=== PATIENT | female | born 1970 | race Caucasian/White ===

== ENCOUNTER 2024-10-22 22:13 | Emergency (ER) | payer OTHER, SELFPAY ==
[2024-10-22 22:15] VITALS: BP 110/72
[2024-10-22] MEDS: ADACEL 0.5 ML IM (23:46)
--- NOTE | 2024-10-22 23:48 | ED.GENMED ---
History of Present Illness
General
Chief Complaint: BURN-MINOR
Source: patient
Exam Limitations: none
Time Seen by Provider: 10/22/24 22:33
Nursing documentation reviewed up to this point in time: agreed with
History of Present Illness
History of Present Illness:
54-year-old female with history as documented presents for minor hand burn. She is right-handed. Picked up a hot plate tonight with her right hand and suffered bryan to the tips of her thumb, index, middle finger on the right. Has tiny blisters
in this area. She said she rinsed with cold water and came to the ER to be assessed. Unsure of her last tetanus. No other injuries or issues.
Review of Systems
Review of Systems
All Other Systems: ROS reviewed and negative except as documented in HPI and ROS
Skin: Reports other (Hand burn)
Phy Exam
Physical Exam
Physical Exam:
General: Well appearing and non-toxic
HEENT: protecting airway
Neck: appears supple
CV: No evidence of cyanosis
Resp: No accessory muscle use
Abd: Non-distended
Extremities: No deformities
Neuro: Alert
Psych: Normal affect
Skin: Very minor superficial burn to the pad of the right thumb and the medial aspect of the distal index and middle finger with tiny blisters on each finger; no sloughing of the skin, no significant swelling
Scores
Heart Failure Risk
Heart Failure Risk Score: Not Applicable
Heart Score for Chest Pain Patients
STEMI patient?: Not applicable
Withdrawal Assessment of Alcohol
Withdrawal Assessment Completed?: Not applicable
Course
Orders/Labs/Results
Orders:
Orders
10/22/24 23:35
Tetanus/Diphth/Acelpertussis [Adacel] 0.5 ml IM .ONCE ONE
Vital Signs
Initial and Last Documented VS:
Initial Vital Signs
Temp Pulse Resp BP Pulse Ox
37.6 C 90 18 110/72 100
10/22/24 22:15 10/22/24 22:15 10/22/24 22:15 10/22/24 22:15 10/22/24 22:15
Last Documented Vital Signs
Temp Pulse Resp BP Pulse Ox
37.6 C 90 18 110/72 100
10/22/24 22:15 10/22/24 22:15 10/22/24 22:15 10/22/24 22:15 10/22/24 22:15
MDM/Problems Addressed
Differential Diagnosis Includes:
Minor thermal bryan
MDM/Problems Addressed:
54-year-old female presents with minor thermal bryan to the tips of her right thumb, index, middle finger. Tiny blisters. Bryan were cleaned and dressed here in the emergency room. Spoke about wound care with patient at length. Updated tetanus.
Stable for discharge.
*Pulse Oximetry
Patient hypoxic: no
*Critical Care Note
Total Time (30-74mins, 75-104mins- exclusive of procedures): Not Applicable
Data Reviewed
Source: patient
ED Attending Note
-
Portions of this chart may have been created with voice recognition software.� Occasional wrong word or��sound alike� substitutions may have occurred due to the inherent limitations of voice recognition software.
Discharge Plan
Departure
Patient Disposition: Home (Routine Discharge)
Date of Disposition: 10/22/24
Time of Disposition: 23:34
Patient with high blood pressure during this ER visit?: No
Discharge Problem:
Burn of hand
Instructions: Skin Bryan (DC)
Referrals:
Chichi Garrison DO [Family Provider] - Follow up in 2-3 days
Activity Restrictions/Additional Instructions:
Thank you for visiting the Emergency Department at [facility].
1. Please schedule a follow up appointment as directed. Call first thing tomorrow morning to make an appointment.
2. If indicated, please take your medications as instructed and indicated on discharge paperwork.
3. If any of your symptoms do not improve, or persist, or become more severe within 6-12 hours, please return to the emergency department for further care.
4. Please return to the emergency department if you develop a headache, neck pain/stiffness, fever greater than 100.4F, chest pain, shortness of breath, persistent nausea, vomiting, slurred speech, difficulty walking, numbness/tingling, weakness,
signs of infection or any other symptoms that are worrisome to you.
Please call [phone] if you have any questions.
Interventions
Interventions:
*Risk Screen - Suicide Last Done: 10/22/24 22:15
*Neglect/Abuse Screening Last Done: 10/22/24 22:15
ED- Fall Risk Assessment Last Done: 10/22/24 22:38
ED-Skin Assessment Last Done: 10/22/24 22:38
Discharge Date and Time
Print Language: UZBEK
== END 2024-10-22 23:52 | disposition home or self-care (01) ==
LOC: EMR 22:13
PROVIDERS: EMERGENCY PHYSICIAN Emergency Medicine; FAMILY PHYSICIAN Family Medicine
DX: T23.241A Burn of second degree of multiple right fingers (nail), including thumb, initial encounter (principal); X15.2XXA Contact with hotplate, initial encounter; Z23 Encounter for immunization
CPT/HCPCS: 16020; 90471; 99282; 90715

== ENCOUNTER 2025-01-31 18:11 | Emergency (ER) | payer OTHER, SELFPAY ==
[2025-01-31 18:13] VITALS: BP 169/94
[2025-01-31 18:14] VITALS: BP 169/94
--- NOTE | 2025-01-31 18:23 | ED.GENMED ---
History of Present Illness
General
Chief Complaint: Abdominal Symptoms
Time Seen by Provider: 01/31/25 18:13
History of Present Illness
History of Present Illness:
54-year-old female with history of of alcoholic cirrhosis presents the emergency department for evaluation of intractable nausea vomiting and diarrhea for the past 2 to 3 days. Has been unable to tolerate p.o. fluids today. Reports generalized
abdominal pain that is worse when vomiting. No hematemesis or melena. Notes that she has not been compliant with several of her chronic prescription medications due to the symptoms and also does not have well-established primary care as an
outpatient. No fevers or chills. Denies history of abdominal surgeries
Review of Systems
Review of Systems
Allergies reviewed?: Yes
All Other Systems: ROS reviewed and negative except as documented in HPI and ROS
Phy Exam
Physical Exam
Physical Exam:
GEN: Well appearing, NAD, WDWN
HEENT: Oral mucosa moist, no scleral icterus
Cardiac: Regular rate
Lung: No respiratory distress, no tachypnea
Abdomen: Soft, grossly nontender to palpation
MSK: No gross deformity or injuries
Skin: Good color, no pallor or jaundice, no rashes
Neuro: AO x3, moves all extremities freely
Psych: Calm, cooperative
Course
Orders/Labs/Results
Orders:
Orders
01/31/25 18:23
0.9% Sodium Chloride 1000 ml [Nss] 1,000 ml IV BOLUS
Ondansetron Injectable [Zofran] 4 mg IV NOW STA
01/31/25 18:28
Ammonia Urgent
Complete Blood Count/With Diff Urgent
Comprehensive Metabolic Panel Urgent
Lipase Urgent
01/31/25 18:31
Prothrombin Time Urgent
01/31/25 18:49
COVID-19 Antigen Urgent
Source: Nasal Swab
Influenza A+B Rapid Molecular Urgent
HERBIE Source: Nasal Swab
Specimen Description:
01/31/25 19:55
Metoclopramide [Reglan] 10 mg IV NOW STA
01/31/25 21:47
Urinalysis Reflex To Culture Urgent
Date Specimen was Collected: 01/31/25
Time Specimen was Collected: 21:46
Urine Microscopic Reflex Cult Urgent
Urine Culture Urgent
EHRBIE Source: U
Specimen Description:
Date Specimen was Collected: 01/31/25
Time Specimen was Collected: 21:46
01/31/25 22:21
Clonazepam [Klonopin] 0.5 mg PO NOW STA
Ondansetron Orally Disint [Zofran Odt (Orally Disintegrating)] 4 mg PO NOW STA
Abnormal Lab Results
01/31/25 01/31/25 01/31/25
18:28 18:31 21:47
RBC 5.46 H 10^6/uL
(4.20-5.40)
MCV 77.7 L fL
(81.0-99.0)
MCH 23.4 L pg
(27.0-31.0)
MCHC 30.2 L g/dL
(33.0-37.0)
RDW 21.5 H %
(11.5-14.5)
Absolute Lymphs (auto) 1.0 L 10^3/uL
(1.2-3.4)
Neutrophils % 76.9 H %
(42.2-75.2)
Lymphocytes % 14.2 L %
(20.5-51.1)
PT 14.8 H Sec
(11.4-14.6)
Chloride 93 L mmol/L
(98-107)
Glucose 125 H mg/dl
(70-99)
Calcium 10.7 H mg/dl
(8.4-10.2)
Total Bilirubin 1.4 H mg/dl
(0.2-1.3)
AST 63 H U/L
(14-36)
Alkaline Phosphatase 243 H U/L
(38-126)
Total Protein 8.7 H g/dl
(6.3-8.2)
Urine Ketones 3+ A
(Negative)
Urine Bilirubin 1+ A
(Negative)
Leukocyte Esterase Rfl 1+ A
(Negative)
Urine Bacteria (Reflex) Moderate A
(Negative)
Urine Albumin (Reflex) 2+ A
(Neg - Trace)
01/31/25 18:28
01/31/25 18:28
Vital Signs
Initial and Last Documented VS:
Initial Vital Signs
Temp Pulse BP Pulse Ox
98.0 F 69 169/94 100
01/31/25 18:13 01/31/25 18:13 01/31/25 18:13 01/31/25 18:13
Last Documented Vital Signs
Temp Pulse Resp BP Pulse Ox
98.0 F 62 21 151/77 95
01/31/25 18:13 01/31/25 21:00 01/31/25 21:00 01/31/25 22:00 01/31/25 22:00
MDM/Problems Addressed
MDM/Problems Addressed:
Likely self-limited viral syndrome. She was treated with IV fluids and antiemetics with good improvement in the emergency department. Tolerating p.o. fluids at time of discharge. No indication for imaging as abdominal exam is benign and labs are
reassuring
*Critical Care Note
Total Time (30-74mins, 75-104mins- exclusive of procedures): Not Applicable
ED Attending Note
-
Portions of this chart may have been created with voice recognition software.� Occasional wrong word or��sound alike� substitutions may have occurred due to the inherent limitations of voice recognition software.
Discharge Plan
Departure
Patient Disposition: Home (Routine Discharge)
Date of Disposition: 01/31/25
Time of Disposition: 22:22
Patient with high blood pressure during this ER visit?: No
Discharge Problem:
Nausea and vomiting
Instructions: Nausea and Vomiting, Adult (DC)
Prescriptions:
New
ondansetron 4 mg tablet,disintegrating
4 mg PO TIDPRN PRN (Reason: nausea/vomiting) Qty: 10 0RF
No Action
polyethylene glycol 3350 [Miralax] 17 gram Powder In Packet
17 g PO HS
cetirizine 10 mg Tablet
10 mg PO DAILY
clonazepam 0.5 mg Tablet
0.5 mg PO QID
Patient Comments:
01/31/25: Last filled 01/15/25 for 60 tablets over 30 days, patient stated she is up to 4 times a day
ferrous sulfate 325 mg (65 mg iron) Tablet
325 mg PO DAILY
dextroamphetamine-amphetamine 15 mg Tablet
15 mg PO BID
nadolol 40 mg Tablet
40 mg PO DAILY
hydrochlorothiazide 25 mg Tablet
25 mg PO HS
zolpidem 10 mg Tablet
10 mg PO HS
albuterol sulfate 90 mcg/actuation Hfa Aerosol Inhaler
2 puff INHALATION R BID
fluticasone propionate [Flonase] 50 mcg/actuation [place],Suspension
2 spray INTRANASAL BID
bupropion HCl 300 mg Tablet Extended Release 24 Hr
300 mg PO DAILY
Referrals:
Chichi Garrison DO [Family Provider] -
Interventions
Interventions:
*Risk Screen - Suicide Last Done: 01/31/25 18:42
*General Assessment Last Done: 01/31/25 18:42
*Neglect/Abuse Screening Last Done: 01/31/25 18:42
*ED- Fall Risk Assessment Last Done: 01/31/25 18:42
*ED COVID-19 Vaccine History Last Done: 01/31/25 18:42
*Nursing Disposition Last Done: 01/31/25 22:46
ZX-Txahhu-Mstajiauve Assessment Last Done: 01/31/25 18:46
Discharge Date and Time
Discharge Date/Time: 01/31/25 22:48
Print Language: UGANDAN
[2025-01-31] MEDS: NSS 1000 IV (18:33)
[2025-01-31] MEDS: ZOFRAN 4 MG IV (18:34)
[2025-01-31 18:38] LABS: % Basophils 0.6 % (0-2); % Eosinophils 0.4 % (0-6); % Immature Granulocytes 0.3 % (0-0.5); % Lymphocytes 14.2 % (20.5-51.1); % Monocytes 7.6 % (1.7-9.3); % Neutrophils 76.9 % (42.2-75.2); Absolute Monocytes 0.5 10^3/uL (0.1-0.6); Absolute Neutrophils 5.4 10^3/uL (1.4-6.5); Hematocrit 42.4 % (37.0-47.0); Hemoglobin 12.8 g/dL (12.0-16.0); Mean Corp Hgb Conc. 30.2 g/dL (33.0-37.0); Mean Corpuscular Hgb 23.4 pg (27.0-31.0); Mean Corpuscular Volume 77.7 fL (81.0-99.0); Mean Platelet Volume 9.2 fL (7.4-10.4); Nucleated Red Blood Cells % 0 %; Platelet Count 253 10^3/uL (130-400); Red Blood Cell Count 5.46 10^6/uL (4.20-5.40); Red Cell Dist. Width 21.5 % (11.5-14.5)
[2025-01-31 18:41] VITALS: BMI 21.4
[2025-01-31 18:47] LABS: Ammonia 18 umol/L (9-30)
[2025-01-31 18:51] LABS: ALT (SGPT) 30 U/L (0-35); AST (SGOT) 63 U/L (14-36); Albumin 4.7 g/dl (3.5-5.0); Alkaline Phosphatase 243 U/L (38-126); Blood Urea Nitrogen 17 mg/dl (7-17); Calcium 10.7 mg/dl (8.4-10.2); Carbon Dioxide 22 mmol/L (22-30); Chloride 93 mmol/L (98-107); Estimated Creatinine Clearance 64 ml/min; Glucose 125 mg/dl (70-99); Lipase 102 U/L (23-300); Potassium 3.9 mmol/L (3.5-5.1); Sodium 136 mmol/L (135-145); Total Bilirubin 1.4 mg/dl (0.2-1.3); Total Protein 8.7 g/dl (6.3-8.2); eGFR > 60.00
[2025-01-31 18:55] LABS: INR 1.11; PT 14.8 Sec (11.4-14.6)
[2025-01-31 19:00] VITALS: BP 139/103
[2025-01-31 19:11] LABS: COVID-19 Antigen Negative (Negative)
[2025-01-31] MEDS: REGLAN 10 MG IV (20:30)
[2025-01-31 21:00] VITALS: BP 158/75
[2025-01-31 21:55] LABS: Urine Albumin 2+ (Neg - Trace); Urine Bilirubin 1+ (Negative); Urine Character Slightly Cloudy (Clear); Urine Color Yellow; Urine Glucose Negative (Negative); Urine Ketone 3+ (Negative); Urine Leukocyte 1+ (Negative); Urine Nitrite Negative (Negative); Urine Occult Blood Negative (Negative); Urine Specific Gravity 1.025 (<1.030); Urine Urobilinogen 1+ (Neg - 1+)
[2025-01-31 22:00] VITALS: BP 151/77
[2025-01-31 22:17] LABS: Urine Bacteria Moderate (Negative); Urine Red Blood Cell 0-2 /HPF (0-2); Urine Squamous Cell >30 /LPF (Few)
[2025-01-31] MEDS: ZOFRAN ODT (ORALLY DISINTEGRATING) 4 MG PO (22:33)
[2025-01-31] MEDS: KLONOPIN 0.5 MG PO (22:33)
== END 2025-01-31 22:48 | disposition home or self-care (01) ==
LOC: EMR 18:11
PROVIDERS: Physician Assistant; EMERGENCY PHYSICIAN Emergency Medicine; FAMILY PHYSICIAN Family Medicine
DX: R11.2 Nausea with vomiting, unspecified (principal); R19.7 Diarrhea, unspecified; R10.84 Generalized abdominal pain; K70.30 Alcoholic cirrhosis of liver without ascites; Z11.52 Encounter for screening for COVID-19
CPT/HCPCS: 96374; 96375; 96361; 99284; 80053; 81003; 81015; 82140; 83690; 85025; 85610; 87086; 87502; 87811

== ENCOUNTER 2025-03-25 15:48 | Observation (INO) | payer OTHER, SELFPAY ==
[2025-03-25 04:51] VITALS: BP 118/74
--- NOTE | 2025-03-25 07:15 | ED.GENMED ---
History of Present Illness
General
Chief Complaint: Breathing Problem
Source: patient and ambulance crew
Time Seen by Provider: 03/25/25 06:51
History of Present Illness
History of Present Illness:
54-year-old female with past medical history of alcoholic liver cirrhosis, previous alcohol abuse with alcoholic liver cirrhosis, bipolar disorder presenting [facility] emergency department [facility] for a multitude of reasons,
patient unable to specify exact reason as she has somewhat rambling speech, noting she was recently at [facility] for a fall, had been unable to ambulate and get up off the ground and was transferred from home to the emergency department there
where she was ultimately admitted. Patient unable to tell me much about the admission from [facility] but was told she needed rehab and is currently at a rehab facility (patient unable to tell me the name of this facility) and stating that she
believes she has pneumonia. When asked why she believes she has pneumonia patient states they are giving her a medication called lactulose and that it is making her 'poop fiber'. Patient states that she was also not supposed to start rehab and
that they are letting her walk unattended and that this is not something that she should be doing. When asked what brought her to the emergency department here today patient is unable to answer the question and just has rambling speech without any
linear thought.
Past History
Past History
ED Past Medical History: Psychiatric and Other (Alcoholic liver cirrhosis)
ED Past Surgical History: None
Social History
Tobacco: Former smoker
Alcohol: Chronic alcoholic
Drug: None
Personal: Single
Living: with roommate
Review of Systems
Review of Systems
All Other Systems: ROS reviewed and negative except as documented in HPI and ROS
Phy Exam
Physical Exam
Physical Exam:
GENERAL: Alert , in no apparent distress, speaking full sentences, no respiratory distress
HEAD: Normocephalic atraumatic
EYE: Clear conjunctiva
NECK: Supple
ENT: o/p clr, mmm.
CARDIAC: Regular rate and rhythm .
LUNGS: Clear breath sounds bilaterally, no acute respiratory distress, no wheezes/rales/rhonchi
ABDOMEN: Soft, without focal tenderness, no r/g, no cvat
NEUROLOGICAL: Alert and oriented to person place and time, will answer questions but is very tangential in her thought process/answers
SKIN: Warm and dry, skin intact.
MUSCULOSKELETAL: No edema, well perfused.
PSYCH: Bizarre affect
Scores
Heart Failure Risk
Heart Failure Risk Score: Not Applicable
Heart Score for Chest Pain Patients
STEMI patient?: Not applicable
Withdrawal Assessment of Alcohol
Withdrawal Assessment Completed?: Not applicable
Course
Orders/Labs/Results
Orders:
Orders
03/25/25 07:09
CR Chest Portable - 1 View Urgent
Comment:
Reason For Exam: SOB
Reason Study Needs to be Portable: Unable to Transport
03/25/25 08:02
Ammonia Urgent
Complete Blood Count/With Diff Urgent
Comprehensive Metabolic Panel Urgent
Magnesium Urgent
TSH Urgent
Urinalysis Reflex To Culture Urgent
Date Specimen was Collected: 03/25/25
Time Specimen was Collected: 08:01
Urine Microscopic Reflex Cult Urgent
Urine Culture Urgent
HERBIE Source: U
Specimen Description:
Date Specimen was Collected: 03/25/25
Time Specimen was Collected: 08:01
03/25/25 08:34
US Abdomen Complete/Upper Urgent
Comment:
Reason For Exam: abnormal LFT, hx cirrhosis
03/25/25 10:41
CefTRIAXone [Rocephin] 1,000 mg IV NOW STA
03/25/25 12:32
Diphenhydramine [Benadryl] 25 mg PO NOW STA
Abnormal Lab Results
03/25/25
08:02
MCHC 32.0 L g/dL
(33.0-37.0)
RDW 22.5 H %
(11.5-14.5)
MPV 10.9 H fL
(7.4-10.4)
Absolute Lymphs (auto) 0.9 L 10^3/uL
(1.2-3.4)
Lymphocytes % 16.3 L %
(20.5-51.1)
Monocytes % 9.6 H %
(1.7-9.3)
Chloride 112 H mmol/L
(98-107)
Carbon Dioxide 17 L mmol/L
(22-30)
Total Bilirubin 3.3 H mg/dl
(0.2-1.3)
AST 120 H U/L
(14-36)
ALT 43 H U/L
(0-35)
Alkaline Phosphatase 252 H U/L
(38-126)
Ammonia 34 H umol/L
(9-30)
Albumin 3.3 L g/dl
(3.5-5.0)
Urine Ketones 1+ A
(Negative)
Ur Occult Blood Reflex 1+ A
(Negative)
Urine Nitrite (Reflex) Positive A
(Negative)
Urine Bilirubin 2+ A
(Negative)
Leukocyte Esterase Rfl 1+ A
(Negative)
Urine Bacteria (Reflex) Moderate A
(Negative)
Urine Albumin (Reflex) 2+ A
(Neg - Trace)
03/25/25 08:02
03/25/25 08:02
Vital Signs
Initial and Last Documented VS:
Initial Vital Signs
Temp Pulse Resp BP Pulse Ox
97.2 F 92 20 118/74 100
03/25/25 04:51 03/25/25 04:51 03/25/25 04:51 03/25/25 04:51 03/25/25 04:51
Last Documented Vital Signs
Temp Pulse Resp BP Pulse Ox
97.2 F 90 17 118/74 99
03/25/25 04:51 03/25/25 10:00 03/25/25 07:30 03/25/25 04:51 03/25/25 10:00
MDM/Problems Addressed
Differential Diagnosis Includes:
encephalopathy secondary to known chronic liver disease, electrolyte derangement, urinary tract infection, psychosis, delirium
MDM/Problems Addressed:
54-year-old female presenting to the ER from [facility] for relatively unknown reasons, patient with very tangential thought process, difficult to redirect. In evaluating the patient she did mention she was concerned for pneumonia however has
no upper respiratory symptoms. Will check labs including electrolytes, ammonia level, TSH. Will attempt to obtain urinalysis. Disposition pending.
Chronic conditions affecting care: Psychiatric illness
Acute Exacerbation and/or Progression of Chronic Illness: Psychiatric illness
*Radiology
Radiology exam reviewed: radiology read reviewed
*Pulse Oximetry
Patient hypoxic: no
*Critical Care Note
Total Time (30-74mins, 75-104mins- exclusive of procedures): Not Applicable
Data Reviewed
Review of Other/Old Records Reveals: Labs and Records
Comment
Comment:
8:45 AM: Patient's urine is nitrite positive and 1+ leukocytes however there are only 3-5 WBCs. Question urinary tract infection, will send for culture. She also has abnormal chemistry with her bicarb of 17, total bilirubin of 3.3 and elevated
AST/ALT and alkaline phosphatase. These are elevated from labs done this past January. Will obtain an ultrasound to further evaluate. Question cholangitis as potential cause for change in mental status. Patient to likely be admitted. I have
attempted to contact [facility] multiple times but only get to leave a voice message and not able to speak with any of the nursing staff.
Patient Management
Discussion with other providers: Hospitalist
Escalation/DeEscalation of care consider admission/obs:
Given patient's lab abnormalities, change in mental status and questionable urinary tract infection will admit for antibiotic management and further evaluation. Still attempting to get records from [facility] but this has been unsuccessful. I
still have yet to receive a call back from [facility]. Hospitalist team was notified and accepts for continued evaluation and treatment.
ED Attending Note
-
Portions of this chart may have been created with voice recognition software.� Occasional wrong word or��sound alike� substitutions may have occurred due to the inherent limitations of voice recognition software.
Discharge Plan
Departure
Patient Disposition: Admit
Date of Disposition: 03/25/25
Time of Disposition: 10:41
Presentation/result/management discussed w/ accepting MD/DO: Hospitalist
Discharge Problem:
Altered mental status, Encephalopathy, UTI (urinary tract infection), Transaminitis
Prescriptions:
No Action
polyethylene glycol 3350 [Miralax] 17 gram Powder In Packet
17 g PO HS
cetirizine 10 mg Tablet
10 mg PO DAILY
clonazepam 0.5 mg Tablet
0.5 mg PO QID
Patient Comments:
01/31/25: Last filled 01/15/25 for 60 tablets over 30 days, patient stated she is up to 4 times a day
ferrous sulfate 325 mg (65 mg iron) Tablet
325 mg PO DAILY
dextroamphetamine-amphetamine 15 mg Tablet
15 mg PO BID
nadolol 40 mg Tablet
40 mg PO DAILY
hydrochlorothiazide 25 mg Tablet
25 mg PO HS
zolpidem 10 mg Tablet
10 mg PO HS
albuterol sulfate 90 mcg/actuation Hfa Aerosol Inhaler
2 puff INHALATION R BID
fluticasone propionate [Flonase] 50 mcg/actuation [place],Suspension
2 spray INTRANASAL BID
bupropion HCl 300 mg Tablet Extended Release 24 Hr
300 mg PO DAILY
ondansetron 4 mg tablet,disintegrating
4 mg PO TIDPRN PRN (Reason: nausea/vomiting) Qty: 10 0RF
Referrals:
Dieudonne-Dye,Chichi, [Family Provider] -
Interventions
Interventions:
*Risk Screen - Suicide Last Done: 03/25/25 04:51
*General Assessment Last Done: 03/25/25 07:51
*Neglect/Abuse Screening Last Done: 03/25/25 04:51
*ED COVID-19 Vaccine History Last Done: 03/25/25 07:51
Discharge Date and Time
Print Language: YAKUT
[2025-03-25 07:51] VITALS: BMI 21.4
[2025-03-25 08:00] VITALS: BP 107/48
[2025-03-25 08:16] LABS: Urine Albumin 2+ (Neg - Trace); Urine Bilirubin 2+ (Negative); Urine Character Clear (Clear); Urine Color Amber; Urine Glucose Negative (Negative); Urine Ketone 1+ (Negative); Urine Leukocyte 1+ (Negative); Urine Nitrite Positive (Negative); Urine Occult Blood 1+ (Negative); Urine Specific Gravity 1.025 (<1.030); Urine Urobilinogen 1+ (Neg - 1+)
[2025-03-25 08:23] LABS: % Basophils 1.8 % (0-2); % Eosinophils 1.8 % (0-6); % Immature Granulocytes 0.4 % (0-0.5); % Lymphocytes 16.3 % (20.5-51.1); % Monocytes 9.6 % (1.7-9.3); % Neutrophils 70.1 % (42.2-75.2); Absolute Basophils 0.1 10^3/uL (0-0.2); Absolute Eosinophils 0.1 10^3/uL (0-0.7); Absolute Lymphocytes 0.9 10^3/uL (1.2-3.4); Absolute Monocytes 0.6 10^3/uL (0.1-0.6); Hematocrit 39.1 % (37.0-47.0); Hemoglobin 12.5 g/dL (12.0-16.0); Mean Corpuscular Hgb 27.2 pg (27.0-31.0); Mean Corpuscular Volume 85.2 fL (81.0-99.0); Mean Platelet Volume 10.9 fL (7.4-10.4); Nucleated Red Blood Cells % 0 %; Platelet Count 189 10^3/uL (130-400); Red Blood Cell Count 4.59 10^6/uL (4.20-5.40); Red Cell Dist. Width 22.5 % (11.5-14.5); White Blood Cell Count 5.7 10^3/uL (4.8-10.8)
[2025-03-25 08:31] LABS: ALT (SGPT) 43 U/L (0-35); AST (SGOT) 120 U/L (14-36); Albumin 3.3 g/dl (3.5-5.0); Alkaline Phosphatase 252 U/L (38-126); Blood Urea Nitrogen 8 mg/dl (7-17); Calcium 9.2 mg/dl (8.4-10.2); Carbon Dioxide 17 mmol/L (22-30); Chloride 112 mmol/L (98-107); Estimated Creatinine Clearance 85 ml/min; Glucose 90 mg/dl (70-99); Magnesium 1.7 mg/dl (1.6-2.3); Sodium 137 mmol/L (135-145); Total Bilirubin 3.3 mg/dl (0.2-1.3); Total Protein 6.8 g/dl (6.3-8.2); eGFR > 60.00
[2025-03-25 08:39] LABS: Urine Squamous Cell 26-30 /LPF (Few)
[2025-03-25 08:41] LABS: Urine Bacteria Moderate (Negative); Urine Calcium Oxalate Crystals Present; Urine Red Blood Cell 0-2 /HPF (0-2)
[2025-03-25 09:00] VITALS: BP 114/78
[2025-03-25 09:49] LABS: Ammonia 34 umol/L (9-30)
[2025-03-25] MEDS: ROCEPHIN 1000 MG IV (11:32)
[2025-03-25 11:45] LABS: Normal RBC Morphology No
[2025-03-25 11:46] LABS: Anisocytosis 1+; Hypochromasia 1+; Microcytosis 1+; Target Cells 1+
--- NOTE | 2025-03-25 12:17 | EDRN ---
Patient called out for help despite having the call grossman on her lap, patient stated she needs medicine for her itchy skin. This RN left to speak to PA about ordering meds for patient, at that time the patient climbed out of bed and walked to the
bathroom without assistance despite stating ' I can not walk, my legs don't work.' This RN educated patient on not getting oob without assistance.
[2025-03-25] MEDS: BENADRYL 25 MG PO (12:48)
--- NOTE | 2025-03-25 14:25 | HPS.HSE ---
Family Physician
-
Family Physician: Chcihi Garrison
Chief Complaint
-
change in mental status
History of Present Illness
Patient is a 54-year-old female with past medical history significant for anemia, alcoholic liver cirrhosis, previous alcohol abuse with alcoholic liver cirrhosis, anxiety, ADHD and bipolar disorder who presented to [facility] ED from [facility] for
evaluation of change in mental status. Patient with recent hospitalization at [facility] s/ with generalized weakness and sent to [facility] for rehab. Patient unable to provide good history r/t confusion. She does report
hospitalization at [facility] fall but unable to provide details of why they kept her. She reports that she has been staying at a 'house' that is open to sick people 3 days a week and reports they have not been helping her and reports that
anytime she gets out of bed her feet trigger an alarm and sees mice on floor. She presents paranoid with possible hallucinations. Patient reports that she has increased urinary frequency. Denies fever, chills, cough, shortness of breath, chest pain,
nausea, vomiting, constipation or diarrhea.
Medical History
Past Medical History
Past Medical History: Reports Other
Additional Past Medical History:
anemia
alcoholic liver cirrhosis
previous alcohol abuse with alcoholic liver cirrhosis
bipolar disorder
anxiety
ADHD
Past Surgical History: Reports None (unable to obtain )
Social History
Unable to obtain full social history at this time due to: Other (patient poor historian )
Tobacco: Non-smoker
Alcohol: Former (has not drank in years)
Drug: Marijuana (smokes nightly to help sleep )
Living: Alone
Employment: Not Employed
Family History
Family History: Other (Mother: Parkinson's Disease and Dementia )
Allergies / Home Medications
Allergies reflects when Allergies were last updated in [facility].
Home Medications with original date entered in [facility]
Allergy/Medication List:
Allergies
Allergy/AdvReac Type Severity Reaction Status Date / Time
No Known Allergies Allergy Verified 01/31/25 18:18
Home Medications
clonazepam 0.5 mg tablet 1 mg PO TID 01/31/25
ferrous sulfate 325 mg (65 mg iron) tablet 325 mg PO DAILY 01/31/25
fluticasone propionate 50 mcg/actuation nasal spray,suspension 2 spray intranasal DAILY 01/31/25
nadolol 40 mg tablet 40 mg PO DAILY 01/31/25
acetaminophen 325 mg tablet 650 mg PO Q4H PRN mild pain/fever>100.0 03/25/25
bisacodyl 10 mg rectal suppository (Dulcolax (bisacodyl)) 10 mg DE DAILY PRN constipation 03/25/25
budesonide-formoterol HFA 160 mcg-4.5 mcg/actuation aerosol inhaler 2 puff inhalation BID 03/25/25
dextroamphetamine-amphetamine 20 mg tablet 20 mg PO BID 03/25/25
lactulose 10 gram/15 mL oral solution 30 ml PO TID 03/25/25
magnesium hydroxide 400 mg/5 mL oral suspension (Milk of Magnesia) 30 ml PO DAILY PRN constipation 03/25/25
rifaximin 550 mg tablet 550 mg PO BID 03/25/25
sodium phosphates 19 gram-7 gram/118 mL enema (Fleet Enema) 118 ml DE DAILYPRN PRN constipation 03/25/25
Review of Systems
-
History Source: Patient (poor historian, offers no complaints other than generalized weakness )
Neurological: Reports Weakness (generalized )
Physical Exam
Vital Signs
Vital Signs
Temp Pulse Resp BP Pulse Ox
97.2 F 90 17 118/74 99
03/25/25 04:51 03/25/25 10:00 03/25/25 07:30 03/25/25 04:51 03/25/25 10:00
Physical Exam
General: Well Developed, No Apparent Distress, Comfortable and Conversant
HEENT: NormoCephalic, Moist mucous membranes, Atraumatic, [place] Conjunctivae, Nose Appears Normal and Ears Appear Normal
Respiratory: Clear
Cardiac: S1/S2 and Regular Rhythm
Breast: Deferred by me
GI: Soft, Non Tender, Non Distended and Normal Bowel Sounds; No Organomegaly
Rectal: Deferred by Provider
Genito-urinary: Deferred by me
Musculoskeletal: No Clubbing, No Cyanosis and No Edema
Skin: Warm and IV/Catheter Site
Neuro: Awake, Alert, Oriented (2-3) and Nonfocal/grossly intact
Psych: Calm and Confused
Laboratory Results
-
03/25/25 08:02
03/25/25 08:02
Laboratory Results
Total Bilirubin 3.3 mg/dl (0.2-1.3) H 03/25/25 08:02
AST 120 U/L (14-36) H 03/25/25 08:02
ALT 43 U/L (0-35) H 03/25/25 08:02
Alkaline Phosphatase 252 U/L (38-126) H 03/25/25 08:02
Data Reviewed
-
Diagnostic Radiology: Report Reviewed by me (CXR: No acute cardiopulmonary abnormality.)
Ultrasound: Report Reviewed by me (Abd: Cirrhotic morphology with findings of portal hypertension hepatofugal flow portal venous flow and splenomegaly. Further evaluation with dedicated MRI abdomen may be considered for evaluation of underlying
lesion. Biliary sludge without sonographic findings of acute cholecystitis. There is no b)
Lab Data: Labs Reviewed by me (HCO3 17, Tot Bili 3.3, AST 120, ALT 43, Alk Phos 252, Ammonia 34)
Impression/Plan
-
IMPRESSION/PLAN:
#change in mental status 2/2 hepatic encephalopathy vs UTI
HCO3 17, Tot Bili 3.3, AST 120, ALT 43, Alk Phos 252, Ammonia 34
UA: suggestive of possible UTI
Urine culture: pending
CXR: No acute cardiopulmonary abnormality.
Abd US: Cirrhotic morphology with findings of portal hypertension hepatofugal flow portal venous flow and splenomegaly. Further evaluation with dedicated MRI abdomen may be considered
for evaluation of underlying lesion.
Biliary sludge without sonographic findings of acute cholecystitis. There is no biliary duct dilation.
- Admit to med/surg
- IV Rocephin
- I & Os
- supportive care
#Anemia
hgb 12.5, hct 39.1
- continue ferrous sulfate
#alcoholic liver cirrhosis
#previous alcohol abuse
- continue lactulose, nadolol and rifaximin
#bipolar disorder
#anxiety
- continue clonazepam
#ADHD
- hold dextroamphetamine-amphetamine can resume at home
Code status: full code
DVT prophylaxis: Lovenox sq
[2025-03-25 15:00] VITALS: BP 109/72
[2025-03-25 15:37] VITALS: BP 121/82
--- NOTE | 2025-03-25 15:54 | W.PN.UPDATE ---
Update Note
Progress Note Update
This is an addendum to H&P written by Sammie Sue on 03/25/2025.� Patient seen and examined independently with MACHINE SKIVER.
54-year-old female past medical history of alcoholic cirrhosis, prior alcohol use disorder, bipolar disorder, anxiety, ADHD, anemia, presenting with shortness of breath.� She was recently admitted [facility] for a fall and admitted there.� She
states she is from rehab facility and believes they are not taking care of her.� She complained of shortness of breath and cough today.� Patient is giving questionable history stating that she is having 6 bowel movements over the past day taking
lactulose.� Apparently was seeing mice.
Also complaining of urinary incontinence.
Vital signs normal.� Labs show ammonia level of 34.� Worsening transaminitis with bilirubin up to 3.3.� Bicarb of 17.
Chest x-ray unremarkable.� Urinalysis not convincing for infection.� Abdominal ultrasound shows cirrhotic morphology findings of portal hypertension, biliary sludge without acute cholecystitis.� No biliary ductal dilatation.
Suspect patient has hepatic encephalopathy due to progressive cirrhosis, and history that she is providing is unreliable with rambling speech.� Records from [facility] pending.� Will continue lactulose and rifaximin and monitor bowel movements.�
Will treat empirically for UTI with ceftriaxone given she is having urinary incontinence although doubt UTI.� Check lactate level due to metabolic acidosis which could be from elevated ammonia.
[2025-03-25] MEDS: LOVENOX 40 MG SC (17:26)
[2025-03-25] MEDS: ATARAX 25 MG PO ×2 (17:26→20:04)
[2025-03-25] MEDS: DUPHALAC/CHRONULAC 20 GRAMS PO ×2 (17:26→21:15)
--- NOTE | 2025-03-25 19:15 | PTCARENOTE ---
Pt received from day shift RN at 1915. Pt pleasant, AAOx3, and VSS. Pt bed in lowest position and call grossman within reach. Pt educated on importance of call grossman usage, pt relays understanding. Bed alarm placed and plugged in. Pt complains of
itchiness all over body. HOME HEALTH CARE COORDINATOR notified - medication ordered and administered - see MAR. Will continue with current plan of care.
[2025-03-25] MEDS: SYMBICORT 160/4.5 MCG INHALER 2 PUFF INH (19:41)
[2025-03-25] MEDS: XIFAXAN 550 MG PO (20:04)
[2025-03-25 23:46] VITALS: BP 105/61
[2025-03-26] MEDS: ATARAX 25 MG PO ×3 (01:06→14:31)
[2025-03-26 07:00] VITALS: BP 101/66
--- NOTE | 2025-03-26 07:21 | W.PN.HOSP.TC ---
Today's Communication/Plan
-
Discharge today
Assessment / Plan
Assessment / Plan
Physical Exam
General: Well Developed, No Apparent Distress, Comfortable and Conversant
HEENT: Normocephalic, Moist mucous membranes
Respiratory: Clear to Auscultation Bilaterally
Cardiac: S1/S2 and Regular Rhythm
GI: Soft, Non Tender, Non Distended and Normal Bowel Sounds
Musculoskeletal: No Cyanosis and No Edema
Skin: Warm. Dry.
Neuro: Awake, Alert, Oriented (2-3) and Nonfocal/grossly intact
Psych: Calm and Confused
Assessment/Plan
54-year-old female with past medical history of alcoholic cirrhosis, prior alcohol use disorder, bipolar disorder, anxiety, ADHD and anemia, presented with shortness of breath. She was recently admitted [facility] for a fall and admitted there.
She stated she is from rehab facility and believes they are not taking care of her. She complained of shortness of breath and cough. Patient is giving questionable history stating that she is having 6 bowel movements over the past day taking
lactulose. Apparently was seeing mice. Also complaining of urinary incontinence. Vital signs normal. Labs showed ammonia level of 34. Worsening transaminitis with bilirubin up to 3.3. Bicarb of 17. Chest x-ray unremarkable. Urinalysis not
convincing for infection. Abdominal ultrasound shows cirrhotic morphology findings of portal hypertension, biliary sludge without acute cholecystitis. No biliary ductal dilatation.
It is suspected that patient has hepatic encephalopathy due to progressive cirrhosis, and history that patient provided was unreliable, given her rambling speech.Will continue lactulose and rifaximin and monitor bowel movements. Will treat
empirically for UTI with ceftriaxone given she is having urinary incontinence although doubt true UTI. Check lactate level due to metabolic acidosis which could be from elevated ammonia.
#change in mental status 2/2 hepatic encephalopathy vs UTI
Altered mental status has improved with Rifaximin and Lactulose, as well as antibiotics --> continue on discharge
Patient is tolerating a diet
UA: suggestive of possible UTI
Urine culture with 10k enterococcus --> doubt this is causing a UTI
CXR: No acute cardiopulmonary abnormality.
Abd US: Cirrhotic morphology with findings of portal hypertension hepatofugal flow portal venous flow and splenomegaly. Further evaluation with dedicated MRI abdomen may be considered
for evaluation of underlying lesion.
Biliary sludge without sonographic findings of acute cholecystitis. There is no biliary duct dilation.
- Admit to med/surg
- IV Rocephin, transition to Cefpodoxime 200 mg BID on discharge to complete 7 days for UTI treatment
- I & Os
- supportive care
- Follow-up with Dr. Garcia dispatcher relay
- Patient at current condition is a higher risk for falls, patient understands this but would still like to go home, she said she will have support from a friend there
#Shortness of breath?
- Resolved
#Itching
- Cholestyramine given in the hospital
#Non-anion gap metabolic acidosis
-From recent diarrhea?
-Improving now
-Recheck CMP outpatient
-Although patient has NAGMA, lactic acid was checked and was normal
#Anemia
hgb 12.5, hct 39.1
- continue ferrous sulfate
#alcoholic liver cirrhosis
#previous alcohol abuse
-Clinically, patient does not have ascites
- continue lactulose, nadolol and rifaximin
- Ideally, patient should see her primary care physician and taper off her Clonazepam, hold Tylenol for now, may have to hold Flonase
#bipolar disorder
#anxiety
- continue clonazepam -- but this should be tapered outpatient
#ADHD
- hold dextroamphetamine-amphetamine can resume at home
Code status: Full Code
DVT prophylaxis: Lovenox sq
More than 30 minutes spent in discharge including
Final examination of the patient
Summarizing hospital stay
Instructions for continuing care to all relevant caregivers
Preparation of discharge records, prescriptions, and referral forms
Total time spent (in minutes): 36
Anticipated Discharge: Today
Subjective/Interval History
-
Date of Service: March 26, 2025
Patient was seen and examined. Overnight, she reported itching, for which Atarax helped. She also has had loose stools, per patient's nurse.
Objective Data
-
Labs:
Laboratory Results
03/26/25
06:00
WBC Pending
Hgb Pending
Hct Pending
Plt Count Pending
Sodium Pending
Potassium Pending
Chloride Pending
Carbon Dioxide Pending
BUN Pending
Creatinine Pending
Glucose Pending
Calcium Pending
Total Bilirubin Pending
AST Pending
ALT Pending
Alkaline Phosphatase Pending
Vital Signs:
Vital Signs
Temp Pulse Resp BP Pulse Ox
97.6 F 99 16 105/61 98
03/25/25 23:46 03/25/25 23:46 03/25/25 23:46 03/25/25 23:46 03/25/25 23:46
I&O
03/25/25 03/26/25 03/27/25
06:59 06:59 06:59
Intake Total 720 / 720
Balance 720 / 720
[2025-03-26] MEDS: SYMBICORT 160/4.5 MCG INHALER 2 PUFF INH (07:32)
[2025-03-26 08:09] LABS: Ammonia 19 umol/L (9-30)
[2025-03-26] MEDS: XIFAXAN 550 MG PO (08:14)
[2025-03-26] MEDS: FEOSOL 325 MG PO (08:16)
[2025-03-26] MEDS: CORGARD 40 MG PO (08:16)
[2025-03-26] MEDS: DUPHALAC/CHRONULAC 20 GRAMS PO (08:17)
[2025-03-26 08:22] LABS: Mean Corp Hgb Conc. 32.4 g/dL (33.0-37.0); Mean Corpuscular Hgb 27.8 pg (27.0-31.0); Mean Corpuscular Volume 86.1 fL (81.0-99.0); Mean Platelet Volume 10.8 fL (7.4-10.4); Platelet Count 198 10^3/uL (130-400); Red Blood Cell Count 3.95 10^6/uL (4.20-5.40); Red Cell Dist. Width 22.1 % (11.5-14.5); White Blood Cell Count 4.7 10^3/uL (4.8-10.8)
[2025-03-26 08:28] LABS: ALT (SGPT) 40 U/L (0-35); AST (SGOT) 99 U/L (14-36); Albumin 3.1 g/dl (3.5-5.0); Alkaline Phosphatase 231 U/L (38-126); Blood Urea Nitrogen 8 mg/dl (7-17); Calcium 9.1 mg/dl (8.4-10.2); Carbon Dioxide 19 mmol/L (22-30); Chloride 112 mmol/L (98-107); Estimated Creatinine Clearance 85 ml/min; Glucose 96 mg/dl (70-99); Potassium 3.8 mmol/L (3.5-5.1); Sodium 138 mmol/L (135-145); Total Bilirubin 1.9 mg/dl (0.2-1.3); Total Protein 6.5 g/dl (6.3-8.2); eGFR > 60.00
[2025-03-26] MEDS: QUESTRAN 4 GRAM PO (10:56)
[2025-03-26] MEDS: STERILE WATER FOR INJECTION 10 ML IV (12:57)
[2025-03-26] MEDS: ROCEPHIN 1000 MG IV (12:58)
[2025-03-26 15:00] VITALS: BP 98/58
--- NOTE | 2025-03-26 15:53 | CM ---
Addendum entered by Guilherme Pelaez 03/26/25 16:22:
Patient will d/c home today
PT shared patient did well today and is appropriate to d/c home. Offered to issue patient a RW, however, patient prefers a rollator and will order one in the next day or 2 from [employer].
Patient agreeable to [facility], referral sent in [facility]
Sig other at bedside and will transport home
[facility]

Plan: Home today w/ [facility]
Original Note:
Patient seen bedside, initial assessment completed. Patient is a 54-year-old female with past medical history significant for anemia, alcoholic liver cirrhosis, previous alcohol abuse with alcoholic liver cirrhosis, anxiety, ADHD and bipolar
disorder who presented to [facility] from [facility] for evaluation of change in mental status.
Patient reports that she lives alone in a 2 story apartment, resides on the first floor. Independent in all areas, no DME identified. Prev was at [facility] for 2 days. No HC hx reported.
Address, points of contact and insurance verified
PCP: Chichi Dye
Pharmacy: [facility]
Patient currently admitted as obs. OOBS form verbally reviewed, copy given to patient, copy on chart
Patient shared she prefers to go home w/ PT, she has a good friend that is planning to stay w/ her.
PT ordered to evaluate
Updated hospitalist on patient's preference for home
Plan: Will await PT evaluation to cont d/c planning
[2025-03-26 16:14] VITALS: BP 131/83; PULSE 76
--- NOTE | 2025-03-26 17:26 | W.DCSUMMARY ---
Discharge Summary
Discharge Data
Date of Admission: 03/25/25
Date of Discharge: 03/26/25
Total time spent discharging patient (in min): 36
-
Pending Results: No
Hospital Course
54-year-old female with past medical history significant for recent falls (resulting in hospitalization at [facility] followed by discharge to rehab facility), anemia, previous alcohol abuse with alcoholic liver cirrhosis, anxiety, ADHD and bipolar
disorder who presented from [facility] for evaluation of change in mental status. Patient had recently been started on Lactulose and had been having 6 bowel movements per day. She initially reported some shortness of breath and cough from
'mold' at the rehab facility, but these symptoms quickly resolved. She was having some urinary incontinence and started on antibiotics for a possible urinary tract infection (UTI), but the diagnosis of UTI was questionable. Abdominal ultrasound
showed cirrhosis with findings of portal hypertension hepatofugal flow portal venous flow and splenomegaly; also biliary sludge. Patient was started on Rifaximin which she said she had not taken before. Patient's symptoms rapidly improved and her
confusion resolved. Patient's case was discussed with gastroenterology team, and it was decided by both gastroenterology and hospitalist that gastroenterology consult was not needed, and that patient could be continued on Lactulose, Rifaximin and
Cholestyramine (to help with itching). A referral was placed for patient to see a jewelry facer, Dr. Garcia at [facility], recommended by gastroenterology team at [facility]. Patient acknowledge understanding that she would need to follow-up very
closely with her primary care physician and also casual shoe inspector outpatient. Patient was eager to go home, was doing well, and was stable for discharge.
Discharge Plan
-
Patient Disposition: Home with Home Care
Discharge Diagnosis/Procedures: #Change in mental status - RESOLVED - secondary to hepatic encephalopathy versus UTI
#Shortness of breath? - Resolved Spontaneously
#Itching
#Non-anion gap metabolic acidosis
#Anemia
#alcoholic liver cirrhosis
#previous alcohol abuse
#bipolar disorder
#anxiety
#ADHD
Abdominal Ultrasound (as per radiologist's report):
'FINDINGS:
Biliary sludge. negative sonographic Castano's sign. There is no evidence of biliary ductal dilation. The common bile duct measures 3 mm.
Liver length is 18.3. Cm, with top normal considered 18.0 cm. Liver echogenicity appears coarse and heterogeneous. There is caudate lobe hypertrophy. There is reversal flow within the main portal vein.
The spleen appears enlarged with maximum dimension of 13.3 cm.
The pancreas appears within normal limits.
The upper abdominal IVC and the upper abdominal aorta appear normal.
Survey views of both kidneys are obtained with no evidence of mass, calculus, or pelvicalyceal dilation. Right kidney length is 10.2 cm and left kidney length is 10.1 cm.
IMPRESSION:
Cirrhotic morphology with findings of portal hypertension hepatofugal flow portal venous flow and splenomegaly. Further evaluation with dedicated MRI abdomen may be considered for evaluation of underlying lesion.
Biliary sludge without sonographic findings of acute cholecystitis. There is no biliary duct dilation.'
Condition: Good
Diet: As tolerated, Low Sodium and Restrict fluids to 64 oz
Activity: As tolerated
Driving Restrictions: Not until seen by your Dr
Activity Restrictions/Additional Instructions:
Liver doctor: Follow-up with Dr. Chaz Garcia at [facility] (call their office to set up an appointment)
Please make an appointment to see your primary care physician in 1 to 2 days to have your labwork checked and to review your medication list, and hospitalization paperwork.
We discussed tapering off your Clonazepam given your confusion that you had and falls --> discuss with your primary care provider about gradually tapering off your Clonazepam
Do not drive until you discuss with your primary care physician whether or not they think you can drive.
As we discussed, if you have any new symptoms, including but not limited to: confusion, chest pain, SOB, abdominal pain, dizziness, blurry vision, numbness, tingling, please return to the emergency room right away.
Adjust your lactulose to achieve 2 to 3 soft bowel movements per day
The new cholestyramine medication can cause significant long-term side effects including acid buildup in your blood, high cholesterol, bleeding, vitamin deficiency, and constipation. Please discuss with your primary care physician this week (in 1 to
2 days) how long you should continue this medication.
Instructions: Preventing falls in adults, Cholestyramine Resin, Lactulose, Rifaximin, Managing higher risk of falls from your medicines
Referrals:
Chaz Garcia MD [Non-Admitting Privileges] - in two to four weeks
Chichi Garrison DO [Family Provider] - in one to two days (CBC, CMP check. hospital follow-up)
Additional Discharge Medication Instructions: Cefpodoxime and Cholestyramine are new medications.
Acetaminophen stopped for now -- please re-evaluate for possible restart of this medication after discussing with your primary care physician.
Prescriptions:
New
cholestyramine (with sugar) 4 gram Powder In Packet
1 ea PO DAILY Qty: 60 0RF
Rx Instructions:
Administer other medications at least 1 hour before or 4 to 6 hours after cholestyramine.
cefpodoxime 200 mg tablet
200 mg PO Q12H 6 Days Qty: 12 0RF
Continued
clonazepam 0.5 mg Tablet
1 mg PO TID
ferrous sulfate 325 mg (65 mg iron) Tablet
325 mg PO DAILY
nadolol 40 mg Tablet
40 mg PO DAILY
fluticasone propionate 50 mcg/actuation [place],Suspension
2 spray INTRANASAL DAILY
dextroamphetamine-amphetamine 20 mg Tablet
20 mg PO BID
lactulose 10 gram/15 mL Solution
30 ml PO TID
budesonide-formoterol 160-4.5 mcg/actuation Hfa Aerosol Inhaler
2 puff INHALATION BID
rifaximin 550 mg Tablet
550 mg PO BID
magnesium hydroxide [Milk of Magnesia] 400 mg/5 mL Suspension
30 ml PO DAILY PRN (Reason: constipation)
Rx Instructions:
if no bm in 3 days
bisacodyl [Dulcolax (bisacodyl)] 10 mg Suppository
10 mg DE DAILY PRN (Reason: constipation)
Rx Instructions:
if mom ineffective after 24 hrs
Fleet Enema 19-7 gram/118 mL Enema
118 ml DE DAILYPRN PRN (Reason: constipation)
Rx Instructions:
if dulcolax is ineffective after 24hr
Discontinued
acetaminophen 325 mg Tablet
650 mg PO Q4H PRN (Reason: mild pain/fever>100.0)
Discharge Orders:
Discharge Patient (As Directed); Ordered 03/26/25
Ordered By: Fei Nolasco
Discharge Date and Time
Discharge Date/Time: 03/26/25 18:16
Print Language: PARAGUAYAN
--- NOTE | 2025-03-27 11:53 | VNURNOTE ---
Rec'ed message after pt DC'ed that [facility] and [facility] do not accept her insurance. Checked w/ [facility] billing associate, [facility] can accept. [facility] liaison called patient, reviewed services. Reviewed frequency of visits, schedule and homebound
status. Patient is agreeable and understands that visits at home will be 2-3 x per week to assess and teach medical management. Patient is aware that [facility] will contact them for start of care in 1-2 days after discharge from . [facility]
updated.
[facility] referral in [facility].
== END 2025-03-26 18:16 | disposition home health service (06) ==
LOC: 4 WEST ACU 15:48
PROVIDERS: Nurse Practitioner Family; Physician Assistant Medical; ADMITTING PHYSICIAN Hospitalist; ATTENDING PHYSICIAN Hospitalist; EMERGENCY PHYSICIAN Emergency Medicine; FAMILY PHYSICIAN Family Medicine
DX: K70.30 Alcoholic cirrhosis of liver without ascites (principal); K76.82 Hepatic encephalopathy; R06.02 Shortness of breath; E87.20 Acidosis, unspecified; R32 Unspecified urinary incontinence; F10.11 Alcohol abuse, in remission; R79.89 Other specified abnormal findings of blood chemistry; L29.9 Pruritus, unspecified; K76.6 Portal hypertension; B95.2 Enterococcus as the cause of diseases classified elsewhere; F31.9 Bipolar disorder, unspecified; N39.0 Urinary tract infection, site not specified; F41.9 Anxiety disorder, unspecified; D64.9 Anemia, unspecified; F12.90 Cannabis use, unspecified, uncomplicated; R16.1 Splenomegaly, not elsewhere classified; F90.9 Attention-deficit hyperactivity disorder, unspecified type; Z60.2 Problems related to living alone; Z87.440 Personal history of urinary (tract) infections; Z87.891 Personal history of nicotine dependence
CPT/HCPCS: 71045; 76700; 80053; 81003; 81015; 82140; 83605; 83735; 84443; 85025; 85027; 87070; 87077; 87086; 87186; 94640; 96374; 97162; 99285; G0378

== ENCOUNTER 2025-07-23 05:13 | Inpatient (IN) | payer OTHER, SELFPAY ==
[2025-07-23] VITALS (24 sets, daily range): BP systolic 92–149; BP diastolic 62–76; BMI 23.3
--- NOTE | 2025-07-23 02:18 | ED.GENMED ---
History of Present Illness
<Leila Sullivan PA-C - Last Filed: 07/23/25 07:04>
General
Chief Complaint: Rectal Bleeding
Source: patient
Exam Limitations: none
Time Seen by Provider: 07/23/25 02:17
Nursing documentation reviewed up to this point in time: agreed with
History of Present Illness
History of Present Illness:
55-year-old female with past medical history of liver cirrhosis, alcohol use disorder, anxiety, bipolar disorder, presents to the emergency department today with concerns of 3 days of rectal bleeding hematochezia, abdominal pain and vomiting. She
also has lightheadedness and dizziness. She reports this has happened to her in the past and they were not able to identify the location of bleeding at the time. It started as dark tarry stools and progressed to bloody maroon stools tonight. She
does not recall her last drink. Has not had an alcoholic drink the past 3 days or so. She does not have any hematemesis. She is not aware if she has a hx of varcies. She was most recently seen at [place]. She has had multiple endoscopic
procedures in the past.
Past History
<Leila Sullivan PA-C - Last Filed: 07/23/25 07:04>
Past History
ED Past Medical History: Psychiatric and Other (Alcoholic liver cirrhosis)
ED Past Surgical History: None
Social History
Tobacco: Former smoker
Alcohol: Chronic alcoholic
Drug: None
Personal: Single
Living: with roommate
Review of Systems
<Leila Sullivan PA-C - Last Filed: 07/23/25 07:04>
Review of Systems
All Other Systems: ROS reviewed and negative except as documented in HPI and ROS
Phy Exam
<Leila Sullivan PA-C - Last Filed: 07/23/25 07:04>
Physical Exam
Physical Exam:
General: Patient is well appearing and in no acute distress; non-toxic
Skin: Warm and dry, no rashes or lesions
Head: Normocephalic, atraumatic
Eyes: Sclera non-icteric. EOMs intact.
Cardiac: Tachycardia noted otherwise regular rhythm, no murmurs
Peripheral Vascular: No lower extremity swelling or edema
Pulm: Normal respiratory effort, no wheezes, rales, rhonchi
Abdomen: Diffuse nonfocal abdominal tenderness to palpation
Genitourinary: No external lesions. No hemorrhoids. Maroon stool noted in the rectal vault. No segun rectal bleeding.
Neuro: CN II-XII intact, no focal neurologic deficits.
Psychiatric: Appropriate mood and affect.
Course
<Leila Sullivan PA-C - Last Filed: 07/23/25 07:04>
Orders/Labs/Results
Orders:
Orders
07/23/25 02:11
Cardiac Monitoring- Treatment ONCE
IV Insert/Care/Rem.- Treatment PRN
Pulse Ox/spot Check [RESP] Urgent
Quantity: 1
Special Instructions: ON ROOM AIR
07/23/25 02:13
Type+Screen Urgent
Alcohol Urgent
Complete Blood Count/With Diff Urgent
Comprehensive Metabolic Panel Urgent
PTT Urgent
Prothrombin Time Urgent
07/23/25 02:24
0.9% Sodium Chloride 1000 ml [Nss] 1,000 ml IV BOLUS
07/23/25 02:41
Ct Cta A/P W/Wo Urgent
Reason For Exam: diffuse abdominal pain, rectal bleeding
Diphenhydramine [Benadryl] 12.5 mg IV NOW STA
Metoclopramide [Reglan] 10 mg IV NOW STA
Pantoprazole [Protonix IV] 40 mg IV NOW STA
07/23/25 02:45
Blood Bank Products [* Blood Bank Products] Urgent
Blood Bank Products: *Packed RBC Leuko(PRBC's)
Quantity: 2
Transfuse Today: Yes
Reason: Bleeding
07/23/25 02:46
0.9% Sodium Chloride 1000 ml [Nss] 1,000 ml IV BOLUS
07/23/25 03:00
Pantoprazole 80 mg/100 ml Nss [Protonix] 80 mg in 100 ml IV Q10H
07/23/25 03:02
diazePAM [Valium Injection] 5 mg IV NOW STA
07/23/25 03:22
Ammonia Urgent
Lactic Acid Urgent
07/23/25 03:33
Add On- LAB Urgent
Tests Added?: alcohol
07/23/25 04:47
Admit/Transfer Patient As Directed
Co-Sign Provider:
Level of Care: Inpatient admission
Assign to:: IMU- Intermediate Care
Physician / Group: Seema
Diagnosis: GI bleed
Reason for Hospitalization: GI bleed
Expected length of stay greater than two midnights?: Yes
ELOS- Estimated Length of Stay in days: 2
I certify the patient meets the requirements for IP care: Yes
PRN Pain Medication Management As Directed
May give lesser potent ordered pain med per pt: Yes
preference::
Protocol:: Medication orders for pain may be administered in a
manner that supports deferring to patient preference
when the pt is:
- Requesting an ordered lesser potent pain medication.
Least to most potent pain medications are defined
as: acetaminophen < NSAID < tramadol < opioids
(morphine, oxycodone, hydromorphone).
- Requesting a lesser dose of the same medication IF
ORDERED.
- Requesting a less intrusive route of administration
if both routes are prescribed by the provider (PO <
IV).
07/23/25 04:48
Ondansetron Injectable [Zofran] 4 mg IV NOW STA
diazePAM [Valium Injection] 2 mg IV NOW STA
07/23/25 04:49
Code Status As Directed
Resuscitation Status: Full Code
07/23/25 05:04
Octreotide Acetate [Sandostatin] 500 mcg 0.9% Sodium Chloride 250 ml [Nss] 249 ml IV NOW
07/23/25 05:07
CefTRIAXone [Rocephin] 1,000 mg IV NOW STA
07/23/25 Breakfast
NPO
Allow oral meds: Yes
Allow clear liquids: Sips of Clears
Sterile Water [Sterile Water For Injection] 10 ml IV Q24H
07/23/25 06:30
Acetaminophen [Tylenol] 650 mg PO Q6HPRN PRN
Dextrose 5%/Lactringers 1000ML [D5lr] 1,000 ml IV 100 mls/hr
HYDROmorphone [Dilaudid] 0.25 mg IV Q4HPRN PRN
Ondansetron Injectable [Zofran] 4 mg IV Q6HPRN PRN
07/23/25 06:30
Consult Notification Routine
Specialty to Notify: Gastroenterology
GASTROINTESTINAL CONSULT Routine
Consulting Provider: Kelsey Hinojosa
Was physician already notified: No
Reason for consult: GI bleed, hepatic hypodense lesions
IRAD CONSULT Routine
Consulting Provider: Robert Ness
Was physician already notified: Yes
Procedure being ordered, including laterality if: gastrointestinal bleed vessel embolization evaluation
applicable:
Acknowledgement that appropriate orders are entered: Yes
Activity As Directed
Activity Level: With Assistance
INT (Intravenous Needle Therapy) As Directed
Comment: Place 2 IV catheters of the largest bore possible until stable
Medical Records Request [Obtain Records] As Directed
Dates of Information to be Released: Nov 08 2024 to July 09 2025
Type of Information Requested: Discharge Summary
Consults
Other
Radiology Results
If Other, list type of info requested: Endoscopic (colonoscopy and EGD) records
Obtain Records from: [facility]
Orthostatic Vital Signs As Directed
Orthostatic VS Frequency: Now
Comment: then every four hours for twenty-four hours
Pneumatic Compression Sleeves As Directed
Type: Knee high
Vital Signs As Directed
Frequency: Per unit guidelines
DX Deep Vein Thrombosis Video Routine
07/23/25 08:00
Baclofen [Lioresal] 10 mg PO DAILY
Clonazepam [Klonopin] 1 mg PO TID
Lactulose [Duphalac/Chronulac] 20 grams PO BID
Rifaximin [Xifaxan] 550 mg PO BID
07/23/25 10:00
Basic Metabolic Panel Urgent
Complete Blood Count/No Diff Urgent
Ferritin Routine
Iron Routine
Lactic Acid Urgent
Total Iron Binding Routine
07/23/25 16:00
H&H Q6H
07/23/25 22:00
H&H Q6H
07/24/25 06:00
CefTRIAXone [Rocephin] 1,000 mg IV Q24H
07/24/25 08:00
Carvedilol [Coreg] 3.125 mg PO BID
Abnormal Lab Results
07/23/25 07/23/25
02:13 03:22
WBC 15.9 H 10^3/uL
(4.8-10.8)
RBC 1.97 L 10^6/uL
(4.20-5.40)
Hgb 5.7 L* g/dL
(12.0-16.0)
Hct 18.4 L* %
(37.0-47.0)
MCHC 31.0 L g/dL
(33.0-37.0)
RDW 21.0 H %
(11.5-14.5)
MPV 11.1 H fL
(7.4-10.4)
Abs Immat Gran (auto) 0.1 H 10^3/uL
(0-0.05)
Absolute Neuts (auto) 10.9 H 10^3/uL
(1.4-6.5)
Absolute Monos (auto) 1.4 H 10^3/uL
(0.1-0.6)
PT 21.1 H Sec
(11.4-14.6)
Sodium 134 L mmol/L
(135-145)
Carbon Dioxide 13 L* mmol/L
(22-30)
BUN 20 H mg/dl
(7-17)
Glucose 110 H mg/dl
(70-99)
Lactic Acid 10.9 H* mmol/L
(0.7-2.0)
Calcium 8.1 L mg/dl
(8.4-10.2)
Total Bilirubin 1.7 H mg/dl
(0.2-1.3)
AST 87 H U/L
(14-36)
Alkaline Phosphatase 148 H U/L
(38-126)
Total Protein 5.3 L g/dl
(6.3-8.2)
Albumin 2.6 L g/dl
(3.5-5.0)
Crossmatch IS Only See Detail
07/23/25 02:13
07/23/25 02:13
Vital Signs
Initial and Last Documented VS:
Initial Vital Signs
Temp Pulse Resp BP
98.0 F 125 24 145/75
07/23/25 02:03 07/23/25 02:03 07/23/25 02:03 07/23/25 02:03
Last Documented Vital Signs
Temp Pulse Resp BP Pulse Ox
99.6 F 112 20 114/72 97
07/23/25 06:44 07/23/25 06:32 07/23/25 06:32 07/23/25 06:08 07/23/25 06:08
<Patricia Bryan, DO - Last Filed: 07/23/25 03:26>
Orders/Labs/Results
Orders:
Orders
07/23/25 02:11
Cardiac Monitoring- Treatment ONCE
IV Insert/Care/Rem.- Treatment PRN
Pulse Ox/spot Check [RESP] Urgent
Quantity: 1
Special Instructions: ON ROOM AIR
07/23/25 02:13
Type+Screen Urgent
Alcohol Urgent
Complete Blood Count/With Diff Urgent
Comprehensive Metabolic Panel Urgent
PTT Urgent
Prothrombin Time Urgent
07/23/25 02:24
0.9% Sodium Chloride 1000 ml [Nss] 1,000 ml IV BOLUS
07/23/25 02:41
Ct Cta A/P W/Wo Urgent
Reason For Exam: diffuse abdominal pain, rectal bleeding
Diphenhydramine [Benadryl] 12.5 mg IV NOW STA
Metoclopramide [Reglan] 10 mg IV NOW STA
Pantoprazole [Protonix IV] 40 mg IV NOW STA
07/23/25 02:45
Blood Bank Products [* Blood Bank Products] Urgent
Blood Bank Products: *Packed RBC Leuko(PRBC's)
Quantity: 2
Transfuse Today: Yes
Reason: Bleeding
07/23/25 02:46
0.9% Sodium Chloride 1000 ml [Nss] 1,000 ml IV BOLUS
07/23/25 03:00
Pantoprazole 80 mg/100 ml Nss [Protonix] 80 mg in 100 ml IV Q10H
07/23/25 03:02
diazePAM [Valium Injection] 5 mg IV NOW STA
07/23/25 03:22
Ammonia Urgent
Lactic Acid Urgent
07/23/25 03:33
Add On- LAB Urgent
Tests Added?: alcohol
07/23/25 04:47
Admit/Transfer Patient As Directed
Co-Sign Provider:
Level of Care: Inpatient admission
Assign to:: IMU- Intermediate Care
Physician / Group: Seema
Diagnosis: GI bleed
Reason for Hospitalization: GI bleed
Expected length of stay greater than two midnights?: Yes
ELOS- Estimated Length of Stay in days: 2
I certify the patient meets the requirements for IP care: Yes
PRN Pain Medication Management As Directed
May give lesser potent ordered pain med per pt: Yes
preference::
Protocol:: Medication orders for pain may be administered in a
manner that supports deferring to patient preference
when the pt is:
- Requesting an ordered lesser potent pain medication.
Least to most potent pain medications are defined
as: acetaminophen < NSAID < tramadol < opioids
(morphine, oxycodone, hydromorphone).
- Requesting a lesser dose of the same medication IF
ORDERED.
- Requesting a less intrusive route of administration
if both routes are prescribed by the provider (PO <
IV).
07/23/25 04:48
Ondansetron Injectable [Zofran] 4 mg IV NOW STA
diazePAM [Valium Injection] 2 mg IV NOW STA
07/23/25 04:49
Code Status As Directed
Resuscitation Status: Full Code
07/23/25 05:04
Octreotide Acetate [Sandostatin] 500 mcg 0.9% Sodium Chloride 250 ml [Nss] 249 ml IV NOW
07/23/25 05:07
CefTRIAXone [Rocephin] 1,000 mg IV NOW STA
07/23/25 Breakfast
NPO
Allow oral meds: Yes
Allow clear liquids: Sips of Clears
Sterile Water [Sterile Water For Injection] 10 ml IV Q24H
07/23/25 06:30
Acetaminophen [Tylenol] 650 mg PO Q6HPRN PRN
Dextrose 5%/Lactringers 1000ML [D5lr] 1,000 ml IV 100 mls/hr
HYDROmorphone [Dilaudid] 0.25 mg IV Q4HPRN PRN
Ondansetron Injectable [Zofran] 4 mg IV Q6HPRN PRN
07/23/25 06:30
Consult Notification Routine
Specialty to Notify: Gastroenterology
GASTROINTESTINAL CONSULT Routine
Consulting Provider: Kelsey Hinojosa
Was physician already notified: No
Reason for consult: GI bleed, hepatic hypodense lesions
IRAD CONSULT Routine
Consulting Provider: Robert Ness
Was physician already notified: Yes
Procedure being ordered, including laterality if: gastrointestinal bleed vessel embolization evaluation
applicable:
Acknowledgement that appropriate orders are entered: Yes
Activity As Directed
Activity Level: With Assistance
INT (Intravenous Needle Therapy) As Directed
Comment: Place 2 IV catheters of the largest bore possible until stable
Medical Records Request [Obtain Records] As Directed
Dates of Information to be Released: Nov 08 2024 to July 09 2025
Type of Information Requested: Discharge Summary
Consults
Other
Radiology Results
If Other, list type of info requested: Endoscopic (colonoscopy and EGD) records
Obtain Records from: [facility]
Orthostatic Vital Signs As Directed
Orthostatic VS Frequency: Now
Comment: then every four hours for twenty-four hours
Pneumatic Compression Sleeves As Directed
Type: Knee high
Vital Signs As Directed
Frequency: Per unit guidelines
DX Deep Vein Thrombosis Video Routine
07/23/25 08:00
Baclofen [Lioresal] 10 mg PO DAILY
Clonazepam [Klonopin] 1 mg PO TID
Lactulose [Duphalac/Chronulac] 20 grams PO BID
Rifaximin [Xifaxan] 550 mg PO BID
07/23/25 10:00
Basic Metabolic Panel Urgent
Complete Blood Count/No Diff Urgent
Ferritin Routine
Iron Routine
Lactic Acid Urgent
Total Iron Binding Routine
07/23/25 16:00
H&H Q6H
07/23/25 22:00
H&H Q6H
07/24/25 06:00
CefTRIAXone [Rocephin] 1,000 mg IV Q24H
07/24/25 08:00
Carvedilol [Coreg] 3.125 mg PO BID
Abnormal Lab Results
07/23/25 07/23/25
02:13 03:22
WBC 15.9 H 10^3/uL
(4.8-10.8)
RBC 1.97 L 10^6/uL
(4.20-5.40)
Hgb 5.7 L* g/dL
(12.0-16.0)
Hct 18.4 L* %
(37.0-47.0)
MCHC 31.0 L g/dL
(33.0-37.0)
RDW 21.0 H %
(11.5-14.5)
MPV 11.1 H fL
(7.4-10.4)
Abs Immat Gran (auto) 0.1 H 10^3/uL
(0-0.05)
Absolute Neuts (auto) 10.9 H 10^3/uL
(1.4-6.5)
Absolute Monos (auto) 1.4 H 10^3/uL
(0.1-0.6)
PT 21.1 H Sec
(11.4-14.6)
Sodium 134 L mmol/L
(135-145)
Carbon Dioxide 13 L* mmol/L
(22-30)
BUN 20 H mg/dl
(7-17)
Glucose 110 H mg/dl
(70-99)
Lactic Acid 10.9 H* mmol/L
(0.7-2.0)
Calcium 8.1 L mg/dl
(8.4-10.2)
Total Bilirubin 1.7 H mg/dl
(0.2-1.3)
AST 87 H U/L
(14-36)
Alkaline Phosphatase 148 H U/L
(38-126)
Total Protein 5.3 L g/dl
(6.3-8.2)
Albumin 2.6 L g/dl
(3.5-5.0)
Crossmatch IS Only See Detail
07/23/25 02:13
07/23/25 02:13
Vital Signs
Initial and Last Documented VS:
Initial Vital Signs
Temp Pulse Resp BP
98.0 F 125 24 145/75
07/23/25 02:03 07/23/25 02:03 07/23/25 02:03 07/23/25 02:03
Last Documented Vital Signs
Temp Pulse Resp BP Pulse Ox
99.6 F 112 20 114/72 97
07/23/25 06:44 07/23/25 06:32 07/23/25 06:32 07/23/25 06:08 07/23/25 06:08
Arcelialt;Leila Sullivan PA-C - Last Filed: 07/23/25 07:04>
MDM/Problems Addressed
Differential Diagnosis Includes:
Differentials include portal gastropathy, angiodysplasia, diverticulosis, colitis
MDM/Problems Addressed:
Patient somewhat tremulous. 55-year-old female with a past medical history of angiodysplasia, liver cirrhosis, ADHD, alcohol abuse, bipolar disorder, presents to the ER today with concerns of hematochezia and abdominal pain. On physical exam she
is well-appearing no distress. She is tachycardic but she is not hypotensive. She is given IV fluids. She does have more insulin in the rectal vault. Blood was ordered for her and she was consented for blood. Return for CAT scan which does show
an area of concern for active extravasation into terminal ileum. Discussed case with IR doctor on-call who reviewed the CT scan and does not see any active did extravasation on his part. He is aware of case. Will refer for admission.
<Leila Sullivan PA-C - Last Filed: 07/23/25 07:04>
*Pulse Oximetry
SaO2: 100
Oxygen Mode of Delivery: Room air
Patient hypoxic: no
*Critical Care Note
Total Time (30-74mins, 75-104mins- exclusive of procedures): Not Applicable
<Leila Sullivan PA-C - Last Filed: 07/23/25 07:04>
Update Note
Update Note:
Update, made Dr. Ness from interventional radiology made aware of the case, he reviewed imaging and does not see the active extravasation on the CTA as described by [facility]; he is aware but does not believe that she needs active
intervention or agram at this time; patient has not had another episode of hematochezia here or active rectal bleeding
ED Attending Note
<Leila Sullivan PA-C - Last Filed: 07/23/25 07:04>
-
Portions of this chart may have been created with voice recognition software.� Occasional wrong word or��sound alike� substitutions may have occurred due to the inherent limitations of voice recognition software.
<Patricia Bryan DO - Last Filed: 07/23/25 03:26>
ED Attending Note
Patient seen and examined by attending physician: Yes
I performed a history and physical exam of patient and discussed management with resident, I reviewed resident's note and agree with documented findings and plan of care.: Yes
ED Attending Note:
This is a 55-year-old woman with history of alcohol abuse, alcohol-related cirrhosis, prior history of GI bleeds with prior history of severe anemia requiring blood transfusions. She reports 3-day history of nausea, vomiting. She denies upper GI
bleeding. Has been vomiting water/food but with onset of nausea and vomiting she began passing black/tarry stools 3 days ago which have progressed to bloody/maroon stools and now bright red bleeding tonight. She admits to alcohol consumption which
she stopped a few days ago.
55-year-old woman appears somewhat older than stated age, awake and alert, moderately anxious, somewhat tremulous, oriented x 3.
HEENT: Oral mucosa is dry. Nonicteric.
Heart is regular rhythm, tachycardic at 120.
Lungs are clear to auscultation. No respiratory distress.
Abdomen is soft, mild generalized tenderness to the upper abdomen.
Skin is warm and dry, moderate pallor noted.
Patient presents with acute GI bleeding. Concern for symptomatic anemia. She is tachycardic without hypotension.
She is moderately tremulous. Concern for alcohol withdrawal.
There is history of hepatic encephalopathy however she is currently awake and alert, oriented x 3, no evidence of encephalopathy currently.
Labs thus far remarkable for significant anemia with hemoglobin of 5.7. Will type and cross and urgently transfused with 2 units of packed red blood cells. Initiate IV fluid resuscitation. IV Protonix bolus and drip.
Will check CTA of the abdomen and pelvis to assess for potential active GI bleeding.
Will give an IV dose of Valium for potential alcohol withdrawal.
Patient is at significant risk for severe decompensation thus will require acute hospitalization, likely ICU
Discharge Plan
Departure
Patient Disposition: Admit
Date of Disposition: 07/23/25
Time of Disposition: 04:24
Admit to: Med/Surg and Telemetry
Presentation/result/management discussed w/ accepting MD/DO: Hospitalist
Patient with high blood pressure during this ER visit?: Yes
Condition: Fair
Discharge Problem:
GI bleeding, Acute blood loss anemia, Cirrhosis of liver
Interventions
Interventions:
*Risk Screen - Suicide Last Done: 07/23/25 02:10
*General Assessment Last Done: 07/23/25 02:17
*Neglect/Abuse Screening Last Done: 07/23/25 02:17
*ED- Fall Risk Assessment Last Done: 07/23/25 02:17
*ED COVID-19 Vaccine History Last Done: 07/23/25 02:17
*Nursing Disposition Last Done: 07/23/25 06:34
[facility]zjm[facility]-Bjarebbpzm Assessment Last Done: 07/23/25 04:44
ED- Cardiac Assessment Last Done: 07/23/25 02:20
ED- Pulmonary Assessment Last Done: 07/23/25 02:20
Discharge Date and Time
Discharge Date/Time: 07/23/25 06:35
[2025-07-23] MEDS: NSS 1000 IV (02:26)
[2025-07-23 02:30] LABS: Hematocrit 18.4 % (37.0-47.0); Hemoglobin 5.7 g/dL (12.0-16.0); Mean Corp Hgb Conc. 31.0 g/dL (33.0-37.0); Mean Corpuscular Volume 93.4 fL (81.0-99.0); Nucleated Red Blood Cells % 0 %; Platelet Count 342 10^3/uL (130-400); Red Cell Dist. Width 21.0 % (11.5-14.5)
[2025-07-23 02:31] LABS: INR 1.80; PT 21.1 Sec (11.4-14.6)
[2025-07-23 02:32] LABS: APTT 32.1 Sec (23.4-35.0)
[2025-07-23] MEDS: BENADRYL 12.5 MG IV (02:45)
[2025-07-23 02:46] LABS: Albumin 2.6 g/dl (3.5-5.0); Alkaline Phosphatase 148 U/L (38-126); Blood Urea Nitrogen 20 mg/dl (7-17); Calcium 8.1 mg/dl (8.4-10.2); Carbon Dioxide 13 mmol/L (22-30); Chloride 103 mmol/L (98-107); Estimated Creatinine Clearance 69 ml/min; Glucose 110 mg/dl (70-99); Potassium 3.6 mmol/L (3.5-5.1); Sodium 134 mmol/L (135-145); Total Protein 5.3 g/dl (6.3-8.2); eGFR > 60.00
[2025-07-23] MEDS: REGLAN 10 MG IV (02:46)
[2025-07-23] MEDS: PROTONIX IV 40 MG IV (02:46)
[2025-07-23 02:54] LABS: AST (SGOT) 87 U/L (14-36)
[2025-07-23] MEDS: PROTONIX 100 IV ×3 (02:57→22:29)
[2025-07-23] MEDS: VALIUM INJECTION 5 MG IV (03:09)
[2025-07-23 03:40] LABS: Ammonia 11 umol/L (9-30)
[2025-07-23 03:45] LABS: ALT (SGPT) < 10 U/L (0-35)
--- NOTE | 2025-07-23 04:15 | HPS.HSE ---
Family Physician
-
Family Physician: Chichi Garrison
Chief Complaint
-
Bright red blood per rectum
History of Present Illness
This is a 55-year-old female with past medical history significant for prior alcohol dependence/abuse complicated by alcohol cirrhosis, history of GI bleed status post no multiple scopes at [facility] without notable cells, bipolar, anxiety,
episode of encephalopathy that was transient and resolved after returning to lactulose and rifaximin coming into the emergency department with approximately 2 days of bloody bowel movement.
The patient reports that for the last 2 days she has seen dark red blood mixed with her stool. Anytime she has a bowel movement she notices these and frothy material that rises to the top of the commode. She reports some abdominal discomfort
associated with a bowel movement. She reports that she has been dizzy lately. She reports mild diffuse lower quadrant abdominal pain. She denies any fevers or chills. He denies history of diverticulitis. She denies any history of inflammatory
bowel disease.
She reports nausea and vomiting of nonbloody and nonbilious material. She denies any hematemesis. Patient reports she has not had any p.o. intake for the last 3 days.
Patient stated that she has been followed by hepatology recently and was told she might need an order endoscope a few months. She reports compliance with her medications including lactulose and rifaximin. She is also taking Coreg which appears to
me to be supportive of possible varices but no such evidence according to patient.
He reports that her last drink was 2 months ago. She denies any blood thinners NSAIDs or aspirin. Denies any alcohol use. Denies any use of Tylenol
Patient stated that she has had multiple episodes of GI bleed with severe anemia to as low as 3 at 1 point.
On arrival in the emergency department she was tachycardic to the 120s, blood pressure was remained stable at 150/61 and she was satting 98% on room air. Hemoglobin was 5.7 with normal platelet count, INR was 1.8 and electrolytes notable for a
sodium of 134, bicarb of 13 with an anion gap of 19 and anion gap metabolic acidosis. Lactic acid was obtained. Ammonia was normal. Total bilirubin 1.7 similar to prior with no significant changes in AST and ALT. Alcohol level was negative.
There was a CT of the abdomen pelvis showing likely active hemorrhage in the region of the terminal ileum with high density material not present on noncontrast examination. Diverticulosis without evidence of diverticulitis. Multiple hypodense
dense hepatic masses with infiltrative appearance not well-characterized.
Medical History
Past Medical History
Past Medical History: Reports Psychiatric (Bipolar) and Other (Alcohol dependence, cirrhosis without ascites)
Past Surgical History: Reports Other
Social History
Tobacco: Non-smoker
Alcohol: Daily
Drug: None
Family History
Family History: Not pertinent
Allergies / Home Medications
Allergies reflects when Allergies were last updated in [facility].
Home Medications with original date entered in [facility]
Allergy/Medication List:
Allergies
Allergy/AdvReac Type Severity Reaction Status Date / Time
No Known Allergies Allergy Verified 07/23/25 02:02
Home Medications
clonazepam 0.5 mg tablet 1 mg PO TID Mental Health/Anxiety 01/31/25
ferrous sulfate 325 mg (65 mg iron) tablet 325 mg PO DAILY Supplement 01/31/25
fluticasone propionate 50 mcg/actuation nasal spray,suspension 2 spray intranasal DAILY Allergies 01/31/25
budesonide-formoterol HFA 160 mcg-4.5 mcg/actuation aerosol inhaler 2 puff inhalation BID Lung/Breathing Issues 03/25/25
dextroamphetamine-amphetamine 20 mg tablet 20 mg PO TID Mental Health/Anxiety 03/25/25
lactulose 10 gram/15 mL oral solution 30 ml PO BID Liver Issues 03/25/25
rifaximin 550 mg tablet 550 mg PO BID Liver Issues 03/25/25
baclofen 10 mg tablet 10 mg PO DAILY 07/23/25
carvedilol 3.125 mg tablet 3.125 mg PO BID 07/23/25
pantoprazole 40 mg tablet,delayed release 40 mg PO DAILY 07/23/25
Review of Systems
-
Constitutional: Reports No Symptoms
EENT: Reports No Symptoms
Abdomen/GI: Reports Nausea, Vomiting, Bloody Stools and Black Stools
: Reports No Symptoms
Musculoskeletal: Reports No Symptoms
Skin: Reports No Symptoms
Neurological: Reports No Symptoms
Endocrine: Reports No Symptoms
Hematologic/Lymphatic: Reports No Symptoms
Psych: Reports No Symptoms
Physical Exam
Vital Signs
Vital Signs
Temp Pulse Resp BP Pulse Ox
98.1 F 108 24 149/62 97
07/23/25 03:59 07/23/25 04:00 07/23/25 04:00 07/23/25 03:59 07/23/25 04:00
Physical Exam
General: Well Developed
HEENT: NormoCephalic, Anicteric, Moist mucous membranes and Atraumatic
Respiratory: Clear
Cardiac: S1/S2 and Tachycardia
GI: Soft, Non Distended and Normal Bowel Sounds
Rectal: Hem Positive and Maroon Stools
Musculoskeletal: No Clubbing, No Cyanosis and No Edema
Skin: Warm
Neuro: AO x 3 and Nonfocal/grossly intact
Hematologic/Lymphatic: No Lymphadenopathy
Psych: Anxious
Laboratory Results
-
07/23/25 02:13
07/23/25 02:13
Laboratory Results
PT 21.1 Sec (11.4-14.6) H 07/23/25 02:13
INR 1.80 07/23/25 02:13
APTT 32.1 Sec (23.4-35.0) 07/23/25 02:13
Lactic Acid 10.9 mmol/L (0.7-2.0) H* 07/23/25 03:22
Total Bilirubin 1.7 mg/dl (0.2-1.3) H 07/23/25 02:13
AST 87 U/L (14-36) H 07/23/25 02:13
ALT < 10 U/L (0-35) 07/23/25 02:13
Alkaline Phosphatase 148 U/L (38-126) H 07/23/25 02:13
Data Reviewed
-
CT Scan: Report Reviewed by me
Lab Data: Labs Reviewed by me
Old Records: Reviewed
Impression/Plan
-
IMPRESSION:
Rectal bleeding. Hx of etoh cirrhosis, no known varices but has had multiple episodes of GI bleed with symptomatic anemia s/p EGD/[facility] without finding source. Hgb 5.7 here. Down from 11 in March. Suspect has had ongoing or recurrent bleed since
then. No melena here in ED. Has not had a bowel movement since arrival. HD stable. INR 1.8, no thinners, aspirin. CT initially read as possible extravasation at the area of the terminal ileum. IR reads as NO active hemorrhage.
PLAN:
GI bleed - Known diverticular disease without diverticulitis, lower GI bleed suspected based on hx and no known varices with negative prior endoscopy and colonoscopies at [facility]. No active bleed on CT per IR.
- admit to IMU
- IR has been notified, and will keep patient on radar
- NPO for now
- transfusing 2 units prbc
- trend h&h q 6
- PPI IV bid
- unclear if varices hx, give inital infusion of octreotide and abx ppx for possible upper gi bleed w/ cirrhosis with 1g ceftriaxone daily
- iron studies on next labs
- scope records requested from [facility]
- GI consultation
Anion gap acidosis - Lactate 10.1, unclear source but likely liver disease with some liver mass. Possible ketoacidosis with starvation x 3 days but denies etoh and etoh negative.
- IV D5 1/2 NS + bicarb
- IV thiamine/folate
- transfusion as above
Hepatic lesions -
- requested radiology records from [facility]
- if new findings, then mri liver mass protocol in am
- GI consultation
Cirrhosis
- npo for now
- ammonia is low, will continue bid lactulose and rifaximin once hemoglobin stabilizes or no further bleeding noted
- coreg with hold parameters
DVT PPX - SCDs
Code status - Full Code
[2025-07-23] MEDS: VALIUM INJECTION 2 MG IV (04:52)
[2025-07-23] MEDS: ZOFRAN 4 MG IV (04:53)
[2025-07-23] MEDS: ROCEPHIN 1000 MG IV (05:33)
--- NOTE | 2025-07-23 06:36 | PTCARENOTE ---
Rec'd pt from ED RN. Pt AAOx3, ST on CM. BP stable. Protonix gtt intact through L FA IV. Pt c/o some mild abdominal pain, mouth dryness, requests ice chips. Pt oriented to call [facility] system. Call grossman within reach. Care ongoing.
[2025-07-23] MEDS: D5LR 1000 IV (07:35)
--- NOTE | 2025-07-23 08:17 | W.PN.HOSP.TC ---
Today's Communication/Plan
-
hemodynamically stable
see PN
Assessment / Plan
Assessment / Plan
55yo F with ETOH liver cirrhosis. ADHD, COPD, Hx of GIB came with 2 dys of bright red blood per rectum and dizziness, associated with nausea, vomiting and diffse transverse lower abdominal pain.
Hx of GIB before with Hgb as low as to 3 g/dL
A/P:
#Symptomatic acute blood loss anemia 2/2 GIB
#Nausea/Vomiting (no signs of diverticulitis on CT)
#Leukocytosis
CT abd with signs of hemorrhage in termial ileum
abd non-tender, patient improved after 2 unis PRBC after admission
serial H&H, transfuse to keep Hgb >7, avoid anticagulation and antiplatelets
PPI drip and octreotide
Requested medical records from [facility]
No signs of cholecystitis on CT
CHeck Lipase
Advance diet as tolerated
check UA
empyric ceftriaxone
#Liver cirrhosis
#Transaminitis, bilirubinemia and elevated alk.phos 2/2 above
#multiple hypodense hepatic masses
MRI abd after reolution of bleeding
cont home meds when able
follow LFT
#COPD not in exacerbation
#HEDY
#ADHD
cont home meds
DVT ppx SCDs
Full code
I have spent at least 54min reviewing chart, test results, communication with consultants and providing direct patient care
Anticipated Discharge: > 48 hours
Subjective/Interval History
-
Date of Service: July 23, 2025
Objective Data
-
Labs:
Laboratory Results
07/23/25 07/23/25 07/23/25
02:13 10:00 10:49
WBC 15.9 H Pending
Hgb 5.7 L* Pending
Hct 18.4 L* Pending
Plt Count 342 Pending
PT 21.1 H
INR 1.80
APTT 32.1
Sodium 134 L Pending
Potassium 3.6 Pending
Chloride 103 Pending
Carbon Dioxide 13 L* Pending
BUN 20 H Pending
Creatinine 0.7 Pending
Glucose 110 H Pending
Calcium 8.1 L Pending
Total Bilirubin 1.7 H
AST 87 H
ALT < 10
Alkaline Phosphatase 148 H
07/23/25 07/23/25
16:00 22:00
WBC
Hgb Pending Pending
Hct Pending Pending
Plt Count
PT
INR
APTT
Sodium
Potassium
Chloride
Carbon Dioxide
BUN
Creatinine
Glucose
Calcium
Total Bilirubin
AST
ALT
Alkaline Phosphatase
Vital Signs:
Vital Signs
Temp Pulse Resp BP Pulse Ox
99.6 F 112 20 114/72 97
07/23/25 06:44 07/23/25 06:32 07/23/25 06:32 07/23/25 06:08 07/23/25 06:08
I&O
07/22/25 07/23/25 07/24/25
06:59 06:59 06:59
Intake Total 500 / 500
Output Total 75 / 75
Balance 425 / 425
Review of Systems
-
History Source: Patient
All other systems: Reviewed and negative
Physical Exam
-
General: No Apparent Distress
HEENT: Normocephalic
GI: Soft, Nontender and Nondistended
Musculoskeletal: No Clubbing, No Cyanosis and No Edema
Neuro: Awake, Alert, Oriented and AO x 3
Psych: Calm
--- NOTE | 2025-07-23 08:23 | PTCARENOTE ---
DR Stanley tt re reglan and valium that pt is requesting states she takes it at home.
[2025-07-23] MEDS: STERILE WATER FOR INJECTION IV (08:39)
[2025-07-23] MEDS: SANDOSTATIN 250 MCG IV (08:58)
[2025-07-23] MEDS: LIORESAL 10 MG PO (09:00)
[2025-07-23] MEDS: KLONOPIN 1 MG PO (09:00)
[2025-07-23] MEDS: XIFAXAN 550 MG PO ×2 (09:00→20:55)
[2025-07-23] MEDS: DUPHALAC/CHRONULAC 20 GRAMS PO ×2 (09:00→20:55)
--- NOTE | 2025-07-23 09:22 | CON.GI ---
Addendum entered and electronically signed by Kelsey Hinojosa MD 07/23/25 11:10:
I saw and examined the patient.
The RV REPAIR TECHNICIAN or PA's note was reviewed and I agree with the note.
Comment: 57-year-old female with history of alcohol abuse, History of cirrhosis since 2019 who recently started following up with Dr. Garcia but prior care has been at [facility] presenting with maroon/dark stool in the last 2
days. Recent admission for confusion and fall at [facility] March 2025, also evaluated at [facility] for change in mental status, treated for UTI and discharged. As per patient, she takes pantoprazole 40 mg daily, lactulose twice a day
and Xifaxan, Coreg as well but in the last few days has stopped her medication. She reports black stool in the last 2 days and prior to that her bowel pattern is 2 bowel movements which is either brown or soft or mushy daily. She reports previous
history of GI bleed, unclear when that was but did not see an upper endoscopy 2023 at [facility], portal gastropathy and GAVE noted, APC performed. No mention of esophageal varices. She reports some discomfort in the abdomen,
nausea but no vomiting. No heartburn on the pantoprazole or trouble swallowing. Weight has been stable. No NSAID use. No history of paracentesis as per patient.
In the emergency room, she was noted to have a hemoglobin of 5.7, hemoglobin in March [address] scan of the abdomen pelvis showing severe cirrhosis of the liver, small volume ascites and low-attenuation in the liver which cannot be
evaluated well.
- GI bleeding likely related to gastropathy versus other
no evidence of hematemesis suggesting Variceal bleeding and currently hemodynamically stable.
continue IMU care, monitoring H&H and transfuse hemoglobin to about 7.0.
Continue octreotide and Protonix
For EGD tomorrow
Okay for clear liquid diet without reds until then
- Cirrhosis of the liver related to alcohol abuse .MELD score of 19
History of hepatic encephalopathy-continue lactulose and Xifaxan. Currently does not have encephalopathy symptoms and no asterixis
Will get records from [place] and also Dr. Garcia's office
Currently on ceftriaxone, okay to continue
Currently not on diuretics and no significant ascites noted
-Abnormal CT scan with hypoattenuation of the liver
Agree with MRI of the liver
Check AFP is not recently done
will follow-up
Original Note:
Consultation
-
Date/Time Consultation Requested: 07/23/25 0630
Date/Time Consultation Performed: 07/23/25 0900
Requesting Provider: Dr. Stephenson
Performing Provider: Dr. Hinojosa/KASSANDRA Parkinson
Reason for Consultation: GIB
Medical History
Chief Complaint / HPI
Chief Complaint: GI bleed
History of Present Illness:
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 Huizar (last reported EGD), bipolar disorder, anemia, falls,
recent admission at [facility] 03/18/2025 through 03/23/2025 for falls and confusion, sent to [facility] afterwards, evaluated in [place] [facility] 03/25/2025 for change in mental status. The patient was treated for a UTI. Lactulose
was increased and she was instructed to follow-up with portfolio consultant Dr. Chaz Garcia after discharge. The patient did follow-up with Dr. Chaz Garcia hepatology (records unavailable to us). The patient states that she continued on her
regular medications for her liver cirrhosis which include Coreg, lactulose twice daily (although she was instructed to take this 3 times daily), Xifaxan, pantoprazole. She stopped taking these 3 days ago as she states her 'stomach was messed up'.
She started noticing that she had some black stool with some maroon mixed in that would float on the top. Had some mid epigastric discomfort associated with nausea. We are asked to evaluate for GI bleed. Her usual bowel pattern is 2 bowel
movements daily. She also takes oral iron but did stop this as well. She denies drinking any alcohol except for approximately 2 months ago. Review of records from [facility] show a Peth that was positive. She vapes nicotine. She
also did have a positive marijuana screen from records from [facility]. She did have some associated dizziness because of the symptoms she presented to the emergency room for further evaluation. She denies any fevers, chills,
vomiting, dysphagia or odynophagia. No early satiety or unintended weight loss. Gyfjcx-[id number] she states 'my weight has stayed the same despite not eating in 3 days'. She had a bowel movement overnight approximately 75 cc of liquid melena. Temp
99.7, blood pressure 114/72, pulse 112, respirations 20. She presented with WBC 15.9, hemoglobin 5.7, hematocrit 18.4, platelets 342. She has been transfused 2 units of packed red blood cells and we are currently awaiting repeat hemoglobin. PT
21.1, INR 1.8, sodium 134, potassium 3.6, BUN 20, creatinine 0.7, glucose 110, lactic acid 10.9, calcium 8.1, total bilirubin 1.7, AST 87, ALT <10, albumin 2.6, lipase pending, EtOH negative. CT abdomen and pelvis angio with and without IV contrast
shows severe hepatic cirrhosis. Large regions of very low attenuation throughout the liver. Which appear to be causing mass effect on the hepatic and portal veins. Diagnostic possibilities include extensive hepatic malignancy, hepatic steatosis
and benign cirrhotic nodules. Severe portal hypertension with collateral gastrosplenic varices, retroperitoneal varices, splenorenal shunting and perirectal varices. Mild colitis involving the ascending colon probable portal colopathy. Moderate
diverticulosis in the ascending colon. Cholelithiasis and reactive gallbladder wall thickening. Small volume of perihepatic ascites. Severe discogenic degenerative disease at L5/S1. The patient was given 1 dose of Zosyn, started on ceftriaxone 1
g daily, continued on Coreg 3.125 mg twice daily, started on octreotide and pantoprazole drip.
Past Medical History
Past Medical History: Other (Cirrhosis, alcohol abuse, hepatic encephalopathy, GAVE without bleeding (03/25/2024), bipolar disorder, anemia, falls, history of GI bleed)
Social History
Tobacco: Vaping
Alcohol: Chronic Alcoholic (States last drink was 2 months ago, positive Peth 03/2025)
Drug: Marijuana
Personal: Single
Living: With Roomate
Family History
Family History: Other (Grandmother history of colon cancer, all other GI malignancies negative)
Allergies / Home Medications
Allergy/AdvReac Type Severity Reaction Status Date / Time
No Known Allergies Allergy Verified 07/23/25 02:02
�Medication �Instructions �Recorded
clonazepam 0.5 mg tablet 1 mg PO TID Mental Health/Anxiety 01/31/25
ferrous sulfate 325 mg (65 mg 325 mg PO DAILY Supplement 01/31/25
iron) tablet
fluticasone propionate 50 2 spray intranasal DAILY Allergies 01/31/25
mcg/actuation nasal
spray,suspension
budesonide-formoterol HFA 160 2 puff inhalation BID 03/25/25
mcg-4.5 mcg/actuation aerosol Lung/Breathing Issues
inhaler
dextroamphetamine-amphetamine 20 20 mg PO TID Mental Health/Anxiety 03/25/25
mg tablet
lactulose 10 gram/15 mL oral 30 ml PO BID Liver Issues 03/25/25
solution
rifaximin 550 mg tablet 550 mg PO BID Liver Issues 03/25/25
baclofen 10 mg tablet 10 mg PO DAILY 07/23/25
carvedilol 3.125 mg tablet 3.125 mg PO BID 07/23/25
pantoprazole 40 mg tablet,delayed 40 mg PO DAILY 07/23/25
release
Review of Systems
-
All other systems: A 12 pt ROS was Negative except as stated above in HPI
Vital Signs
Temp Pulse Resp BP Pulse Ox
99.7 F 112 20 114/72 97
07/23/25 07:06 07/23/25 06:32 07/23/25 06:32 07/23/25 06:08 07/23/25 06:08
Physical Exam
Exam
General: No Apparent Distress
HEENT: Anicteric
Respiratory: Clear (Anterior)
Cardiac: Regular Rhythm
GI: Soft, Non Distended and Normal Bowel Sounds
Rectal: Hem Positive (Per EMR OB positive stools, last RN note melena)
Musculoskeletal: No Edema
Skin: Warm and Dry
Neuro: AO x 3 (No asterixis)
Psych: Calm
Results
WBC 15.9 10^3/uL (4.8-10.8) H 07/23/25 02:13
Hgb 5.7 g/dL (12.0-16.0) L* 07/23/25 02:13
Hct 18.4 % (37.0-47.0) L* 07/23/25 02:13
MCV 93.4 fL (81.0-99.0) 07/23/25 02:13
Plt Count 342 10^3/uL (130-400) 07/23/25 02:13
Absolute Neuts (auto) 10.9 10^3/uL (1.4-6.5) H 07/23/25 02:13
PT 21.1 Sec (11.4-14.6) H 07/23/25 02:13
INR 1.80 07/23/25 02:13
APTT 32.1 Sec (23.4-35.0) 07/23/25 02:13
Sodium 134 mmol/L (135-145) L 07/23/25 02:13
Potassium 3.6 mmol/L (3.5-5.1) 07/23/25 02:13
Chloride 103 mmol/L (98-107) 07/23/25 02:13
Carbon Dioxide 13 mmol/L (22-30) L* 07/23/25 02:13
BUN 20 mg/dl (7-17) H 07/23/25 02:13
Creatinine 0.7 mg/dL (0.6-1.0) 07/23/25 02:13
Calcium 8.1 mg/dl (8.4-10.2) L 07/23/25 02:13
Total Bilirubin 1.7 mg/dl (0.2-1.3) H 07/23/25 02:13
AST 87 U/L (14-36) H 07/23/25 02:13
ALT < 10 U/L (0-35) 07/23/25 02:13
Alkaline Phosphatase 148 U/L (38-126) H 07/23/25 02:13
Diagnostic Image Results:
CT abdomen and pelvis angio with and without IV:
1. SEVERE HEPATIC CIRRHOSIS.
2. Large regions of very low attenuation (fat attenuation) throughout the liver (involving over 80% of the liver parenchyma) which appear to be causing mass effect on the hepatic and portal veins. Diagnostic possibilities are (1) extensive hepatic
malignancy or (2) hepatic steatosis and benign cirrhotic nodules.
3. SEVERE PORTAL HYPERTENSION with collateral gastrosplenic varices, retroperitoneal varices, splenorenal shunting, and perirectal varices.
4. MILD COLITIS involving the ASCENDING COLON (probably portal colopathy).
5. Moderate diverticulosis in the ascending colon.
6. Cholelithiasis and reactive gallbladder wall thickening.
7. Small volume of perihepatic ascites.
8. Severe discogenic degenerative disease at L5/S1.
Prior GI Procedures:
EGD: 03/25/2024 (Dr. Huizar) [facility]: Normal esophagus. Gastric antral vascular ectasia without bleeding. Treated with APC. Normal examined duodenum. No specimens collected.
Colonoscopy: Patient states done approximately 2023. Believes it was Dr. Mosley. Records unavailable to us.
Assessment / Plan
-
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 Huizar (last reported EGD), bipolar disorder, anemia, falls,
recent admission at [facility] 03/18/2025 through 03/23/2025 for falls and confusion, sent to [facility] afterwards, evaluated in [facility] 03/25/2025 for change in mental status. The patient was treated for a UTI. Lactulose
was increased and she was instructed to follow-up with portfolio consultant Dr. Chaz Garcia after discharge. The patient did follow-up with Dr. Chaz Garcia hepatology (records unavailable to us). The patient states that she continued on her
regular medications for her liver cirrhosis which include Coreg, lactulose twice daily (although she was instructed to take this 3 times daily), Xifaxan, pantoprazole. She stopped taking these 3 days ago as she states her 'stomach was messed up'.
She started noticing that she had some black stool with some maroon mixed in that would float on the top. Had some mid epigastric discomfort associated with nausea. We are asked to evaluate for GI bleed. She had a bowel movement overnight
approximately 75 cc of liquid melena, nonefurther. Temp 99.7, blood pressure 114/72, pulse 112, respirations 20. She presented with WBC 15.9, hemoglobin 5.7, hematocrit 18.4, platelets 342. She has been transfused 2 units of packed red blood
cells and we are currently awaiting repeat hemoglobin. PT 21.1, INR 1.8, sodium 134, potassium 3.6, BUN 20, creatinine 0.7, glucose 110, lactic acid 10.9, calcium 8.1, total bilirubin 1.7, AST 87, ALT <10, albumin 2.6, lipase pending, EtOH
negative. CT abdomen and pelvis angio with and without IV contrast shows severe hepatic cirrhosis. Large regions of very low attenuation throughout the liver. Which appear to be causing mass effect on the hepatic and portal veins. Diagnostic
possibilities include extensive hepatic malignancy, hepatic steatosis and benign cirrhotic nodules. Severe portal hypertension with collateral gastrosplenic varices, retroperitoneal varices, splenorenal shunting and perirectal varices. Mild
colitis involving the ascending colon probable portal colopathy. Moderate diverticulosis in the ascending colon. Cholelithiasis and reactive gallbladder wall thickening. Small volume of perihepatic ascites. Severe discogenic degenerative disease
at L5/S1. The patient was given 1 dose of Zosyn, started on ceftriaxone 1 g daily, continued on Coreg 3.125 mg twice daily, started on octreotide and pantoprazole drip.
Impression:
GI bleed-> melena with some maroon, negative CTA for active bleeding, 75 cc since arrival.
Alcoholic cirrhosis
History of hepatic encephalopathy
Severe portal hypertension seen on CTA
Small volume perihepatic ascites
Low-attenuation lesions throughout liver seen on CTA
-> Reviewed imaging from [facility] admission 03/2025. Ultrasound abdomen with Dopplers only (no masses, patent vasculature)
Leukocytosis
Plan:
-Continue Pantoprazole gtt
-Continue octreotide gtt
-Continue coreg
-Continue Ceftriaxone 1 gm daily
-Continue Lactulose and Xifaxan
-Sips of clear liquids today, no red
-Await repeat Hgb, would keep Hgb in the 7 range to prevent over transfusion.
-EGD planned for tomorrow
-Can obtain eventual MRI abd to eval liver
-Records release sent for Dr. Garcia, Dr. Mosley
-Trend CBC, BMP, LFTs PT/INR
-Further recommendations to be forthcoming.
-
-
Thank you for consultation and allowing me to participate in the patient's care. Please call the addiction medicine physician GI physician during the after hours with any questions or concerns.
--- NOTE | 2025-07-23 10:08 | CM ---
Initial Assessment Completed by CECIL Valiente. RN stated patient showed some confusion and was not able to completely answer the questions from the Medical Team.
Of Note, CECIL Valiente experience some answers that did not make sense. Patient lives in a Condo, CECIL Valiente thinks it is 1 level, but could be Bi-Level. Patient uses a rollator and says she has an inhaler, maybe it is a nebulizer (?).
Patient said that she has [facility], but then said timing did not work out for a visit so now uses '[facility]' (?). Patient was suppose to have a visit this week, but now in the hospital she has to cancel this (?).
PCP: Dr. Chichi Flores
Pharmacy: [facility]
Patient stated her emergency contact is her BF, but listed in the chart is an Aunt. Patient stated she will take Uber or have her BF nut picker her up when ready.
PLAN: Like Home w/ VN/ PT services vs. SNF
[2025-07-23 10:21] LABS: Blood Urea Nitrogen 21 mg/dl (7-17); Calcium 7.5 mg/dl (8.4-10.2); Carbon Dioxide 23 mmol/L (22-30); Chloride 105 mmol/L (98-107); Estimated Creatinine Clearance 69 ml/min; Glucose 117 mg/dl (70-99); Iron 54 ug/dl (37-170); Lipase 102 U/L (23-300); Potassium 3.7 mmol/L (3.5-5.1); Sodium 132 mmol/L (135-145); eGFR > 60.00
[2025-07-23 10:31] LABS: Total Iron Binding Capacity 226 ug/dl (265-497)
[2025-07-23 10:44] LABS: Hematocrit 23.0 % (37.0-47.0); Hemoglobin 7.6 g/dL (12.0-16.0); Mean Corp Hgb Conc. 33.0 g/dL (33.0-37.0); Mean Corpuscular Volume 86.1 fL (81.0-99.0); Platelet Count 176 10^3/uL (130-400); Red Cell Dist. Width 18.0 % (11.5-14.5)
[2025-07-23 11:19] LABS: Ferritin 19.3 ng/ml (11.1-264.0)
[2025-07-23] MEDS: REGLAN 5 MG IV (12:48)
--- NOTE | 2025-07-23 13:37 | PTCARENOTE ---
Pt becoming confused and hallucinating. Denies ETOH use. Pt attempting to climb OOB and removing monitor equipment. Pt assisted back in bed and monitor reapplied. Dr. Kelley notified. Bed alarm placed for safety.
[2025-07-23 16:22] LABS: Hematocrit 21.2 % (37.0-47.0); Hemoglobin 7.2 g/dL (12.0-16.0)
[2025-07-23] MEDS: CALCIUM GLUCONATE 100 IV (18:27)
[2025-07-23] MEDS: SYMBICORT 160/4.5 MCG INHALER 2 PUFF INH (20:04)
[2025-07-23 22:32] LABS: Hematocrit 22.1 % (37.0-47.0); Hemoglobin 7.4 g/dL (12.0-16.0)
[2025-07-23] MEDS: MELATONIN 5 MG PO (23:18)
[2025-07-24] VITALS (29 sets, daily range): BP systolic 96–149; BP diastolic 51–96; PULSE 96–110
--- NOTE | 2025-07-24 02:19 | PTCARENOTE ---
Pt requesting to have something for sleep. Pt AAOX4, Pt telling this RN she is 'not confused, the Dr walked in and woke me up from a nap and did not give me time to wake up'. Education and emotional support given to Pt. Night HOSPITAL TECHNICIAN made aware melatonin
ordered. Pt in agreement about trying melatonin for sleep. Attempted to catch urine for drug screen, Pt continues to have loose stool in urine. Pt bed switched out to IMU bed. Assessment care and vitals as charted.
[2025-07-24 04:01] LABS: Hematocrit 21.6 % (37.0-47.0); Hemoglobin 7.2 g/dL (12.0-16.0); Mean Corp Hgb Conc. 33.3 g/dL (33.0-37.0); Mean Corpuscular Volume 87.8 fL (81.0-99.0); Nucleated Red Blood Cells % 0 %; Platelet Count 190 10^3/uL (130-400); Red Cell Dist. Width 18.6 % (11.5-14.5)
[2025-07-24 04:09] LABS: Urine Character Clear (Clear)
[2025-07-24 04:10] LABS: INR 1.55; PT 18.8 Sec (11.4-14.6)
[2025-07-24 04:25] LABS: Urine Squamous Cell >30 /LPF (Few)
[2025-07-24 04:26] LABS: ALT (SGPT) 61 U/L (0-35); AST (SGOT) 314 U/L (14-36); Albumin 2.2 g/dl (3.5-5.0); Alkaline Phosphatase 123 U/L (38-126); Ammonia 28 umol/L (9-30); Blood Urea Nitrogen 16 mg/dl (7-17); Calcium 7.9 mg/dl (8.4-10.2); Carbon Dioxide 23 mmol/L (22-30); Chloride 108 mmol/L (98-107); Estimated Creatinine Clearance 69 ml/min; Glucose 120 mg/dl (70-99); Potassium 3.7 mmol/L (3.5-5.1); Sodium 134 mmol/L (135-145); Total Protein 4.8 g/dl (6.3-8.2); eGFR > 60.00
[2025-07-24 04:26] LABS: Urine Red Blood Cell None Seen /HPF (0-2)
[2025-07-24] MEDS: STERILE WATER FOR INJECTION 10 ML IV (05:46)
[2025-07-24] MEDS: ROCEPHIN 1000 MG IV (05:46)
[2025-07-24] MEDS: FLUSH (NSS) 1 FLUSH IV (05:51)
[2025-07-24] MEDS: FLUSH (NSS) IV (05:53)
[2025-07-24] MEDS: SYMBICORT 160/4.5 MCG INHALER 2 PUFF INH ×2 (08:13→19:16)
--- NOTE | 2025-07-24 08:53 | PTCARENOTE ---
NPO status maintained, denies pain but complains of anxiety this am. Wide eyed and fast talking speech noted. Voided/ +burgandy stool earlier this am- not seen by me. IV Protonix infusing- capped for procedure. Sent via monitored stretcher to GI
Lab.
[2025-07-24] MEDS: DUPHALAC/CHRONULAC PO ×2 (09:00→20:06)
[2025-07-24] MEDS: COREG PO (09:00)
[2025-07-24] MEDS: LIORESAL PO (09:00)
[2025-07-24] MEDS: XIFAXAN PO (09:00)
--- NOTE | 2025-07-24 10:26 | W.PN.HOSP.TC ---
Today's Communication/Plan
-
for EGD/colonoscopy
follow H&H as still bleeding
cont Rocephin for UTI
Decreased BZD dose due to liver disease
follow MELD in AM
Assessment / Plan
Assessment / Plan
55yo F with ETOH liver cirrhosis. ADHD, COPD, Hx of GIB came with 2 dys of bright red blood per rectum and dizziness, associated with nausea, vomiting and diffse transverse lower abdominal pain.
Hx of GIB before with Hgb as low as to 3 g/dL
A/P:
#Symptomatic acute blood loss anemia 2/2 GIB
#Nausea/Vomiting (no signs of diverticulitis on CT)
#portal colopathy
#gastrosplenic varices, retroperitoneal varices, splenorenal shunting
GI for endoscopy
CT abd with signs of hemorrhage in terminal ileum
abd non-tender, patient improved after 2 units PRBC after admission
serial H&H, transfuse to keep Hgb >7, avoid anticoagulation and antiplatelets
PPI drip and octreotide
Requested medical records from [facility]
No signs of cholecystitis on CT
Advance diet as tolerated
#UTI
#Leukocytosis resolved
ceftriaxone pending Ucx
#Cholelithiasis and gall bladder wall thickening
#Liver cirrhosis
#Transaminitis, bilirubinemia and elevated alk.phos 2/2 above
#multiple hypodense hepatic masses
MRI abd
cont home meds when able
follow LFT
#Hypocalcemia
repleted
#perirectal varices
non-painful
#COPD not in exacerbation
#HEDY
#ADHD
cont home meds
#diverticulosis w/o diverticulitis
high fiber diet
#Polysubstance abuse
UDS positive for cocaine as addition to prescription meds
counselled on cessation - patient denied usage
DVT ppx SCDs
Full code
I have spent at least 54min reviewing chart, test results, communication with consultants and providing direct patient care
Anticipated Discharge: > 48 hours
Subjective/Interval History
-
Date of Service: July 24, 2025
Objective Data
-
Labs:
Laboratory Results
07/23/25 07/24/25
22:18 03:49
WBC 8.4
Hgb 7.4 L 7.2 L
Hct 22.1 L 21.6 L
Plt Count 190
PT 18.8 H
INR 1.55
Sodium 134 L
Potassium 3.7
Chloride 108 H
Carbon Dioxide 23
BUN 16
Creatinine 0.7
Glucose 120 H
Calcium 7.9 L
Total Bilirubin 2.0 H
AST 314 H
ALT 61 H
Alkaline Phosphatase 123
Vital Signs:
Vital Signs
Temp Pulse Resp BP Pulse Ox
98.5 F 90 24 99/68 95
07/24/25 07:06 07/24/25 08:38 07/24/25 08:38 07/24/25 08:38 07/24/25 08:26
I&O
07/23/25 07/24/25 07/25/25
06:59 06:59 06:59
Intake Total 500 / 500 360 / 360
Output Total 75 / 75 50 / 50
Balance 425 / 425 310 / 310
Review of Systems
-
History Source: Patient
All other systems: Reviewed and negative
Abdomen/GI: Reports Bloody Stools
Physical Exam
-
General: No Apparent Distress
Neuro: Awake, Alert, Oriented and AO x 3
Psych: Calm
--- NOTE | 2025-07-24 10:47 | W.PN.UPDATE ---
Update Note
Progress Note Update
EGD done
No esophageal varices
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
Nodule in 2nd portion duodenum (?ampulla, but did not appear to be in typical location)
During procedure, active bleeding seen refluxing from distal duodenum/proximal jejunum
Injected 10cc dilute epi and applied hemospray, initially without cessation
Eventually bleeding stopped
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 Tattooed site with carbon spot
REC:
Give 1 unit PRBC
Check Hgb q8
Give 2nd unit if not appropriate rise after PRBC
Keep NPO
Monitor for rebleeding
[2025-07-24] MEDS: COMPAZINE 5 MG IV (11:14)
[2025-07-24] MEDS: PROTONIX 100 IV (11:56)
--- NOTE | 2025-07-24 13:38 | PN.CDI ---
Addendum entered and electronically signed by Rodrigo Kelley MD 07/25/25 07:28:
Not valid diagnosis base on my assessment
Original Note:
CDI
- -
CDI:
Physician Documentation Request
Admit Date: 07/23/25 05:13
Dear Doctor Warren,
Clinical Indicators:
Patient admitted with GI bleeding.
07/23 (13:37) RN note, 'Pt becoming confused and hallucinating. Denies ETOH use. Pt attempting to climb OOB and removing monitor equipment.'
07/24 (02:19) RN note, 'Pt AAOX4...'
07/24 PN, 'cont Rocephin for UTI...Polysubstance abuse- UDS positive for cocaine as addition to prescription meds'
UDS:
07/24/25
03:44
Ur Amphetamines Screen Positive H
U Benzodiazepines Scrn Positive H
Urine Cocaine Screen Positive H
U Marijuana (THC) Screen Positive H
Based on the above, could you clarify which, if any of the following, is the most likely etiology of the confusion/altered mental status.
Toxic Metabolic Encephalopathy
Acute Metabolic Encephalopathy
Confusion without encephalopathy due to ____ (specify known or suspected etiology)
Other, please specify
Use of terms such as suspected, likely, concern for, or probable (associated with a specific diagnosis that is being evaluated, monitored, or treated as if it exists) are acceptable and can be coded in the inpatient setting, when documented at the
time of discharge.
Thank you,
LJ Ge RN
CDI Specialist
available via tiger text
Please use your independent medical judgment in providing your response.
--- NOTE | 2025-07-24 16:17 | PTCARENOTE ---
Late entry: Returned from GI lab 1130, PRBCs infusing w/ blood warmer- VSS Drowsy, easily arousable. 2nd unit given via blood warmer as well- tolerated well. Currently more awake, anxious- Dr. Hunter here may have some ice chips and meds ok. Will
give PRN Klonopin. H/H sent.
[2025-07-24] MEDS: KLONOPIN 0.5 MG PO (16:25)
[2025-07-24 16:30] LABS: Hematocrit 24.9 % (37.0-47.0); Hemoglobin 8.4 g/dL (12.0-16.0)
[2025-07-24] MEDS: ZOFRAN 4 MG IV (17:18)
[2025-07-24] MEDS: COREG 3.125 MG PO (20:02)
[2025-07-24] MEDS: XIFAXAN 550 MG PO (20:06)
--- NOTE | 2025-07-24 21:31 | PTCARENOTE ---
Pt re lillie NPO. Pt requesting ice chips very frequently, Emotional support and education given. Pt does not complaint of pain at this time. Pt AAOx4. Assessment care and vitals as charted.
[2025-07-25] VITALS (31 sets, daily range): BP systolic 79–116; BP diastolic 55–76
[2025-07-25] MEDS: KLONOPIN 0.5 MG PO ×3 (00:26→19:59)
[2025-07-25 00:38] LABS: Hematocrit 23.9 % (37.0-47.0); Hemoglobin 7.9 g/dL (12.0-16.0)
--- NOTE | 2025-07-25 02:37 | DOWNTIME ---
There was a Service Seeking Client Orchestra Director Downtime on 07/25/2025 from 0100 to 07/25/2025 at 0215. Downtime documentation of patient's care, including medication administrations, has been reconciled in the electronic record per guidelines. Refer to the
patient's paper chart under the miscellaneous tab to see printed paper medication records and downtime forms.
[2025-07-25] MEDS: FLUSH (NSS) IV ×2 (05:21→06:04)
[2025-07-25] MEDS: ROCEPHIN 1000 MG IV (05:51)
[2025-07-25] MEDS: STERILE WATER FOR INJECTION 10 ML IV (05:51)
[2025-07-25 07:05] LABS: Hematocrit 22.3 % (37.0-47.0); Hemoglobin 7.2 g/dL (12.0-16.0); INR 1.61; Mean Corp Hgb Conc. 32.3 g/dL (33.0-37.0); Mean Corpuscular Volume 87.8 fL (81.0-99.0); Nucleated Red Blood Cells % 0 %; PT 19.3 Sec (11.4-14.6); Platelet Count 161 10^3/uL (130-400); Red Cell Dist. Width 18.0 % (11.5-14.5)
[2025-07-25 07:31] LABS: ALT (SGPT) 56 U/L (0-35); AST (SGOT) 158 U/L (14-36); Albumin 2.0 g/dl (3.5-5.0); Alkaline Phosphatase 103 U/L (38-126); Blood Urea Nitrogen 15 mg/dl (7-17); Calcium 7.7 mg/dl (8.4-10.2); Carbon Dioxide 22 mmol/L (22-30); Chloride 110 mmol/L (98-107); Estimated Creatinine Clearance 69 ml/min; Glucose 98 mg/dl (70-99); Potassium 3.7 mmol/L (3.5-5.1); Sodium 135 mmol/L (135-145); Total Protein 4.4 g/dl (6.3-8.2); eGFR > 60.00
[2025-07-25] MEDS: SYMBICORT 160/4.5 MCG INHALER 2 PUFF INH ×2 (08:02→19:05)
[2025-07-25] MEDS: MEPHYTON 5 MG PO (08:25)
[2025-07-25] MEDS: COREG 3.125 MG PO (08:26)
[2025-07-25] MEDS: DUPHALAC/CHRONULAC 20 GRAMS PO ×2 (08:26→19:59)
[2025-07-25] MEDS: XIFAXAN 550 MG PO ×2 (08:26→19:59)
[2025-07-25] MEDS: LIORESAL 10 MG PO (08:26)
--- NOTE | 2025-07-25 11:07 | W.PN.GI.CBS2 ---
Today's Communication / Plan
-
Hgb dropped down to 7.2
May be rebleeding after brown stool overnight
Getting PRBC
Follow BM, Hgb trend. If ongoing bleeding, repeat EGD
If stable, can start clears as pt very anxious to eat, but understands need for NPO with possible rebleed
Cont Protonix gtt
Assessment / Plan
-
55-year-old female past history of cirrhosis (diagnosed a couple years ago), alcohol abuse, hepatic encephalopathy, GAVE on EGD 03/25/2024 performed at [facility] by Dr. Huizar (last reported EGD), bipolar disorder, anemia, falls,
recent admission at [facility] 03/18/2025 through 03/23/2025 for falls and confusion, sent to [facility] afterwards, evaluated in [place] [facility] 03/25/2025 for change in mental status. The patient was treated for a UTI. Lactulose
was increased and she was instructed to follow-up with pipeline construction inspector Dr. Chaz Garcia after discharge. The patient did follow-up with Dr. Chaz Garcia hepatology (records unavailable to us). The patient states that she continued on her
regular medications for her liver cirrhosis which include Coreg, lactulose twice daily (although she was instructed to take this 3 times daily), Xifaxan, pantoprazole. She stopped taking these 3 days ago as she states her 'stomach was messed up'.
She started noticing that she had some black stool with some maroon mixed in that would float on the top. Had some mid epigastric discomfort associated with nausea. We are asked to evaluate for GI bleed. She had a bowel movement overnight
approximately 75 cc of liquid melena, nonefurther. Temp 99.7, blood pressure 114/72, pulse 112, respirations 20. She presented with WBC 15.9, hemoglobin 5.7, hematocrit 18.4, platelets 342. She has been transfused 2 units of packed red blood
cells and we are currently awaiting repeat hemoglobin. PT 21.1, INR 1.8, sodium 134, potassium 3.6, BUN 20, creatinine 0.7, glucose 110, lactic acid 10.9, calcium 8.1, total bilirubin 1.7, AST 87, ALT <10, albumin 2.6, lipase pending, EtOH
negative. CT abdomen and pelvis angio with and without IV contrast shows severe hepatic cirrhosis. Large regions of very low attenuation throughout the liver. Which appear to be causing mass effect on the hepatic and portal veins. Diagnostic
possibilities include extensive hepatic malignancy, hepatic steatosis and benign cirrhotic nodules. Severe portal hypertension with collateral gastrosplenic varices, retroperitoneal varices, splenorenal shunting and perirectal varices. Mild
colitis involving the ascending colon probable portal colopathy. Moderate diverticulosis in the ascending colon. Cholelithiasis and reactive gallbladder wall thickening. Small volume of perihepatic ascites. Severe discogenic degenerative disease
at L5/S1. The patient was given 1 dose of Zosyn, started on ceftriaxone 1 g daily, continued on Coreg 3.125 mg twice daily, started on octreotide and pantoprazole drip.
EGD 07/24:
No esophageal varices
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
Nodule in 2nd portion duodenum (?ampulla, but did not appear to be in typical location)
During procedure, active bleeding seen refluxing from distal duodenum/proximal jejunum
Injected 10cc dilute epi and applied hemospray, initially without cessation
Eventually bleeding stopped
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 Tattooed site with carbon spot
Impression:
EGD active bleeding in SB, suspect jejunum, possible jenunal ectasia cauterized w APC following random epi/hemospray. Site tattooed
GI bleed-> melena with some maroon, negative CTA for active bleeding, 75 cc since arrival.
Alcoholic cirrhosis
History of hepatic encephalopathy
Severe portal hypertension seen on CTA
Small volume perihepatic ascites
Low-attenuation lesions throughout liver seen on CTA
-> Reviewed imaging from [facility] admission 03/2025. Ultrasound abdomen with Dopplers only (no masses, patent vasculature)
Leukocytosis
Subjective
Subjective
Date of Service: July 25, 2025
Pt reports brown stool overnight, but then burgundy stool this am. Flushed before RN could get good look but grainy, gritty with burgundy
Getting PRBC now
Objective
Data Reviewed
Laboratory Data:
Laboratory Results
07/25/25 06:45
07/25/25 06:45
Laboratory Results
PT 19.3 Sec (11.4-14.6) H 07/25/25 06:45
INR 1.61 07/25/25 06:45
APTT 32.1 Sec (23.4-35.0) 07/23/25 02:13
Total Bilirubin 2.0 mg/dl (0.2-1.3) H 07/25/25 06:45
AST 158 U/L (14-36) H 07/25/25 06:45
ALT 56 U/L (0-35) H 07/25/25 06:45
Alkaline Phosphatase 103 U/L (38-126) 07/25/25 06:45
Lipase 102 U/L (23-300) 07/23/25 09:57
Vital Signs and I&O:
Vital Signs
Temp Pulse Resp BP Pulse Ox
98 F 70 23 94/70 98
07/25/25 10:45 07/25/25 10:45 07/25/25 10:45 07/25/25 10:45 07/25/25 08:03
I&O
07/24/25 07/25/25 07/26/25
06:59 06:59 06:59
Intake Total 360 / 360 340 / 340 0 / 0
Output Total 50 / 50
Balance 310 / 310 340 / 340 0 / 0
Physical Exam
Physical Exam
GI: Soft, Non Distended and Non Tender
[2025-07-25] MEDS: PROTONIX 100 IV ×2 (12:04→23:09)
--- NOTE | 2025-07-25 12:35 | W.PN.HOSP.TC ---
Today's Communication/Plan
-
PRBC today
follow H&H and further GI plans
NPO since might need repeated EGD
Assessment / Plan
Assessment / Plan
55yo F with ETOH liver cirrhosis. ADHD, COPD, Hx of GIB came with 2 dys of bright red blood per rectum and dizziness, associated with nausea, vomiting and diffse transverse lower abdominal pain.
Hx of GIB before with Hgb as low as to 3 g/dL
A/P:
#Symptomatic acute blood loss anemia 2/2 GIB
#Nausea/Vomiting (no signs of diverticulitis on CT)
#portal colopathy
#gastrosplenic varices, retroperitoneal varices, splenorenal shunting
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 Site tattooed
CT abd with signs of hemorrhage in terminal ileum
abd non-tender, patient improved after 2 units PRBC after admission
serial H&H, transfuse to keep Hgb >7, avoid anticoagulation and antiplatelets
PPI drip and octreotide
Requested medical records from [facility]
No signs of cholecystitis on CT
Advance diet as tolerated
#UTI ruld out
#Leukocytosis resolved
stopped Abx
Yeasts in Urine - since asymptomatic - no indication to treat
#Cholelithiasis and gall bladder wall thickening
#Liver cirrhosis
#Transaminitis, bilirubinemia and elevated alk.phos 2/2 above
#multiple hypodense hepatic masses
MRI abd: LIRADS3 - repeat maging in 3-6 months. Moderate ascites
cont home meds when able
follow LFT
#Hypocalcemia
repleted
#perirectal varices
non-painful
#COPD not in exacerbation
#HEDY
#ADHD
cont home meds
#diverticulosis w/o diverticulitis
high fiber diet
#Polysubstance abuse
UDS positive for cocaine as addition to prescription meds
counselled on cessation - patient denied usage
DVT ppx SCDs
Full code
I have spent at least 51min reviewing chart, test results, communication with consultants and providing direct patient care
Anticipated Discharge: 24 - 48 hours
Subjective/Interval History
-
Date of Service: July 25, 2025
Objective Data
-
Labs:
Laboratory Results
07/25/25 07/25/25 07/25/25
00:09 06:45 06:45
WBC 7.1
Hgb 7.9 L Cancelled 7.2 L
Hct 23.9 L Cancelled
Plt Count
PT
INR
Sodium
Potassium
Chloride
Carbon Dioxide
BUN
Creatinine
Glucose
Calcium
Total Bilirubin
AST
ALT
Alkaline Phosphatase
07/25/25 07/25/25 07/25/25
06:45 11:15 19:15
WBC
Hgb Pending Pending
Hct 22.3 L Pending Pending
Plt Count 161
PT 19.3 H
INR 1.61
Sodium 135
Potassium 3.7
Chloride 110 H
Carbon Dioxide 22
BUN 15
Creatinine 0.7
Glucose 98
Calcium 7.7 L
Total Bilirubin 2.0 H
AST 158 H
ALT 56 H
Alkaline Phosphatase 103
Vital Signs:
Vital Signs
Temp Pulse Resp BP Pulse Ox
98.5 F 72 18 96/66 98
07/25/25 11:20 07/25/25 12:04 07/25/25 12:04 07/25/25 12:04 07/25/25 08:03
I&O
07/24/25 07/25/25 07/26/25
06:59 06:59 06:59
Intake Total 360 / 360 340 / 340 0 / 0
Output Total 50 / 50
Balance 310 / 310 340 / 340 0 / 0
Review of Systems
-
History Source: Patient
All other systems: Reviewed and negative
Physical Exam
-
General: Comfortable
HEENT: Normocephalic
Respiratory: Clear to Auscultation
GI: Soft, Nontender and Nondistended
Skin: Warm
Neuro: Awake, Alert, Oriented and AO x 3
Psych: Calm
--- NOTE | 2025-07-25 14:10 | PTCARENOTE ---
Completed 1 unit PRBCs at 1pm will check h/h 2 hours post at 3PM. Nauses this am, resolved now hungry. IV Protonix infusing. Up to Bathroom has had 2 250ml liquid dk brown stools. Fast talking, anxious- prn Klonipin given x1 today.
[2025-07-25 15:29] LABS: Hematocrit 27.8 % (37.0-47.0); Hemoglobin 8.9 g/dL (12.0-16.0)
--- NOTE | 2025-07-25 16:51 | CM ---
Following up on Patient. RN state that patient is still bleeding and has been a tests all day.
CECIL Oviedorichard was able to meet with her again to ask if she wanted any D&A resources and she refused.
PLAN: Home No Needs likely.
--- NOTE | 2025-07-25 18:25 | PTCARENOTE ---
Hgb 8.9 / stools are liquid dark brown black flecks- relayed to providers- clear liquid diet order initiated- dinner eaten pt now sleeping soundly.
[2025-07-25] MEDS: COREG PO (19:58)
[2025-07-25 22:49] LABS: Hematocrit 25.0 % (37.0-47.0); Hemoglobin 8.4 g/dL (12.0-16.0)
[2025-07-25] MEDS: ZOFRAN 4 MG IV (23:09)
[2025-07-26] VITALS (17 sets, daily range): BP systolic 85–116; BP diastolic 45–74; BMI 23.3; BMI 23.0
[2025-07-26] MEDS: KLONOPIN 0.5 MG PO (04:01)
[2025-07-26 06:24] LABS: Hematocrit 24.3 % (37.0-47.0); Hemoglobin 8.1 g/dL (12.0-16.0); Mean Corp Hgb Conc. 33.3 g/dL (33.0-37.0); Mean Corpuscular Volume 86.5 fL (81.0-99.0); Nucleated Red Blood Cells % 0 %; Platelet Count 163 10^3/uL (130-400); Red Cell Dist. Width 17.8 % (11.5-14.5)
[2025-07-26 06:52] LABS: INR 1.40; PT 17.6 Sec (11.4-14.6)
[2025-07-26 07:16] LABS: ALT (SGPT) 56 U/L (0-35); AST (SGOT) 131 U/L (14-36); Albumin 2.1 g/dl (3.5-5.0); Alkaline Phosphatase 154 U/L (38-126); Blood Urea Nitrogen 12 mg/dl (7-17); Calcium 7.9 mg/dl (8.4-10.2); Carbon Dioxide 21 mmol/L (22-30); Chloride 110 mmol/L (98-107); Estimated Creatinine Clearance 80 ml/min; Glucose 98 mg/dl (70-99); Potassium 3.8 mmol/L (3.5-5.1); Sodium 135 mmol/L (135-145); Total Protein 4.5 g/dl (6.3-8.2); eGFR > 60.00
[2025-07-26] MEDS: SYMBICORT 160/4.5 MCG INHALER 2 PUFF INH ×2 (08:00→19:33)
[2025-07-26] MEDS: FLUSH (NSS) IV ×2 (08:08)
[2025-07-26] MEDS: XIFAXAN 550 MG PO ×2 (08:10→21:08)
[2025-07-26] MEDS: COREG PO ×2 (08:10→20:28)
[2025-07-26] MEDS: LIORESAL 10 MG PO (08:11)
[2025-07-26] MEDS: DUPHALAC/CHRONULAC 20 GRAMS PO ×2 (08:12→18:13)
--- NOTE | 2025-07-26 09:11 | W.PN.GI.CBS2 ---
Today's Communication / Plan
-
Stools now brown
Will advance to low residue diet and follow Hgb
Repeat EGD if rebleeding. I was not confident that the possible ectasia in the jejunum was the bleeding site, but it was cauterized and tattooed
Assessment / Plan
-
55-year-old female past history of cirrhosis (diagnosed a couple years ago), alcohol abuse, hepatic encephalopathy, GAVE on EGD 03/25/2024 performed at [facility] by Dr. Huizar (last reported EGD), bipolar disorder, anemia, falls,
recent admission at [facility] 03/18/2025 through 03/23/2025 for falls and confusion, sent to [facility] afterwards, evaluated in [facility] 03/25/2025 for change in mental status. The patient was treated for a UTI. Lactulose
was increased and she was instructed to follow-up with newspaper subscription solicitor Dr. Chaz Garcia after discharge. The patient did follow-up with Dr. Chaz Garcia hepatology (records unavailable to us). The patient states that she continued on her
regular medications for her liver cirrhosis which include Coreg, lactulose twice daily (although she was instructed to take this 3 times daily), Xifaxan, pantoprazole. She stopped taking these 3 days ago as she states her 'stomach was messed up'.
She started noticing that she had some black stool with some maroon mixed in that would float on the top. Had some mid epigastric discomfort associated with nausea. We are asked to evaluate for GI bleed. She had a bowel movement overnight
approximately 75 cc of liquid melena, nonefurther. Temp 99.7, blood pressure 114/72, pulse 112, respirations 20. She presented with WBC 15.9, hemoglobin 5.7, hematocrit 18.4, platelets 342. She has been transfused 2 units of packed red blood
cells and we are currently awaiting repeat hemoglobin. PT 21.1, INR 1.8, sodium 134, potassium 3.6, BUN 20, creatinine 0.7, glucose 110, lactic acid 10.9, calcium 8.1, total bilirubin 1.7, AST 87, ALT <10, albumin 2.6, lipase pending, EtOH
negative. CT abdomen and pelvis angio with and without IV contrast shows severe hepatic cirrhosis. Large regions of very low attenuation throughout the liver. Which appear to be causing mass effect on the hepatic and portal veins. Diagnostic
possibilities include extensive hepatic malignancy, hepatic steatosis and benign cirrhotic nodules. Severe portal hypertension with collateral gastrosplenic varices, retroperitoneal varices, splenorenal shunting and perirectal varices. Mild
colitis involving the ascending colon probable portal colopathy. Moderate diverticulosis in the ascending colon. Cholelithiasis and reactive gallbladder wall thickening. Small volume of perihepatic ascites. Severe discogenic degenerative disease
at L5/S1. The patient was given 1 dose of Zosyn, started on ceftriaxone 1 g daily, continued on Coreg 3.125 mg twice daily, started on octreotide and pantoprazole drip.
07/23- 2 units PRBC
07/24- 2 units PRBC
07/25- 1 unit PRBC
EGD 07/24:
No esophageal varices
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
Nodule in 2nd portion duodenum (?ampulla, but did not appear to be in typical location)
During procedure, active bleeding seen refluxing from distal duodenum/proximal jejunum
Injected 10cc dilute epi and applied hemospray, initially without cessation
Eventually bleeding stopped
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 Tattooed site with carbon spot
Impression:
EGD active bleeding in SB, suspect jejunum, possible jejunal ectasia cauterized w APC following random epi/hemospray. Site tattooed
GI bleed-> melena with some maroon, negative CTA for active bleeding, 75 cc since arrival.
Alcoholic cirrhosis
History of hepatic encephalopathy
Severe portal hypertension seen on CTA
Small volume perihepatic ascites
Low-attenuation lesions throughout liver seen on CTA
-> Reviewed imaging from [facility] admission 03/2025. Ultrasound abdomen with Dopplers only (no masses, patent vasculature)
Leukocytosis
Subjective
Subjective
Date of Service: July 26, 2025
Passing multiple brown BMs. Denies abd pain
Objective
Data Reviewed
Laboratory Data:
Laboratory Results
07/26/25 06:08
Laboratory Results
PT 17.6 Sec (11.4-14.6) H 07/26/25 06:08
INR 1.40 07/26/25 06:08
APTT 32.1 Sec (23.4-35.0) 07/23/25 02:13
Total Bilirubin 2.0 mg/dl (0.2-1.3) H 07/26/25 06:08
AST 131 U/L (14-36) H 07/26/25 06:08
ALT 56 U/L (0-35) H 07/26/25 06:08
Alkaline Phosphatase 154 U/L (38-126) H 07/26/25 06:08
Lipase 102 U/L (23-300) 07/23/25 09:57
Vital Signs and I&O:
Vital Signs
Temp Pulse Resp BP Pulse Ox
98.0 F 80 20 106/74 97
07/26/25 08:00 07/26/25 08:10 07/26/25 08:02 07/26/25 08:10 07/26/25 08:00
I&O
07/25/25 07/26/25 07/27/25
06:59 06:59 06:59
Intake Total 340 / 340 890 / 890
Output Total 600 / 600
Balance 340 / 340 290 / 290
Physical Exam
Physical Exam
GI: Soft, Non Distended and Non Tender
--- NOTE | 2025-07-26 09:51 | W.PN.HOSP.TC ---
Today's Communication/Plan
-
cont to monitor H&H as per GI, also possible paracentesis
switch to BID IV PPI as drip ran>72h now
Regular diet as per GI
transfer to [facility]
Assessment / Plan
Assessment / Plan
55yo F with ETOH liver cirrhosis. ADHD, COPD, Hx of GIB came with 2 dys of bright red blood per rectum and dizziness, associated with nausea, vomiting and diffse transverse lower abdominal pain.
Hx of GIB before with Hgb as low as to 3 g/dL
A/P:
#Symptomatic acute blood loss anemia 2/2 GIB
#Nausea/Vomiting (no signs of diverticulitis on CT)
#portal colopathy
#gastrosplenic varices, retroperitoneal varices, splenorenal shunting
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 Site tattooed
CT abd with signs of hemorrhage in terminal ileum
abd non-tender, patient improved after 2 units PRBC after admission
serial H&H, transfuse to keep Hgb >7, avoid anticoagulation and antiplatelets
PPI drip and octreotide
Requested medical records from [facility]
No signs of cholecystitis on CT
Advance diet as tolerated
#UTI ruld out
#Leukocytosis resolved
stopped Abx
Yeasts in Urine - since asymptomatic - no indication to treat
#Cholelithiasis and gall bladder wall thickening
#Liver cirrhosis with minimal ascites
#Transaminitis, bilirubinemia and elevated alk.phos 2/2 above
#multiple hypodense hepatic masses
MRI abd: LIRADS3 - repeat maging in 3-6 months. Moderate ascites
cont home meds when able
follow LFT
paracentesis - defer to GI
#Hypocalcemia
repleted
#perirectal varices
non-painful
#COPD not in exacerbation
#HEDY
#ADHD
cont home meds
#diverticulosis w/o diverticulitis
high fiber diet
#Polysubstance abuse
UDS positive for cocaine as addition to prescription meds
counselled on cessation - patient denied usage
#Chronic hypotension
asymptomatic
2/2 liver disease
only on Carvedilol lowest dose for varices
DVT ppx SCDs
Full code
I have spent at least 56min reviewing chart, test results, communication with consultants and providing direct patient care
Anticipated Discharge: 24 - 48 hours
Subjective/Interval History
-
Date of Service: July 26, 2025
Objective Data
-
Labs:
Laboratory Results
07/25/25 07/26/25 07/26/25
22:41 06:08 06:08
WBC 6.1
Hgb 8.4 L Cancelled 8.1 L
Hct 25.0 L Cancelled
Plt Count
PT
INR
Sodium
Potassium
Chloride
Carbon Dioxide
BUN
Creatinine
Glucose
Calcium
Total Bilirubin
AST
ALT
Alkaline Phosphatase
07/26/25 07/26/25 07/26/25
06:08 11:15 19:15
WBC
Hgb Pending Pending
Hct 24.3 L Pending Pending
Plt Count 163
PT 17.6 H
INR 1.40
Sodium 135
Potassium 3.8
Chloride 110 H
Carbon Dioxide 21 L
BUN 12
Creatinine 0.6
Glucose 98
Calcium 7.9 L
Total Bilirubin 2.0 H
AST 131 H
ALT 56 H
Alkaline Phosphatase 154 H
Vital Signs:
Vital Signs
Temp Pulse Resp BP Pulse Ox
98.0 F 80 20 106/74 97
07/26/25 08:00 07/26/25 08:10 07/26/25 08:02 07/26/25 08:10 07/26/25 08:00
I&O
07/25/25 07/26/25 07/27/25
06:59 06:59 06:59
Intake Total 340 / 340 890 / 890
Output Total 600 / 600
Balance 340 / 340 290 / 290
Review of Systems
-
History Source: Patient
All other systems: Reviewed and negative
Physical Exam
-
General: No Apparent Distress
HEENT: Normocephalic
GI: Soft, Nontender and Nondistended
Musculoskeletal: No Clubbing, No Cyanosis and No Edema
Neuro: Awake, Alert, Oriented and AO x 3
Psych: Calm
[2025-07-26] MEDS: ZOFRAN 4 MG IV (10:01)
[2025-07-26] MEDS: PROTONIX IV (10:36)
--- NOTE | 2025-07-26 10:44 | PTCARENOTE ---
Patient AAOx3, reports anxiety. Diet advanced to low res. BPs soft, all other VSS. RA. C/o nausea, zofran given. Reports no blood in early AM BM, will monitor future BMs. Abdomen firm and round. Downgraded to M/S. Bed alarm on for safety. Will
closely monitor.
[2025-07-26 12:14] LABS: Hematocrit 24.2 % (37.0-47.0); Hemoglobin 8.0 g/dL (12.0-16.0)
--- NOTE | 2025-07-26 14:15 | PTCARENOTE ---
Transferred in to room 416-1. AAOx2-3, VSS. Bed alarm in place for patient safety. Patient able to make needs known.
[2025-07-26] MEDS: MYLICON 80 MG PO (16:00)
[2025-07-26 20:10] LABS: Hematocrit 25.5 % (37.0-47.0); Hemoglobin 8.4 g/dL (12.0-16.0)
[2025-07-26] MEDS: DUPHALAC/CHRONULAC PO ×3 (20:30→21:12)
[2025-07-26] MEDS: KLONOPIN PO (20:30)
[2025-07-26] MEDS: XIFAXAN PO (20:31)
[2025-07-26] MEDS: PROTONIX IV IV (20:31)
[2025-07-26] MEDS: NSS (PRESERVATIVE FREE) IV (20:31)
--- NOTE | 2025-07-26 20:59 | VATNOTE ---
Called to assess both IV sites pt. had; noted significant left AC phlebitis; red, marked and measured 9cm wide x 11cm high. No meds of significance that PCN Anisa could tell had been going thru site; catheter removed. pt stated pain level was an '8';
does not take tylenol however; PCN offered other meds. Ice applied. Encouraged PCN and pt. to have hospitalist assess in am. VAT to follow.
[2025-07-26] MEDS: NSS (PRESERVATIVE FREE) 10 ML IV (21:08)
[2025-07-26] MEDS: PROTONIX IV 40 MG IV (21:08)
[2025-07-26] MEDS: DILAUDID 0.25 MG IV (21:08)
[2025-07-27] VITALS (9 sets, daily range): BP systolic 81–111; BP diastolic 51–69; PULSE 78–90
[2025-07-27] MEDS: DILAUDID 0.25 MG IV ×3 (02:17→15:50)
[2025-07-27] MEDS: FLUSH (NSS) IV ×2 (04:07→07:10)
[2025-07-27] MEDS: KLONOPIN 0.5 MG PO ×2 (04:22→15:50)
[2025-07-27 04:23] LABS: Hematocrit 24.0 % (37.0-47.0); Hemoglobin 8.0 g/dL (12.0-16.0)
--- NOTE | 2025-07-27 04:30 | PTCARENOTE ---
Last night @ approx 2039, insurance writer observed significant left AC phlebitis above IV site. Area looked 'angry'. It was about detention up upper arm, red, raised and warm/hot to touch. Temp 99.0. Patient reported area to be painful. No medication was
running through site during shift and no medication given via push by insurance writer prior to visual assessment. R forearm IV had phlebitis as well, but a lesser extent. IV team notified. Both IV's were removed. L arm phlebitis was marked and measured by
VAT nurse. Ice pack also provided. PRN pain medication given per pain level.
Monitored site throughout shift. L arm phlebitis did decrease in size and is electric lineman in color. Patient did not report pain at site afterward.
Additionally, patient did not get up to urinate for 6 hours. Bladder scan was 205mls at 0430. Patient said she's been voiding less recently d/t being dehydrated. She did drink 480mls up to this point and was provided another large cup of ice water.
Patient slightly irritable/disinterested at voiding protocol as she wanted to continue sleeping.
[2025-07-27 05:50] LABS: ALT (SGPT) 61 U/L (0-35); AST (SGOT) 140 U/L (14-36); Albumin 2.2 g/dl (3.5-5.0); Alkaline Phosphatase 176 U/L (38-126); Total Protein 4.8 g/dl (6.3-8.2)
[2025-07-27] MEDS: SYMBICORT 160/4.5 MCG INHALER 2 PUFF INH ×2 (07:15→19:59)
[2025-07-27] MEDS: COREG PO ×2 (07:50→20:06)
[2025-07-27] MEDS: DUPHALAC/CHRONULAC PO (07:54)
[2025-07-27] MEDS: PROTONIX IV 40 MG IV ×2 (07:55→20:06)
[2025-07-27] MEDS: LIORESAL 10 MG PO (07:55)
[2025-07-27] MEDS: XIFAXAN 550 MG PO ×2 (07:55→20:06)
[2025-07-27] MEDS: NSS (PRESERVATIVE FREE) 10 ML IV ×2 (07:55→20:06)
[2025-07-27 08:26] LABS: Hematocrit 24.2 % (37.0-47.0); Hemoglobin 7.9 g/dL (12.0-16.0)
--- NOTE | 2025-07-27 08:29 | VATNOTE ---
Vat rounds: Left Ac phlebitis continues with min pain. warm compress applied for comfort. Will monitor closely.
[2025-07-27] MEDS: ZOFRAN 4 MG IV ×2 (08:31→20:10)
--- NOTE | 2025-07-27 10:34 | W.PN.HOSP.TC ---
Today's Communication/Plan
-
Paracentesis with labs
Hgb stable, small BM without blood - further mgmt as per GI
Assessment / Plan
Assessment / Plan
55yo F with ETOH liver cirrhosis. ADHD, COPD, Hx of GIB came with 2 dys of bright red blood per rectum and dizziness, associated with nausea, vomiting and diffuse transverse lower abdominal pain.
Hx of GIB before with Hgb as low as to 3 g/dL. 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 Site tattooed. Developed worsening ascites
A/P:
#Symptomatic acute blood loss anemia 2/2 GIB
#Nausea/Vomiting (no signs of diverticulitis on CT)
#portal colopathy
#gastrosplenic varices, retroperitoneal varices, splenorenal shunting
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 Site tattooed
CT abd with signs of hemorrhage in terminal ileum
abd non-tender, patient improved after 2 units PRBC after admission
serial H&H, transfuse to keep Hgb >7, avoid anticoagulation and antiplatelets
PPI drip and octreotide
Requested medical records from [facility]
No signs of cholecystitis on CT
Advance diet as tolerated
#UTI ruld out
#Leukocytosis resolved
stopped Abx
Yeasts in Urine - since asymptomatic - no indication to treat
#Cholelithiasis and gall bladder wall thickening
#Liver cirrhosis with ascites
#Transaminitis, bilirubinemia and elevated alk.phos 2/2 above
#multiple hypodense hepatic masses
MRI abd: LIRADS3 - repeat maging in 3-6 months. Moderate ascites
cont home meds when able
follow LFT
paracentesis on 07/27/25 as agreed with GI
#Hypocalcemia
repleted
#perirectal varices
non-painful
#COPD not in exacerbation
#HEDY
#ADHD
cont home meds
#diverticulosis w/o diverticulitis
high fiber diet
#Polysubstance abuse
UDS positive for cocaine as addition to prescription meds
counselled on cessation - patient denied usage
#Chronic hypotension
asymptomatic
2/2 liver disease
only on Carvedilol lowest dose for varices
DVT ppx SCDs
Full code
I have spent at least 56min reviewing chart, test results, communication with consultants and providing direct patient care
Anticipated Discharge: Within 24 hours
Subjective/Interval History
-
Date of Service: July 27, 2025
Objective Data
-
Labs:
Laboratory Results
07/27/25 07/27/25
04:09 07:37
Hgb 8.0 L 7.9 L
Hct 24.0 L 24.2 L
Total Bilirubin 1.8 H
AST 140 H
ALT 61 H
Alkaline Phosphatase 176 H
Vital Signs:
Vital Signs
Temp Pulse Resp BP Pulse Ox
97.9 F 85 14 98/65 95
07/27/25 07:00 07/27/25 07:54 07/27/25 07:16 07/27/25 07:54 07/27/25 10:29
I&O
07/26/25 07/27/25 07/28/25
06:59 06:59 06:59
Intake Total 890 / 890 960 / 960
Output Total 600 / 600
Balance 290 / 290 960 / 960
Review of Systems
-
History Source: Patient
All other systems: Reviewed and negative
Abdomen/GI: Reports Bloated and Other (cramps)
Physical Exam
-
General: No Apparent Distress
HEENT: Normocephalic
Respiratory: Clear to Auscultation
Cardiac: Regular Rhythm
GI: Soft, Nontender and Distended
Genito-urinary: No Costovertebral Tender
Skin: Warm
Neuro: Awake, Alert, Oriented and AO x 3
Psych: Calm
--- NOTE | 2025-07-27 11:53 | CM ---
CM reviewed chart, patient seen bedside, reports no needs to CM at this time. Patient for paracentesis today. Patient reports she may need assistance with transport upon discharge. CM will continue to follow for all discharge planning needs.
Plan; home no needs
--- NOTE | 2025-07-27 13:14 | W.PN.GI.CBS2 ---
Today's Communication / Plan
-
paracentesis
Assessment / Plan
-
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 Huizar (last reported EGD), bipolar disorder, anemia, falls,
recent admission at [facility] 03/18/2025 through 03/23/2025 for falls and confusion, sent to [facility] afterwards, evaluated in [place] [facility] 03/25/2025 for change in mental status. The patient was treated for a UTI. Lactulose
was increased and she was instructed to follow-up with lending consultant Dr. Chaz Garcia after discharge. The patient did follow-up with Dr. Chaz Garcia hepatology (records unavailable to us). The patient states that she continued on her
regular medications for her liver cirrhosis which include Coreg, lactulose twice daily (although she was instructed to take this 3 times daily), Xifaxan, pantoprazole. She stopped taking these 3 days ago as she states her 'stomach was messed up'.
She started noticing that she had some black stool with some maroon mixed in that would float on the top. Had some mid epigastric discomfort associated with nausea. We are asked to evaluate for GI bleed. She had a bowel movement overnight
approximately 75 cc of liquid melena, nonefurther. Temp 99.7, blood pressure 114/72, pulse 112, respirations 20. She presented with WBC 15.9, hemoglobin 5.7, hematocrit 18.4, platelets 342. She has been transfused 2 units of packed red blood
cells and we are currently awaiting repeat hemoglobin. PT 21.1, INR 1.8, sodium 134, potassium 3.6, BUN 20, creatinine 0.7, glucose 110, lactic acid 10.9, calcium 8.1, total bilirubin 1.7, AST 87, ALT <10, albumin 2.6, lipase pending, EtOH
negative. CT abdomen and pelvis angio with and without IV contrast shows severe hepatic cirrhosis. Large regions of very low attenuation throughout the liver. Which appear to be causing mass effect on the hepatic and portal veins. Diagnostic
possibilities include extensive hepatic malignancy, hepatic steatosis and benign cirrhotic nodules. Severe portal hypertension with collateral gastrosplenic varices, retroperitoneal varices, splenorenal shunting and perirectal varices. Mild
colitis involving the ascending colon probable portal colopathy. Moderate diverticulosis in the ascending colon. Cholelithiasis and reactive gallbladder wall thickening. Small volume of perihepatic ascites. Severe discogenic degenerative disease
at L5/S1. The patient was given 1 dose of Zosyn, started on ceftriaxone 1 g daily, continued on Coreg 3.125 mg twice daily, started on octreotide and pantoprazole drip.
07/23- 2 units PRBC
07/24- 2 units PRBC
07/25- 1 unit PRBC
EGD 07/24:
No esophageal varices
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
Nodule in 2nd portion duodenum (?ampulla, but did not appear to be in typical location)
During procedure, active bleeding seen refluxing from distal duodenum/proximal jejunum
Injected 10cc dilute epi and applied hemospray, initially without cessation
Eventually bleeding stopped
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 Tattooed site with carbon sp
plan:
hgb stable, no clinical bleeding
paracentesis today if enough fluid
outpatient f/u with dr. Garcia
Subjective
Subjective
Date of Service: July 27, 2025
Pt s/p apc of sb ectasia. no bleeding. does feel like she has abd distention and had been on diuretics in the past
Objective
Data Reviewed
Laboratory Data:
Laboratory Results
07/27/25 07:37
07/26/25 06:08
Laboratory Results
PT 17.6 Sec (11.4-14.6) H 07/26/25 06:08
INR 1.40 07/26/25 06:08
APTT 32.1 Sec (23.4-35.0) 07/23/25 02:13
Total Bilirubin 1.8 mg/dl (0.2-1.3) H 07/27/25 04:09
AST 140 U/L (14-36) H 07/27/25 04:09
ALT 61 U/L (0-35) H 07/27/25 04:09
Alkaline Phosphatase 176 U/L (38-126) H 07/27/25 04:09
Lipase 102 U/L (23-300) 07/23/25 09:57
Vital Signs and I&O:
Vital Signs
Temp Pulse Resp BP Pulse Ox
98.3 F 81 15 93/64 95
07/27/25 12:35 07/27/25 13:04 07/27/25 13:04 07/27/25 13:04 07/27/25 13:04
I&O
07/26/25 07/27/25 07/28/25
06:59 06:59 06:59
Intake Total 890 / 890 960 / 960
Output Total 600 / 600
Balance 290 / 290 960 / 960
Physical Exam
Physical Exam
HEENT: Anicteric
GI: Distended (ascites)
Neuro: Non Focal (no asterixis)
[2025-07-27 14:03] LABS: Body Fluid Second Tech HB
[2025-07-27] MEDS: DUPHALAC/CHRONULAC 20 GRAMS PO (20:06)
[2025-07-28] MEDS: FLUSH (NSS) IV ×2 (01:40)
[2025-07-28] MEDS: KLONOPIN 0.5 MG PO (04:32)
[2025-07-28] MEDS: ZOFRAN 4 MG IV (05:26)
[2025-07-28] MEDS: DILAUDID 0.25 MG IV ×2 (05:27→10:23)
[2025-07-28 07:00] VITALS: BP 101/64; BP 104/66; BP 90/58; PULSE 89; PULSE 94; PULSE 95
[2025-07-28] MEDS: NSS (PRESERVATIVE FREE) 10 ML IV (07:40)
[2025-07-28] MEDS: DUPHALAC/CHRONULAC 20 GRAMS PO (07:40)
[2025-07-28] MEDS: LIORESAL 10 MG PO (07:40)
[2025-07-28] MEDS: PROTONIX IV 40 MG IV (07:40)
[2025-07-28] MEDS: XIFAXAN 550 MG PO (07:40)
[2025-07-28] MEDS: COREG PO (07:41)
[2025-07-28] MEDS: SYMBICORT 160/4.5 MCG INHALER 2 PUFF INH (08:05)
[2025-07-28 08:20] LABS: Hematocrit 24.8 % (37.0-47.0); Hemoglobin 7.8 g/dL (12.0-16.0); Mean Corp Hgb Conc. 31.5 g/dL (33.0-37.0); Mean Corpuscular Volume 88.3 fL (81.0-99.0); Nucleated Red Blood Cells % 0 %; Platelet Count 266 10^3/uL (130-400); Red Cell Dist. Width 17.3 % (11.5-14.5)
[2025-07-28 08:22] VITALS: BP 101/64; BP 104/66; BP 90/58; PULSE 89; PULSE 94; PULSE 95
[2025-07-28 08:30] LABS: INR 1.41; PT 17.5 Sec (11.4-14.6)
--- NOTE | 2025-07-28 08:39 | VATNOTE ---
Left AC infiltrate slowly improving, continued erythematous firm swelling to LUE, warm compress applied.
[2025-07-28 08:47] LABS: ALT (SGPT) 51 U/L (0-35); AST (SGOT) 97 U/L (14-36); Albumin 2.3 g/dl (3.5-5.0); Alkaline Phosphatase 165 U/L (38-126); Blood Urea Nitrogen 8 mg/dl (7-17); Calcium 7.9 mg/dl (8.4-10.2); Carbon Dioxide 23 mmol/L (22-30); Chloride 107 mmol/L (98-107); Estimated Creatinine Clearance 88 ml/min; Glucose 91 mg/dl (70-99); Potassium 4.0 mmol/L (3.5-5.1); Sodium 132 mmol/L (135-145); Total Protein 4.9 g/dl (6.3-8.2); eGFR > 60.00
--- NOTE | 2025-07-28 10:26 | PTCARENOTE ---
Pt asking for IV Dilaudid. pt for discharge later this afternoon. Dr Kelley was contacted to see if she could have something po. he told RN pt could have the IV Dilaudid as she would not be leaving until after 1pm
--- NOTE | 2025-07-28 10:42 | W.PN.HOSP.TC ---
Today's Communication/Plan
-
dc
Assessment / Plan
Assessment / Plan
55yo F with ETOH liver cirrhosis. ADHD, COPD, Hx of GIB came with 2 dys of bright red blood per rectum and dizziness, associated with nausea, vomiting and diffuse transverse lower abdominal pain.
Hx of GIB before with Hgb as low as to 3 g/dL. 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 Site tattooed. Developed worsening ascites and had paracentesis on
07/28/25 with small amoun tof fluid removed. Transudate 2/2 liver cirrhosis and neg for SBP with neg Cx. Feeling better and Hgb stable. Advised to follow Hgb in 5 days with PCP. As per GI - outpatient f/u with . Meedically stable for d/c
as tolerated solid food well, no signs of encephalopathy and stable Hgb on the day of d/c.
A/P:
#Symptomatic acute blood loss anemia 2/2 GIB
#Nausea/Vomiting (no signs of diverticulitis on CT)
#portal colopathy
#GAVE
#gastrosplenic varices, retroperitoneal varices, splenorenal shunting
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 Site tattooed
CT abd with signs of hemorrhage in terminal ileum
abd non-tender, patient improved after 2 units PRBC after admission
serial H&H, transfuse to keep Hgb >7, avoid anticoagulation and antiplatelets
PPI drip and octreotide
Requested medical records from [facility]
No signs of cholecystitis on CT
Advance diet as tolerated
#UTI ruld out
#Leukocytosis resolved
stopped Abx
Yeasts in Urine - since asymptomatic - no indication to treat
#Cholelithiasis and gall bladder wall thickening
#Liver cirrhosis with ascites
#Transaminitis, bilirubinemia and elevated alk.phos 2/2 above
#multiple hypodense hepatic masses
MRI abd: LIRADS3 - repeat maging in 3-6 months. Moderate ascites
cont home meds when able
follow LFT
paracentesis on 07/27/25 as agreed with GI
#Hypocalcemia
repleted
#perirectal varices
non-painful
#COPD not in exacerbation
#HEDY
#ADHD
cont home meds
#diverticulosis w/o diverticulitis
high fiber diet
#Polysubstance abuse
UDS positive for cocaine as addition to prescription meds
counselled on cessation - patient denied usage
#Chronic hypotension
asymptomatic
2/2 liver disease
only on Carvedilol lowest dose for varices
DVT ppx SCDs
Full code
I have spent at least 56min reviewing chart, test results, communication with consultants and providing direct patient care
Anticipated Discharge: Today
Subjective/Interval History
-
Date of Service: July 28, 2025
Objective Data
-
Labs:
Laboratory Results
07/28/25
07:46
WBC 8.9
Hgb 7.8 L
Hct 24.8 L
Plt Count 266 D
PT 17.5 H
INR 1.41
Sodium 132 L
Potassium 4.0
Chloride 107
Carbon Dioxide 23
BUN 8
Creatinine 0.6
Glucose 91
Calcium 7.9 L
Total Bilirubin 1.8 H
AST 97 H
ALT 51 H
Alkaline Phosphatase 165 H
Vital Signs:
Vital Signs
Temp Pulse Resp BP Pulse Ox
99.1 F 90 16 90/58 98
07/28/25 07:00 07/28/25 08:09 07/28/25 08:09 07/28/25 07:41 07/28/25 08:09
I&O
07/27/25 07/28/25 07/29/25
06:59 06:59 06:59
Intake Total 960 / 960 480 / 480
Balance 960 / 960 480 / 480
Review of Systems
-
History Source: Patient
All other systems: Reviewed and negative
Physical Exam
-
General: Comfortable
HEENT: Normocephalic
Cardiac: Regular Rhythm
GI: Soft, Nontender and Nondistended
Skin: Warm
Neuro: Awake, Alert, Oriented and AO x 3
Psych: Calm
--- NOTE | 2025-07-28 10:51 | W.DCSUMMARY ---
Discharge Summary
Discharge Data
Date of Admission: 07/23/25
Date of Discharge: 07/28/25
-
Pending Results: No
Hospital Course
55yo F with ETOH liver cirrhosis. ADHD, COPD, Hx of GIB came with 2 dys of bright red blood per rectum and dizziness, associated with nausea, vomiting and diffuse transverse lower abdominal pain.
Hx of GIB before with Hgb as low as to 3 g/dL. 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 Site tattooed. Developed worsening ascites and had paracentesis on
07/28/25 with small amoun tof fluid removed. Transudate 2/2 liver cirrhosis and neg for SBP with neg Cx. Feeling better and Hgb stable. Advised to follow Hgb in 5 days with PCP. As per GI - outpatient f/u with . Meedically stable for d/c
as tolerated solid food well, no signs of encephalopathy and stable Hgb on the day of d/c. Advised repeated MRI liver in 3 months with GI.
I have spent at least 56min reviewing chart, test results, communication with consultants and providing direct patient care
Patient was managed for:
#Symptomatic acute blood loss anemia 2/2 GIB
#Nausea/Vomiting (no signs of diverticulitis on CT)
#portal colopathy
#GAVE
#gastrosplenic varices, retroperitoneal varices, splenorenal shunting
#UTI ruld out
#Leukocytosis resolved
#Cholelithiasis and gall bladder wall thickening
#Liver cirrhosis with ascites
#Transaminitis, bilirubinemia and elevated alk.phos 2/2 above
#multiple hypodense hepatic masses
#Hypocalcemia
#perirectal varices
#COPD not in exacerbation
#HEDY
#ADHD
#diverticulosis w/o diverticulitis
#Polysubstance abuse
#Chronic hypotension
Discharge Plan
-
Patient Disposition: Home (Routine Discharge)
Discharge Diagnosis/Procedures: Hematochezia
Diet: Regular
Blood Work: H&H with family doctor in 5 days
Others Tests: Repeat MRI liver in 3 months with GI
Referrals:
Chichi Garrison DO [Family Provider, [facility]] - in three to four days
Referral Note: repeat H&H
Prescriptions:
New
ondansetron 4 mg tablet,disintegrating
4 mg PO Q8H PRN (Reason: nausea and vomiting) Qty: 30 0RF
diclofenac sodium [Arthritis Pain (diclofenac)] 1 % gel
2 g topical QID 7 Days Qty: 50 0RF
Rx Instructions:
apply on lower back
Continued
clonazepam 0.5 mg Tablet
0.5 mg PO TID
ferrous sulfate 325 mg (65 mg iron) Tablet
325 mg PO DAILY
fluticasone propionate 50 mcg/actuation [place],Suspension
2 spray INTRANASAL DAILY
lactulose 10 gram/15 mL Solution
30 ml PO BID
budesonide-formoterol 160-4.5 mcg/actuation Hfa Aerosol Inhaler
2 puff INHALATION BID
rifaximin 550 mg Tablet
550 mg PO BID
carvedilol 3.125 mg Tablet
3.125 mg PO BID
baclofen 10 mg Tablet
10 mg PO DAILY
pantoprazole 40 mg Tablet,Delayed Release (Dr/Ec)
40 mg PO DAILY
Discontinued
dextroamphetamine-amphetamine 20 mg Tablet
20 mg PO TID
Discharge Date and Time
Print Language: MALDIVIAN
--- NOTE | 2025-07-28 10:52 | W.PN.GI.CBS2 ---
Today's Communication / Plan
-
outpt f/u with Dr Garcia
Assessment / Plan
-
Pt with a hx of cirrhosis with GIB from SB ectasia s/p APC now stable with no signs of bleeding
plan:
outpatient f/u with Dr. Garcia her paper colorer (she already has an appointment
no further intervention as no longer bleeding
will sign off
Subjective
Subjective
Date of Service: July 28, 2025
Pt with no abdominal pain or bleeding
did have paracentesis but not much fluid
Objective
Data Reviewed
Laboratory Data:
Laboratory Results
07/28/25 07:46
07/28/25 07:46
Laboratory Results
PT 17.5 Sec (11.4-14.6) H 07/28/25 07:46
INR 1.41 07/28/25 07:46
APTT 32.1 Sec (23.4-35.0) 07/23/25 02:13
Total Bilirubin 1.8 mg/dl (0.2-1.3) H 07/28/25 07:46
AST 97 U/L (14-36) H 07/28/25 07:46
ALT 51 U/L (0-35) H 07/28/25 07:46
Alkaline Phosphatase 165 U/L (38-126) H 07/28/25 07:46
Lipase 102 U/L (23-300) 07/23/25 09:57
Vital Signs and I&O:
Vital Signs
Temp Pulse Resp BP Pulse Ox
99.1 F 90 16 90/58 98
07/28/25 07:00 07/28/25 08:09 07/28/25 08:09 07/28/25 07:41 07/28/25 08:09
I&O
07/27/25 07/28/25 07/29/25
06:59 06:59 06:59
Intake Total 960 / 960 480 / 480
Balance 960 / 960 480 / 480
Physical Exam
Physical Exam
GI: Soft and Non Tender
Neuro: Non Focal
--- NOTE | 2025-07-28 12:22 | CM ---
Chart reviewed and patient is for possible discharge today, home no needs.
Plan; Home no needs.
[2025-07-28 14:00] VITALS: BP 127/78
== END 2025-07-28 14:36 | disposition home or self-care (01) | DRG 811 ==
LOC: 4 WEST ACU 05:13
PROVIDERS: Internal Medicine; Nurse Practitioner; Physician Assistant; Specialist; ADMITTING PHYSICIAN Internal Medicine; ATTENDING PHYSICIAN Internal Medicine; CONSULT PHYSICIAN Internal Medicine Gastroenterology; EMERGENCY PHYSICIAN Emergency Medicine; FAMILY PHYSICIAN Family Medicine
PROC: 30233N1 Transfusion of Nonautologous Red Blood Cells into Peripheral Vein, Percutaneous Approach (ICD-10-PCS; 2025-07-23)
PROC: 0W3P8ZZ Control Bleeding in Gastrointestinal Tract, Via Natural or Artificial Opening Endoscopic (ICD-10-PCS; 2025-07-24)
PROC: XW0G886 Introduction of Mineral-based Topical Hemostatic Agent into Upper GI, Via Natural or Artificial Opening Endoscopic, New Technology Group 6 (ICD-10-PCS; 2025-07-27)
PROC: 0W9G3ZX Drainage of Peritoneal Cavity, Percutaneous Approach, Diagnostic (ICD-10-PCS; 2025-07-27)
DX: D62 Acute posthemorrhagic anemia (principal); K31.811 Angiodysplasia of stomach and duodenum with bleeding; E87.20 Acidosis, unspecified; K76.6 Portal hypertension; K70.31 Alcoholic cirrhosis of liver with ascites; K76.82 Hepatic encephalopathy; K55.20 Angiodysplasia of colon without hemorrhage; K80.20 Calculus of gallbladder without cholecystitis without obstruction; E83.51 Hypocalcemia; I86.8 Varicose veins of other specified sites; J44.9 Chronic obstructive pulmonary disease, unspecified; F90.9 Attention-deficit hyperactivity disorder, unspecified type; K57.30 Diverticulosis of large intestine without perforation or abscess without bleeding; F19.10 Other psychoactive substance abuse, uncomplicated; F31.9 Bipolar disorder, unspecified; F10.20 Alcohol dependence, uncomplicated; F17.290 Nicotine dependence, other tobacco product, uncomplicated; I95.89 Other hypotension; K52.9 Noninfective gastroenteritis and colitis, unspecified; Z79.899 Other long term (current) drug therapy
CPT/HCPCS: 49083; 74174; 74183; 80048; 80053; 80076; 80306; 80307; 81003; 81015; 82042; 82077; 82140; 82248; 82728; 83540; 83550; 83605; 83690; 84157; 85014; 85018; 85025; 85027; 85610; 85730; 86850; 86900; 86901; 86920; 87015; 87070; 87086; 87205; 88112; 88305; 89051; 94640; 96361; 96374; 96375; 99285; 99406; A9575; J1610; J2354; P9016; P9045; Q9967

== ENCOUNTER 2025-08-01 14:03 | Inpatient (IN) | payer OTHER, SELFPAY ==
[2025-08-01] VITALS (29 sets, daily range): BP systolic 80–120; BP diastolic 54–86; PULSE 120; BMI 25.7
--- NOTE | 2025-08-01 09:57 | EDRN ---
This RN was assisting another patient in the waiting room to use the rest room, then was made aware by registration staff that patient was laying on the ground. Other waiting room patients came up and alerted staff that the patient was laying on the
floor. This RN immediately went to assess patient and assist patient to get off the floor. The patient reported that she felt SOB and weak, slide out of chair to floor. Pt assisted to a sitting position and then to sit in the wheelchair. Pt was able
to do this with minimal assistance. This RN then wheeled patient back to room 29. PT was able to move to wheelchair with no assistance. KUMAR Almazan and SYED Cherry in room.
--- NOTE | 2025-08-01 10:17 | ED.GENMED ---
History of Present Illness
<Carlos Cherry PA-C - Last Filed: 08/01/25 16:09>
General
Chief Complaint: Rectal Bleeding
Time Seen by Provider: 08/01/25 09:52
History of Present Illness
History of Present Illness:
55-year-old female with history of alcoholic cirrhosis with ascites, recurrent upper and lower GI bleeds, and blood loss anemia presents for evaluation of worsening shortness of breath and fatigue as well as continued bright red blood per rectum.
She was recently admitted to this hospital and found to have angiodysplasia of the stomach and duodenum, underwent APC by gastroenterology. She did require blood transfusions during her hospital stay. She reports since discharge she is still
having bright red rectal bleeding and is worried about her hemoglobin counts. She reports feeling profoundly short of breath with any degree of exertion and reports swelling in the legs. No fevers or chills.
Past History
<Carlos Cherry PA-C - Last Filed: 08/01/25 16:09>
Past History
ED Past Medical History: Psychiatric and Other (Alcoholic liver cirrhosis)
ED Past Surgical History: None
Social History
Tobacco: Former smoker
Alcohol: Chronic alcoholic
Drug: None
Personal: Single
Living: with roommate
Review of Systems
<Carlos Cherry PA-C - Last Filed: 08/01/25 16:09>
Review of Systems
Allergies reviewed?: Yes
All Other Systems: ROS reviewed and negative except as documented in HPI and ROS
Phy Exam
<Carlos Cherry PA-C - Last Filed: 08/01/25 16:09>
Physical Exam
Physical Exam:
GEN: Pale, chronically ill-appearing, no immediate distress
HEENT: Oral mucosa moist, no scleral icterus
Cardiac: Tachycardic, regular
Lung: No respiratory distress, no tachypnea, lungs clear to auscultation
Abdomen: Soft, grossly nontender, nondistended
MSK: No gross deformity or injuries, mild pretibial edema bilaterally
Skin: Good color, no pallor or jaundice, no rashes
Neuro: AO x3, moves all extremities freely
Psych: Calm, cooperative
Course
<Carlos Cherry PA-C - Last Filed: 08/01/25 16:09>
Orders/Labs/Results
Orders:
Orders
08/01/25 09:29
Electrocardiogram (*1) Urgent
Reason for Study: Chest Pain
EKG- Treatment ONCE
08/01/25 09:57
CR Chest Portable - 1 View Urgent
Comment:
Reason For Exam: SOB
Reason Study Needs to be Portable: Other
08/01/25 Lunch
NPO
Allow oral meds: Yes
Allow clear liquids: Sips of Clears
08/01/25 10:16
Diazepam [Valium] 5 mg PO NOW STA
08/01/25 10:17
Type+Screen Urgent
Complete Blood Count/With Diff Urgent
Comprehensive Metabolic Panel Urgent
NT-proBNP Urgent
08/01/25 10:49
Blood Bank Products [* Blood Bank Products] Urgent
Blood Bank Products: *Packed RBC Leuko(PRBC's)
Quantity: 2
Transfuse Today: Yes
Reason: Anemia
Pantoprazole [Protonix IV] 80 mg IV NOW STA
08/01/25 10:54
Prothrombin Time Urgent
08/01/25 11:00
Pantoprazole 80 mg/100 ml Nss [Protonix] 80 mg in 100 ml IV Q10H
08/01/25 12:35
Admit/Transfer Patient As Directed
Co-Sign Provider:
Level of Care: Inpatient admission
Assign to:: IMU- Intermediate Care
Physician / Group: Hospital medicine
Diagnosis: Acute blood loss anemia
Reason for Hospitalization: Acute blood loss anemia
Expected length of stay greater than two midnights?: Yes
ELOS- Estimated Length of Stay in days: 3
I certify the patient meets the requirements for IP care: Yes
08/01/25 12:36
PRN Pain Medication Management As Directed
May give lesser potent ordered pain med per pt: Yes
preference::
Protocol:: Medication orders for pain may be administered in a
manner that supports deferring to patient preference
when the pt is:
- Requesting an ordered lesser potent pain medication.
Least to most potent pain medications are defined
as: acetaminophen < NSAID < tramadol < opioids
(morphine, oxycodone, hydromorphone).
- Requesting a lesser dose of the same medication IF
ORDERED.
- Requesting a less intrusive route of administration
if both routes are prescribed by the provider (PO <
IV).
08/01/25 12:37
Code Status As Directed
Resuscitation Status: Full Code
Reached after discussion with pt or family/Healthcare POA: Yes
08/01/25 13:05
Activity As Directed
Activity Level: Ambulate
INT (Intravenous Needle Therapy) As Directed
Comment: Place 2 IV catheters of the largest bore possible until stable
Intake/ Output As Directed
Frequency: Per unit guidelines
Orthostatic Vital Signs As Directed
Orthostatic VS Frequency: Now
Comment: then every four hours for twenty-four hours
Vital Signs As Directed
Frequency: Per unit guidelines
08/01/25 13:47
PSYCHIATRY CONSULT Routine
Consulting Provider: Chaz Rojas
Was physician already notified: Yes
08/01/25 13:53
Octreotide [Sandostatin] 50 mcg IV NOW STA
08/01/25 14:00
Octreotide Acetate [Sandostatin] 500 mcg 0.9% Sodium Chloride 250 ml [Nss] 249 ml IV Q10H
08/01/25 16:00
CefTRIAXone [Rocephin] 1,000 mg IV Q24H
Abnormal Lab Results
08/01/25 08/01/25
10:17 10:54
WBC 20.8 H 10^3/uL
(4.8-10.8)
RBC 1.82 L 10^6/uL
(4.20-5.40)
Hgb 4.6 L* D g/dL
(12.0-16.0)
Hct 16.1 L* %
(37.0-47.0)
MCH 25.3 L pg
(27.0-31.0)
MCHC 28.6 L g/dL
(33.0-37.0)
RDW 17.2 H %
(11.5-14.5)
Plt Count 588 H D 10^3/uL
(130-400)
MPV 11.3 H fL
(7.4-10.4)
Abs Immat Gran (auto) 0.3 H 10^3/uL
(0-0.05)
Absolute Neuts (auto) 16.2 H 10^3/uL
(1.4-6.5)
Absolute Monos (auto) 2.2 H 10^3/uL
(0.1-0.6)
Immature Gran % 1.3 H %
(0-0.5)
Neutrophils % 77.8 H %
(42.2-75.2)
Lymphocytes % 9.5 L %
(20.5-51.1)
Monocytes % 10.8 H %
(1.7-9.3)
PT 21.7 H Sec
(11.4-14.6)
Sodium 130 L mmol/L
(135-145)
Carbon Dioxide 11 L* mmol/L
(22-30)
Calcium 8.2 L mg/dl
(8.4-10.2)
Total Bilirubin 1.8 H mg/dl
(0.2-1.3)
AST 94 H U/L
(14-36)
ALT 44 H U/L
(0-35)
Alkaline Phosphatase 164 H U/L
(38-126)
Total Protein 5.1 L g/dl
(6.3-8.2)
Albumin 2.5 L g/dl
(3.5-5.0)
Crossmatch IS Only See Detail
08/01/25 10:17
08/01/25 10:17
Vital Signs
Initial and Last Documented VS:
Initial Vital Signs
Temp Pulse Resp BP Pulse Ox
98.7 F 130 26 116/75 100
08/01/25 09:21 08/01/25 09:21 08/01/25 09:21 08/01/25 09:21 08/01/25 09:21
Last Documented Vital Signs
Temp Pulse Resp BP Pulse Ox
99.2 F 118 20 94/55 100
08/01/25 15:10 08/01/25 15:37 08/01/25 15:37 08/01/25 15:37 08/01/25 15:37
<Azam Wiley, DO - Last Filed: 08/01/25 11:27>
Orders/Labs/Results
Orders:
Orders
08/01/25 09:29
Electrocardiogram (*1) Urgent
Reason for Study: Chest Pain
EKG- Treatment ONCE
08/01/25 09:57
CR Chest Portable - 1 View Urgent
Comment:
Reason For Exam: SOB
Reason Study Needs to be Portable: Other
08/01/25 Lunch
NPO
Allow oral meds: Yes
Allow clear liquids: Sips of Clears
08/01/25 10:16
Diazepam [Valium] 5 mg PO NOW STA
08/01/25 10:17
Type+Screen Urgent
Complete Blood Count/With Diff Urgent
Comprehensive Metabolic Panel Urgent
NT-proBNP Urgent
08/01/25 10:49
Blood Bank Products [* Blood Bank Products] Urgent
Blood Bank Products: *Packed RBC Leuko(PRBC's)
Quantity: 2
Transfuse Today: Yes
Reason: Anemia
Pantoprazole [Protonix IV] 80 mg IV NOW STA
08/01/25 10:54
Prothrombin Time Urgent
08/01/25 11:00
Pantoprazole 80 mg/100 ml Nss [Protonix] 80 mg in 100 ml IV Q10H
08/01/25 12:35
Admit/Transfer Patient As Directed
Co-Sign Provider:
Level of Care: Inpatient admission
Assign to:: IMU- Intermediate Care
Physician / Group: Hospital medicine
Diagnosis: Acute blood loss anemia
Reason for Hospitalization: Acute blood loss anemia
Expected length of stay greater than two midnights?: Yes
ELOS- Estimated Length of Stay in days: 3
I certify the patient meets the requirements for IP care: Yes
08/01/25 12:36
PRN Pain Medication Management As Directed
May give lesser potent ordered pain med per pt: Yes
preference::
Protocol:: Medication orders for pain may be administered in a
manner that supports deferring to patient preference
when the pt is:
- Requesting an ordered lesser potent pain medication.
Least to most potent pain medications are defined
as: acetaminophen < NSAID < tramadol < opioids
(morphine, oxycodone, hydromorphone).
- Requesting a lesser dose of the same medication IF
ORDERED.
- Requesting a less intrusive route of administration
if both routes are prescribed by the provider (PO <
IV).
08/01/25 12:37
Code Status As Directed
Resuscitation Status: Full Code
Reached after discussion with pt or family/Healthcare POA: Yes
08/01/25 13:05
Activity As Directed
Activity Level: Ambulate
INT (Intravenous Needle Therapy) As Directed
Comment: Place 2 IV catheters of the largest bore possible until stable
Intake/ Output As Directed
Frequency: Per unit guidelines
Orthostatic Vital Signs As Directed
Orthostatic VS Frequency: Now
Comment: then every four hours for twenty-four hours
Vital Signs As Directed
Frequency: Per unit guidelines
08/01/25 13:47
PSYCHIATRY CONSULT Routine
Consulting Provider: Chaz Rojas
Was physician already notified: Yes
08/01/25 13:53
Octreotide [Sandostatin] 50 mcg IV NOW STA
08/01/25 14:00
Octreotide Acetate [Sandostatin] 500 mcg 0.9% Sodium Chloride 250 ml [Nss] 249 ml IV Q10H
08/01/25 16:00
CefTRIAXone [Rocephin] 1,000 mg IV Q24H
Abnormal Lab Results
08/01/25 08/01/25
10:17 10:54
WBC 20.8 H 10^3/uL
(4.8-10.8)
RBC 1.82 L 10^6/uL
(4.20-5.40)
Hgb 4.6 L* D g/dL
(12.0-16.0)
Hct 16.1 L* %
(37.0-47.0)
MCH 25.3 L pg
(27.0-31.0)
MCHC 28.6 L g/dL
(33.0-37.0)
RDW 17.2 H %
(11.5-14.5)
Plt Count 588 H D 10^3/uL
(130-400)
MPV 11.3 H fL
(7.4-10.4)
Abs Immat Gran (auto) 0.3 H 10^3/uL
(0-0.05)
Absolute Neuts (auto) 16.2 H 10^3/uL
(1.4-6.5)
Absolute Monos (auto) 2.2 H 10^3/uL
(0.1-0.6)
Immature Gran % 1.3 H %
(0-0.5)
Neutrophils % 77.8 H %
(42.2-75.2)
Lymphocytes % 9.5 L %
(20.5-51.1)
Monocytes % 10.8 H %
(1.7-9.3)
PT 21.7 H Sec
(11.4-14.6)
Sodium 130 L mmol/L
(135-145)
Carbon Dioxide 11 L* mmol/L
(22-30)
Calcium 8.2 L mg/dl
(8.4-10.2)
Total Bilirubin 1.8 H mg/dl
(0.2-1.3)
AST 94 H U/L
(14-36)
ALT 44 H U/L
(0-35)
Alkaline Phosphatase 164 H U/L
(38-126)
Total Protein 5.1 L g/dl
(6.3-8.2)
Albumin 2.5 L g/dl
(3.5-5.0)
Crossmatch IS Only See Detail
08/01/25 10:17
08/01/25 10:17
Vital Signs
Initial and Last Documented VS:
Initial Vital Signs
Temp Pulse Resp BP Pulse Ox
98.7 F 130 26 116/75 100
08/01/25 09:21 08/01/25 09:21 08/01/25 09:21 08/01/25 09:21 08/01/25 09:21
Last Documented Vital Signs
Temp Pulse Resp BP Pulse Ox
99.2 F 118 20 94/55 100
08/01/25 15:10 08/01/25 15:37 08/01/25 15:37 08/01/25 15:37 08/01/25 15:37
Procedures
<Carlos Cherry PA-C - Last Filed: 08/01/25 16:09>
IV Access
Indication: RN unable to obtain
Performed by:: Carlos Cherry PA-C
Site:: R AC
Gauge:: 20g
Ultrasound Guidance: Yes
<Carlos Cherry PA-C - Last Filed: 08/01/25 16:09>
MDM/Problems Addressed
MDM/Problems Addressed:
At this time GI bleeding source remains unclear, of note on her most recent EGD she did have treatment of angiodysplasia however it was not 100% confident that this was the bleeding source, colonoscopy was not pursued given that the bright red blood
per rectum resolved prior to discharge. She has significant decrease in her hemoglobin requiring blood transfusions in the ED. Also noted to be mildly hypotensive with severe leukocytosis. Will require admission to the intensive care unit with GI
intervention for further management, initiated on PPI drip in the ED.
<Carlos Cherry PA-C - Last Filed: 08/01/25 16:09>
Comment
Comment:
EKG independently interpreted by me shows a sinus tachycardia at a rate of [address] changes
*Pulse Oximetry
SaO2: 100
Oxygen Mode of Delivery: Room air
Patient hypoxic: no
*Critical Care Note
Total Time (30-74mins, 75-104mins- exclusive of procedures): 35 minutes
comment:
Critical care time: 35 minutes
Critical care time was exclusive of: Separately billable procedures, treating other patients, and teaching time
Critical care was necessary to treat or prevent imminent or life-threatening deterioration of the following conditions: Acute blood loss anemia
Critical care time spent personally by me on the following activities:
[x] Review of old charts
[x] Obtaining history from patient or surrogate
[x] Ordering and review of the laboratory studies
[x] Ordering and review of radiographic studies
[x] Ordering and performing treatments and interventions
[x] Patient patient's response to treatment
[x] Development of treatment plan with patient or surrogate
ED Attending Note
<Carlos Cherry PA-C - Last Filed: 08/01/25 16:09>
-
Portions of this chart may have been created with voice recognition software.� Occasional wrong word or��sound alike� substitutions may have occurred due to the inherent limitations of voice recognition software.
<Azam Wiley DO - Last Filed: 08/01/25 11:27>
ED Attending Note
Patient seen and examined by attending physician: Yes
I performed the substantive portion of visit, reviewed & personally made and approve the management plan that is documented in note by myself or MARIKA.: Yes
ED Attending Note:
Seen with PA examined independently 55-year-old female cirrhosis last drink was about 6 weeks ago presents with shortness of breath, rectal bleeding admitted recently with similar, here hemoglobin is down, appears tachypneic, plan will be admission,
transfusion,
Discharge Plan
Departure
Patient Disposition: Admit
Date of Disposition: 08/01/25
Time of Disposition: 11:06
Admit to: Med/Surg
Presentation/result/management discussed w/ accepting MD/DO: Hospitalist
Discharge Problem:
GI (gastrointestinal hemorrhage), Acute blood loss anemia
Interventions
Interventions:
*Risk Screen - Suicide Last Done: 08/01/25 09:21
*General Assessment Last Done: 08/01/25 09:21
*Neglect/Abuse Screening Last Done: 08/01/25 09:21
ZH-Fcqshn-Wynboztwcv Assessment Last Done: 08/01/25 11:54
ED- Cardiac Assessment Last Done: 08/01/25 11:54
ED- Pulmonary Assessment Last Done: 08/01/25 11:54
[2025-08-01] MEDS: VALIUM 5 MG PO (10:28)
[2025-08-01 10:41] LABS: Hematocrit 16.1 % (37.0-47.0); Hemoglobin 4.6 g/dL (12.0-16.0); Mean Corp Hgb Conc. 28.6 g/dL (33.0-37.0); Mean Corpuscular Volume 88.5 fL (81.0-99.0); Nucleated Red Blood Cells % 0.3 %; Platelet Count 588 10^3/uL (130-400); Red Cell Dist. Width 17.2 % (11.5-14.5)
[2025-08-01 10:58] LABS: AST (SGOT) 94 U/L (14-36); Albumin 2.5 g/dl (3.5-5.0); Alkaline Phosphatase 164 U/L (38-126); Blood Urea Nitrogen 13 mg/dl (7-17); Calcium 8.2 mg/dl (8.4-10.2); Carbon Dioxide 11 mmol/L (22-30); Chloride 104 mmol/L (98-107); Glucose 94 mg/dl (70-99); Potassium 3.7 mmol/L (3.5-5.1); Sodium 130 mmol/L (135-145); Total Protein 5.1 g/dl (6.3-8.2); eGFR > 60.00
[2025-08-01 11:11] LABS: INR 1.84; PT 21.7 Sec (11.4-14.6)
[2025-08-01 11:14] LABS: Anisocytosis 1+; Hypochromasia 2+; Macrocytosis 2+; Normal RBC Morphology No; Ovalocytes 1+; Stomatocytes 1+; Target Cells 1+
[2025-08-01] MEDS: PROTONIX IV 80 MG IV (11:22)
[2025-08-01 11:25] LABS: ALT (SGPT) 44 U/L (0-35)
[2025-08-01] MEDS: PROTONIX 100 IV ×2 (11:27→20:44)
--- NOTE | 2025-08-01 11:51 | HPS.HSE ---
Addendum entered and electronically signed by Keenan Torres MD 08/01/25 14:47:
Total Critical Care Time 50 minutes. I was immediately available to the patient and staff. I personally examined, reviewed labs, diagnostic images/reports, interpretations, treatment plans, discussed patient care with other providers and family
or caregivers (if patient is unable to make decisions), entered orders as appropriate and documented the medical record.
Addendum entered and electronically signed by Kenean Torres MD 08/01/25 14:46:
I saw and examined the patient.
The residents note was reviewed and I agree with the note.
Comment: 55-year-old female with history of alcoholic cirrhosis with ascites, recurrent upper and lower GI bleeds, GAVE with ACP intervention last week discharged on Wednesday, presents back to the ER for evaluation of worsening shortness of breath
and fatigue along with bright red blood per rectum. Also noted to have bilateral lower leg swelling that progressively became worse and extending into her abdomen. Acknowledges being noncompliant with lactulose 3 times daily but only takes twice a
day. Noted to be tachycardic with a heart rate of 125, respiratory rate 20, 81/64. White count 20.8, hemoglobin 4.6 (7.84 days prior), sodium 130, bicarb 11. X-ray with no acute cardiopulmonary process.
Plan�transfused total of 3 units PRBC continue PPI drip, add on octreotide. Continue rifaximin, holding lactulose due to GI bleed. Maintain 2 large bore IVs. Hold carvedilol. Follow-up CBC this evening. GI recs for further interventions. In
regards to anion gap metabolic acidosis, suspect secondary to hypovolemia and suspected beta-hydroxybutyrate as well as elevated lactate. Follow-up lactate level as well as beta hydroxybutyrate. Follow-up BMP after resuscitation. In regards to
dyspnea, patient is feeling better already with the 1 unit. Follow-up echocardiogram for suspected cardiomyopathy, reactive in setting of anemia. May benefit from IV diuresis when this then this admission. No obvious source of infection at this
time, monitor fever curve, white count. Hyponatremia most likely secondary to SIADH and monitor. Can consult psych as patient requesting help with meds as she is not doing well with decreased clonazepam dosing.
Original Note:
Family Physician
-
Family Physician: Chichi Garrison
Chief Complaint
-
Bright red bleeding per rectum
History of Present Illness
55-year-old female with history of alcoholic cirrhosis with ascites, recurrent upper and lower GI bleeds, GAVE with [facility] intervention last week discharged on Wednesday, presents back to the ER for evaluation of worsening shortness of breath and
fatigue along with bright red blood per rectum. On the day of discharge she was fine until the afternoon, her shortness of breath started on Wednesday, it became difficult for her to walk from bedroom to the kitchen, and it progressively became
worse to the point that she felt so winded and she had to continuously limit herself to the bed. She started noticing bilateral leg swelling that progressively became worse extending into her thighs buttocks and then into her abdomen. She feels a
jabbing abdominal pain along with abdominal distention under her right floating ribs which migrates to the direction in which she tries to lie down. Along with her abdominal pain she also has associated bloating sensation and nausea. She admits to
have been using Pepto-Bismol since her discharge for nausea. She also states that she has not been taking lactulose 3 times daily but takes it only twice daily. She also had some sensation-difficulty swallowing solids -sensation of food stuck in
her throat but denies having a dyne aphasia. She also states that she started noticing bright red blood in the stool beginning Wednesday but it was initially small amounts, and yesterday night she had huge multiple bowel movements containing fresh
blood but no stool. This prompted her visit to the ER today.
Medical History
Past Medical History
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
Past Surgical History: Reports Other (None)
Social History
Tobacco: Non-smoker
Alcohol: Daily (Last drink was about a month and half ago, has been discharged from inpatient rehab just prior to hospital admission on 07/24.)
Drug: None
Personal: Single
Living: With Family
Employment: Not Employed
Family History
Family History: Not pertinent
Allergies / Home Medications
Allergies reflects when Allergies were last updated in [facility].
Home Medications with original date entered in [facility]
Allergy/Medication List:
Allergies
Allergy/AdvReac Type Severity Reaction Status Date / Time
No Known Allergies Allergy Verified 08/01/25 09:21
Home Medications
clonazepam 0.5 mg tablet 0.5 mg PO TIDPRN PRN anxiety 01/31/25
lactulose 10 gram/15 mL oral solution 30 ml PO BID Liver Issues 03/25/25
rifaximin 550 mg tablet 550 mg PO BID Liver Issues 03/25/25
baclofen 10 mg tablet 10 mg PO DAILY Neurological Condition 07/23/25
carvedilol 3.125 mg tablet 3.125 mg PO BID Blood Pressure 07/23/25
buspirone 10 mg tablet 10 mg PO TID 08/01/25
ondansetron 4 mg disintegrating tablet 4 mg PO Q8HPRN PRN nausea and vomiting 08/01/25
trazodone 50 mg tablet 50 mg PO HSPRN PRN sleep 08/01/25
ursodiol 300 mg capsule 300 mg PO BID 08/01/25
Review of Systems
-
History Source: Patient
Constitutional: Reports Fatigue and Night Sweats
EENT: Reports No Symptoms
Respiratory: Reports Trouble Breathing
Cardiac: Reports Palpitations
Abdomen/GI: Reports Abdominal Pain, Nausea and Bloody Stools
: Reports No Symptoms
Musculoskeletal: Reports Joint Swelling (b/l legs)
Skin: Reports No Symptoms
Neurological: Reports Dizzy and Weakness
Endocrine: Reports No Symptoms
Psych: Reports No Symptoms
Physical Exam
Vital Signs
Vital Signs
Temp Pulse Resp BP Pulse Ox
98 F 123 24 87/55 100
08/01/25 11:48 08/01/25 11:48 08/01/25 11:48 08/01/25 11:48 08/01/25 11:48
Physical Exam
General: No Apparent Distress, Conversant and Cachectic
HEENT: Other (P[place]or); No Moist mucous membranes
Respiratory: Clear; No Wheezes, Rales, Rhonchi or Crackles
Cardiac: S1/S2, Regular Rhythm, Tachycardia and Murmur (systolic 2/6 murmur)
GI: Soft, Normal Bowel Sounds, Tender (in right upper quadrant), Distended and Organomegaly (hepatomegaly)
Genito-urinary: Deferred by me
Musculoskeletal: No Clubbing, No Cyanosis, Edema, Right Upper Extremity (1+, extending upto thighs) and Edema, Right Lower Extremity (1+ extending upto thighs)
Skin: Warm
Neuro: AO x 3 and No Motor Deficits
Psych: Calm
Laboratory Results
-
08/01/25 10:17
08/01/25 10:17
Laboratory Results
PT 21.7 Sec (11.4-14.6) H 08/01/25 10:54
INR 1.84 08/01/25 10:54
Total Bilirubin 1.8 mg/dl (0.2-1.3) H 08/01/25 10:17
AST 94 U/L (14-36) H 08/01/25 10:17
ALT 44 U/L (0-35) H 08/01/25 10:17
Alkaline Phosphatase 164 U/L (38-126) H 08/01/25 10:17
Data Reviewed
-
Lab Data: Labs Reviewed by me, Discussed with Physician and Discussed with Patient
Impression/Plan
-
IMPRESSION: 55-year-old female with PMHx significant for alcoholic cirrhosis with ascites, recurrent upper and lower GI bleeds, GAVE-s/p APC, and bipolar disorder presents to the hospital for shortness of breath and bright red blood per rectum. She
is diagnosed with acute blood loss anemia.
PLAN:
#Acute blood loss anemia
Hemoglobin of 4.6, symptomatic.
S/p 2 units of blood transfusion.
1 more unit of blood transfusion, obtain H&H in the evening.
Trend H&H, if hemoglobin less than 7 transfuse.
#recurrent GI bleed-
Known history of watermelon stomach
Recent hospitalization from 07/24 through 07/28
Ongoing bleed since discharge
IV Protonix drip, and octreotide
Zofran for nausea as needed.
clears per GI
Consult GI, GI on board-appreciate help.
#Metabolic acidosis, high anion gap
CO2 at 11, corrected anion gap for albumin at 18.8
Suspect lactic acidosis likely a confluence of starvation ketoacidosis and severe blood loss anemia.
No consumption of alcohol in about 1-1/2-month.
Monitor for resolution with blood transfusions.
Will obtain ABG if warranted.
#Cirrhosis with ascites-
History of hepatic encephalopathy in the past.
Continue lactulose and rifaximin.
Last drink about a month and half ago.
#Hyponatremia-
Likely hypovolemic hyponatremia, serum sodium at 130
IV hydration and hemoglobin transfusion.
Trend serum sodium levels
#Leukocytosis-
Unclear etiology, no source of infection.
#Essential hypertension-
Started on Coreg, hold for now.
#Pedal edema, and systolic murmur-
Likely secondary to cardiomyopathy from anemia.
Obtain echo.
# Anxiety -
Continue Buspar, clonazepam.
# Chronic back pain-
Continue baclofen.
# History of cholelithiasis-
Continue ursodiol.
#DVT prophylaxis-
Sequential compression devices.
#CODE STATUS-
Full code.
--- NOTE | 2025-08-01 11:57 | CON.GI ---
Addendum entered and electronically signed by KASSANDRA Goode 08/01/25 19:42:
correction to below last ETOH 1 1/2 month ago
Addendum entered and electronically signed by Madie Bernal Do, MD 08/01/25 16:53:
I saw and examined the patient.
The ROUND CORNER CUTTER OPERATOR's note was reviewed and I agree with the note.
Comment: Esperanza is a 55yo W with h/o ETOH cirrhosis decompensated by PSE, GAVE and GI bleeding. She follows with Dr Garcia with recent + PETH test. She was recently here with UGIB 07/23-07/28 with EGD 07/25 with hemospray and apc of AVM.
Area tattooed. She was home for a few days then recurrent maroon colored stools. Also fever and chills. She also reports worsening swelling of legs and abdomen. She has had paracentesis in the past. Exam tachy HR 120s abd distended jaundice,
dry MM, tachy. Labs reviewed MELD 3.2 = 22 elevated WBC.
Impression
- Maroon stools with severe anemia Hbg 4.6 on admission
ddx includes ectasia, duodenal varix or AVM
Also consider rectal varices
- ETOH abuse
- Cirrhosis
- Hepatic encephalopathy
- H/o GAVE
- COPD
Recommendations
- Protonix gtt, octreotide gtt and CTX
- Paracentesis with cytology and fluid studies
- Blood cultures
- Agree with transfusions
- Anticipate EGD/enteroscopy with flex sigm tomorrow
- C/w lactulose
- Serial H/H
- watch for ETOH withdrawal symptoms
Will follow with you
Original Note:
Consultation
-
Date/Time Consultation Requested: 08/01/25 1115
Date/Time Consultation Performed: 08/01/25 1150
Requesting Provider: Carlos Cherry PA-C
Performing Provider: KASSANDRA Hurtado, Madie Cohen MD
Reason for Consultation: Gi bleed
Medical History
Chief Complaint / HPI
Chief Complaint: GI bleed
History of Present Illness:
Pt is a 55yo with hx cirrhosis (diagnosed a couple years ago), alcohol abuse last drink 1 1/2 years ago, hepatic encephalopathy, GAVE on EGD 03/25/2024 performed at [facility] by Dr. Huizar, bipolar disorder, anemia, falls, recent
admission at [facility] 03/18/2025 through 03/23/2025 for falls and confusion, sent to [facility] afterwards, evaluated in [facility] 03/25/2025 for change in mental status. The patient was treated for a UTI with lactulose dose
increased. The patient did follow-up with Dr. Chaz Garcia hepatology. The patient states that she continued on her regular medications for her liver cirrhosis which include Coreg, lactulose twice daily (although she was instructed to take
this 3 times daily), Xifaxan, pantoprazole. She presented 07/23- - with bright red blood per rectum with hbg 5.7. 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
Site tattooed and with poor visualization Dr. Mcgovern not confident that ectasia was bleeding site. Bleeding did improve with brown stool on discharge. Pt developed worsening ascites and had paracentesis on 07/27/25 for 300ml with neg SBP but
atypical cells and RBC's on tap. hbg 7.8 on discharged 07/28. She now returns with hbg 4.6 with recurrent bleeding last 3 days.
At this time pt admits to dysphagia with solids at times. She has nausea without vomiting. She has diffuse abdominal pain with swelling in Leg and abdomen. She admits to maroon stool on Wednesday then red blood since Wednesday with increased
weakness and shortness of breath. She also admits to sliding down chair while waiting for ER eval with severe weakness. She admits to abdominal pain and pressure with also LE swelling. She denies NSAID or anticoagulation use. CT A 07/23 with
cirrhosis, fat attenuation in lver, severe portal HTN with collateral gastrosplenic varices, retroperitoneal varices, splenorenal shunting, and perirectal varices, colitis AC- portal colopathy, diverticulosis, cholelithiasis, perihepatic ascites,
DDD. Follow up MRI with cirrhosis multifocal lobular and confluent fatty infiltrate LIRADS 3. SM, moderate ascites, collateral cholelithiasis, GBWT with ascites, CBD distention 7.5mm. small right and trace left pleural effusion.
Past Medical History
Past Medical History: Other (Cirrhosis, alcohol abuse, hepatic encephalopathy, GAVE without bleeding (03/25/2024 and 07/2025), bipolar disorder, anemia, falls, history of GI bleed)
Social History
Tobacco: Vaping
Alcohol: Chronic Alcoholic (States last drink was 1 1/2 months ago, positive Peth 03/2025)
Drug: Marijuana
Personal: Single
Living: With Roomate
Employment: Disabled
Family History
Family History: Other (Grandmother history of colon-rectal cancer, all other GI malignancies negative)
Allergies / Home Medications
Allergy/AdvReac Type Severity Reaction Status Date / Time
No Known Allergies Allergy Verified 08/01/25 09:21
�Medication �Instructions �Recorded
clonazepam 0.5 mg tablet 0.5 mg PO TIDPRN PRN anxiety 01/31/25
lactulose 10 gram/15 mL oral 30 ml PO BID Liver Issues 03/25/25
solution
rifaximin 550 mg tablet 550 mg PO BID Liver Issues 03/25/25
baclofen 10 mg tablet 10 mg PO DAILY Neurological 07/23/25
Condition
carvedilol 3.125 mg tablet 3.125 mg PO BID Blood Pressure 07/23/25
buspirone 10 mg tablet 10 mg PO TID 08/01/25
ondansetron 4 mg disintegrating 4 mg PO Q8HPRN PRN nausea and 08/01/25
tablet vomiting
trazodone 50 mg tablet 50 mg PO HSPRN PRN sleep 08/01/25
ursodiol 300 mg capsule 300 mg PO BID 08/01/25
Review of Systems
-
History Source: Patient
Constitutional: Reports Weight Gain (with fluid )
EENT: Reports No Symptoms
Respiratory: Reports No Symptoms
Cardiac: Reports No Symptoms
Abdomen/GI: Reports Abdominal Pain, Nausea, Vomiting, Diarrhea (with lactulose ) and Bloody Stools
: Reports No Symptoms
Musculoskeletal: Reports No Symptoms
Skin: Reports No Symptoms
Neurological: Reports Dizzy and Weakness
Endocrine: Reports No Symptoms
Hematologic/Lymphatic: Reports Bleeding
Vital Signs
Temp Pulse Resp BP Pulse Ox
98 F 123 24 87/55 100
08/01/25 11:48 08/01/25 11:48 08/01/25 11:48 08/01/25 11:48 08/01/25 11:54
Physical Exam
Exam
General: Well Developed, Well Nourished, No Apparent Distress and Other (temporal wasting )
HEENT: Normocephalic and Anicteric
Respiratory: Clear
Cardiac: Other (tachy)
GI: Soft, Tender and Distended
Musculoskeletal: No Clubbing and No Cyanosis
Skin: Warm and Dry
Neuro: Awake, Alert and AO x 3
Psych: Calm
Results
WBC 20.8 10^3/uL (4.8-10.8) H 08/01/25 10:17
Hgb 4.6 g/dL (12.0-16.0) L* D 08/01/25 10:17
Hct 16.1 % (37.0-47.0) L* 08/01/25 10:17
MCV 88.5 fL (81.0-99.0) 08/01/25 10:17
Plt Count 588 10^3/uL (130-400) H D 08/01/25 10:17
Absolute Neuts (auto) 16.2 10^3/uL (1.4-6.5) H 08/01/25 10:17
PT 21.7 Sec (11.4-14.6) H 08/01/25 10:54
INR 1.84 08/01/25 10:54
Sodium 130 mmol/L (135-145) L 08/01/25 10:17
Potassium 3.7 mmol/L (3.5-5.1) 08/01/25 10:17
Chloride 104 mmol/L (98-107) 08/01/25 10:17
Carbon Dioxide 11 mmol/L (22-30) L* 08/01/25 10:17
BUN 13 mg/dl (7-17) 08/01/25 10:17
Creatinine 0.7 mg/dL (0.6-1.0) 08/01/25 10:17
Calcium 8.2 mg/dl (8.4-10.2) L 08/01/25 10:17
Total Bilirubin 1.8 mg/dl (0.2-1.3) H 08/01/25 10:17
AST 94 U/L (14-36) H 08/01/25 10:17
ALT 44 U/L (0-35) H 08/01/25 10:17
Alkaline Phosphatase 164 U/L (38-126) H 08/01/25 10:17
Diagnostic Image Results:
07/23/25 CT Abd/pelvis Angio W/wo Iv
1. SEVERE HEPATIC CIRRHOSIS.
2. Large regions of very low attenuation (fat attenuation) throughout the liver (involving over 80% of the liver parenchyma) which appear to be causing mass effect on the hepatic and portal veins. Diagnostic possibilities are (1) extensive hepatic
malignancy or (2) hepatic steatosis and benign cirrhotic nodules.
3. SEVERE PORTAL HYPERTENSION with collateral gastrosplenic varices, retroperitoneal varices, splenorenal shunting, and perirectal varices.
4. MILD COLITIS involving the ASCENDING COLON (probably portal colopathy).
5. Moderate diverticulosis in the ascending colon.
6. Cholelithiasis and reactive gallbladder wall thickening.
7. Small volume of perihepatic ascites.
8. Severe discogenic degenerative disease at L5/S1.
07/25/25 MR Abdomen W/o & W Contrast
Cirrhosis.
Multifocal regions of lobular and confluent fatty infiltration. Overall imaging features suggest classification of LIRADS 3.
No portal vein or hepatic vein thrombus.
Splenomegaly, 14 cm in long axis.
Moderate ascites. Mild portosystemic venous collateral formation between the splenic vein and left renal vein.
Cholelithiasis. Mild gallbladder wall thickening, though equivocal in the presence of ascites. Increased T1 signal intensity of the gallbladder wall as well as mild T1 signal intensity of the gallbladder contents. Possible considerations may include
previous IV contrast administration for CT examination with persistent wall enhancement as result of congestion, diffuse adenomyomatosis, hemorrhage, and/or sludge. Consider follow-up ultrasound.
Mild distention of the common bile duct measuring 7.5 mm.
Small right and trace left pleural effusion.
07/27/25 para 300ml neg SBP-- atypical cell favor reactive mesothelia cells, inflammatory cell predominant RBC's present
Prior GI Procedures:
EGD: 07/23/25 mcgovern - Normal esophagus.
- Gastric antral vascular ectasia without bleeding.
- Nodule found in the duodenum.
- Blood in the third portion of the duodenum and in the fourth
portion of the duodenum. Bleeding appeared to reflux from the
proximal jejunum. Unable to clear with lavage. 10cc dilute
epinephrine injected without hemostasis. Hemostatic spray applied.
Treatment not successful. Eventually bleeding subsided after epi and
hemospray and further observation.
- One non-bleeding possible angioectasia in the jejunum. Treated
with argon plasma coagulation (APC). Tattooed with carbon spot. I
am not confident that this was the bleeding source.
- No specimens collected.
Colonoscopy: Patient states done approximately 2023. Believes it was Dr. Mosley. Records unavailable to us.
Assessment / Plan
-
Pt is a 55yo with hx cirrhosis (diagnosed a couple years ago), alcohol abuse last drink 1 1/2 years ago, hepatic encephalopathy, GAVE on EGD 03/25/2024 performed at [facility] by Dr. Huizar, bipolar disorder, anemia, falls, recent
admission at [facility] 03/18/2025 through 03/23/2025 for falls and confusion, sent to [facility] afterwards, evaluated in [facility] 03/25/2025 for change in mental status. The patient was treated for a UTI with lactulose dose
increased. The patient did follow-up with Dr. Chaz Garcia hepatology. The patient states that she continued on her regular medications for her liver cirrhosis which include Coreg, lactulose twice daily (although she was instructed to take
this 3 times daily), Xifaxan, pantoprazole. She presented 07/23- - with bright red blood per rectum with hbg 5.7. 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
Site tattooed and with poor visualization Dr. Mcgovern not confident that ectasia was bleeding site. Bleeding did improve with brown stool on discharge. Pt developed worsening ascites and had paracentesis on 07/27/25 for 300ml with neg SBP but
atypical cells and RBC's on tap. hbg 7.8 on discharged 07/28. She now returns with hbg 4.6 with recurrent bleeding last 3 days.
-GI bleeding
-anemia acute blood loss
-tachy/hypotension on admission
-recent EGD with concern for jejunal bleeding not well visualized
--hx cirrhosis
-ascites with recent tap for 300ml - neg SBP but atypical cells and RBC's on tap
-Multifocal regions of lobular and confluent fatty infiltration. Overall imaging features suggest classification of LIRADS 3 per recent MRI
-HE on lactulose and Xifaxan
-thrombocytosis
-metabolic acidosis
-hyponatremia
-leukocytosis
-coagulopathy
-GAVE on prior EGD
-hx falls
-bipolar disorder
-cholelithasis/GBWT with ascites per imaging
-chronic back pain
-splenomegaly
PLAN:
etiology of rectal bleeding related to recent ? jejunal source vs rectal varices, intraabdominal with RBC on prior para vs other
plan for EGD and flex in AM if stable to proceed with adequately transfused=
transfuse today with marked low hbg 4.9 in ER
PPI/octreotide gtt
add abx with GI bleed and cirrhosis
check blood cultures x 2 with leukocytosis
will add 1 liter para to eval for SBP and with RBC on last tap to ensure no bleeding-and follow up on Atypical cells- spoke with IR to expedite tap
NPO- in case increased bleeding and need scope sooner
MELD 3.[address] Cohen as patient critically ill on admission
resident reviewed with patient for code status wishes to remain full code at this time
OP follow with Dr. Garcia to further review MRI with lobulated infiltration - due august follow up
-
-
Thank you for consultation and allowing me to participate in the patient's care. Please call the harmonica maker GI physician during the after hours with any questions or concerns.
--- NOTE | 2025-08-01 14:23 | EDRN ---
Dr Cano said we can hold the octreotide until after the 2nd unit of blood.
--- NOTE | 2025-08-01 14:42 | EDRN ---
Report tubed 9061, occupied not ready.
[2025-08-01] MEDS: SANDOSTATIN IV (15:15)
[2025-08-01] MEDS: ROCEPHIN 1000 MG IV (16:06)
[2025-08-01] MEDS: STERILE WATER FOR INJECTION 10 ML IV (16:06)
[2025-08-01 16:31] LABS: Body Fluid Second Tech FB
[2025-08-01] MEDS: KLONOPIN 0.5 MG PO (16:44)
[2025-08-01] MEDS: SANDOSTATIN 250 MCG IV (17:27)
[2025-08-01 18:39] LABS: Hematocrit 23.0 % (37.0-47.0); Hemoglobin 7.6 g/dL (12.0-16.0); Mean Corp Hgb Conc. 33.0 g/dL (33.0-37.0); Mean Corpuscular Volume 87.5 fL (81.0-99.0); Platelet Count 332 10^3/uL (130-400); Red Cell Dist. Width 15.3 % (11.5-14.5)
[2025-08-01] MEDS: BUSPAR PO (18:45)
[2025-08-01] MEDS: DESYREL 50 MG PO (19:00)
--- NOTE | 2025-08-01 19:31 | PTCARENOTE ---
pt admitted to room 3347 from ED. pt pulled over from stretcher to bed. ST on telemetry heart rate 110s. pulses palpable. +1 edema in lower extremities. round firm abdomen. octreatide and protonix gtt infusing per orders. pt updated on plan of care.
pt ambulated to bathroom with 1 assist- had loose bowel movement with minimal blood
[2025-08-01] MEDS: XIFAXAN 550 MG PO (20:06)
[2025-08-01] MEDS: ACTIGALL 300 MG PO (20:06)
[2025-08-01] MEDS: BUSPAR 10 MG PO (20:06)
[2025-08-01] MEDS: DUPHALAC/CHRONULAC PO (20:07)
[2025-08-01] MEDS: MYLICON 80 MG PO (20:44)
[2025-08-01] MEDS: ZOFRAN ODT (ORALLY DISINTEGRATING) 4 MG PO (21:43)
[2025-08-02] VITALS (17 sets, daily range): BP systolic 97–124; BP diastolic 58–85; PULSE 100–115; BMI 24.9
[2025-08-02] MEDS: KLONOPIN 0.5 MG PO ×4 (00:03→20:27)
[2025-08-02] MEDS: LIDOCAINE 4% PATCH 1 PATCH TOPICAL ×3 (00:11→17:28)
[2025-08-02] MEDS: DILAUDID 0.25 MG IV (00:51)
[2025-08-02] MEDS: SANDOSTATIN IV (05:34)
[2025-08-02] MEDS: BUSPAR 10 MG PO ×3 (08:15→20:27)
[2025-08-02] MEDS: XIFAXAN 550 MG PO ×2 (08:15→20:27)
[2025-08-02] MEDS: ACTIGALL 300 MG PO ×2 (08:16→20:27)
[2025-08-02] MEDS: DUPHALAC/CHRONULAC PO ×2 (08:16→20:23)
[2025-08-02] MEDS: SANDOSTATIN 250 MCG IV (08:17)
[2025-08-02] MEDS: LIORESAL 10 MG PO (08:23)
[2025-08-02 08:44] LABS: Hematocrit 23.9 % (37.0-47.0); Hemoglobin 8.1 g/dL (12.0-16.0); Mean Corp Hgb Conc. 33.9 g/dL (33.0-37.0); Mean Corpuscular Volume 86.3 fL (81.0-99.0); Nucleated Red Blood Cells % 0.4 %; Platelet Count 268 10^3/uL (130-400); Red Cell Dist. Width 15.1 % (11.5-14.5)
[2025-08-02 08:55] LABS: INR 1.71; PT 20.5 Sec (11.4-14.6)
[2025-08-02] MEDS: PROTONIX 100 IV (09:49)
--- NOTE | 2025-08-02 09:59 | CM ---
Initial Assessment Completed by CECIL Valiente. Patient off the floor.
Patient was just hospitalized recently then discharge on Sat 07/28. Reading in the H&P, re-hospitalized for shortness of breath and fatigue along with bright red blood per rectum. Also noted to have bilateral lower leg swelling that progressively
became worse and extending into her abdomen. Patient UDS was positive last admission, she refused resources, and progress note says she is non-compliant with lactulose.
Patient lives in a Condo, one level, uses a rollator, and has an inhaler. Patient had [facility] in the past, have to check to see if she was able to have Home Care the short time she was out of the hospital.
PCP: Dr. Chichi Flores
Pharmacy: [facility]
Patient may need transportation home.
PLAN: Like Home w/ VN.
[2025-08-02 10:13] LABS: ALT (SGPT) 49 U/L (0-35); AST (SGOT) 128 U/L (14-36); Albumin 2.1 g/dl (3.5-5.0); Alkaline Phosphatase 121 U/L (38-126); Blood Urea Nitrogen 16 mg/dl (7-17); Calcium 7.8 mg/dl (8.4-10.2); Carbon Dioxide 16 mmol/L (22-30); Chloride 106 mmol/L (98-107); Estimated Creatinine Clearance 69 ml/min; Glucose 105 mg/dl (70-99); Potassium 3.8 mmol/L (3.5-5.1); Sodium 128 mmol/L (135-145); Total Protein 4.8 g/dl (6.3-8.2); eGFR > 60.00
[2025-08-02] MEDS: PROTONIX IV 40 MG IV ×2 (12:50→20:27)
[2025-08-02] MEDS: NSS (PRESERVATIVE FREE) 10 ML IV ×2 (12:50→20:27)
[2025-08-02] MEDS: FLUSH (NSS) 2 FLUSH IV ×2 (12:53→16:00)
--- NOTE | 2025-08-02 15:19 | PTCARENOTE ---
Patient alert and oriented x 3, she is anxious at baseline. Patient received tap H2O enema prior to EGD/ Sigmoid, it was effective for watery green output.Pt also voided at this time. Pt tolerated procedure and returned to IMU. She has started on a
regular diet and she did tolerate 100% of food tray and has no abdominal pain. IV gtts of octereide and protonix weaned off. slot technician at bedside performing test
--- NOTE | 2025-08-02 15:36 | W.PN.HOSP.TC ---
Today's Communication/Plan
-
IV PPI BID
cont abx
GI recs
monitor hgb
Assessment / Plan
Assessment / Plan
Physical Exam
General: No Apparent Distress, Conversant and Cachectic
HEENT: Other (Pallor); No Moist mucous membranes
Respiratory: Clear; No Wheezes, Rales, Rhonchi or Crackles
Cardiac: S1/S2, Regular Rhythm, Tachycardia and Murmur (systolic 2/6 murmur)
GI: Soft, Normal Bowel Sounds, Tender (in right upper quadrant), Distended and Organomegaly (hepatomegaly)
Genito-urinary: Deferred by me
Musculoskeletal: No Clubbing, No Cyanosis, Edema LE improved
Skin: Warm
Neuro: AO x 3 and No Motor Deficits
Psych: Calm
#Acute blood loss anemia
#GI Bleed
Hemoglobin of 4.6, symptomatic.
S/p 3 units of blood transfusion.
Trend d H&H, if hemoglobin less than 7 transfuse.
-Enteroscopy 08/02 - : A single non-bleeding angiodysplastic lesion in the duodenum. Treated with argon plasma coagulation (APC).
-adv to regular diet
-Cont iv abx
-PPI IV BID
-monitor Hgb
-DC octeotride
#Metabolic acidosis, high anion gap
#Elevated lactate, BhB
-resolved with resuscitation
#Cirrhosis with ascites-
History of hepatic encephalopathy in the past.
Continue lactulose and rifaximin.
Last drink about a month and half ago.
GI on board
#Hyponatremia-
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
Trend serum sodium levels
#Essential hypertension-
Started on Coreg, hold for now due to BP
#Pedal edema, and systolic murmur-
Likely secondary to cardiomyopathy from anemia.
Obtain echo.
# Anxiety -
Continue Buspar, clonazepam.
# Chronic back pain-
Continue baclofen.
# History of cholelithiasis-
Continue ursodiol.
#DVT prophylaxis-
Sequential compression devices.
#CODE STATUS-
Full code.
More than 30 minutes spent in discharge including
Final examination of the patient
Summarizing hospital stay
Instructions for continuing care to all relevant caregivers
Preparation of discharge records, prescriptions, and referral forms
Total time spent (in minutes): 36
Anticipated Discharge: Within 24 hours
Subjective/Interval History
-
Date of Service: August 02, 2025
Severe portal hypertensive gastropathy was found in the entire examined stomach.
A single angiodysplastic lesion with no bleeding was found in the second portion of the duodenum. Coagulation for bleeding prevention using argon plasma was successful.
Objective Data
-
Labs:
Laboratory Results
08/02/25
08:25
WBC 10.5
Hgb 8.1 L
Hct 23.9 L
Plt Count 268
PT 20.5 H
INR 1.71
Sodium 128 L
Potassium 3.8
Chloride 106
Carbon Dioxide 16 L
BUN 16
Creatinine 0.7
Glucose 105 H
Calcium 7.8 L
Total Bilirubin 3.0 H D
AST 128 H
ALT 49 H
Alkaline Phosphatase 121
Vital Signs:
Vital Signs
Temp Pulse Resp BP Pulse Ox
97.9 F 105 31 124/60 97
08/02/25 11:40 08/02/25 15:15 08/02/25 15:15 08/02/25 14:31 08/02/25 10:00
I&O
08/01/25 08/02/25 08/03/25
06:59 06:59 06:59
Intake Total 750 / 750 740 / 740
Balance 750 / 750 74
Review of Systems
-
History Source: Patient
All other systems: Reviewed and negative
Physical Exam
-
General: Comfortable
HEENT: Normocephalic
Cardiac: Regular Rhythm
GI: Soft, Nontender and Nondistended
Skin: Warm
Neuro: Awake, Alert, Oriented and AO x 3
Psych: Calm
Data Reviewed
-
Diagnostic Radiology: Report Reviewed by me
Labs: Labs Reviewed by me
[2025-08-02] MEDS: STERILE WATER FOR INJECTION 10 ML IV (15:59)
[2025-08-02] MEDS: ROCEPHIN 1000 MG IV (15:59)
--- NOTE | 2025-08-02 17:07 | CS.PSYCHR ---
Consult Summary - Psychiatry
-
pt seen in consultation for complaint of anxiety and insomnia in setting of serious GI bleed, likely ongoing alcohol use (despite her protestions)
55 yo woman came to ED again for GI bleeding; found to have Hgb of 4.6. Long history of alcohol use, alcohol related liver disease, ascites, iron deficiency anemia, cardiomyopathy. Currently feeling better as she has had blood tranfusions; when I
saw her she was waiting for endoscopy.
Pt reports long history of ADHD, anxiety, receives outpatient services at [facility] in [place] therapist Eduardo, psychiatris Dr del toro. I left message on [facility] voicemail
Pt's main complaint to day is that she is not getting enough trazodone to help her sleep. Says she gets 100 mg as outpatient.
Also getting buspar, baclofen, fentanyl, Klonpin, taking as much as she can.
On exam pt complains of severe anxiety but does not give that appearance (despite having had serious blood loss anemia which was symptomatic.) Pleading for more trazodon; agrees she takes too much klonpin. No psychosis, not suicidal, no cognitive
deficts. insight limited, as is judgment--clearly believes that her problems will be solved by more meds.
Impression: alcohol use disorder, severe
Rec: among the many things she takes, trazodone is the least worrisome, would agree with increase to 100 mg hs. would try to limit klonpin to only three times per day. not interested in efforts to reduce use, unfortuenately. awaiting return call
from outpatient team
[2025-08-02] MEDS: DESYREL 50 MG PO (20:27)
[2025-08-02] MEDS: REMOVE LIDOCAINE PATCH 2 PATCH REMOVE (20:30)
[2025-08-03] VITALS (14 sets, daily range): BP systolic 93–134; BP diastolic 57–87
--- NOTE | 2025-08-03 00:27 | PTCARENOTE ---
assumed care of patient, pt is AAOx3, able to make needs known. VSS. 95% RA. pt refused lactulose, able to take all other pills without issues. able to use bscx1 assist. care ongoing.
[2025-08-03] MEDS: ZOFRAN ODT (ORALLY DISINTEGRATING) 4 MG PO ×2 (01:06→08:22)
[2025-08-03 05:42] LABS: Hematocrit 22.6 % (37.0-47.0); Hemoglobin 7.5 g/dL (12.0-16.0); Mean Corp Hgb Conc. 33.2 g/dL (33.0-37.0); Mean Corpuscular Volume 88.3 fL (81.0-99.0); Platelet Count 299 10^3/uL (130-400); Red Cell Dist. Width 15.7 % (11.5-14.5)
[2025-08-03 06:15] LABS: ALT (SGPT) 49 U/L (0-35); AST (SGOT) 123 U/L (14-36); Albumin 2.1 g/dl (3.5-5.0); Alkaline Phosphatase 123 U/L (38-126); Blood Urea Nitrogen 11 mg/dl (7-17); Calcium 7.6 mg/dl (8.4-10.2); Carbon Dioxide 18 mmol/L (22-30); Chloride 109 mmol/L (98-107); Estimated Creatinine Clearance 69 ml/min; Glucose 128 mg/dl (70-99); Potassium 3.9 mmol/L (3.5-5.1); Sodium 132 mmol/L (135-145); Total Protein 4.8 g/dl (6.3-8.2); eGFR > 60.00
[2025-08-03] MEDS: LIDOCAINE 4% PATCH 1 PATCH TOPICAL ×2 (09:04→09:05)
[2025-08-03] MEDS: DUPHALAC/CHRONULAC 20 GRAMS PO ×2 (09:06→19:48)
[2025-08-03] MEDS: XIFAXAN 550 MG PO ×2 (09:07→19:48)
[2025-08-03] MEDS: LIORESAL 10 MG PO (09:07)
[2025-08-03] MEDS: ACTIGALL 300 MG PO ×2 (09:07→19:48)
[2025-08-03] MEDS: BUSPAR 10 MG PO ×3 (09:08→19:48)
[2025-08-03] MEDS: PROTONIX IV 40 MG IV ×2 (09:09→19:48)
[2025-08-03] MEDS: NSS (PRESERVATIVE FREE) 10 ML IV ×2 (09:09→19:48)
--- NOTE | 2025-08-03 09:39 | W.PN.GI.CBS2 ---
Today's Communication / Plan
-
For therapeutic tap today
Continue to monitor hemoglobin
Assessment / Plan
-
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 Huizar, bipolar disorder, anemia, falls, recent
admission at [facility] 03/18/2025 through 03/23/2025 for falls and confusion, sent to [facility] afterwards, evaluated in [facility] 03/25/2025 for change in mental status. The patient was treated for a UTI with lactulose dose
increased. The patient did follow-up with Dr. Chaz Garcia hepatology. The patient states that she continued on her regular medications for her liver cirrhosis which include Coreg, lactulose twice daily (although she was instructed to take
this 3 times daily), Xifaxan, pantoprazole. She presented 07/23- - with bright red blood per rectum with hbg 5.7. 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
Site tattooed and with poor visualization Dr. Hunter not confident that ectasia was bleeding site. Bleeding did improve with brown stool on discharge. Pt developed worsening ascites and had paracentesis on 07/27/25 for 300ml with neg SBP but
atypical cells and RBC's on tap. hbg 7.8 on discharged 07/28. She now returns with hbg 4.6 with recurrent bleeding last 3 days.
-GI bleeding
-anemia acute blood loss
-tachy/hypotension on admission
-recent EGD with concern for jejunal bleeding not well visualized
--hx cirrhosis
-ascites with recent tap for 300ml - neg SBP but atypical cells and RBC's on tap
-Multifocal regions of lobular and confluent fatty infiltration. Overall imaging features suggest classification of LIRADS 3 per recent MRI
-HE on lactulose and Xifaxan
-thrombocytosis
-metabolic acidosis
-hyponatremia
-leukocytosis
-coagulopathy
-GAVE on prior EGD
-hx falls
-bipolar disorder
-cholelithasis/GBWT with ascites per imaging
-chronic back pain
-splenomegaly
PLAN:
Recurrent GI bleed likely multifactorial from portal gastropathy, GAVE, duodenal and jejunal angioectasias status post EGD 07/[address] Hunter with epi, APC and hemospray for jejunal angioectasia and a small bowel enteroscopy on 08/[address] Cohen
with APC for duodenal angioectasia and also had a sigmoidoscopy on 08/[address] Cohen. There was no evidence of esophageal, gastric or rectal varices noted. Also there was no fresh blood noted on endoscopy yesterday. Hemoglobin is stable status
post 3 units of packed blood cells. Continue to monitor closely and if she does have further drop in hemoglobin or active bleeding may need inpatient capsule endoscopy versus transfer to [place] for upper DBE and may also need a colonoscopy. If her
hemoglobin remains stable then will schedule her for capsule endoscopy and colonoscopy likely as outpatient.
She also has recurrent ascites will schedule her for therapeutic tap today.
Unable to start her on diuretics since she has hyponatremia but should be able to start spironolactone if her blood pressure is stable
She did have a paracenteses on 07/27 with 300 cc drained and then had a diagnostic paracentesis on 08/01 which was negative for SBP
Continue antibiotics for a total of 7 days for upper GI bleed with cirrhosis
Continue to follow-up with Dr. Garcia as outpatient for alcohol cirrhosis
Continue Xifaxan
Subjective
Subjective
Date of Service: August 03, 2025
She wants another paracentesis she says her abdomen feels more distended. Her stools are dark but no bright red blood in the stool, hemoglobin remainss stable status post 3 units of packed red blood cells on 08/01 and did not require further
transfusions. She had a small bowel enteroscopy and a flexible sigmoidoscopy 08/02
Objective
Data Reviewed
Laboratory Data:
Laboratory Results
08/03/25 05:23
08/03/25 05:23
Laboratory Results
PT 20.5 Sec (11.4-14.6) H 08/02/25 08:25
INR 1.71 08/02/25 08:25
Total Bilirubin 1.9 mg/dl (0.2-1.3) H D 08/03/25 05:23
AST 123 U/L (14-36) H 08/03/25 05:23
ALT 49 U/L (0-35) H 08/03/25 05:23
Alkaline Phosphatase 123 U/L (38-126) 08/03/25 05:23
Vital Signs and I&O:
Vital Signs
Temp Pulse Resp BP Pulse Ox
97.9 F 102 28 121/75 96
08/03/25 07:49 08/03/25 06:00 08/03/25 06:00 08/03/25 06:00 08/03/25 06:00
I&O
08/02/25 08/03/25 08/04/25
06:59 06:59 06:59
Intake Total 750 / 750 740 / 740
Balance 750 / 750 740 / 740
Physical Exam
Physical Exam
Cardiology: Normal Sinus Rhythm
Pulmonary: Clear
GI: Soft, Distended, Non Tender, Normal Bowel Sounds and Other (ascites)
[2025-08-03 11:59] LABS: Body Fluid Second Tech EM
--- NOTE | 2025-08-03 12:03 | PTCARENOTE ---
Rec'd call from [facility]; Transport called - Pt sent for Paracentesis. Returned to floor, reporting feeling much better. ~ 2L removed.
--- NOTE | 2025-08-03 13:16 | CM ---
Following up on Patient. RN stated that patient is staying 1 more day. Patient just needs script for outpatient therapy, there are no other needs, and patient has transportation home, she says, either by friend or taxi.
PLAN: Home No Needs, just outpatient PT/OT
--- NOTE | 2025-08-03 15:05 | W.PN.HOSP.TC ---
Today's Communication/Plan
-
therapeutic tap
PPI
monitor hgb
Assessment / Plan
Assessment / Plan
Physical Exam
General: No Apparent Distress, Conversant and Cachectic
HEENT: Other (Pallor); No Moist mucous membranes
Respiratory: Clear; No Wheezes, Rales, Rhonchi or Crackles
Cardiac: S1/S2, Regular Rhythm, Tachycardia and Murmur (systolic 2/6 murmur)
GI: Soft, Normal Bowel Sounds, Tender (in right upper quadrant), Distended and Organomegaly (hepatomegaly)
Genito-urinary: Deferred by me
Musculoskeletal: No Clubbing, No Cyanosis, Edema LE improved
Skin: Warm
Neuro: AO x 3 and No Motor Deficits
Psych: Calm
#Acute blood loss anemia
#GI Bleed
Hemoglobin of 4.6, symptomatic.
S/p 3 units of blood transfusion.
Trend d H&H, if hemoglobin less than 7 transfuse.
-Enteroscopy 08/02 - : A single non-bleeding angiodysplastic lesion in the duodenum. Treated with argon plasma coagulation (APC).
-adv to regular diet
-Cont iv abx
-PPI IV BID
-monitor Hgb
-DC octeotride
#Metabolic acidosis, high anion gap
#Elevated lactate, BhB
-resolved with resuscitation
#Cirrhosis with ascites-
#Transaminitis
History of hepatic encephalopathy in the past.
Continue lactulose and rifaximin.
Last drink about a month and half ago.
GI on board
-Therapeutic Tap today
#Hyponatremia-
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
Trend serum sodium levels
#Essential hypertension-
Started on Coreg, hold for now due to BP
#Pedal edema, and systolic murmur-
Likely secondary to cardiomyopathy from anemia.
Obtain echo - EF 60-65%
# Anxiety -
Continue Buspar, clonazepam.
# Chronic back pain-
Continue baclofen.
# History of cholelithiasis-
Continue ursodiol.
#DVT prophylaxis-
Sequential compression devices.
#CODE STATUS-
Full code.
Total time spent on today's encounter was 51 minutes which included time spent in counseling the patient/family regarding diagnosis and treatment plan as listed above, goals of care, and symptom management. Case was discussed with nursing staff,
specialists, and care coordinators/case management. All labs and imaging personally reviewed by me. Remainder the time spent in detailed review of previous records, lab data, imaging, and other medical provider documentation.
Anticipated Discharge: 24 - 48 hours
Subjective/Interval History
-
Date of Service: August 03, 2025
paracentesis today
Objective Data
-
Labs:
Laboratory Results
08/03/25
05:23
WBC 12.2 H
Hgb 7.5 L
Hct 22.6 L
Plt Count 299
Sodium 132 L
Potassium 3.9
Chloride 109 H
Carbon Dioxide 18 L
BUN 11
Creatinine 0.7
Glucose 128 H
Calcium 7.6 L
Total Bilirubin 1.9 H D
AST 123 H
ALT 49 H
Alkaline Phosphatase 123
Vital Signs:
Vital Signs
Temp Pulse Resp BP Pulse Ox
97.8 F 133 24 113/72 97
08/03/25 11:45 08/03/25 14:00 08/03/25 14:00 08/03/25 11:33 08/03/25 11:12
I&O
08/02/25 08/03/25 08/04/25
06:59 06:59 06:59
Intake Total 750 / 750 740 / 740
Balance 750 / 750 740 / 740
Review of Systems
-
History Source: Patient
All other systems: Reviewed and negative
Data Reviewed
-
Diagnostic Radiology: Report Reviewed by me
Labs: Labs Reviewed by me
[2025-08-03] MEDS: STERILE WATER FOR INJECTION 10 ML IV (17:07)
[2025-08-03] MEDS: ROCEPHIN 1000 MG IV (17:08)
[2025-08-03] MEDS: REMOVE LIDOCAINE PATCH 2 PATCH REMOVE (19:48)
[2025-08-03] MEDS: DESYREL 50 MG PO (19:48)
[2025-08-03] MEDS: KLONOPIN 0.5 MG PO (19:48)
[2025-08-04] VITALS (16 sets, daily range): BP systolic 91–119; BP diastolic 51–98
[2025-08-04] MEDS: KLONOPIN 0.5 MG PO ×3 (05:02→17:30)
[2025-08-04 05:52] LABS: Hematocrit 19.5 % (37.0-47.0); Hemoglobin 6.2 g/dL (12.0-16.0); Mean Corp Hgb Conc. 31.8 g/dL (33.0-37.0); Mean Corpuscular Volume 87.1 fL (81.0-99.0); Platelet Count 168 10^3/uL (130-400); Red Cell Dist. Width 15.7 % (11.5-14.5)
[2025-08-04 05:55] LABS: ALT (SGPT) 45 U/L (0-35); AST (SGOT) 104 U/L (14-36); Albumin 2.0 g/dl (3.5-5.0); Alkaline Phosphatase 130 U/L (38-126); Blood Urea Nitrogen 10 mg/dl (7-17); Calcium 7.6 mg/dl (8.4-10.2); Carbon Dioxide 18 mmol/L (22-30); Chloride 109 mmol/L (98-107); Estimated Creatinine Clearance 80 ml/min; Glucose 116 mg/dl (70-99); Potassium 3.9 mmol/L (3.5-5.1); Sodium 130 mmol/L (135-145); Total Protein 4.6 g/dl (6.3-8.2); eGFR > 60.00
--- NOTE | 2025-08-04 06:13 | PTCARENOTE ---
assumed care of patient. pt is AAOx3, able to make needs known. anxious at times, responds well to PRN meds. 98% RA, VSS. pt reports her abdomen feels okay, no nausea. able to use BSC without issues. still have some bloody maroon stools. h/h this AM
critical 6.2/19.5. notified covering [employer]- awaiting orders for blood. care ongoing.
--- NOTE | 2025-08-04 06:26 | W.PN.UPDATE ---
Update Note
Progress Note Update
hgb 6.2/19.5 type and screen done, consent signed and in chart stable VS. Will transfuse 1 unit of PRBC's.
[2025-08-04] MEDS: DUPHALAC/CHRONULAC PO ×2 (09:11→09:15)
[2025-08-04] MEDS: BUSPAR 10 MG PO ×3 (09:11→19:21)
[2025-08-04] MEDS: ACTIGALL 300 MG PO ×2 (09:11→19:20)
[2025-08-04] MEDS: LIDOCAINE 4% PATCH 1 PATCH TOPICAL ×2 (09:11)
[2025-08-04] MEDS: LIORESAL 10 MG PO (09:12)
[2025-08-04] MEDS: XIFAXAN 550 MG PO ×2 (09:12→19:20)
[2025-08-04] MEDS: PROTONIX IV 40 MG IV ×2 (09:13→19:20)
[2025-08-04] MEDS: NSS (PRESERVATIVE FREE) 10 ML IV ×2 (09:13→19:21)
--- NOTE | 2025-08-04 09:25 | PTCARENOTE ---
pt refusing AM dose of lactulose. Pt educated on importance of taking medication as ordered, pt understands however continues to refuse d/t having to 'poop too much'. Updated pt on current plan of care. Call grossman within reach, able to make needs
known.
--- NOTE | 2025-08-04 10:35 | W.PN.GI.CBS2 ---
Today's Communication / Plan
-
repeat HB and if stable and no further melena possible DC today
Assessment / Plan
-
Pt is a 55yo with hx cirrhosis (diagnosed a couple years ago), alcohol abuse last drink 1 1/2 years ago, hepatic encephalopathy, GAVE on EGD 03/25/[address] [facility] by Dr. Huizar, bipolar disorder, anemia, falls, recent
admission at [facility] 03/18/2025 through 03/23/2025 for falls and confusion, sent to [facility] afterwards, evaluated in [facility] 03/25/2025 for change in mental status. The patient was treated for a UTI with lactulose dose
increased. The patient did follow-up with Dr. Chaz Garcia hepatology. The patient states that she continued on her regular medications for her liver cirrhosis which include Coreg, lactulose twice daily (although she was instructed to take
this 3 times daily), Xifaxan, pantoprazole. She presented 07/23- - with bright red blood per rectum with hbg 5.7. 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
Site tattooed and with poor visualization Dr. Hunter not confident that ectasia was bleeding site. Bleeding did improve with brown stool on discharge. Pt developed worsening ascites and had paracentesis on 07/27/25 for 300ml with neg SBP but
atypical cells and RBC's on tap. hbg 7.8 on discharged 07/28. She now returns with hbg 4.6 with recurrent bleeding last 3 days.
-GI bleeding
-anemia acute blood loss
-tachy/hypotension on admission
-recent EGD with concern for jejunal bleeding not well visualized
--hx cirrhosis
-ascites with recent tap for 300ml - neg SBP but atypical cells and RBC's on tap
-Multifocal regions of lobular and confluent fatty infiltration. Overall imaging features suggest classification of LIRADS 3 per recent MRI
-HE on lactulose and Xifaxan
-thrombocytosis
-metabolic acidosis
-hyponatremia
-leukocytosis
-coagulopathy
-GAVE on prior EGD
-hx falls
-bipolar disorder
-cholelithasis/GBWT with ascites per imaging
-chronic back pain
-splenomegaly
PLAN:
Recurrent GI bleed likely multifactorial from portal gastropathy, GAVE, duodenal and jejunal angioectasias status post EGD 07/[address] Hunter with epi, APC and hemospray for jejunal angioectasia and a small bowel enteroscopy on 08/[address] Cohen
with APC for duodenal angioectasia and also had a sigmoidoscopy on 08/[address] Cohen. There was no evidence of esophageal, gastric or rectal varices noted. Also there was no fresh blood noted on endoscopy 08/02. Hemoglobin 6.5 today and she
received another unit of packed red blood cells a total of 4 units since admission (3 units 08/01 1 Unit 08/04)
Continue to monitor closely and if she does have further drop in hemoglobin or active bleeding may need inpatient capsule endoscopy versus transfer to [place] for upper DBE and may also need a colonoscopy. If her hemoglobin remains stable then will
schedule her for capsule endoscopy and colonoscopy likely as outpatient.
s/p repeat paracentesis 08/03 and 1950 cc drained for ascites
She did have a paracenteses on 07/27 with 300 cc drained and then had a diagnostic paracentesis on 08/01 which was negative for SBP
Unable to start her on diuretics since she has hyponatremia but should be able to start spironolactone if her blood pressure is stable
Continue antibiotics for a total of 7 days for upper GI bleed with cirrhosis
Continue to follow-up with Dr. Garcia as outpatient for alcohol cirrhosis
Continue Xifaxan
DW if repeat HB stable OK to [place] home later today
Subjective
Subjective
Date of Service: August 04, 2025
She had a bowel movement yesterday evening with a small bout of blood around 6 PM but after that she received lactulose and had multiple brown bowel movements. Hemoglobin today morning was 6.5 she received 1 unit of packed red blood cells. She
also had a paracentesis yesterday and had 1950 cc drained and feels much better
Objective
Data Reviewed
Laboratory Data:
Laboratory Results
08/04/25 05:18
08/04/25 05:18
Laboratory Results
PT 20.5 Sec (11.4-14.6) H 08/02/25 08:25
INR 1.71 08/02/25 08:25
Total Bilirubin 1.6 mg/dl (0.2-1.3) H 08/04/25 05:18
AST 104 U/L (14-36) H 08/04/25 05:18
ALT 45 U/L (0-35) H 08/04/25 05:18
Alkaline Phosphatase 130 U/L (38-126) H 08/04/25 05:18
Vital Signs and I&O:
Vital Signs
Temp Pulse Resp BP Pulse Ox
98.9 F 96 19 91/65 99
08/04/25 10:19 08/04/25 10:19 08/04/25 10:19 08/04/25 10:19 08/04/25 10:19
I&O
08/03/25 08/04/25 08/05/25
06:59 06:59 06:59
Intake Total 740 / 740 0 / 0
Balance 740 / 740 0 / 0
Physical Exam
Physical Exam
Cardiology: Normal Sinus Rhythm
Pulmonary: Clear
GI: Soft and Other (Much less distended post paracentesis yesterday, nontender, good bowel sounds, )
--- NOTE | 2025-08-04 14:17 | W.PN.HOSP.TC ---
Today's Communication/Plan
-
Monitor hgb post transfusion and transfuse as necessary
HgB check q12h
Engaged with [place] - Requesting Colonoscopy prior to transfer if possible
Assessment / Plan
Assessment / Plan
Physical Exam
General: No Apparent Distress, Conversant and Cachectic
HEENT: Other (Pallor); No Moist mucous membranes
Respiratory: Clear; No Wheezes, Rales, Rhonchi or Crackles
Cardiac: S1/S2, Regular Rhythm, Tachycardia and Murmur (systolic 2/6 murmur)
GI: Soft, Normal Bowel Sounds, Tender (in right upper quadrant), Distended and Organomegaly (hepatomegaly)
Genito-urinary: Deferred by me
Musculoskeletal: No Clubbing, No Cyanosis, Edema LE improved
Skin: Warm
Neuro: AO x 3 and No Motor Deficits
Psych: Calm
#Acute blood loss anemia
#GI Bleed
Hemoglobin of 4.6, symptomatic.
S/p 3 units of blood transfusion.
-Enteroscopy 08/02 - : A single non-bleeding angiodysplastic lesion in the duodenum. Treated with argon plasma coagulation (APC).
-adv to regular diet
-Cont iv abx
-PPI IV BID
-monitor Hgb
-DC octeotride
-Patient repeat hgb drop to 6.2 on 08/04 - transfuse 1 u, monitor; transfuse as necessary
-Engaged with [facility] - requesting Colonoscopy if possible prior to further capsule endo
#Metabolic acidosis, high anion gap
#Elevated lactate, BhB
-resolved with resuscitation
#Cirrhosis with ascites-
#Transaminitis
History of hepatic encephalopathy in the past.
Continue lactulose and rifaximin.
Last drink about a month and half ago.
GI on board
Therapeutic Tap 08/03
Holding Aldactone due to active bleed
#Hyponatremia-
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
Trend serum sodium levels
#Essential hypertension-
Started on Coreg, hold for now due to BP
#Pedal edema, and systolic murmur-
Likely secondary to cardiomyopathy from anemia.
Obtain echo - EF 60-65%
# Anxiety -
Continue Buspar, clonazepam.
# Chronic back pain-
Continue baclofen.
# History of cholelithiasis-
Continue ursodiol.
#DVT prophylaxis-
Sequential compression devices.
#CODE STATUS-
Full code.
More than 30 minutes spent in discharge including
Final examination of the patient
Summarizing hospital stay
Instructions for continuing care to all relevant caregivers
Preparation of discharge records, prescriptions, and referral forms
Total time spent (in minutes): 40
Anticipated Discharge: Today
Subjective/Interval History
-
Date of Service: August 04, 2025
hgb drop, transfusing
Objective Data
-
Labs:
Laboratory Results
08/04/25
05:18
WBC 8.5
Hgb 6.2 L*
Hct 19.5 L*
Plt Count 168 D
Sodium 130 L
Potassium 3.9
Chloride 109 H
Carbon Dioxide 18 L
BUN 10
Creatinine 0.6
Glucose 116 H
Calcium 7.6 L
Total Bilirubin 1.6 H
AST 104 H
ALT 45 H
Alkaline Phosphatase 130 H
Vital Signs:
Vital Signs
Temp Pulse Resp BP Pulse Ox
98.2 F 109 22 119/75 99
08/04/25 13:29 08/04/25 13:39 08/04/25 13:39 08/04/25 13:39 08/04/25 10:19
I&O
08/03/25 08/04/25 08/05/25
06:59 06:59 06:59
Intake Total 740 / 740 250 / 250
Balance 740 / 740 250 / 250
Review of Systems
-
History Source: Patient
All other systems: Reviewed and negative
Data Reviewed
-
Diagnostic Radiology: Report Reviewed by me
Labs: Labs Reviewed by me
[2025-08-04] MEDS: STERILE WATER FOR INJECTION 10 ML IV (17:30)
[2025-08-04] MEDS: ROCEPHIN 1000 MG IV (17:30)
[2025-08-04] MEDS: DUPHALAC/CHRONULAC 20 GRAMS PO (19:20)
[2025-08-04] MEDS: DESYREL 50 MG PO (19:20)
[2025-08-04] MEDS: REMOVE LIDOCAINE PATCH 2 PATCH REMOVE (19:21)
[2025-08-04] MEDS: ZOFRAN ODT (ORALLY DISINTEGRATING) 4 MG PO (19:38)
[2025-08-04 19:54] LABS: Hematocrit 22.3 % (37.0-47.0); Hemoglobin 7.5 g/dL (12.0-16.0); Mean Corp Hgb Conc. 33.6 g/dL (33.0-37.0); Mean Corpuscular Volume 87.8 fL (81.0-99.0); Platelet Count 246 10^3/uL (130-400); Red Cell Dist. Width 15.2 % (11.5-14.5)
--- NOTE | 2025-08-04 22:42 | PTCARENOTE ---
assumed care of patient. pt is AAOx3, able to make needs known. VSS. CBC drawn per order, Hgb 7.5. no bleeding noted. pt with some c/o nausea, PRN zofran given. anxious about events of the day and pending transfer to [place]. [place] transfer center
called, update provided. abdomen distended, round but no pain per patient. x1 assist to bsc. care ongoing.
[2025-08-05] VITALS (12 sets, daily range): BP systolic 85–131; BP diastolic 56–85
[2025-08-05] MEDS: KLONOPIN 0.5 MG PO ×3 (04:16→20:13)
[2025-08-05 05:07] LABS: Hematocrit 22.9 % (37.0-47.0); Hemoglobin 7.4 g/dL (12.0-16.0); Mean Corp Hgb Conc. 32.3 g/dL (33.0-37.0); Mean Corpuscular Volume 87.1 fL (81.0-99.0); Platelet Count 236 10^3/uL (130-400); Red Cell Dist. Width 15.7 % (11.5-14.5)
[2025-08-05 05:32] LABS: ALT (SGPT) 43 U/L (0-35); AST (SGOT) 90 U/L (14-36); Albumin 2.0 g/dl (3.5-5.0); Alkaline Phosphatase 120 U/L (38-126); Blood Urea Nitrogen 10 mg/dl (7-17); Calcium 7.7 mg/dl (8.4-10.2); Carbon Dioxide 18 mmol/L (22-30); Chloride 109 mmol/L (98-107); Estimated Creatinine Clearance 80 ml/min; Glucose 121 mg/dl (70-99); Potassium 3.8 mmol/L (3.5-5.1); Sodium 131 mmol/L (135-145); Total Protein 4.6 g/dl (6.3-8.2); eGFR > 60.00
[2025-08-05] MEDS: LIDOCAINE 4% PATCH 1 PATCH TOPICAL ×2 (09:25)
[2025-08-05] MEDS: LIORESAL 10 MG PO (09:26)
[2025-08-05] MEDS: PROTONIX IV 40 MG IV ×2 (09:26→20:13)
[2025-08-05] MEDS: ZOFRAN ODT (ORALLY DISINTEGRATING) 4 MG PO (09:26)
[2025-08-05] MEDS: XIFAXAN 550 MG PO ×2 (09:26→20:12)
[2025-08-05] MEDS: DUPHALAC/CHRONULAC 20 GRAMS PO ×2 (09:26→20:12)
[2025-08-05] MEDS: NSS (PRESERVATIVE FREE) 10 ML IV ×2 (09:26→20:12)
[2025-08-05] MEDS: BUSPAR 10 MG PO ×3 (09:26→20:12)
[2025-08-05] MEDS: ACTIGALL 300 MG PO ×2 (09:34→20:12)
--- NOTE | 2025-08-05 10:10 | CM ---
Reviewed the chart notes. CM continues to be available to patient/family and is monitoring medical plan for needs at discharge.
Plan: Discharge to home with outpatient PT/OT.
--- NOTE | 2025-08-05 10:27 | W.PN.GI.CBS2 ---
Today's Communication / Plan
-
Continue to monitor for further signs of bleeding and if she does have further bleeding today will need to place a call out again to [facility] for more emergent transfer, currently waiting on bed for transfer
Continue to monitor hemoglobin
Continue PPI twice daily
Assessment / Plan
-
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 Huizar, bipolar disorder, anemia, falls, recent
admission at [facility] 03/18/2025 through 03/23/2025 for falls and confusion, sent to [facility] afterwards, evaluated in [place] [facility] 03/25/2025 for change in mental status. The patient was treated for a UTI with lactulose dose
increased. The patient did follow-up with Dr. Chaz Garcia hepatology. The patient states that she continued on her regular medications for her liver cirrhosis which include Coreg, lactulose twice daily (although she was instructed to take
this 3 times daily), Xifaxan, pantoprazole. She presented 07/23- - with bright red blood per rectum with hbg 5.7. 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
Site tattooed and with poor visualization Dr. Hunter not confident that ectasia was bleeding site. Bleeding did improve with brown stool on discharge. Pt developed worsening ascites and had paracentesis on 07/27/25 for 300ml with neg SBP but
atypical cells and RBC's on tap. hbg 7.8 on discharged 07/28. She now returns with hbg 4.6 with recurrent bleeding last 3 days.
-GI bleeding
-anemia acute blood loss
-tachy/hypotension on admission
-recent EGD with concern for jejunal bleeding not well visualized
--hx cirrhosis
-ascites with recent tap for 300ml - neg SBP but atypical cells and RBC's on tap
-Multifocal regions of lobular and confluent fatty infiltration. Overall imaging features suggest classification of LIRADS 3 per recent MRI
-HE on lactulose and Xifaxan
-thrombocytosis
-metabolic acidosis
-hyponatremia
-leukocytosis
-coagulopathy
-GAVE on prior EGD
-hx falls
-bipolar disorder
-cholelithasis/GBWT with ascites per imaging
-chronic back pain
-splenomegaly
PLAN:
Recurrent GI bleed likely multifactorial from portal gastropathy, GAVE, duodenal and jejunal angioectasias status post EGD 07/[address] Hunter with epi, APC and hemospray for jejunal angioectasia and a small bowel enteroscopy on 08/[address] Cohen
with APC for duodenal angioectasia and also had a sigmoidoscopy on 08/[address] Cohen. There was no evidence of esophageal, gastric or rectal varices noted. Also there was no fresh blood noted on endoscopy 08/02. recieved total of 4 units since
admission (3 units 08/01 1 Unit 08/04). Hemoglobin stable today
Had another episode of melena with red blood in the stool yesterday discussed with [facility] 08/04 and spoke to GI and hepatology fellow and was accepted in transfer awaiting bed for inpatient capsule endoscopy vs upper DBE and may also
need a colonoscopy/lower DBE.
s/p repeat paracentesis 08/03 and 1950 cc drained for ascites
She did have a paracenteses on 07/27 with 300 cc drained and then had a diagnostic paracentesis on 08/01 which was negative for SBP
Unable to start her on Lasix since she has hyponatremia and borderline low BP, started spironolactone 50 mg can increase to 100 mg if K okay and blood pressure is stable
Continue antibiotics for a total of 7 days for upper GI bleed with cirrhosis
Continue to follow-up with Dr. Garcia as outpatient for alcohol cirrhosis
Continue Xifaxan
Subjective
Subjective
Date of Service: August 05, 2025
Yesterday afternoon she had another episode of bleeding and had placed a call out to [facility] and spoke to hepatology and GI fellow there and she was accepted in transfer for inpatient capsule endoscopy versus upper DBE and if negative
then will need colonoscopy with lower DBE, awaiting bed
Has not had any further melena or maroon stool overnight. today morning she says she had a brown BM, hemoglobin stable post 1 unit packed red blood cells yesterday
Objective
Data Reviewed
Laboratory Data:
Laboratory Results
08/05/25 04:45
08/05/25 04:45
Laboratory Results
PT 20.5 Sec (11.4-14.6) H 08/02/25 08:25
INR 1.71 08/02/25 08:25
Total Bilirubin 1.9 mg/dl (0.2-1.3) H 08/05/25 04:45
AST 90 U/L (14-36) H 08/05/25 04:45
ALT 43 U/L (0-35) H 08/05/25 04:45
Alkaline Phosphatase 120 U/L (38-126) 08/05/25 04:45
Vital Signs and I&O:
Vital Signs
Temp Pulse Resp BP Pulse Ox
97.7 F 95 23 114/70 98
08/05/25 07:25 08/05/25 10:00 08/05/25 10:00 08/05/25 10:00 08/04/25 20:55
I&O
08/04/25 08/05/25 08/06/25
06:59 06:59 06:59
Intake Total 250 / 250
Balance 250 / 250
Physical Exam
Physical Exam
Cardiology: Normal Sinus Rhythm
Pulmonary: Clear
GI: Soft, Distended (Mildly distended), Non Tender and Normal Bowel Sounds
[2025-08-05] MEDS: ALDACTONE 50 MG PO (11:27)
--- NOTE | 2025-08-05 14:55 | W.PN.HOSP.TC ---
Today's Communication/Plan
-
aldactone
trend hgb
transfer to [facility]
abx
ppi bid
Assessment / Plan
Assessment / Plan
Physical Exam
General: No Apparent Distress, Conversant and Cachectic
HEENT: Other ([place]); No Moist mucous membranes
Respiratory: Clear; No Wheezes, Rales, Rhonchi or Crackles
Cardiac: S1/S2, Regular Rhythm, Tachycardia and Murmur (systolic 2/6 murmur)
GI: Soft, Normal Bowel Sounds, Tender (in right upper quadrant), Distended and Organomegaly (hepatomegaly)
Genito-urinary: Deferred by me
Musculoskeletal: No Clubbing, No Cyanosis, Edema LE improved
Skin: Warm
Neuro: AO x 3 and No Motor Deficits
Psych: Calm
#Acute blood loss anemia
#GI Bleed
Hemoglobin of 4.6, symptomatic.
S/p 3 units of blood transfusion.
-Enteroscopy 08/02 - : A single non-bleeding angiodysplastic lesion in the duodenum. Treated with argon plasma coagulation (APC).
-adv to regular diet
-Cont iv abx�total 7 days for upper GI bleed with cirrhosis
-PPI IV BID
-monitor Hgb
-DC octeotride
-Patient repeat hgb drop to 6.2 on 08/04 - transfuse 1 u, monitor; transfuse as necessary; monitor
-Engaged with [facility] -accepted for transfer for internal capsule endoscopy versus upper DBE and may also need colonoscopy/lower DBE
�Initiated spironolactone; cannot add on Lasix due to hyponatremia and borderline low BP
#Metabolic acidosis, high anion gap
#Elevated lactate, BhB
-resolved with resuscitation
#Cirrhosis with ascites-
#Transaminitis
History of hepatic encephalopathy in the past.
Continue lactulose and rifaximin.
Last drink about a month and half ago.
GI on board
Therapeutic Tap 08/03
Resume Aldactone
Continue to follow-up with Dr. Garcia as outpatient for alcohol cirrhosis
#Hyponatremia-
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
Trend serum sodium levels
#Essential hypertension-
Started on Coreg, hold for now due to BP
#Pedal edema, and systolic murmur-
Likely secondary to cardiomyopathy from anemia.
Obtain echo - EF 60-65%
# Anxiety -
Continue Buspar, clonazepam.
# Chronic back pain-
Continue baclofen.
# History of cholelithiasis-
Continue ursodiol.
#DVT prophylaxis-
Sequential compression devices.
#CODE STATUS-
Full code.
More than 30 minutes spent in discharge including
Final examination of the patient
Summarizing hospital stay
Instructions for continuing care to all relevant caregivers
Preparation of discharge records, prescriptions, and referral forms
Total time spent (in minutes): 39
Anticipated Discharge: Today
Subjective/Interval History
-
Date of Service: August 05, 2025
No acute events
Objective Data
-
Labs:
Laboratory Results
08/05/25
04:45
WBC 9.0
Hgb 7.4 L
Hct 22.9 L
Plt Count 236
Sodium 131 L
Potassium 3.8
Chloride 109 H
Carbon Dioxide 18 L
BUN 10
Creatinine 0.6
Glucose 121 H
Calcium 7.7 L
Total Bilirubin 1.9 H
AST 90 H
ALT 43 H
Alkaline Phosphatase 120
Vital Signs:
Vital Signs
Temp Pulse Resp BP Pulse Ox
97.7 F 95 23 114/70 98
08/05/25 07:25 08/05/25 10:00 08/05/25 10:00 08/05/25 10:00 08/04/25 20:55
I&O
08/04/25 08/05/25 08/06/25
06:59 06:59 06:59
Intake Total 250 / 250 480 / 480
Balance 250 / 250 480 / 480
Review of Systems
-
History Source: Patient
All other systems: Reviewed and negative
Physical Exam
-
General: Comfortable
HEENT: Normocephalic
Cardiac: Regular Rhythm
GI: Soft, Nontender and Nondistended
Skin: Warm
Neuro: Awake, Alert, Oriented and AO x 3
Psych: Calm
Data Reviewed
-
Diagnostic Radiology: Report Reviewed by me
Labs: Labs Reviewed by me
--- NOTE | 2025-08-05 14:59 | W.DS.TRANS ---
DC Summary - Marketing Outreach Coordinator
-
Discharge Instructions:
Discharge Diagnosis/Procedures acute gi bleed
Instructions:
Stand-Alone Forms:
Changes to Home Medications: No
Discharge Medications:
DC Medications w/original date entered in [facility]
clonazepam 0.5 mg tablet 0.5 mg PO TIDPRN PRN anxiety 01/31/25
lactulose 10 gram/15 mL oral solution 30 ml PO BID Liver Issues 03/25/25
rifaximin 550 mg tablet 550 mg PO BID Liver Issues 03/25/25
baclofen 10 mg tablet 10 mg PO DAILY Neurological Condition 07/23/25
carvedilol 3.125 mg tablet 3.125 mg PO BID Blood Pressure 07/23/25
buspirone 10 mg tablet 10 mg PO TID Mental Health/Anxiety 08/01/25
ondansetron 4 mg disintegrating tablet 4 mg PO Q8HPRN PRN nausea and vomiting 08/01/25
trazodone 50 mg tablet 50 mg PO HSPRN PRN sleep 08/01/25
ursodiol 300 mg capsule 300 mg PO BID Urinary Issue 08/01/25
Home Medication Changes
na
Pending Results: No
[2025-08-05] MEDS: ROCEPHIN 1000 MG IV (18:05)
[2025-08-05] MEDS: STERILE WATER FOR INJECTION 10 ML IV (18:05)
[2025-08-05] MEDS: DESYREL 50 MG PO (20:21)
[2025-08-05] MEDS: REMOVE LIDOCAINE PATCH REMOVE (20:25)
[2025-08-06] VITALS (24 sets, daily range): BP systolic 90–136; BP diastolic 57–120
[2025-08-06] MEDS: KLONOPIN 0.5 MG PO ×3 (03:54→19:38)
--- NOTE | 2025-08-06 04:35 | PTCARENOTE ---
Pt c/o intermittent anxiety, medicated per MAR. Agreeable to taking all scheduled meds. Denies additional complaints. Assessment as documented. Pt demonstrates appropriate use of call grossman. Care ongoing.
[2025-08-06 05:42] LABS: Hematocrit 22.0 % (37.0-47.0); Hemoglobin 7.0 g/dL (12.0-16.0); Mean Corp Hgb Conc. 31.8 g/dL (33.0-37.0); Mean Corpuscular Volume 87.3 fL (81.0-99.0); Platelet Count 242 10^3/uL (130-400); Red Cell Dist. Width 15.8 % (11.5-14.5)
[2025-08-06 06:10] LABS: ALT (SGPT) 41 U/L (0-35); AST (SGOT) 77 U/L (14-36); Albumin 2.0 g/dl (3.5-5.0); Alkaline Phosphatase 120 U/L (38-126); Blood Urea Nitrogen 9 mg/dl (7-17); Calcium 7.7 mg/dl (8.4-10.2); Carbon Dioxide 20 mmol/L (22-30); Chloride 110 mmol/L (98-107); Estimated Creatinine Clearance 80 ml/min; Glucose 106 mg/dl (70-99); Potassium 3.9 mmol/L (3.5-5.1); Sodium 132 mmol/L (135-145); Total Protein 4.6 g/dl (6.3-8.2); eGFR > 60.00
--- NOTE | 2025-08-06 07:43 | W.PN.GI.CBS2 ---
Today's Communication / Plan
-
Need to call [facility] to check on bed status
Assessment / Plan
-
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 Huizar, bipolar disorder, anemia, falls, recent
admission at [facility] 03/18/2025 through 03/23/2025 for falls and confusion, sent to [facility] afterwards, evaluated in [facility] 03/25/2025 for change in mental status. The patient was treated for a UTI with lactulose dose
increased. The patient did follow-up with Dr. Chaz Garcia hepatology. The patient states that she continued on her regular medications for her liver cirrhosis which include Coreg, lactulose twice daily (although she was instructed to take
this 3 times daily), Xifaxan, pantoprazole. She presented 07/23- - with bright red blood per rectum with hbg 5.7. 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
Site tattooed and with poor visualization Dr. Hunter not confident that ectasia was bleeding site. Bleeding did improve with brown stool on discharge. Pt developed worsening ascites and had paracentesis on 07/27/25 for 300ml with neg SBP but
atypical cells and RBC's on tap. hbg 7.8 on discharged 07/28. She now returns with hbg 4.6 with recurrent bleeding last 3 days.
-GI bleeding
-anemia acute blood loss
-tachy/hypotension on admission
-recent EGD with concern for jejunal bleeding not well visualized
--hx cirrhosis
-ascites with recent tap for 300ml - neg SBP but atypical cells and RBC's on tap
-Multifocal regions of lobular and confluent fatty infiltration. Overall imaging features suggest classification of LIRADS 3 per recent MRI
-HE on lactulose and Xifaxan
-thrombocytosis
-metabolic acidosis
-hyponatremia
-leukocytosis
-coagulopathy
-GAVE on prior EGD
-hx falls
-bipolar disorder
-cholelithasis/GBWT with ascites per imaging
-chronic back pain
-splenomegaly
PLAN:
Recurrent GI bleed likely multifactorial from portal gastropathy, GAVE, duodenal and jejunal angioectasias status post EGD 07/[address] Hunter with epi, APC and hemospray for jejunal angioectasia and a small bowel enteroscopy on 08/[address] Cohen
with APC for duodenal angioectasia and also had a sigmoidoscopy on 08/[address] Cohen. There was no evidence of esophageal, gastric or rectal varices noted. Also there was no fresh blood noted on endoscopy 08/02. recieved total of 4 units since
admission (3 units 08/01 1 Unit 08/04).
Hemoglobin drifting down again and still with dark stool
discussed with [facility] 08/04 and spoke to GI and hepatology fellow and was accepted in transfer, awaiting bed for inpatient capsule endoscopy vs upper DBE and may also need a colonoscopy/lower DBE.
s/p repeat paracentesis 08/03 and 1950 cc drained for ascites. Starting to accumulate again may need repeat paracentesis prior to DC
She did have a paracenteses on 07/27 with 300 cc drained and then had a diagnostic paracentesis on 08/01 which was negative for SBP
Unable to start her on Lasix since she has hyponatremia and borderline low BP, started spironolactone 50 mg can increase to 100 mg if K okay and blood pressure is stable
Continue antibiotics for a total of 7 days for upper GI bleed with cirrhosis
Continue to follow-up with Dr. Garcia as outpatient for alcohol cirrhosis
Continue Xifaxan
Subjective
Subjective
Date of Service: August 06, 2025
Still with dark stools and hemoglobin is still slowly drifting down. Also starting to have recurrent ascites again with abdominal distention.
Objective
Data Reviewed
Laboratory Data:
Laboratory Results
08/06/25 05:12
08/06/25 05:12
Laboratory Results
PT 20.5 Sec (11.4-14.6) H 08/02/25 08:25
INR 1.71 08/02/25 08:25
Total Bilirubin 1.4 mg/dl (0.2-1.3) H 08/06/25 05:12
AST 77 U/L (14-36) H 08/06/25 05:12
ALT 41 U/L (0-35) H 08/06/25 05:12
Alkaline Phosphatase 120 U/L (38-126) 08/06/25 05:12
Vital Signs and I&O:
Vital Signs
Temp Pulse Resp BP Pulse Ox
97.9 F 109 19 104/66 97
08/06/25 07:21 08/06/25 06:00 08/06/25 06:00 08/06/25 06:00 08/05/25 21:03
I&O
08/05/25 08/06/25 08/07/25
06:59 06:59 06:59
Intake Total 250 / 250 480 / 480
Balance 250 / 250 480 / 480
Physical Exam
Physical Exam
Cardiology: Normal Sinus Rhythm
Pulmonary: Clear
GI: Soft, Distended (mildly with ascites), Non Tender and Normal Bowel Sounds
--- NOTE | 2025-08-06 08:19 | W.PN.HOSP.TC ---
Today's Communication/Plan
-
see A/P
Assessment / Plan
Assessment / Plan
A/P:
# Symptomatic acute blood loss anemia 2/2 GI Bleed, in setting of cirrhosis with ascites
Hemoglobin of 4.6 on admission
received 4 units PRBC
Hgb dropped again from 7.4 to 7.0, transfuse additional unit PRBC 08/06
monitor Hgb
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
Cont iv abx Ceftriaxone total 7 days for upper GI bleed with cirrhosis
Cont PPI IV BID, DC octreotide
Pt has been accepted by [facility] for internal capsule endoscopy versus upper DBE, and may also need colonoscopy/lower DBE
Initiated spironolactone, adjusted to low dose 12.5 mg with holding parameter
cannot add Lasix due to hyponatremia and borderline low BP
# Metabolic acidosis, now normal anion gap
# Resolved lactic acidosis
# Alcoholic cirrhosis with recurrent ascites
# Transaminitis
# History of hepatic encephalopathy
Last drink about a month and half ago.
Continue lactulose and rifaximin.
Started Aldactone
s/p therapeutic tap 08/03
IR CS for repeat paracentesis 08/06 in setting of recurrent paracentesis
Continue to follow-up with Dr. Garcia as outpatient for alcohol cirrhosis
GI on board
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
Trend serum sodium levels
# Essential hypertension
Initiated spironolactone and adjusted to low dose 12.5 mg with holding parameter
# Anxiety
Continue Buspar, clonazepam.
# Chronic back pain
Continue baclofen.
# History of cholelithiasis
Continue ursodiol.
DVT prophylaxis: Sequential compression devices.
CODE STATUS: Full code.
DW RN
DW GI
total time 51 min
Anticipated Discharge: 24 - 48 hours
Subjective/Interval History
-
Date of Service: August 06, 2025
Objective Data
-
Labs:
Laboratory Results
08/06/25
05:12
WBC 8.7
Hgb 7.0 L
Hct 22.0 L
Plt Count 242
Sodium 132 L
Potassium 3.9
Chloride 110 H
Carbon Dioxide 20 L
BUN 9
Creatinine 0.6
Glucose 106 H
Calcium 7.7 L
Total Bilirubin 1.4 H
AST 77 H
ALT 41 H
Alkaline Phosphatase 120
Vital Signs:
Vital Signs
Temp Pulse Resp BP Pulse Ox
36.6 C 109 19 104/66 97
08/06/25 07:21 08/06/25 06:00 08/06/25 06:00 08/06/25 06:00 08/05/25 21:03
I&O
08/05/25 08/06/25 08/07/25
06:59 06:59 06:59
Intake Total 250 / 250 480 / 480
Balance 250 / 250 480 / 480
Review of Systems
-
History Source: Patient
Abdomen/GI: Reports Other (distension)
Physical Exam
-
General: Well Developed, No Apparent Distress, Comfortable and Conversant
HEENT: Normocephalic and Atraumatic
Respiratory: Clear to Auscultation and Non Labored Respirations; Negative Accessory Resp Muscle Use
Cardiac: Regular Rhythm and S1/S2
GI: Nontender, Normal Bowel Sounds and Distended (reaccumulation of ascites)
Skin: Warm
Neuro: Awake and Alert
Psych: Calm and Intact Judgement/Insight
Data Reviewed
-
Labs: Labs Reviewed by me
--- NOTE | 2025-08-06 08:21 | W.PN.UPDATE ---
Update Note
Progress Note Update
called [facility] and update given with drop in hbg. Still awaiting bed.
[2025-08-06] MEDS: NSS (PRESERVATIVE FREE) 10 ML IV ×2 (08:29→19:39)
[2025-08-06] MEDS: BUSPAR 10 MG PO ×3 (08:29→19:39)
[2025-08-06] MEDS: PROTONIX IV 40 MG IV ×2 (08:29→19:39)
[2025-08-06] MEDS: DUPHALAC/CHRONULAC PO ×4 (08:30→20:00)
[2025-08-06] MEDS: LIDOCAINE 4% PATCH 1 PATCH TOPICAL ×2 (08:30→08:31)
[2025-08-06] MEDS: ACTIGALL 300 MG PO ×2 (08:30→19:38)
[2025-08-06] MEDS: XIFAXAN 550 MG PO ×2 (08:30→19:38)
[2025-08-06] MEDS: LIORESAL 10 MG PO (08:30)
[2025-08-06] MEDS: ALDACTONE PO ×2 (08:30→08:33)
--- NOTE | 2025-08-06 08:39 | PTCARENOTE ---
Patient received from date night sitter. Patient resting comfortably in bed. AAO, VSS. No events noted overnight. No complaints of pain at this time. Currently on Room Air. Hgb @ 7.0 this AM, to transfuse 1 unit PRBC. Paracentesis today, no other
testing at this time. Call grossman in reach.
[2025-08-06] MEDS: ALDACTONE 12.5 MG PO (08:58)
--- NOTE | 2025-08-06 11:28 | CM ---
Following up on Patient. CECIL Valiente saw note that patient is accepted to [facility] and now just waiting on a bed. Medical Progress notes states that patient will undergo a procedure there vs having it completed here at [place].
There are no other needs from Case Management.
PLAN: Discharge to [facility] when there is a bed available.
[2025-08-06 11:56] LABS: Body Fluid Second Tech EM
[2025-08-06] MEDS: ROCEPHIN 1000 MG IV (15:58)
[2025-08-06] MEDS: STERILE WATER FOR INJECTION 10 ML IV (15:58)
[2025-08-06] MEDS: REMOVE LIDOCAINE PATCH 2 PATCH REMOVE (19:39)
[2025-08-06] MEDS: DESYREL 50 MG PO (19:39)
--- NOTE | 2025-08-06 20:37 | W.PN.UPDATE ---
Update Note
Progress Note Update
pt seen for assessment of mood as she continues to be ill, awaiting transfer to [facility] for more definitive treatment. awaiting transfusion of another unit of blood. Hgb not improving as much as would like. Pt's mood is good, grateful for the care she
has received. Confiedes that she had been drinking 'a little bit' of alcohol over the summer.
[2025-08-07] VITALS (11 sets, daily range): BP systolic 90–131; BP diastolic 55–115
[2025-08-07] MEDS: KLONOPIN 0.5 MG PO ×2 (01:23→06:00)
--- NOTE | 2025-08-07 01:50 | PTCARENOTE ---
Pt refused HS dose of lactulose. PRN klonopin and PRN trazodone given per MAR at pt request. Denies complaints at this time. Call grossman within reach. Pt rings appropriately. Care ongoing.
[2025-08-07 05:53] LABS: Hematocrit 22.9 % (37.0-47.0); Hemoglobin 7.3 g/dL (12.0-16.0); Mean Corp Hgb Conc. 31.9 g/dL (33.0-37.0); Mean Corpuscular Volume 88.1 fL (81.0-99.0); Platelet Count 223 10^3/uL (130-400); Red Cell Dist. Width 15.3 % (11.5-14.5)
[2025-08-07 06:17] LABS: ALT (SGPT) 33 U/L (0-35); AST (SGOT) 77 U/L (14-36); Albumin 1.9 g/dl (3.5-5.0); Alkaline Phosphatase 101 U/L (38-126); Blood Urea Nitrogen 10 mg/dl (7-17); Calcium 7.7 mg/dl (8.4-10.2); Carbon Dioxide 22 mmol/L (22-30); Chloride 109 mmol/L (98-107); Estimated Creatinine Clearance 80 ml/min; Glucose 105 mg/dl (70-99); Potassium 4.0 mmol/L (3.5-5.1); Sodium 131 mmol/L (135-145); Total Protein 4.4 g/dl (6.3-8.2); eGFR > 60.00
--- NOTE | 2025-08-07 07:32 | W.PN.GI.CBS2 ---
Today's Communication / Plan
-
Ok for DC
Assessment / Plan
-
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 by Dr. Huizar, bipolar disorder, anemia, falls, recent
admission at [facility] 03/18/2025 through 03/23/2025 for falls and confusion, sent to [facility] afterwards, evaluated in [facility] 03/25/2025 for change in mental status. The patient was treated for a UTI with lactulose dose
increased. The patient did follow-up with Dr. Chaz Garcia hepatology. The patient states that she continued on her regular medications for her liver cirrhosis which include Coreg, lactulose twice daily (although she was instructed to take
this 3 times daily), Xifaxan, pantoprazole. She presented 07/23- - with bright red blood per rectum with hbg 5.7. 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
Site tattooed and with poor visualization Dr. Hunter not confident that ectasia was bleeding site. Bleeding did improve with brown stool on discharge. Pt developed worsening ascites and had paracentesis on 07/27/25 for 300ml with neg SBP but
atypical cells and RBC's on tap. hbg 7.8 on discharged 07/28. She now returns with hbg 4.6 with recurrent bleeding last 3 days.
-GI bleeding
-anemia acute blood loss
-tachy/hypotension on admission
-recent EGD with concern for jejunal bleeding not well visualized
--hx cirrhosis
-ascites with recent tap for 300ml - neg SBP but atypical cells and RBC's on tap
-Multifocal regions of lobular and confluent fatty infiltration. Overall imaging features suggest classification of LIRADS 3 per recent MRI
-HE on lactulose and Xifaxan
-thrombocytosis
-metabolic acidosis
-hyponatremia
-leukocytosis
-coagulopathy
-GAVE on prior EGD
-hx falls
-bipolar disorder
-cholelithasis/GBWT with ascites per imaging
-chronic back pain
-splenomegaly
PLAN:
Recurrent GI bleed likely multifactorial from portal gastropathy, GAVE, duodenal and jejunal angioectasias status post EGD 07/[address] Hunter with epi, APC and hemospray for jejunal angioectasia and a small bowel enteroscopy on 08/[address] Cohen
with APC for duodenal angioectasia and also had a sigmoidoscopy on 08/[address] Cohen. There was no evidence of esophageal, gastric or rectal varices noted. Also there was no fresh blood noted on endoscopy 08/02. recieved total of 5 units since
admission (3 units 08/01 1 Unit 08/04 and 1 on 08/06).
Finally looks like the melena is resolved and she had brown bowel movement today
discussed with [place] transfer center 08/04 and spoke to GI and hepatology fellow and was accepted in transfer, awaiting bed for inpatient capsule endoscopy vs upper DBE and may also need a colonoscopy/lower DBE.
Unfortunately patient has not been transferred to [place] yet because of bed availability and since she has not had any further active bleeding and hemoglobin remains relatively stable post transfusions, okay to [facility] home she has a follow-up on August
with Dr. Garcia and if she does have recurrent bleeding told her to present to [place] for DBE
s/p repeat paracentesis 08/03 and 1950 cc drained and 08/06 1250 cc drained
Will most likely need weekly paracenteses to be set up as outpatient
She did have a paracenteses on 07/27 with 300 cc drained and then had a diagnostic paracentesis on 08/01 which was negative for SBP
Unable to start her on Lasix since she has hyponatremia and borderline low BP, started spironolactone 50 mg but dose was decreased yesterday to 12.5 mg because of her blood pressure
Continue antibiotics for a total of 7 days for upper GI bleed with cirrhosis
Continue to follow-up with Dr. Garcia as outpatient for alcohol cirrhosis
Continue Xifaxan
Subjective
Subjective
Date of Service: August 07, 2025
Had a brown bowel movement today also discussed with her nurse Kellie and she also looked at the bowel movement and there was no melena or maroon stool, hemoglobin has remained stable over the past 2 to 3 days but she did receive another transfusion
yesterday she received a total of 5 units since admission 3 on 08/01 1 on 08/04 and 1 on 08/06
Received another paracenteses 08/06 with 1250 cc drained
Anxious to go home
Objective
Data Reviewed
Laboratory Data:
Laboratory Results
08/07/25 05:34
08/07/25 05:34
Laboratory Results
PT 20.5 Sec (11.4-14.6) H 08/02/25 08:25
INR 1.71 08/02/25 08:25
Total Bilirubin 1.5 mg/dl (0.2-1.3) H 08/07/25 05:34
AST 77 U/L (14-36) H 08/07/25 05:34
ALT 33 U/L (0-35) 08/07/25 05:34
Alkaline Phosphatase 101 U/L (38-126) 08/07/25 05:34
Vital Signs and I&O:
Vital Signs
Temp Pulse Resp BP Pulse Ox
98.5 F 96 25 90/55 97
08/07/25 03:00 08/07/25 04:00 08/07/25 04:00 08/07/25 04:00 08/06/25 19:55
I&O
08/06/25 08/07/25 08/08/25
06:59 06:59 06:59
Intake Total 480 / 480 1330 / 1330
Balance 480 / 480 1330 / 1330
Physical Exam
Physical Exam
Cardiology: Normal Sinus Rhythm
Pulmonary: Clear
GI: Soft, Distended (Much less distended post paracentesis yesterday), Non Tender and Normal Bowel Sounds
--- NOTE | 2025-08-07 07:57 | W.PN.HOSP.TC ---
Addendum entered and electronically signed by Shira Vicente MD 08/07/25 19:14:
d/w GI. At present, we do not have the ability to do the double balloon enteroscopy.
There is currently no further procedure planned at .
Addendum entered and electronically signed by Shira Vicente MD 08/07/25 08:53:
DW GI Dr Alvarado. She states that she has nothing more to offer to patient. She recc pt to be discharged and go directly to [facility] if pt rebleeds again.
DW RN
I will call transfer center again later today.
total time spent 51 min
Original Note:
Today's Communication/Plan
-
see A/P
pending transfer
Assessment / Plan
Assessment / Plan
A/P:
# Symptomatic acute blood loss anemia 2/2 GI Bleed, in setting of cirrhosis with ascites
Hemoglobin at 4.6 on admission
received 5 units PRBC
Hgb today at 7.3
monitor Hgb
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
Cont iv abx Ceftriaxone total 7 days for upper GI bleed with cirrhosis
Cont PPI IV BID, DC octreotide
Pt has been accepted by [facility] for internal capsule endoscopy versus upper DBE, and may also need colonoscopy/lower DBE
Initiated spironolactone, adjusted to low dose 12.5 mg with holding parameter
cannot add Lasix due to hyponatremia and borderline low BP
# Metabolic acidosis, now normal anion gap
# Resolved lactic acidosis
# Decompensated liver failure with Alcoholic cirrhosis and recurrent ascites
# Transaminitis
# History of hepatic encephalopathy
Last drink about a month and half ago.
Continue lactulose and rifaximin.
Started Aldactone
s/p therapeutic tap 08/03 and again 08/06
para labs reviewed
Continue to follow-up with Dr. Garcia as outpatient for alcohol cirrhosis
GI on board
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
Trend serum sodium levels
# Essential hypertension
BP Low
Initiated spironolactone and adjusted to low dose 12.5 mg with holding parameter
# Anxiety
Continue Buspar, clonazepam.
# Chronic back pain
Continue baclofen.
# History of cholelithiasis
Continue ursodiol.
DVT prophylaxis: Sequential compression devices.
CODE STATUS: Full code.
Dispo: pt has been accepted to [facility]
Anticipated Discharge: 24 - 48 hours
Subjective/Interval History
-
Date of Service: August 07, 2025
Objective Data
-
Labs:
Laboratory Results
08/07/25
05:34
WBC 8.2
Hgb 7.3 L
Hct 22.9 L
Plt Count 223
Sodium 131 L
Potassium 4.0
Chloride 109 H
Carbon Dioxide 22
BUN 10
Creatinine 0.6
Glucose 105 H
Calcium 7.7 L
Total Bilirubin 1.5 H
AST 77 H
ALT 33
Alkaline Phosphatase 101
Vital Signs:
Vital Signs
Temp Pulse Resp BP Pulse Ox
36.9 C 96 25 90/55 97
08/07/25 03:00 08/07/25 04:00 08/07/25 04:00 08/07/25 04:00 08/06/25 19:55
I&O
08/06/25 08/07/25 08/08/25
06:59 06:59 06:59
Intake Total 480 / 480 1330 / 1330
Balance 480 / 480 1330 / 1330
Review of Systems
-
History Source: Patient
All other systems: Reviewed and negative
Physical Exam
-
General: Well Developed, No Apparent Distress, Comfortable, Conversant and Appears Chronically Ill
HEENT: Normocephalic and Atraumatic
Respiratory: Clear to Auscultation and Non Labored Respirations; Negative Accessory Resp Muscle Use
Cardiac: Regular Rhythm and S1/S2
GI: Nontender, Normal Bowel Sounds and Distended (reaccumulation of ascites)
Skin: Warm
Neuro: Awake and Alert
Psych: Calm and Intact Judgement/Insight
Data Reviewed
-
Labs: Labs Reviewed by me
[2025-08-07] MEDS: XIFAXAN 550 MG PO ×2 (08:45→20:21)
[2025-08-07] MEDS: ALDACTONE 12.5 MG PO (08:45)
[2025-08-07] MEDS: BUSPAR 10 MG PO ×3 (08:45→20:21)
[2025-08-07] MEDS: ACTIGALL 300 MG PO ×2 (08:45→20:21)
[2025-08-07] MEDS: DUPHALAC/CHRONULAC 20 GRAMS PO ×2 (08:47→20:21)
[2025-08-07] MEDS: LIDOCAINE 4% PATCH 1 PATCH TOPICAL ×2 (08:47→08:48)
[2025-08-07] MEDS: PROTONIX IV 40 MG IV ×2 (08:49→20:20)
[2025-08-07] MEDS: NSS (PRESERVATIVE FREE) 10 ML IV ×2 (08:49→20:20)
[2025-08-07] MEDS: LIORESAL 10 MG PO (11:07)
[2025-08-07] MEDS: ZOFRAN ODT (ORALLY DISINTEGRATING) 4 MG PO ×2 (11:07→20:26)
--- NOTE | 2025-08-07 16:58 | CM ---
Following up on Patient. Medical Attending wrote that patient was given all the options for her disease and may or may not transfer to [facility].
PLAN: Home No Need vs. [facility] Transfer.
[2025-08-07] MEDS: STERILE WATER FOR INJECTION 10 ML IV (17:52)
[2025-08-07] MEDS: ROCEPHIN 1000 MG IV (17:52)
[2025-08-07] MEDS: REMOVE LIDOCAINE PATCH 2 PATCH REMOVE (20:21)
[2025-08-08] VITALS (35 sets, daily range): BP systolic 91–139; BP diastolic 53–94; PULSE 119; BMI 24.0
[2025-08-08 05:52] LABS: Hematocrit 22.0 % (37.0-47.0); Hemoglobin 7.0 g/dL (12.0-16.0); Mean Corp Hgb Conc. 31.8 g/dL (33.0-37.0); Mean Corpuscular Volume 88.4 fL (81.0-99.0); Platelet Count 241 10^3/uL (130-400); Red Cell Dist. Width 15.4 % (11.5-14.5)
--- NOTE | 2025-08-08 06:13 | W.PN.UPDATE ---
Update Note
Progress Note Update
AM labs: Hgb 7, Hct 22.0, soft BP 92/55, HR 97. RN/tech noted that patient had large, liquid black bowel movement overnight. Ordered 1 unit PRBC's to transfuse now.
[2025-08-08 06:17] LABS: ALT (SGPT) 31 U/L (0-35); AST (SGOT) 78 U/L (14-36); Albumin 1.9 g/dl (3.5-5.0); Alkaline Phosphatase 91 U/L (38-126); Blood Urea Nitrogen 13 mg/dl (7-17); Calcium 7.5 mg/dl (8.4-10.2); Carbon Dioxide 22 mmol/L (22-30); Chloride 109 mmol/L (98-107); Estimated Creatinine Clearance 80 ml/min; Glucose 95 mg/dl (70-99); Potassium 4.2 mmol/L (3.5-5.1); Sodium 132 mmol/L (135-145); Total Protein 4.4 g/dl (6.3-8.2); eGFR > 60.00
--- NOTE | 2025-08-08 06:30 | PTCARENOTE ---
Caring for pt overnight. Pt was having brown stools during the day and then is now having black loose stools. hgb this am was 7.0, PHYSICAL THERAPY PROFESSOR aware and ordered another unit of blood. Pt updated and expressed that she is upset and needs to get home and she
can 'manage this at home with her iron pills' and she can uber herself to [facility]. VSS, bps running soft but stable. Denies pain. Ascites present. NO other issues will monitor.
--- NOTE | 2025-08-08 06:35 | W.PN.UPDATE ---
Addendum entered and electronically signed by Renetta Alvarado MD 08/08/25 08:15:
'She states that she has nothing more to offer to patient. She recc pt to be discharged and go directly to [facility] if pt rebleeds again' was not what I discussed with her yesterday to clarify see below. Needs higher level care.
Original Note:
Update Note
Progress Note Update
Noted note from Dr. Silva 08/07 looks like there was a misinterpretation misunderstanding of my discussion and recommendations with her yesterday in her documentation.
My recommendations were
1. Awaiting bed at [place](on hold still with no beds available) and if she has further drop in hemoglobin/ blood transfusion requirement or active bleeding then need to expedite transfer to [facility] for higher level of care since we do not have capability
of performing inpatient capsule endoscopy or SBE or DBE here.
2. If no further bleeding with brown stools and hemoglobin stable could discharge her home to follow-up for outpatient capsule study here or at [place] or referral for SBE or DBE to [place] as outpatient if remains stable with no further bleeding to
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
3. If she has further brisk bleeding and still unable to get a bed or transfer to [facility] then stat CTA to localize the site of bleeding
4. Return to ER if she has further bleeding after DC either to [facility] [place] or to [facility] ER. If she presents to [facility] [place] option would be stat CTA followed by push enteroscopy again and a colonoscopy based on result of CTA versus ER transfer to [place]
for higher level of care to pursue SBE or DBE or inpatient capsule study.
I called Dr. Silva last night again to clarify my recommendations
[2025-08-08] MEDS: ZOFRAN ODT (ORALLY DISINTEGRATING) 4 MG PO (07:08)
--- NOTE | 2025-08-08 07:52 | W.PN.HOSP.TC ---
Today's Communication/Plan
-
see A/P
Assessment / Plan
Assessment / Plan
A/P:
# Symptomatic acute blood loss anemia 2/2 GI Bleed, in setting of cirrhosis with ascites
Hemoglobin at 4.6 on admission
received 5 units PRBC
Hgb today dropped to 7.0 again
Transfuse additional unit PRBC
monitor Hgb
Pt requesting iron supplement which I do not object, ordered IV iron while in the hospital
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
Cont iv abx Ceftriaxone total 7 days for upper GI bleed with cirrhosis
Cont PPI IV BID, DC octreotide
Pt has been accepted by [facility] for internal capsule endoscopy versus upper DBE, and may also need colonoscopy/lower DBE
Initiated spironolactone, adjusted to low dose 12.5 mg with holding parameter
cannot add Lasix due to hyponatremia and borderline low BP
# Metabolic acidosis, now normal anion gap
# Resolved lactic acidosis
# Decompensated liver failure with Alcoholic cirrhosis and recurrent ascites
# Transaminitis
# History of hepatic encephalopathy
Last drink about a month and half ago.
Continue lactulose and rifaximin.
Started Aldactone
s/p therapeutic tap 08/03 and 08/06
para labs reviewed , no SBP
Continue to follow-up with Dr. Garcia as outpatient for alcohol cirrhosis
GI on board
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
Trend serum sodium levels
# Essential hypertension
BP currently low
Initiated spironolactone and adjusted to low dose 12.5 mg with holding parameter
# Anxiety
Continue Buspar, clonazepam.
# Chronic back pain
Continue baclofen.
# History of cholelithiasis
Continue ursodiol.
DVT prophylaxis: Sequential compression devices.
CODE STATUS: Full code.
Dispo: pt has been accepted to [facility], awaiting transfer
total time 51 min
Anticipated Discharge: > 48 hours
Subjective/Interval History
-
Date of Service: August 08, 2025
Objective Data
-
Labs:
Laboratory Results
08/08/25
05:35
WBC 8.3
Hgb 7.0 L
Hct 22.0 L
Plt Count 241
Sodium 132 L
Potassium 4.2
Chloride 109 H
Carbon Dioxide 22
BUN 13
Creatinine 0.6
Glucose 95
Calcium 7.5 L
Total Bilirubin 1.2
AST 78 H
ALT 31
Alkaline Phosphatase 91
Vital Signs:
Vital Signs
Temp Pulse Resp BP Pulse Ox
36.9 C 108 20 105/68 96
08/08/25 03:00 08/08/25 06:00 08/08/25 06:00 08/08/25 06:00 08/07/25 23:36
I&O
08/07/25 08/08/25 08/09/25
06:59 06:59 06:59
Intake Total 1330 / 1330 240 / 240
Balance 1330 / 1330 240 / 240
Review of Systems
-
History Source: Patient
All other systems: Reviewed and negative
Physical Exam
-
General: Well Developed, No Apparent Distress, Comfortable, Conversant and Appears Chronically Ill
HEENT: Normocephalic and Atraumatic
Respiratory: Clear to Auscultation and Non Labored Respirations; Negative Accessory Resp Muscle Use
Cardiac: Regular Rhythm and S1/S2
GI: Nontender, Normal Bowel Sounds and Distended
Skin: Warm
Neuro: Awake and Alert
Psych: Calm and Intact Judgement/Insight
Data Reviewed
-
Labs: Labs Reviewed by me
[2025-08-08] MEDS: DUPHALAC/CHRONULAC 20 GRAMS PO ×2 (08:31→20:34)
[2025-08-08] MEDS: LIORESAL 10 MG PO (08:32)
[2025-08-08] MEDS: ALDACTONE 12.5 MG PO (08:32)
[2025-08-08] MEDS: XIFAXAN 550 MG PO ×2 (08:32→20:34)
[2025-08-08] MEDS: BUSPAR 10 MG PO ×3 (08:32→20:56)
[2025-08-08] MEDS: ACTIGALL 300 MG PO ×2 (08:33→20:34)
[2025-08-08] MEDS: LIDOCAINE 4% PATCH 1 PATCH TOPICAL ×2 (08:33→08:34)
[2025-08-08] MEDS: NSS (PRESERVATIVE FREE) 10 ML IV ×2 (08:39→20:34)
[2025-08-08] MEDS: PROTONIX IV 40 MG IV ×2 (08:39→20:35)
[2025-08-08] MEDS: KLONOPIN 0.5 MG PO ×3 (08:45→20:37)
--- NOTE | 2025-08-08 09:22 | W.PN.GI.CBS2 ---
Addendum entered and electronically signed by Renetta Alvarado MD 08/08/25 14:22:
I saw and examined the patient.
The TUBE SORTER's note was reviewed and I agree with the note.
Comment: She had another melanotic stool last night and received her sixth unit of blood. CT angiogram did not show any active bleeding but does have evidence of varices in the third portion of the duodenum but no contrast extravasation into the
lumen, she also has moderate to large ascites, cirrhosis with splenomegaly, gallstones. She currently has no abdominal pain. Placed a call out again to [facility] if she could be transferred to [place] more emergently since she has ongoing bleeding for
inpatient capsule endoscopy and DBE.. She is also been started on IV iron, will most likely need another paracenteses later today or tomorrow.
08/08/2025 CT Abd/pelvis Angio W/wo Iv
IMPRESSION: There is no evidence for active GI bleeding by CT.
Prominent varices within the posterior wall of the third portion of the duodenum, but no contrast extravasation into the lumen of the duodenum.
Thickening of the wall the right colon, which is likely portal colopathy.
Moderate to large amount of ascites within the abdomen and pelvis.
Cirrhotic liver. No convincing CT evidence for hepatocellular carcinoma.
Splenomegaly.
Cholelithiasis. No evidence for biliary ductal dilation.
Edema surrounding the head of the pancreas, most likely from ascites. Please correlate with any clinical signs or symptoms that would suggest pancreatitis.
Original Note:
Today's Communication / Plan
-
Recurrent GI bleed likely multifactorial from portal gastropathy, GAVE, duodenal and jejunal angioectasias status post EGD 07/[address] Hunter with epi, APC and hemospray for jejunal angioectasia and a small bowel enteroscopy on 08/[address] Cohen
with APC for duodenal angioectasia and also had a sigmoidoscopy on 08/[address] Cohen. There was no evidence of esophageal, gastric or rectal varices noted. Also there was no fresh blood noted on endoscopy 08/02.
pt with total of 6 unit transfused during this admission
reviewed with patient and nursing she has chronic intermittent black and dark brown stools-- she had dark brown yesterday then several black stools overnight
for CTA now
cont communication with [place]-- I reviewed with liver liaison with update to update status with need for now 6th unit of blood and plan for CTA
need for transfer for evaluation for inpatient capsule endoscopy or SBE or DBE which we cannot do here
with continued need for transfusion cannot be discharged today -- reviewed Dr. Alvarado recommendation from earlier today
follow with Dr. Garcia at [place]
cont abx with GI bleed and cirrhosis
no need for repeat para today
remains on Spirolonlactone 12.5 mg, IV iron, PPI BID, lactulose BID, Xifaxan BID and chronic Bj that pt was on prior to admission
repeat INR in AM to recalculate MELD
reviewed with nursing staff
Assessment / Plan
-
Pt is a 55yo with hx cirrhosis (diagnosed a couple years ago), alcohol abuse, hepatic encephalopathy, GAVE on EGD 03/25/2024 performed at [facility] by Dr. Huizar, bipolar disorder, anemia, falls, recent admission at [facility] 03/18/2025 through 03/23/2025 for falls and confusion, sent to [facility] afterwards, evaluated in [place] [facility] 03/25/2025 for change in mental status. The patient was treated for a UTI with lactulose dose increased. The patient
did follow-up with Dr. Chaz Garcia hepatology. The patient states that she continued on her regular medications for her liver cirrhosis which include Coreg, lactulose twice daily (although she was instructed to take this 3 times daily),
Xifaxan, pantoprazole. She presented 07/23- - with bright red blood per rectum with hbg 5.7. 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 Site tattooed and
with poor visualization Dr. Hunter not confident that ectasia was bleeding site. Bleeding did improve with brown stool on discharge. Pt developed worsening ascites and had paracentesis on 07/27/25 for 300ml with neg SBP but atypical cells and RBC's
on tap. hbg 7.8 on discharged 07/28. She now returns with hbg 4.6 with recurrent bleeding last 3 days. During this admission she repeat enteroscopy and flex sig as noted.
08/02/25- Do - Tattoo seen nearby AVM - No old or fresh blood seen
- Normal esophagus. - Portal hypertensive gastropathy.
- A single non-bleeding angiodysplastic lesion in the duodenum.
Treated with argon plasma coagulation (APC).
- Multiple duodenal polyps.
- The examined portion of the jejunum was normal.
- No specimens collected.
08/02/25 flex sig
- Hemorrhoids were found on perianal exam.
- Multiple medium-mouthed diverticula were found in the sigmoid
colon.
- No old or fresh blood
- Diffuse colopathy throughout colon
-GI bleeding
-anemia acute blood loss
-tachy/hypotension on admission
-recent EGD with concern for jejunal bleeding not well visualized
-diffuse colopaty
--hx cirrhosis
-ascites with recent tap for 300ml - neg SBP but atypical cells and RBC's on tap repeat with neg malgnancy few WBC and RBC s/p repeat paracentesis 08/03 and 1950 cc drained and 08/06 1250 cc drained
-Multifocal regions of lobular and confluent fatty infiltration. Overall imaging features suggest classification of LIRADS 3 per recent MRI
-HE on lactulose and Xifaxan
-thrombocytosis
-metabolic acidosis
-hyponatremia
-leukocytosis
-coagulopathy
-GAVE on prior EGD
-hx falls
-bipolar disorder
-cholelithasis/GBWT with ascites per imaging
-chronic back pain
-splenomegaly
PLAN:
Recurrent GI bleed likely multifactorial from portal gastropathy, GAVE, duodenal and jejunal angioectasias status post EGD 07/[address] Hunter with epi, APC and hemospray for jejunal angioectasia and a small bowel enteroscopy on 08/[address] Cohen
with APC for duodenal angioectasia and also had a sigmoidoscopy on 08/[address] Cohen. There was no evidence of esophageal, gastric or rectal varices noted. Also there was no fresh blood noted on endoscopy 08/02.
pt with total of 6 unit transfused during this admission
reviewed with patient and nursing she has chronic intermittent black and dark brown stools-- she had dark brown yesterday then several black stools overnight
for CTA now
cont communication with [place]-- I reviewed with liver liaison with update to update status with need for now 6th unit of blood and plan for CTA
need for transfer for evaluation for inpatient capsule endoscopy or SBE or DBE which we cannot do here
with continued need for transfusion cannot be discharged today -- reviewed Dr. Alvarado recommendation from earlier today
follow with Dr. Garcia at [place]
cont abx with GI bleed and cirrhosis
no need for repeat para today
remains on Spirolonlactone 12.5 mg, IV iron, PPI BID, lactulose BID, Xifaxan BID and chronic Bj that pt was on prior to admission
repeat INR in AM to recalculate MELD
reviewed with nursing staff
Subjective
Subjective
Date of Service: August 08, 2025
08/08 black watery stools on regular diet denies dizziness and chronic weakness
Objective
Data Reviewed
Laboratory Data:
Laboratory Results
08/08/25 05:35
08/08/25 05:35
Laboratory Results
PT 20.5 Sec (11.4-14.6) H 08/02/25 08:25
INR 1.71 08/02/25 08:25
Total Bilirubin 1.2 mg/dl (0.2-1.3) 08/08/25 05:35
AST 78 U/L (14-36) H 08/08/25 05:35
ALT 31 U/L (0-35) 08/08/25 05:35
Alkaline Phosphatase 91 U/L (38-126) 08/08/25 05:35
Vital Signs and I&O:
Vital Signs
Temp Pulse Resp BP Pulse Ox
98.7 F 103 16 103/75 96
08/08/25 09:00 08/08/25 09:00 08/08/25 09:00 08/08/25 09:00 08/07/25 23:36
I&O
08/07/25 08/08/25 08/09/25
06:59 06:59 06:59
Intake Total 1330 / 1330 240 / 240 0 / 0
Balance 1330 / 1330 240 / 240 0 / 0
Physical Exam
Physical Exam
HEENT: Anicteric and Moist mucous membranes
Cardiology: Other (tachy )
Pulmonary: Clear
GI: Soft, Distended (mild ) and Non Tender
Neuro: Non Focal
--- NOTE | 2025-08-08 11:43 | CM ---
Following up on Patient. Medical Progress notes state that to continue communication with [facility] for transfer, has received -- I reviewed with 6th unit of blood and plan for CTA tomorrow. The transfer to [facility] would be evaluation for inpatient
capsule endoscopy or SBE or DBE which we cannot do here. Since patient is needing continual transfusion, Medical Team is not discharging today.
PLAN: Anticipate Home No Needs or Transfer to [facility]
--- NOTE | 2025-08-08 11:46 | CM ---
Following up on Patient. Medical Progress notes state that to continue communication with [facility] for transfer, has received 6th unit of blood so there is a plan for CTA tomorrow. The transfer to [facility] would be evaluation for inpatient capsule
endoscopy or SBE or DBE which we cannot do here. Since patient is needing continual transfusion, Medical Team is not discharging today.
PLAN: Anticipate Home No Needs or Transfer to [facility]
[2025-08-08] MEDS: FERRLECIT 110 MG IV (15:19)
[2025-08-08] MEDS: STERILE WATER FOR INJECTION IV (15:23)
--- NOTE | 2025-08-08 19:12 | PTCARENOTE ---
day shift note. see nursing flowsheet. pt recieved one unit prbcs without incident. ct angio done. no rectal bleeding noted. appetite 50 percent.awaiting bed at [facility].
--- NOTE | 2025-08-08 21:33 | PTCARENOTE ---
assumed care of pt from dayshift RN after change of shift report. Pt AA0x3. sinus tach on monitor HR 106. on RA. abdomen round and distended, tender. took hs meds whole with water. assessment as documented. call light in reach.
[2025-08-09] VITALS (18 sets, daily range): BP systolic 90–117; BP diastolic 56–80
[2025-08-09] MEDS: KLONOPIN 0.5 MG PO ×3 (05:46→20:53)
[2025-08-09] MEDS: REMOVE LIDOCAINE PATCH 2 PATCH REMOVE ×2 (05:46→21:47)
[2025-08-09 06:10] LABS: INR 1.48; PT 18.4 Sec (11.4-14.6)
[2025-08-09 06:12] LABS: Hematocrit 24.3 % (37.0-47.0); Hemoglobin 7.5 g/dL (12.0-16.0); Mean Corp Hgb Conc. 30.9 g/dL (33.0-37.0); Mean Corpuscular Volume 84.1 fL (81.0-99.0); Platelet Count 270 10^3/uL (130-400); Red Cell Dist. Width 20.8 % (11.5-14.5)
[2025-08-09 06:25] LABS: ALT (SGPT) 29 U/L (0-35); AST (SGOT) 78 U/L (14-36); Albumin 2.0 g/dl (3.5-5.0); Alkaline Phosphatase 114 U/L (38-126); Blood Urea Nitrogen 16 mg/dl (7-17); Calcium 7.9 mg/dl (8.4-10.2); Carbon Dioxide 24 mmol/L (22-30); Chloride 108 mmol/L (98-107); Estimated Creatinine Clearance 80 ml/min; Glucose 95 mg/dl (70-99); Potassium 4.2 mmol/L (3.5-5.1); Sodium 132 mmol/L (135-145); Total Protein 4.6 g/dl (6.3-8.2); eGFR > 60.00
--- NOTE | 2025-08-09 07:47 | W.PN.HOSP.TC ---
Today's Communication/Plan
-
IR CS for repeat para
pending transfer to [facility]
Assessment / Plan
Assessment / Plan
A/P:
# Symptomatic acute blood loss anemia 2/2 GI Bleed, in setting of cirrhosis with ascites
Hemoglobin at 4.6 on admission
s/p 6 units PRBC transfusion
Hgb today at 7.5
monitor Hgb
Noted CT AP angio 08/08 was without any active GI bleeding by CT, showed prominent varices within third portion of the duodenum.
Cont IV iron while in the hospital
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
Cont iv abx Ceftriaxone total 7 days for upper GI bleed with cirrhosis
Cont PPI IV BID, DC octreotide
Pt has been accepted by [facility] for internal capsule endoscopy versus upper DBE, and she may also need colonoscopy/lower DBE
Initiated spironolactone, adjusted to low dose 12.5 mg with holding parameter
cannot add Lasix due to hyponatremia and borderline low BP
# Metabolic acidosis, now normal anion gap
# Resolved lactic acidosis
# Decompensated liver failure with Alcoholic cirrhosis and recurrent ascites
# Transaminitis, improving
# History of hepatic encephalopathy
Last drink about a month and half ago.
Continue lactulose and rifaximin.
Started Aldactone
s/p therapeutic tap 08/03 and 08/06
para labs reviewed , no SBP
IR CS for repeat paracentesis 08/09 for rapid reaccumulation of ascites
Continue to follow-up with Dr. Garcia as outpatient for alcohol cirrhosis
GI on board
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
Trend serum sodium levels
Sodium at 132 today
# Essential hypertension
BP currently low
Initiated spironolactone and adjusted to low dose 12.5 mg with holding parameter
# Anxiety
Continue Buspar, clonazepam.
# Chronic back pain
Continue baclofen.
# History of cholelithiasis
Continue ursodiol.
DVT prophylaxis: Sequential compression devices.
CODE STATUS: Full code.
Dispo: pt has been accepted to [facility], awaiting transfer
DW RN
total time 51 min
Anticipated Discharge: 24 - 48 hours
Subjective/Interval History
-
Date of Service: August 09, 2025
Objective Data
-
Labs:
Laboratory Results
08/09/25
05:40
WBC 9.3
Hgb 7.5 L
Hct 24.3 L
Plt Count 270
PT 18.4 H
INR 1.48
Sodium 132 L
Potassium 4.2
Chloride 108 H
Carbon Dioxide 24
BUN 16
Creatinine 0.6
Glucose 95
Calcium 7.9 L
Total Bilirubin 1.2
AST 78 H
ALT 29
Alkaline Phosphatase 114
Vital Signs:
Vital Signs
Temp Pulse Resp BP Pulse Ox
36.6 C 109 25 110/74 98
08/09/25 02:40 08/09/25 06:00 08/09/25 06:00 08/09/25 06:00 08/08/25 21:35
I&O
08/08/25 08/09/25 08/10/25
06:59 06:59 06:59
Intake Total 240 / 240 960 / 960
Balance 240 / 240 960 / 960
Review of Systems
-
History Source: Patient
Abdomen/GI: Reports Bloated and Other (abd distension)
Physical Exam
-
General: Well Developed, No Apparent Distress, Comfortable, Conversant and Appears Chronically Ill
HEENT: Normocephalic and Atraumatic
Respiratory: Clear to Auscultation and Non Labored Respirations; Negative Accessory Resp Muscle Use
Cardiac: Regular Rhythm and S1/S2
GI: Nontender, Normal Bowel Sounds and Distended
Skin: Warm
Neuro: Awake and Alert
Psych: Calm and Intact Judgement/Insight
Data Reviewed
-
Labs: Labs Reviewed by me
[2025-08-09] MEDS: DUPHALAC/CHRONULAC 20 GRAMS PO ×2 (08:37→20:53)
[2025-08-09] MEDS: LIDOCAINE 4% PATCH 1 PATCH TOPICAL ×2 (08:37)
[2025-08-09] MEDS: XIFAXAN 550 MG PO ×2 (08:38→20:53)
[2025-08-09] MEDS: ACTIGALL 300 MG PO ×2 (08:38→20:53)
[2025-08-09] MEDS: BUSPAR 10 MG PO ×3 (08:38→21:47)
[2025-08-09] MEDS: ALDACTONE 12.5 MG PO (08:38)
[2025-08-09] MEDS: LIORESAL 10 MG PO (08:39)
[2025-08-09] MEDS: NSS (PRESERVATIVE FREE) 10 ML IV ×2 (08:39→20:54)
[2025-08-09] MEDS: PROTONIX IV 40 MG IV ×2 (08:39→20:53)
--- NOTE | 2025-08-09 11:11 | W.PN.GI.CBS2 ---
Today's Communication / Plan
-
Continue to closely monitor hemoglobin and transfuse as needed, continue IV iron, awaiting bed for transfer
Assessment / Plan
-
Pt is a 55yo with hx cirrhosis (diagnosed a couple years ago), alcohol abuse, hepatic encephalopathy, GAVE on EGD 03/25/2024 performed at [facility] by Dr. Huizar, bipolar disorder, anemia, falls, recent admission at [facility] 03/18/2025 through 03/23/2025 for falls and confusion, sent to [facility] afterwards, evaluated in [facility] 03/25/2025 for change in mental status. The patient was treated for a UTI with lactulose dose increased. The patient
did follow-up with Dr. Chaz Garcia hepatology. The patient states that she continued on her regular medications for her liver cirrhosis which include Coreg, lactulose twice daily (although she was instructed to take this 3 times daily),
Xifaxan, pantoprazole. She presented 07/23- - with bright red blood per rectum with hbg 5.7. 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 Site tattooed and
with poor visualization Dr. Hunter not confident that ectasia was bleeding site. Bleeding did improve with brown stool on discharge. Pt developed worsening ascites and had paracentesis on 07/27/25 for 300ml with neg SBP but atypical cells and RBC's
on tap. hbg 7.8 on discharged 07/28. She now returns with hbg 4.6 with recurrent bleeding last 3 days. During this admission she repeat enteroscopy and flex sig as noted.
08/02/25- Do - Tattoo seen nearby AVM - No old or fresh blood seen
- Normal esophagus. - Portal hypertensive gastropathy.
- A single non-bleeding angiodysplastic lesion in the duodenum.
Treated with argon plasma coagulation (APC).
- Multiple duodenal polyps.
- The examined portion of the jejunum was normal.
- No specimens collected.
08/02/25 flex sig
- Hemorrhoids were found on perianal exam.
- Multiple medium-mouthed diverticula were found in the sigmoid
colon.
- No old or fresh blood
- Diffuse colopathy throughout colon
-GI bleeding
-anemia acute blood loss
-tachy/hypotension on admission
-recent EGD with concern for jejunal bleeding not well visualized
-diffuse colopaty
--hx cirrhosis
-ascites with recent tap for 300ml - neg SBP but atypical cells and RBC's on tap repeat with neg malgnancy few WBC and RBC s/p repeat paracentesis 08/03 and 1950 cc drained and 08/06 1250 cc drained
-Multifocal regions of lobular and confluent fatty infiltration. Overall imaging features suggest classification of LIRADS 3 per recent MRI
-HE on lactulose and Xifaxan
-thrombocytosis
-metabolic acidosis
-hyponatremia
-leukocytosis
-coagulopathy
-GAVE on prior EGD
-hx falls
-bipolar disorder
-cholelithasis/GBWT with ascites per imaging
-chronic back pain
-splenomegaly
PLAN:
Recurrent GI bleed likely multifactorial from portal gastropathy, GAVE, duodenal and jejunal angioectasias status post EGD 07/[address] Hunter with epi, APC and hemospray for jejunal angioectasia and a small bowel enteroscopy on 08/[address] Cohen
with APC for duodenal angioectasia and also had a sigmoidoscopy on 08/[address] Cohen. There was no evidence of esophageal, gastric or rectal varices noted. Also there was no fresh blood noted on endoscopy 08/02.
pt with total of 6 unit transfused during this admission
CT angiogram 08/08 did not show any active bleeding but does have evidence of varices in the third portion of the duodenum but no contrast extravasation into the lumen
need for transfer for evaluation for inpatient capsule endoscopy or SBE or DBE which we cannot do here
our DOG LICENSE OFFICER SUPERVISOR reached out to [facility] again today and she is high on the list and awaiting bed
follow with Dr. Garcia at [facility]
cont abx with GI bleed and cirrhosis
s/p repeat paracentesis today 2850 cc drained, Will most likely need weekly paracenteses to be set up as outpatient
remains on Spirolonlactone 12.5 mg, IV iron, PPI BID, lactulose BID, Xifaxan BID and chronic Bj that pt was on prior to admission
Subjective
Subjective
Date of Service: August 09, 2025
Still with dark stools, hemoglobin today 7.5. Feels more distended with ascites
Objective
Data Reviewed
Laboratory Data:
Laboratory Results
08/09/25 05:40
08/09/25 05:40
Laboratory Results
PT 18.4 Sec (11.4-14.6) H 08/09/25 05:40
INR 1.48 08/09/25 05:40
Total Bilirubin 1.2 mg/dl (0.2-1.3) 08/09/25 05:40
AST 78 U/L (14-36) H 08/09/25 05:40
ALT 29 U/L (0-35) 08/09/25 05:40
Alkaline Phosphatase 114 U/L (38-126) 08/09/25 05:40
Vital Signs and I&O:
Vital Signs
Temp Pulse Resp BP Pulse Ox
98 F 107 14 104/76 98
08/09/25 09:27 08/09/25 10:12 08/09/25 10:12 08/09/25 10:12 08/09/25 10:12
I&O
08/08/25 08/09/25 08/10/25
06:59 06:59 06:59
Intake Total 240 / 240 960 / 960
Balance 240 / 240 960 / 960
Physical Exam
Physical Exam
Cardiology: Normal Sinus Rhythm and Murmur (Systolic murmur)
Pulmonary: Clear
GI: Soft, Distended (Ascites), Non Tender and Normal Bowel Sounds
[2025-08-09 13:32] LABS: Body Fluid Second Tech US
[2025-08-09] MEDS: FERRLECIT 110 MG IV (14:19)
[2025-08-09] MEDS: STERILE WATER FOR INJECTION IV (17:31)
--- NOTE | 2025-08-09 21:03 | PTCARENOTE ---
Assumed care of pt from amira HEATH. pt is AAox3. nsr on monitor, hr 120. standing at bedside to use bsc. call light in reach.
--- NOTE | 2025-08-09 21:06 | PTCARENOTE ---
[facility] center called, reporting to have bed for pt at [facility] . pt informed.
[2025-08-09] MEDS: DESYREL 50 MG PO (21:47)
--- NOTE | 2025-08-09 22:13 | PTCARENOTE ---
report given to transport EMS team by this RN. picked up by transport.
--- NOTE | 2025-08-10 13:08 | W.DCSUMMARY ---
Discharge Summary
Discharge Data
Date of Admission: 08/01/25
Date of Discharge: 08/09/25
Total time spent discharging patient (in min): 40
-
Pending Results: No
Hospital Course
Principal Diagnosis:
Symptomatic acute blood loss anemia 2/2 GI Bleed, in setting of cirrhosis with ascites
Chronic Diagnoses:�
Decompensated liver failure with alcoholic cirrhosis and recurrent ascites
History of hepatic encephalopathy
Essential hypertension
Anxiety on Buspar, clonazepam.
Chronic back pain, on baclofen.
History of cholelithiasis on ursodiol.
Consultations:�
Gastroenterology
Interventional radiology
Procedures:�
Diagnostic and therapeutic paracentesis
Clinical course:�
This is a 55-year-old female, with past medical history as stated above, who presented with bloody bowel movement.
Problem 1:
Symptomatic acute blood loss anemia 2/2 GI Bleed, in setting of cirrhosis with ascites.
Her hemoglobin was at 4.6 on admission and she received a total of 6 units PRBC transfusion during her admission.
She initially received IV Protonix and octreotide.
Octreotide was subsequently discontinued and she was kept on PPI IV twice daily.
She underwent upper endoscopy on 08/02/2025, which noted a single non-bleeding angiodysplastic lesion in the duodenum, that was treated with argon plasma coagulation (APC).
She was empirically covered with ceftriaxone for 7 days for upper GI bleed in setting of cirrhosis.
She continued to have bloody bowel movement, hence a CT angio was obtained, which was negative for any active GI bleeding but showed prominent varices within third portion of the duodenum.
She was transferred to [facility] for internal capsule endoscopy versus upper DBE evaluation.
She was initiated on spironolactone (low dose at 12.5 mg with holding parameter) which she can continue going forward if tolerated.
Lasix was not started due to hyponatremia and borderline blood pressure.
Problem 2:
Decompensated liver failure with Alcoholic cirrhosis and recurrent ascites.
Her last drink was about a month and half ago prior to admission.
She can continue with lactulose and rifaximin, and low-dose Aldactone that was started this admission.
She underwent therapeutic paracentesis on 08/03, 08/06 and again 08/09. Her para labs were negative for SBP.
As for the rest of her medical problems, they were stable during her hospital stay.
Discharge Plan
-
Patient Disposition: Acute Care Hospital
Discharge Date and Time
Discharge Date/Time: 08/09/25 22:34
Print Language: MALAWIAN
== END 2025-08-09 22:34 | disposition short-term general hospital (02) | DRG 811 ==
LOC: IMU 14:03
PROVIDERS: Internal Medicine Gastroenterology; Nurse Practitioner Adult Health; Physician Assistant; Radiology Diagnostic Radiology; Radiology Vascular & Interventional Radiology; Student in an Organized Health Care Education/Training Program; ADMITTING PHYSICIAN Internal Medicine; ATTENDING PHYSICIAN Internal Medicine; CONSULT PHYSICIAN Internal Medicine Gastroenterology; CONSULT PHYSICIAN Psychiatry & Neurology Psychiatry; EMERGENCY PHYSICIAN Emergency Medicine; FAMILY PHYSICIAN Family Medicine
PROC: 0W9G3ZZ Drainage of Peritoneal Cavity, Percutaneous Approach (ICD-10-PCS; 2025-08-01)
PROC: 30233N1 Transfusion of Nonautologous Red Blood Cells into Peripheral Vein, Percutaneous Approach (ICD-10-PCS; 2025-08-01)
PROC: 0DJD8ZZ Inspection of Lower Intestinal Tract, Via Natural or Artificial Opening Endoscopic (ICD-10-PCS; 2025-08-02)
PROC: 0W3P8ZZ Control Bleeding in Gastrointestinal Tract, Via Natural or Artificial Opening Endoscopic (ICD-10-PCS; 2025-08-02)
DX: D62 Acute posthemorrhagic anemia (principal); K31.811 Angiodysplasia of stomach and duodenum with bleeding; K57.31 Diverticulosis of large intestine without perforation or abscess with bleeding; K76.6 Portal hypertension; E87.20 Acidosis, unspecified; E22.2 Syndrome of inappropriate secretion of antidiuretic hormone; F31.89 Other bipolar disorder; D68.9 Coagulation defect, unspecified; I42.9 Cardiomyopathy, unspecified; K70.31 Alcoholic cirrhosis of liver with ascites; K31.89 Other diseases of stomach and duodenum; K31.7 Polyp of stomach and duodenum; K64.8 Other hemorrhoids; G89.29 Other chronic pain; G47.00 Insomnia, unspecified; F10.20 Alcohol dependence, uncomplicated; I95.9 Hypotension, unspecified; D75.839 Thrombocytosis, unspecified; R16.1 Splenomegaly, not elsewhere classified; K72.90 Hepatic failure, unspecified without coma; E86.1 Hypovolemia; I10 Essential (primary) hypertension; J44.9 Chronic obstructive pulmonary disease, unspecified; Z79.899 Other long term (current) drug therapy; Z80.0 Family history of malignant neoplasm of digestive organs; Z91.148 Patient's other noncompliance with medication regimen for other reason
CPT/HCPCS: 49083; 71045; 74174; 80053; 82010; 82042; 83605; 83615; 83880; 84157; 85025; 85027; 85610; 86850; 86900; 86901; 86920; 87015; 87040; 87070; 87205; 88112; 88305; 89051; 93005; 93306; 96374; 97116; 97162; 97165; 99291; J2354; J2916; P9016; Q9967

== ENCOUNTER 2025-08-15 15:22 | Inpatient (IN) | payer OTHER, SELFPAY ==
[2025-08-15] VITALS (38 sets, daily range): BP systolic 71–108; BP diastolic 45–66; BMI 25.3
--- NOTE | 2025-08-15 11:16 | ED.GENMED ---
Addendum entered and electronically signed by KASSANDRA Garsia 08/15/25 16:49:
Patient's repeat hemoglobin low at 5.9 admitting hospitalist made aware consent was completed by hospitalist to order blood work GI was consulted. No active bleeding
Original Note:
History of Present Illness
<KASSANDRA Garsia - Last Filed: 08/15/25 14:08>
General
Chief Complaint: Fainting/Passed Out
Source: patient
Exam Limitations: none
Time Seen by Provider: 08/15/25 11:13
Nursing documentation reviewed up to this point in time: agreed with
History of Present Illness
History of Present Illness:
55-year-old female Harsha history of alcoholic cirrhosis ascites GI bleed presents to the ER for black stools syncopal episode. Patient was recently admitted here August 01 however transferred to [facility] August 09. She was
treated for GI bleed and discharge instructions from [facility] state the patient had the blood vessel clipped and medication was injected to stop the bleeding. She was discharged yesterday reports she had multiple episodes of black stools throughout the
night. This morning she went to get out of bed and felt lightheaded and passed out on the floor.
Patient is followed by GI here Dr. Chaz Garcia. She believes her discharge hemoglobin from [facility] was 7.0
Past History
<KASSANDRA Garsia - Last Filed: 08/15/25 14:08>
Past History
ED Past Medical History: Psychiatric and Other (Alcoholic liver cirrhosis)
ED Past Surgical History: None
Social History
Tobacco: Former smoker
Alcohol: Chronic alcoholic
Drug: None
Personal: Single
Living: with roommate
Phy Exam
<KASSANDRA Garsia - Last Filed: 08/15/25 14:08>
General Physical Exam
General Presentation: no apparent distress
General age: appears stated age
General Skin: warm and dry
General Habitus: frail
General Mental: alert
General Hydration: appears well hydrated
Cardiovascular Exam
Cardiovascular Exam: no murmur and tachycardia
Pulmonary Exam
Pulmonary Exam: lungs clear and no respiratory distress
Gastrointestinal Exam
Gastrointestinal Exam: other (+ ascites non tender no erythema )
Neurological Exam
Neurological Exam: alert and oriented x3
Musculoskeletal Exam
Musculoskeletal Exam: full ROM
Skin Exam
Skin Exam: normal color and warm/dry
Psychiatric Exam
Psychiatric Exam: normal mood/affect
Course
<KASSANDRA Garsia - Last Filed: 08/15/25 14:08>
Orders/Labs/Results
Orders:
Orders
08/15/25 11:15
Electrocardiogram (*1) Stat
Reason for Study: Other
Other Reason for Exam: GI Bleed
Cardiac Monitoring- Treatment ONCE
EKG- Treatment ONCE
IV Insert/Care/Rem.- Treatment PRN
08/15/25 11:19
0.9% Sodium Chloride 1000 ml [Nss] 1,000 ml IV BOLUS
08/15/25 11:33
Complete Blood Count/With Diff Urgent
PTT Urgent
Prothrombin Time Urgent
08/15/25 12:55
Ammonia Urgent
Comprehensive Metabolic Panel Urgent
08/15/25 13:08
Type+Screen Urgent
BBK Wristband Number:
Abnormal Lab Results
08/15/25 08/15/25
11:33 12:55
WBC 11.7 H 10^3/uL
(4.8-10.8)
RBC 2.77 L 10^6/uL
(4.20-5.40)
Hgb 7.3 L g/dL
(12.0-16.0)
Hct 23.7 L %
(37.0-47.0)
MCH 26.4 L pg
(27.0-31.0)
MCHC 30.8 L g/dL
(33.0-37.0)
RDW 21.2 H %
(11.5-14.5)
MPV 11.3 H fL
(7.4-10.4)
Abs Immat Gran (auto) 0.1 H 10^3/uL
(0-0.05)
Absolute Neuts (auto) 9.7 H 10^3/uL
(1.4-6.5)
Absolute Lymphs (auto) 0.9 L 10^3/uL
(1.2-3.4)
Absolute Monos (auto) 0.9 H 10^3/uL
(0.1-0.6)
Immature Gran % 0.8 H %
(0-0.5)
Neutrophils % 83.1 H %
(42.2-75.2)
Lymphocytes % 7.7 L %
(20.5-51.1)
PT 17.9 H Sec
(11.4-14.6)
APTT 23.0 L Sec
(23.4-35.0)
Sodium 126 L mmol/L
(135-145)
Carbon Dioxide 18 L mmol/L
(22-30)
Calcium 7.7 L mg/dl
(8.4-10.2)
AST 80 H U/L
(14-36)
Ammonia < 9 L umol/L
(9-30)
Total Protein 5.0 L g/dl
(6.3-8.2)
Albumin 2.3 L g/dl
(3.5-5.0)
08/15/25 11:33
08/15/25 12:55
Vital Signs
Initial and Last Documented VS:
Initial Vital Signs
Temp Pulse Resp BP Pulse Ox
98.2 F 106 20 93/57 99
08/15/25 11:09 08/15/25 11:09 08/15/25 11:09 08/15/25 11:09 08/15/25 11:09
Last Documented Vital Signs
Temp Pulse Resp BP Pulse Ox
98.2 F 105 24 85/59 96
08/15/25 11:09 08/15/25 13:54 08/15/25 13:54 08/15/25 13:54 08/15/25 12:00
Peeler Operator consulted with Physician
Peeler Operator consulted with physician?: Yes
Name of Physician Consulted: Damon
<Weston Jose MD - Last Filed: 08/15/25 14:12>
Orders/Labs/Results
Orders:
Orders
08/15/25 11:15
Electrocardiogram (*1) Stat
Reason for Study: Other
Other Reason for Exam: GI Bleed
Cardiac Monitoring- Treatment ONCE
EKG- Treatment ONCE
IV Insert/Care/Rem.- Treatment PRN
08/15/25 11:19
0.9% Sodium Chloride 1000 ml [Nss] 1,000 ml IV BOLUS
08/15/25 11:33
Complete Blood Count/With Diff Urgent
PTT Urgent
Prothrombin Time Urgent
08/15/25 12:55
Ammonia Urgent
Comprehensive Metabolic Panel Urgent
08/15/25 13:08
Type+Screen Urgent
BBK Wristband Number:
Abnormal Lab Results
08/15/25 08/15/25
11:33 12:55
WBC 11.7 H 10^3/uL
(4.8-10.8)
RBC 2.77 L 10^6/uL
(4.20-5.40)
Hgb 7.3 L g/dL
(12.0-16.0)
Hct 23.7 L %
(37.0-47.0)
MCH 26.4 L pg
(27.0-31.0)
MCHC 30.8 L g/dL
(33.0-37.0)
RDW 21.2 H %
(11.5-14.5)
MPV 11.3 H fL
(7.4-10.4)
Abs Immat Gran (auto) 0.1 H 10^3/uL
(0-0.05)
Absolute Neuts (auto) 9.7 H 10^3/uL
(1.4-6.5)
Absolute Lymphs (auto) 0.9 L 10^3/uL
(1.2-3.4)
Absolute Monos (auto) 0.9 H 10^3/uL
(0.1-0.6)
Immature Gran % 0.8 H %
(0-0.5)
Neutrophils % 83.1 H %
(42.2-75.2)
Lymphocytes % 7.7 L %
(20.5-51.1)
PT 17.9 H Sec
(11.4-14.6)
APTT 23.0 L Sec
(23.4-35.0)
Sodium 126 L mmol/L
(135-145)
Carbon Dioxide 18 L mmol/L
(22-30)
Calcium 7.7 L mg/dl
(8.4-10.2)
AST 80 H U/L
(14-36)
Ammonia < 9 L umol/L
(9-30)
Total Protein 5.0 L g/dl
(6.3-8.2)
Albumin 2.3 L g/dl
(3.5-5.0)
08/15/25 11:33
08/15/25 12:55
Vital Signs
Initial and Last Documented VS:
Initial Vital Signs
Temp Pulse Resp BP Pulse Ox
98.2 F 106 20 93/57 99
08/15/25 11:09 08/15/25 11:09 08/15/25 11:09 08/15/25 11:09 08/15/25 11:09
Last Documented Vital Signs
Temp Pulse Resp BP Pulse Ox
98.2 F 105 24 85/59 96
08/15/25 11:09 08/15/25 13:54 08/15/25 13:54 08/15/25 13:54 08/15/25 12:00
<KASSANDRA Garsia - Last Filed: 08/15/25 14:08>
MDM/Problems Addressed
Differential Diagnosis Includes:
Not limited to anemia electrolyte abnormality dehydration acute GI bleed
MDM/Problems Addressed:
As documented patient is a 55-year-old female with alcoholic cirrhosis history of GI bleed recently admitted here transfer to [facility]. Patient apparently had the bleeding vessel clipped and was discharged home. She presented back to the ER today
after syncope. She reports her blood pressure normally runs in the 120s she has been hypotensive here in the low 90s. Now 85/59 mildly tachycardic with a heart rate of 103. Will order additional fluids. Hemoglobin today is 7.3. There is no
active bleeding on exam small amount of stool dark in color tested heme positive. Patient's other labs reviewed show a low sodium of 126 and a low calcium of 7.7 ammonia less than 9 and INR 1.43.
She will require admission for continued hemoglobin trend GI eval
Chronic conditions affecting care:
Alcoholic cirrhosis alcohol abuse GI bleed
<KASSANDRA Garsia - Last Filed: 08/15/25 14:08>
*Pulse Oximetry
SaO2: 99
Oxygen Mode of Delivery: Room air
Patient hypoxic: no
*EKG
Interpreted by ED Provider?: Yes
Heart Rate: 101
Rate: tachycardiac
Rhythm: sinus
QRS Pattern: normal QRS
Ischemia: no ischemia
*Critical Care Note
Total Time (30-74mins, 75-104mins- exclusive of procedures): Not Applicable
ED Attending Note
<KASSANDRA Garsia - Last Filed: 08/15/25 14:08>
-
Portions of this chart may have been created with voice recognition software.� Occasional wrong word or��sound alike� substitutions may have occurred due to the inherent limitations of voice recognition software.
<Weston Jose MD - Last Filed: 08/15/25 14:12>
ED Attending Note
Patient seen and examined by attending physician: Yes
I performed the substantive portion of visit, reviewed & personally made and approve the management plan that is documented in note by myself or MARIKA.: Yes
ED Attending Note:
55-year-old female history of cirrhosis/GI bleed. Discharged from [facility] yesterday. Apparently had a duodenal bleed. Presents with a syncopal episode and dark stool. She did restart iron last evening. She states her stool is frequently dark from
the iron in the past. She feels generally weak now. She feels like she needs a paracentesis. She has lower extremity edema.
Frail. Chronically ill-appearing. Areas of ecchymosis largely on the left arm but in some other areas. Thin.
No respiratory distress. Lower extremity edema bilaterally. Perfusing reasonably well. Hypotensive.
Clearly warrants admission for syncope/hyponatremia/observation for further GI bleed issues. Mildly hypotensive now but clinically stable. Previous blood pressures were reviewed. She did at times run lower. Will carefully give some more fluids
and monitor closely.
Discharge Plan
Departure
Patient Disposition: Admit
Date of Disposition: 08/15/25
Time of Disposition: 14:06
Admit to: Telemetry
Admit to doctor: hospitalist
Presentation/result/management discussed w/ accepting MD/DO: Hospitalist
Patient with high blood pressure during this ER visit?: No
Condition: Fair
Covid-19: Not Applicable
Discharge Problem:
GI (gastrointestinal bleed), Anemia, Acute hyponatremia, Hypocalcemia
Prescriptions:
No Action
clonazepam 0.5 mg Tablet
0.5 mg PO TIDPRN PRN (Reason: anxiety)
lactulose 10 gram/15 mL Solution
30 ml PO BID
rifaximin 550 mg Tablet
550 mg PO BID
carvedilol 3.125 mg Tablet
3.125 mg PO BID
baclofen 10 mg Tablet
10 mg PO DAILY
trazodone 50 mg Tablet
50 mg PO HSPRN PRN (Reason: sleep)
buspirone [BuSpar] 10 mg Tablet
10 mg PO TID
ursodiol 300 mg Capsule
300 mg PO BID
ondansetron 4 mg tablet,disintegrating
4 mg PO Q8HPRN PRN (Reason: nausea and vomiting)
Referrals:
Chichi Garrison DO [Family Provider, Family Practice]
Interventions
Interventions:
*General Assessment Last Done: 08/15/25 11:09
ED- Cardiac Assessment Last Done: 08/15/25 11:42
ED- Neurological Assessment Last Done: 08/15/25 11:42
Discharge Date and Time
Print Language: PERUVIAN
[2025-08-15] MEDS: NSS 1000 IV (11:33)
[2025-08-15 12:23] LABS: Hematocrit 23.7 % (37.0-47.0); Hemoglobin 7.3 g/dL (12.0-16.0); Mean Corp Hgb Conc. 30.8 g/dL (33.0-37.0); Mean Corpuscular Volume 85.6 fL (81.0-99.0); Nucleated Red Blood Cells % 0 %; Platelet Count 302 10^3/uL (130-400); Red Cell Dist. Width 21.2 % (11.5-14.5)
[2025-08-15 13:22] LABS: APTT 23.0 Sec (23.4-35.0); INR 1.43; PT 17.9 Sec (11.4-14.6)
[2025-08-15 13:27] LABS: ALT (SGPT) 30 U/L (0-35); AST (SGOT) 80 U/L (14-36); Albumin 2.3 g/dl (3.5-5.0); Alkaline Phosphatase 115 U/L (38-126); Blood Urea Nitrogen 9 mg/dl (7-17); Calcium 7.7 mg/dl (8.4-10.2); Carbon Dioxide 18 mmol/L (22-30); Chloride 105 mmol/L (98-107); Glucose 83 mg/dl (70-99); Potassium 4.6 mmol/L (3.5-5.1); Sodium 126 mmol/L (135-145); Total Protein 5.0 g/dl (6.3-8.2); eGFR > 60.00
[2025-08-15 13:28] LABS: Ammonia < 9 umol/L (9-30)
--- NOTE | 2025-08-15 15:01 | HPS.HSE ---
Addendum entered and electronically signed by Mik Leija MD 08/15/25 17:49:
This is an addendum to H&P written by Nisreen Jones in 08/15/2025. �Patient seen and examined independently with resident..
55-year-old female past medical history of alcoholic cirrhosis, hepatic encephalopathy, recurrent upper/lower GI bleeding secondary to duodenal/rectal angiodysplasia, GAVE status post APC, hypertension, chronic back pain, cholelithiasis,
anxiety/bipolar, ADHD, former alcohol use disorder, presenting for black stools again associated lightheadedness and dizziness and syncopal episode today.
She was recently admitted from 08/01 to 08/09 for symptomatic blood loss anemia. �She had CT angiogram which was negative. �She had EGD which showed single nonbleeding. �He was transferred to [place] for capsule endoscopy. �No cause of bleeding was
found. �She was discharged yesterday.
Vital signs show blood pressure of 80s, tachycardia 106. �Rectal examination showed positive charcoal colored stool. �Abdominal distention likely from ascites
Labs show sodium of 126. �Hemoglobin 7.3 from 7.8 on discharge yesterday. �Albumin of 2.3. �Repeat hemoglobin 5.9.
Patient with upper GI bleeding/symptomatic blood loss anemia likely secondary to known angiodysplasias of duodenum versus other areas of the intestine/ GAVE. �2 units of blood. �NPO. �Check iron studies and B12. �Protonix 40 twice daily. �GI
consulted. �IR consulted for paracentesis. �Ceftriaxone for SBP prophylaxis. �Albumin to be given because hypotensive.
Original Note:
Family Physician
-
Family Physician: Chichi Garrison
Chief Complaint
-
Syncope, abdominal distention and discomfort.
History of Present Illness
55-year-old female with PMHx significant for alcoholic cirrhosis with hepatitis, recurrent upper and lower GI bleeds, recent diagnosis of duodenal varices, GAVE with ACP intervention, chronic back pain, cholelithiasis, bipolar disorder, ADHD, and
HTN done in early July 2025 presents to the ER for evaluation of syncopal episode and dark black stools with abdominal distention after being discharged from [facility] on 08/14/25. Patient reports that after going home in the a.m. she was fine until
p.m., and in the night she started having black tarry stools again. When she woke up in the morning she felt dizzy, lightheaded and had an episode of syncope. She felt constantly fatigued and continued to have black tarry stools that prompted her
to come to the ER. Her fatigue is also accompanied by a anasarca that she attributes to reduction in her Aldactone dose at the previous hospital admission. She describes severe abdominal discomfort with some sensation of jabbing under her ribs.
She states that she underwent endoscopy at [facility] and was cleared of any active bleeding before discharge.
Medical History
Past Medical History
Past Medical History: Reports Other ( alcoholic cirrhosis with hepatitis, recurrent upper and lower GI bleeds, recent diagnosis of duodenal varices, GAVE with ACP intervention, chronic back pain, cholelithiasis, bipolar disorder, ADHD, and HTN)
Past Surgical History: Reports Other (None)
Social History
Tobacco: Non-smoker
Alcohol: Former (Quit drinking 2 months ago, discharged from inpatient rehab about 2 months ago.)
Drug: None
Personal: Single
Living: With Family
Employment: Not Employed
Family History
Family History: Not pertinent
Allergies / Home Medications
Allergies reflects when Allergies were last updated in [employer].
Home Medications with original date entered in [employer]
Allergy/Medication List:
Allergies
Allergy/AdvReac Type Severity Reaction Status Date / Time
No Known Allergies Allergy Verified 08/15/25 11:09
Home Medications
clonazepam 0.5 mg tablet 0.5 mg PO TIDPRN PRN anxiety 01/31/25
lactulose 10 gram/15 mL oral solution 30 ml PO BID Liver Issues 03/25/25
rifaximin 550 mg tablet 550 mg PO BID Liver Issues 03/25/25
baclofen 10 mg tablet 10 mg PO DAILY Neurological Condition 07/23/25
carvedilol 3.125 mg tablet 3.125 mg PO BID Blood Pressure 07/23/25
buspirone 10 mg tablet 10 mg PO TID Mental Health/Anxiety 08/01/25
ondansetron 4 mg disintegrating tablet 4 mg PO Q8HPRN PRN nausea and vomiting 08/01/25
trazodone 50 mg tablet 50 - 100 mg PO HSPRN PRN sleep 08/01/25
ursodiol 300 mg capsule 300 mg PO BID Urinary Issue 08/01/25
cetirizine 10 mg tablet (Zyrtec) 10 mg PO DAILY 08/15/25
dextroamphetamine-amphetamine 20 mg tablet (Adderall) 20 mg PO TID 08/15/25
ferrous sulfate 325 mg (65 mg iron) tablet 325 mg PO DAILY 08/15/25
Review of Systems
-
History Source: Patient
Constitutional: Reports Fatigue
EENT: Reports No Symptoms
Respiratory: Reports Trouble Breathing
Cardiac: Reports Diaphoresis and Syncope
Abdomen/GI: Reports Abdominal Pain and Black Stools
: Reports No Symptoms
Musculoskeletal: Reports No Symptoms
Skin: Reports No Symptoms
Neurological: Reports No Symptoms
Endocrine: Reports No Symptoms
Hematologic/Lymphatic: Reports No Symptoms
Psych: Reports No Symptoms
Physical Exam
Vital Signs
Vital Signs
Temp Pulse Resp BP Pulse Ox
98.2 F 99 29 80/45 96
08/15/25 11:09 08/15/25 14:35 08/15/25 14:35 08/15/25 14:35 08/15/25 12:00
Physical Exam
General: Comfortable, Conversant and Cachectic
HEENT: Anicteric, Moist mucous membranes and PERRLA
Respiratory: Crackles (And left lower lobe)
Cardiac: S1/S2 and Regular Rhythm; No Murmur, Rub or Gallop
GI: Soft, Normal Bowel Sounds, Distended and Other (Dull on percussion, apparent fluid thrill.)
Musculoskeletal: No Cyanosis
Skin: Warm
Neuro: AO x 3 and No Motor Deficits
Psych: Calm
Laboratory Results
-
08/15/25 12:55
Laboratory Results
PT 17.9 Sec (11.4-14.6) H 08/15/25 11:33
INR 1.43 08/15/25 11:33
APTT 23.0 Sec (23.4-35.0) L 08/15/25 11:33
Total Bilirubin 1.3 mg/dl (0.2-1.3) 08/15/25 12:55
AST 80 U/L (14-36) H 08/15/25 12:55
ALT 30 U/L (0-35) 08/15/25 12:55
Alkaline Phosphatase 115 U/L (38-126) 08/15/25 12:55
Data Reviewed
-
Lab Data: Labs Reviewed by me, Discussed with Physician and Discussed with Patient
Impression/Plan
-
IMPRESSION: 55-year-old female with PMHx significant for alcoholic cirrhosis with ascites complicated by metabolic encephalopathy in the past, recurrent upper and lower GI bleeds, GAVE with ACP intervention, bipolar disorder, hypertension,
cholelithiasis history s/p cholecystectomy presents to the ER for evaluation of syncope and melanotic stool.
PLAN:
#Acute blood loss anemia, syncope
Hemoglobin of 5.9, symptomatic.
2 units of blood transfusion ordered.
obtain H&H in the am tomorrow
Trend H&H, if hemoglobin less than 7 transfuse.
#recurrent GI bleed-
Known history of watermelon stomach.
Recent diagnosis of duodenal and small bowel angioectasias.
Recent hospitalization from 07/24 through 07/28, 08/01 through 08/14.
Ongoing bleed since discharge
IV Protonix twice daily.
Zofran for nausea as needed.
clears per GI
Consult GI, GI on board-appreciate help.
#Metabolic acidosis, normal anion gap
CO2 at 18,
Suspect lactic acidosis likely a confluence of starvation ketoacidosis and severe blood loss anemia.
No consumption of alcohol in about 2 months
Monitor for resolution with blood transfusions.
Will obtain ABG if warranted.
#Cirrhosis with ascites-
History of hepatic encephalopathy in the past.
Currently no asterixis, awake alert oriented.
Continue lactulose and rifaximin.
IR consult for paracentesis, obtain cell counts.
Ceftriaxone for SBP prophylaxis and upper GI bleed
IV albumin infusion in anticipation of paracentesis.
Appreciate IR help and management.
MELD score-22 (3.0).
Last drink about 2 months ago.
#Hyponatremia-
Likely hypovolemic hyponatremia, serum sodium at 126
IV hydration and hemoglobin transfusion.
Albumin infusion as well.
Trend serum sodium levels
#Leukocytosis-
Unclear etiology, no source of infection.
Resolved leukocytosis on repeat CBC.
#Essential hypertension-
Started on Coreg, hold for now.
#Pedal edema,
Likely secondary to cardiomyopathy from anemia.
# Anxiety -
Continue Buspar, clonazepam.
# Chronic back pain-
Continue baclofen.
# History of cholelithiasis-
Continue ursodiol.
#DVT prophylaxis-
Sequential compression devices.
#CODE STATUS-
Full code.
[2025-08-15 15:21] LABS: Hematocrit 18.9 % (37.0-47.0); Hemoglobin 5.9 g/dL (12.0-16.0); Mean Corp Hgb Conc. 31.2 g/dL (33.0-37.0); Mean Corpuscular Volume 84.4 fL (81.0-99.0); Platelet Count 199 10^3/uL (130-400); Red Cell Dist. Width 21.0 % (11.5-14.5)
--- NOTE | 2025-08-15 16:48 | CON.GI ---
Addendum entered and electronically signed by Nicki Zuniga MD 08/15/25 18:56:
I saw and examined the patient.
The LIGHTNING ROD ERECTOR or PA's note was reviewed and I agree with the note.
Comment:
Pt is a 55 y/o woman with a hx of alcohol abuse, ascites, encephalopathy, hx of recent GI bleed in which she had to be transferred to [facility] for SB evaluation and ended up having a dieulofay lesion treated yesterday at [facility] then left abruptly due to
family issues. represented today with some dizziness that resolved and continued abdominal distention and dark stool.
abd: ascites
aao watching movie comfortably
impression
GIB treated yesterday
ascites
encephalopathy hx
cirrhosis
plan:
follow hgb and transfuse. I feel she may have just be underresuscitated from her egd and treatment of active dieulofay in D2 yesterday.
PPI bid
if hgb continues to drop or doesn't improve with transfusion then will repeat egd
will need paracentesis and scheduled taps
continue xifaxin and lactulose
alcohol abstinence
Addendum entered and electronically signed by KASSANDRA Goode 08/15/25 17:54:
also noted hyponatemia
meld 3.0 22 on admission
Original Note:
Consultation
-
Date/Time Consultation Requested: 08/15/25 1530
Date/Time Consultation Performed: 08/15/25 1630
Requesting Provider: Nisreen Chamberlain MD
Performing Provider: KASSANDRA Hurtado, Nicki Zuniga MD
Reason for Consultation: GI bleed
Medical History
Chief Complaint / HPI
Chief Complaint: GI bleed
History of Present Illness:
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
lactulose after that admission. Over the summer she began to follow with Dr. Garcia. She now returns with several admission with recurrent anemia and GI bleeding, ascites with multiple paracentesis. She has required over 11 units of blood
since mid July with further transfusion on this admission and reports transfusion at [facility]. She had had multiple EGD, flex sig, colonoscopy and recent transfer to [facility]. Per last note on 08/14 pt noted with bleeding dieulafoy lesion in duodenum
that was treated with epi and clip and no VCE was completed,. She did also completed colonoscopy at [facility] with perianal skin tags, hematin entire colon, IH no active source of bleeding seen blood in TI. She requested discharge with concern for
mother illness. Plan was for repeat labs in 1 week and return to ER with recurrent bleeding and consider repeat EGD for reteatment vs IR embolization as area was treated and clipped and marked for embolization if needed. Pt is also scheduled
follow up with Dr. Garcia in September.
At this time pt has hx dysphagia with solids at times but currently denies. She has diffuse abdominal pain with swelling in Leg and abdomen. She did have 1 brown stool this am but then recurrent black stools that she has had for weeks.
She admits to abdominal pain and pressure with also LE swelling. She denies NSAID or anticoagulation use. In addition to bleeding pt also with prior imaging concern for multifocal lobular and confluent fatty infiltration LIRADS 3 on prior MRI in
July.
07/23- CTA severe cirrhosis, large lesion of fatty attenuation over 80% with mass effect malignancy, steatosis, cirrhotic nodules, severe Portal HTN, midl colitis tamara colonopathy, diverticulosis, small perihepatic ascites
07/25MRI cirrhosis Multifocal regions of lobular and confluent fatty infiltration. Overall imaging features suggest classification of LIRADS 3. no PV or hepatic vein thrombosis mod ascites, cholelithiasis, GBWT with ascites, 7.5 CBD
multiple par 300- 2850 neg SBP( 07/27 atypical cell favor reactive mesothelia cells, inflammatory cell predominant RBC's present , repeat 08/01 neg malignant cells )
scopes:
03/2025 GAVE on scope in [place]
07/23/25- [facility] enteroscopy -GAVE without bleeding, nodule duodenum, blood in third portion of duodenum unable to clear, bleeding reflux from jejunum, hemospray, non bleeding jejunal ectasia, s/p APC
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
08/02/25 Do flex sig no old or fresh blood, diffuse colonopathy, hemorrhoids, diverticulosis
08/2025-EGD [facility]- Dieulafoy lesion second portion of duodenum with clot with clipping and epi injection
08/2025 - [facility]- colon- perianal skin tags, hematin entire colon, IH no active source of bleeding seen blood in TI
Past Medical History
Past Medical History: Other (Cirrhosis, alcohol abuse, hepatic encephalopathy, GAVE without bleeding (03/25/2024 and 07/2025), bipolar disorder, anemia, falls, history of GI bleed)
Social History
Tobacco: Vaping
Alcohol: Chronic Alcoholic (States last drink was 1 1/2 months ago, positive Peth 03/2025)
Drug: Marijuana
Personal: Single
Living: With Roomate
Employment: Disabled
Family History
Family History: Other (Grandmother history of colon-rectal cancer, all other GI malignancies negative)
Allergies / Home Medications
Allergy/AdvReac Type Severity Reaction Status Date / Time
No Known Allergies Allergy Verified 08/15/25 11:09
�Medication �Instructions �Recorded
clonazepam 0.5 mg tablet 0.5 mg PO TIDPRN PRN anxiety 01/31/25
lactulose 10 gram/15 mL oral 30 ml PO BID Liver Issues 03/25/25
solution
rifaximin 550 mg tablet 550 mg PO BID Liver Issues 03/25/25
baclofen 10 mg tablet 10 mg PO DAILY Neurological 07/23/25
Condition
carvedilol 3.125 mg tablet 3.125 mg PO BID Blood Pressure 07/23/25
buspirone 10 mg tablet 10 mg PO TID Mental Health/Anxiety 08/01/25
ondansetron 4 mg disintegrating 4 mg PO Q8HPRN PRN nausea and 08/01/25
tablet vomiting
trazodone 50 mg tablet 50 - 100 mg PO HSPRN PRN sleep 08/01/25
ursodiol 300 mg capsule 300 mg PO BID Urinary Issue 08/01/25
cetirizine 10 mg tablet (Zyrtec) 10 mg PO DAILY 08/15/25
dextroamphetamine-amphetamine 20 20 mg PO TID 08/15/25
mg tablet (Adderall)
ferrous sulfate 325 mg (65 mg 325 mg PO DAILY 08/15/25
iron) tablet
Review of Systems
-
History Source: Patient
Constitutional: Reports Weight Gain (with fluid )
EENT: Reports No Symptoms
Respiratory: Reports No Symptoms
Cardiac: Reports No Symptoms
Abdomen/GI: Reports Abdominal Pain, Nausea, Vomiting, Diarrhea (with lactulose ) and Black Stools
: Reports No Symptoms
Musculoskeletal: Reports No Symptoms
Skin: Reports No Symptoms
Neurological: Reports Dizzy and Weakness
Endocrine: Reports No Symptoms
Hematologic/Lymphatic: Reports Bleeding
Vital Signs
Temp Pulse Resp BP Pulse Ox
98.2 F 100 16 86/62 97
08/15/25 11:09 08/15/25 16:00 08/15/25 16:00 08/15/25 16:00 08/15/25 16:00
Physical Exam
Exam
General: No Apparent Distress and Other (temporal wasting )
HEENT: Normocephalic and Anicteric
Respiratory: Clear
Cardiac: Peripheral Edema and Other (tachy)
GI: Soft, Tender (mild ) and Distended
Musculoskeletal: No Clubbing and No Cyanosis
Skin: Warm and Dry
Neuro: Awake, Alert and AO x 3
Psych: Calm
Results
WBC 7.1 10^3/uL (4.8-10.8) 08/15/25 15:05
Hgb 5.9 g/dL (12.0-16.0) L* 08/15/25 15:05
Hct 18.9 % (37.0-47.0) L* 08/15/25 15:05
MCV 84.4 fL (81.0-99.0) 08/15/25 15:05
Plt Count 199 10^3/uL (130-400) D 08/15/25 15:05
Absolute Neuts (auto) 9.7 10^3/uL (1.4-6.5) H 08/15/25 11:33
PT 17.9 Sec (11.4-14.6) H 08/15/25 11:33
INR 1.43 08/15/25 11:33
APTT 23.0 Sec (23.4-35.0) L 08/15/25 11:33
Sodium 126 mmol/L (135-145) L 08/15/25 12:55
Potassium 4.6 mmol/L (3.5-5.1) 08/15/25 12:55
Chloride 105 mmol/L (98-107) 08/15/25 12:55
Carbon Dioxide 18 mmol/L (22-30) L 08/15/25 12:55
BUN 9 mg/dl (7-17) 08/15/25 12:55
Creatinine 0.6 mg/dL (0.6-1.0) 08/15/25 12:55
Calcium 7.7 mg/dl (8.4-10.2) L 08/15/25 12:55
Total Bilirubin 1.3 mg/dl (0.2-1.3) 08/15/25 12:55
AST 80 U/L (14-36) H 08/15/25 12:55
ALT 30 U/L (0-35) 08/15/25 12:55
Alkaline Phosphatase 115 U/L (38-126) 08/15/25 12:55
Diagnostic Image Results:
07/23/25 CT Abd/pelvis Angio W/wo Iv
1. SEVERE HEPATIC CIRRHOSIS.
2. Large regions of very low attenuation (fat attenuation) throughout the liver (involving over 80% of the liver parenchyma) which appear to be causing mass effect on the hepatic and portal veins. Diagnostic possibilities are (1) extensive hepatic
malignancy or (2) hepatic steatosis and benign cirrhotic nodules.
3. SEVERE PORTAL HYPERTENSION with collateral gastrosplenic varices, retroperitoneal varices, splenorenal shunting, and perirectal varices.
4. MILD COLITIS involving the ASCENDING COLON (probably portal colopathy).
5. Moderate diverticulosis in the ascending colon.
6. Cholelithiasis and reactive gallbladder wall thickening.
7. Small volume of perihepatic ascites.
8. Severe discogenic degenerative disease at L5/S1.
07/25/25 MR Abdomen W/o & W Contrast
Cirrhosis.
Multifocal regions of lobular and confluent fatty infiltration. Overall imaging features suggest classification of LIRADS 3.
No portal vein or hepatic vein thrombus.
Splenomegaly, 14 cm in long axis.
Moderate ascites. Mild portosystemic venous collateral formation between the splenic vein and left renal vein.
Cholelithiasis. Mild gallbladder wall thickening, though equivocal in the presence of ascites. Increased T1 signal intensity of the gallbladder wall as well as mild T1 signal intensity of the gallbladder contents. Possible considerations may include
previous IV contrast administration for CT examination with persistent wall enhancement as result of congestion, diffuse adenomyomatosis, hemorrhage, and/or sludge. Consider follow-up ultrasound.
Mild distention of the common bile duct measuring 7.5 mm.
Small right and trace left pleural effusion.
07/27/25 para 300ml neg SBP-- atypical cell favor reactive mesothelia cells, inflammatory cell predominant RBC's present
08/01- para 50ml neg SBP
08/03- para 1950 ml neg SBP
08/06 para 1250 ml neg SBP
08/09- para 2850 ml neg SBP
Prior GI Procedures:
EGD: 07/23/25 [facility] - Normal esophagus.
- Gastric antral vascular ectasia without bleeding.
- Nodule found in the duodenum.
- Blood in the third portion of the duodenum and in the fourth
portion of the duodenum. Bleeding appeared to reflux from the
proximal jejunum. Unable to clear with lavage. 10cc dilute
epinephrine injected without hemostasis. Hemostatic spray applied.
Treatment not successful. Eventually bleeding subsided after epi and
hemospray and further observation.
- One non-bleeding possible angioectasia in the jejunum. Treated
with argon plasma coagulation (APC). Tattooed with carbon spot. I
am not confident that this was the bleeding source.
- No specimens collected.
Enteroscopy: Madie Cohen MD
- Tattoo seen nearby AVM
- No old or fresh blood seen
- Normal esophagus.
- Portal hypertensive gastropathy.
- A single non-bleeding angiodysplastic lesion in the duodenum.
Treated with argon plasma coagulation (APC).
- Multiple duodenal polyps.
- The examined portion of the jejunum was normal.
- No specimens collected.
08/02/[address] Cohen
- Preparation of the colon was fair.
- No old or fresh blood
- Diffuse colopathy throughout colon
- Hemorrhoids found on perianal exam.
- Diverticulosis in the sigmoid colon.
- No specimens collected.
- No rectal varices seen
EGD 08/2025- [facility]- Dieulafoy lesion second portion of duodenum with clot with clipping and epi injection
08/17/25- [facility]- colon- perianal skin tags, hematin entire colon, IH no active source of bleeding seen blood in TI
Assessment / Plan
-
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
lactulose after that admission. Over the summer she began to follow with Dr. Garcia. She now returns with several admission with recurrent anemia and GI bleeding, ascites with multiple paracentesis. She has required over 11 units of blood
since mid July with further transfusion on this admission and reports transfusion at [facility]. She had had multiple EGD, flex sig, colonoscopy and recent transfer to [facility]. Per last note on 08/14 pt noted with bleeding dieulafoy lesion in duodenum
that was treated with epi and clip and no VCE was completed,. She did also completed colonoscopy at [facility] with perianal skin tags, hematin entire colon, IH no active source of bleeding seen blood in TI. She requested discharge with concern for
mother illness. Plan was for repeat labs in 1 week and return to ER with recurrent bleeding and consider repeat EGD for reteatment vs IR embolization as area was treated and clipped and marked for embolization if needed. Pt is also scheduled
follow up with Dr. Garcia in September.
At this time pt has hx dysphagia with solids at times but currently denies. She has diffuse abdominal pain with swelling in Leg and abdomen. She did have 1 brown stool this am but then recurrent black stools that she has had for weeks.
She admits to abdominal pain and pressure with also LE swelling. She denies NSAID or anticoagulation use. In addition to bleeding pt also with prior imaging concern for multifocal lobular and confluent fatty infiltration LIRADS 3 on prior MRI in
July.
07/23- CTA severe cirrhosis, large lesion of fatty attenuation over 80% with mass effect malignancy, steatosis, cirrhotic nodules, severe Portal HTN, midl colitis tamara colonopathy, diverticulosis, small perihepatic ascites
07/25MRI cirrhosis Multifocal regions of lobular and confluent fatty infiltration. Overall imaging features suggest classification of LIRADS 3. no PV or hepatic vein thrombosis mod ascites, cholelithiasis, GBWT with ascites, 7.5 CBD
multiple par 300- 2850 neg SBP( 07/27 atypical cell favor reactive mesothelia cells, inflammatory cell predominant RBC's present , repeat 08/01 neg malignant cells )
scopes:
03/2025 GAVE on scope in [place]
07/23/25- [facility] enteroscopy -GAVE without bleeding, nodule duodenum, blood in third portion of duodenum unable to clear, bleeding reflux from jejunum, hemospray, non bleeding jejunal ectasia, s/p APC
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
08/02/25 Do flex sig no old or fresh blood, diffuse colonopathy, hemorrhoids, diverticulosis
08/2025-EGD [facility]- Dieulafoy lesion second portion of duodenum with clot with clipping and epi injection
08/2025 - [facility]- colon- perianal skin tags, hematin entire colon, IH no active source of bleeding seen blood in TI
-recurrent admission with GI bleeding multiple scopes as above with massive transfusion requirement over last month
-anemia acute blood loss
-tachy/hypotension on admission
-recent EGD with concern for jejunal bleeding not well visualized
-diffuse colopathy
--hx cirrhosis
-ascites with recent tap
-Multifocal regions of lobular and confluent fatty infiltration. Overall imaging features suggest classification of LIRADS 3 per recent MRI
-HE on lactulose and Xifaxan
-thrombocytosis
-metabolic acidosis
-hyponatremia
-leukocytosis
-coagulopathy
-GAVE on prior EGD
-hx falls
-bipolar disorder
-cholelithasis/GBWT with ascites per imaging
-chronic back pain
-splenomegaly
PLAN:
Recurrent GI bleed likely multifactorial from portal gastropathy, GAVE, duodenal and jejunal angioectasias but most recently noted with Dieulafoy lesion second portion of duodenum with clot with clipping and epi injection
hbg still down to 5.9 after admission with black stools
for transfusion
ok for diet then NPO in AM in case need for repeat EGD vs [facility] states to consider IR embolization
capsule not completed at [facility]
follow with Dr. Garcia at [facility] due 09/21 at 1 PM
cont abx with GI bleed and cirrhosis
consult IR for para , Will most likely need weekly paracenteses to be set up as outpatient
diuretics currently on hold
cont PPI BID, lactulose BID, Xifaxan BID and chronic Bj that pt was on prior to admission
-
-
Thank you for consultation and allowing me to participate in the patient's care. Please call the transportation technician GI physician during the after hours with any questions or concerns.
[2025-08-15] MEDS: PROTONIX IV 80 MG IV (20:25)
[2025-08-15] MEDS: KLONOPIN 0.5 MG PO (20:25)
[2025-08-15] MEDS: NSS (PRESERVATIVE FREE) 20 ML IV (20:25)
[2025-08-15] MEDS: STERILE WATER FOR INJECTION 20 ML IV (21:04)
[2025-08-15] MEDS: DUPHALAC/CHRONULAC 20 GRAMS PO (21:04)
[2025-08-15] MEDS: BUSPAR 10 MG PO (21:04)
[2025-08-15] MEDS: XIFAXAN 550 MG PO (21:04)
[2025-08-15] MEDS: ROCEPHIN 2000 MG IV (21:04)
[2025-08-15] MEDS: COREG PO (21:05)
[2025-08-15] MEDS: ACTIGALL 300 MG PO (21:35)
--- NOTE | 2025-08-15 21:35 | PTCARENOTE ---
Received pt from ED RN. Pt is AAOx3, anxious, forgetful at times, repeating her questions. NSR / sinus tach on the monitor. Pt on RA O2 sat 95%, lungs clear. Pt c/o nausea, abd round/obese/distended/firm. Pt voids in the urinal. Left arm bruise. CHG
bath provided. Bed alarm in place. Call grossman in reach. Safe environment maintained.
--- NOTE | 2025-08-15 21:44 | PTCARENOTE ---
2nd unit PRBCs infusing. 15 min VS check complete, VSS.
[2025-08-15] MEDS: ZOFRAN 4 MG IV (22:43)
[2025-08-15] MEDS: DESYREL 100 MG PO (22:43)
[2025-08-16] VITALS (17 sets, daily range): BP systolic 84–105; BP diastolic 50–80; PULSE 94–96; O2SAT 97; BMI 25.0
[2025-08-16 03:22] LABS: Hematocrit 28.1 % (37.0-47.0); Hemoglobin 9.2 g/dL (12.0-16.0); Mean Corp Hgb Conc. 32.7 g/dL (33.0-37.0); Mean Corpuscular Volume 85.4 fL (81.0-99.0); Platelet Count 191 10^3/uL (130-400); Red Cell Dist. Width 18.6 % (11.5-14.5)
[2025-08-16 03:27] LABS: INR 1.46; PT 18.2 Sec (11.4-14.6)
[2025-08-16 04:15] LABS: AST (SGOT) 70 U/L (14-36); Albumin 2.1 g/dl (3.5-5.0); Blood Urea Nitrogen 8 mg/dl (7-17); Calcium 7.7 mg/dl (8.4-10.2); Carbon Dioxide 18 mmol/L (22-30); Chloride 107 mmol/L (98-107); Estimated Creatinine Clearance 80 ml/min; Glucose 88 mg/dl (70-99); Total Protein 4.7 g/dl (6.3-8.2); eGFR > 60.00
[2025-08-16 04:27] LABS: ALT (SGPT) 26 U/L (0-35); Alkaline Phosphatase 102 U/L (38-126); Potassium 4.1 mmol/L (3.5-5.1); Sodium 129 mmol/L (135-145)
[2025-08-16] MEDS: DILAUDID 0.25 MG IV (04:39)
--- NOTE | 2025-08-16 07:29 | W.PN.HOSP.TC ---
Today's Communication/Plan
-
PT/OT -- still feeling unsteady
Possibly can discharge after paracentesis today
Assessment / Plan
Assessment / Plan
Physical Exam
General: Comfortable, Conversant and Cachectic
HEENT: Anicteric, Moist mucous membranes and PERRLA
Respiratory: Crackles (And left lower lobe)
Cardiac: S1/S2 and Regular Rhythm; No Murmur, Rub or Gallop
GI: Soft, Normal Bowel Sounds, Distended and Other (Dull on percussion, apparent fluid thrill.)
Musculoskeletal: No Cyanosis
Skin: Warm
Neuro: AO x 3 and No Motor Deficits
Psych: Calm
Assessment/Plan
55-year-old female with past medical history of alcoholic cirrhosis with hepatitis, hepatic encephalopathy, recurrent upper/lower GI bleeding secondary to duodenal/rectal angiodysplasia, recent diagnosis of duodenal varices, GAVE status post APC,
hypertension, chronic back pain, cholelithiasis, anxiety/bipolar, ADHD, former alcohol use disorder, presented to the ER for evaluation of syncopal episode and dark black stools with abdominal distention after being discharged from [facility] on 08/14/25.
She was recently admitted from 08/01 to 08/09 for symptomatic blood loss anemia. She had CT angiogram which was negative. She had EGD which showed single nonbleeding. She was transferred to [place] for capsule endoscopy. She was found to have Dieulafoy
lesion second portion of duodenum with clot with clipping and epi injection. She was discharged on 08/14/25 from there. Initial vital signs showed systolic blood pressure in the 80s mmHg, tachycardia at 106 bpm. Rectal examination showed positive
charcoal colored stool. Abdominal distention was likely from ascites. Initial labs showed sodium of 126. Hemoglobin 7.3 from 7.8 on discharge on 08/14/25. Albumin of 2.3. Repeat hemoglobin 5.9.
Patient with upper GI bleeding/symptomatic blood loss anemia likely secondary to known angiodysplasias of duodenum versus other areas of the intestine/ GAVE. 2 units of blood.
#Acute blood loss anemia (leftover blood from bleeding at [place]), syncope
#Recent Dieulafoy lesion second portion of duodenum with clot with clipping and epi injection
Hemoglobin of 5.9, symptomatic.
2 units of blood transfusion given with significant improvement in Hgb into the 9+ range
Per GI, they think patient's anemia and dizziness was related to her leaving [facility] right after her endo on 08/14/25 in which she was bleeding. She has now gotten the needed resuscitation. I don't think this was new bleeding.
- paracentesis
- schedule for outpatient paracentesis.
- F/u with Dr. Garcia next week
- low sodium, fluid restricted diet
- Appreciate GI
#Metabolic acidosis, normal anion gap
CO2 at 18
No consumption of alcohol in about 2 months
#Cirrhosis with ascites-
History of hepatic encephalopathy in the past.
Currently no asterixis, awake alert oriented.
Continue lactulose and rifaximin.
IR consult for paracentesis, obtain cell counts.
Ceftriaxone for SBP prophylaxis and upper GI bleed
IV albumin infusion in anticipation of paracentesis.
Appreciate IR help and management.
MELD score-22 (3.0).
Last drink about 2 months ago.
#Hyponatremia-
Likely hypovolemic hyponatremia, initial serum sodium at 126
IV hydration and hemoglobin transfusion.
Albumin infusion as well.
Trend serum sodium levels - IMPROVED
#Leukocytosis-
Unclear etiology, no source of infection.
Resolved leukocytosis on repeat CBC.
#Essential hypertension-
Started on Coreg, hold for now.
#Pedal edema,
Likely secondary to cardiomyopathy from anemia.
# Anxiety -
Continue Buspar, clonazepam.
# Chronic back pain-
Continue baclofen.
# History of cholelithiasis-
Continue ursodiol.
#DVT prophylaxis-
Sequential compression devices.
#CODE STATUS-
Full code.
Anticipated Discharge: Within 24 hours
Subjective/Interval History
-
Date of Service: August 16, 2025
Patient was seen and examined. She reported chronic back and abdominal pain. Waiting to see if fluid can be removed from her abdomen.
Objective Data
-
Labs:
Laboratory Results
08/16/25
03:06
WBC 6.6
Hgb 9.2 L D
Hct 28.1 L
Plt Count 191
PT 18.2 H
INR 1.46
Sodium 129 L
Potassium 4.1
Chloride 107
Carbon Dioxide 18 L
BUN 8
Creatinine 0.6
Glucose 88
Calcium 7.7 L
Total Bilirubin 1.9 H
AST 70 H
ALT 26
Alkaline Phosphatase 102
Vital Signs:
Vital Signs
Temp Pulse Resp BP Pulse Ox
98.1 F 92 17 91/56 95
08/16/25 03:02 08/16/25 07:00 08/16/25 07:00 08/16/25 06:00 08/16/25 07:00
I&O
08/15/25 08/16/25 08/17/25
06:59 06:59 06:59
Intake Total 1160 / 1160
Balance 1160 / 1160
[2025-08-16] MEDS: PROTONIX IV 40 MG IV ×2 (07:49→20:59)
[2025-08-16] MEDS: ACTIGALL 300 MG PO ×2 (07:49→20:59)
[2025-08-16] MEDS: NSS (PRESERVATIVE FREE) 10 ML IV ×2 (07:49→20:59)
[2025-08-16] MEDS: DUPHALAC/CHRONULAC PO (07:49)
[2025-08-16] MEDS: BUSPAR 10 MG PO ×3 (07:50→20:58)
[2025-08-16] MEDS: XIFAXAN 550 MG PO ×2 (07:50→20:58)
[2025-08-16] MEDS: LIORESAL 10 MG PO (07:50)
[2025-08-16] MEDS: ADDERALL 20 MG PO (07:50)
[2025-08-16] MEDS: ROCEPHIN 2000 MG IV (07:51)
[2025-08-16] MEDS: COREG PO ×2 (07:55→21:00)
[2025-08-16] MEDS: KLONOPIN 0.5 MG PO ×2 (07:55→15:46)
--- NOTE | 2025-08-16 08:07 | PTCARENOTE ---
assumed care for this patient. patient alert, forgetful, confused about sequence of events and plan of care. reoriented. plan of care explained and reinforced. assessment as documented. liquid orange BM this AM. no visible blood. refused lactulose
stating she is having a lot of stomach discomfort. NPO maintained. PRN Klonopin given due to patient complaining of anxiety
--- NOTE | 2025-08-16 08:11 | PTCARENOTE ---
BP soft 91/56. Coreg held due to parameters
[2025-08-16] MEDS: ROXICODONE 5 MG PO ×2 (09:02→18:47)
--- NOTE | 2025-08-16 10:57 | W.PN.GI.CBS2 ---
Today's Communication / Plan
-
paracentesis
Assessment / Plan
-
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
lactulose after that admission. Over the summer she began to follow with Dr. Garcia. She now returns with several admission with recurrent anemia and GI bleeding, ascites with multiple paracentesis. She has required over 11 units of blood
since mid July with further transfusion on this admission and reports transfusion at [place]. She had had multiple EGD, flex sig, colonoscopy and recent transfer to [place]. Per last note on 08/14 pt noted with bleeding dieulafoy lesion in duodenum
that was treated with epi and clip and no VCE was completed,. She did also completed colonoscopy at [place] with perianal skin tags, hematin entire colon, IH no active source of bleeding seen blood in TI. She requested discharge with concern for
mother illness. Plan was for repeat labs in 1 week and return to ER with recurrent bleeding and consider repeat EGD for reteatment vs IR embolization as area was treated and clipped and marked for embolization if needed. Pt is also scheduled
follow up with Dr. Garcia in September.
At this time pt has hx dysphagia with solids at times but currently denies. She has diffuse abdominal pain with swelling in Leg and abdomen. She did have 1 brown stool this am but then recurrent black stools that she has had for weeks.
She admits to abdominal pain and pressure with also LE swelling. She denies NSAID or anticoagulation use. In addition to bleeding pt also with prior imaging concern for multifocal lobular and confluent fatty infiltration LIRADS 3 on prior MRI in
July.
07/23- CTA severe cirrhosis, large lesion of fatty attenuation over 80% with mass effect malignancy, steatosis, cirrhotic nodules, severe Portal HTN, midl colitis tamara colonopathy, diverticulosis, small perihepatic ascites
07/25MRI cirrhosis Multifocal regions of lobular and confluent fatty infiltration. Overall imaging features suggest classification of LIRADS 3. no PV or hepatic vein thrombosis mod ascites, cholelithiasis, GBWT with ascites, 7.5 CBD
multiple par 300- 2850 neg SBP( 07/27 atypical cell favor reactive mesothelia cells, inflammatory cell predominant RBC's present , repeat 08/01 neg malignant cells )
scopes:
03/2025 GAVE on scope in [place]
07/23/25- [facility] enteroscopy -GAVE without bleeding, nodule duodenum, blood in third portion of duodenum unable to clear, bleeding reflux from jejunum, hemospray, non bleeding jejunal ectasia, s/p APC
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
08/02/25 Do flex sig no old or fresh blood, diffuse colonopathy, hemorrhoids, diverticulosis
08/2025-EGD [place]- Dieulafoy lesion second portion of duodenum with clot with clipping and epi injection
08/2025 - [place]- colon- perianal skin tags, hematin entire colon, IH no active source of bleeding seen blood in TI
-recurrent admission with GI bleeding multiple scopes as above with massive transfusion requirement over last month
-anemia acute blood loss
-tachy/hypotension on admission
-recent EGD with concern for jejunal bleeding not well visualized
-diffuse colopathy
--hx cirrhosis
-ascites with recent tap
-Multifocal regions of lobular and confluent fatty infiltration. Overall imaging features suggest classification of LIRADS 3 per recent MRI
-HE on lactulose and Xifaxan
-thrombocytosis
-metabolic acidosis
-hyponatremia
-leukocytosis
-coagulopathy
-GAVE on prior EGD
-hx falls
-bipolar disorder
-cholelithasis/GBWT with ascites per imaging
-chronic back pain
-splenomegaly
PLAN:
- hgb 9.2 and no bleeding. I do think that this was related to her leaving [facility] right after her endo on 08/14 in which she was bleeding. She has now gotten the needed resuscitation. I don't think this was new bleeding.
- paracentesis
- schedule for outpatient paracentesis.
- F/u with Dr. Garcia next week
- low sodium, fluid restricted diet
no further inpatient w/u will sign off
Subjective
Subjective
Date of Service: August 16, 2025
Pt with no bleeding, no abdominal pain. Waiting for paracentesis
Objective
Data Reviewed
Laboratory Data:
Laboratory Results
08/16/25 03:06
08/16/25 03:06
Laboratory Results
PT 18.2 Sec (11.4-14.6) H 08/16/25 03:06
INR 1.46 08/16/25 03:06
APTT 23.0 Sec (23.4-35.0) L 08/15/25 11:33
Total Bilirubin 1.9 mg/dl (0.2-1.3) H 08/16/25 03:06
AST 70 U/L (14-36) H 08/16/25 03:06
ALT 26 U/L (0-35) 08/16/25 03:06
Alkaline Phosphatase 102 U/L (38-126) 08/16/25 03:06
Vital Signs and I&O:
Vital Signs
Temp Pulse Resp BP Pulse Ox
98.1 F 91 17 102/66 96
08/16/25 08:24 08/16/25 08:00 08/16/25 08:00 08/16/25 08:00 08/16/25 08:00
I&O
08/15/25 08/16/25 08/17/25
06:59 06:59 06:59
Intake Total 1160 / 1160
Balance 1160 / 1160
Physical Exam
Physical Exam
HEENT: Anicteric
GI: Other (ascites)
Neuro: Non Focal
[2025-08-16] MEDS: ADDERALL PO ×2 (11:53→15:59)
--- NOTE | 2025-08-16 14:24 | CM ---
Initial assessment completed with patient who lives in a 2 story condo, she lives on 1st floor and a friend lives on the 2nd, 10 steps to enter. [employer] patient was independent with use of a rollator, drives. No other DME. No in-home services. No
HC-POA. No VA benefits. No psychiatric hospitalizations. PCP is Dr. Chichi Garrison. Pharmacy is [facility] on [address] in [place]. Discharge POC: Therapy recommended in-home PT. Patient declined. She already has made arrangements for outpatient
therapy.
--- NOTE | 2025-08-16 17:05 | PTCARENOTE ---
tolerating PO diet. oob to the bathroom x1 assist with a walker PRN.
[2025-08-16] MEDS: DESYREL 100 MG PO (20:58)
[2025-08-16] MEDS: DUPHALAC/CHRONULAC 20 GRAMS PO (20:59)
[2025-08-17] VITALS (8 sets, daily range): BP systolic 90–116; BP diastolic 63–72
[2025-08-17] MEDS: KLONOPIN 0.5 MG PO (02:20)
[2025-08-17] MEDS: FLEXERIL 5 MG PO (03:12)
[2025-08-17 03:54] LABS: Hematocrit 27.9 % (37.0-47.0); Hemoglobin 8.9 g/dL (12.0-16.0); Mean Corp Hgb Conc. 31.9 g/dL (33.0-37.0); Mean Corpuscular Volume 86.1 fL (81.0-99.0); Platelet Count 190 10^3/uL (130-400); Red Cell Dist. Width 18.7 % (11.5-14.5)
[2025-08-17 04:16] LABS: ALT (SGPT) 26 U/L (0-35); AST (SGOT) 80 U/L (14-36); Albumin 2.0 g/dl (3.5-5.0); Alkaline Phosphatase 115 U/L (38-126); Blood Urea Nitrogen 9 mg/dl (7-17); Calcium 7.9 mg/dl (8.4-10.2); Carbon Dioxide 21 mmol/L (22-30); Chloride 107 mmol/L (98-107); Estimated Creatinine Clearance 80 ml/min; Glucose 117 mg/dl (70-99); Potassium 3.9 mmol/L (3.5-5.1); Sodium 129 mmol/L (135-145); Total Protein 4.6 g/dl (6.3-8.2); eGFR > 60.00
--- NOTE | 2025-08-17 07:40 | W.PN.HOSP.TC ---
Today's Communication/Plan
-
Discharge today
Assessment / Plan
Assessment / Plan
Physical Exam
General: Comfortable, Conversant and Cachectic
HEENT: Anicteric, Moist mucous membranes and PERRLA
Respiratory: Crackles (And left lower lobe)
Cardiac: S1/S2 and Regular Rhythm; No Murmur, Rub or Gallop
GI: Soft, Normal Bowel Sounds, Distended and Other (Dull on percussion, apparent fluid thrill.)
Musculoskeletal: No Cyanosis
Skin: Warm
Neuro: AO x 3 and No Motor Deficits
Psych: Calm
Assessment/Plan
55-year-old female with past medical history of alcoholic cirrhosis with hepatitis, hepatic encephalopathy, recurrent upper/lower GI bleeding secondary to duodenal/rectal angiodysplasia, recent diagnosis of duodenal varices, GAVE status post APC,
hypertension, chronic back pain, cholelithiasis, anxiety/bipolar, ADHD, former alcohol use disorder, presented to the ER for evaluation of syncopal episode and dark black stools with abdominal distention after being discharged from [facility] on 08/14/25.
She was recently admitted from 08/01 to 08/09 for symptomatic blood loss anemia. She had CT angiogram which was negative. She had EGD which showed single nonbleeding. She was transferred to [place] for capsule endoscopy. She was found to have Dieulafoy
lesion second portion of duodenum with clot with clipping and epi injection. She was discharged on 08/14/25 from there. Initial vital signs showed systolic blood pressure in the 80s mmHg, tachycardia at 106 bpm. Rectal examination showed positive
charcoal colored stool. Abdominal distention was likely from ascites. Initial labs showed sodium of 126. Hemoglobin 7.3 from 7.8 on discharge on 08/14/25. Albumin of 2.3. Repeat hemoglobin 5.9.
Patient with upper GI bleeding/symptomatic blood loss anemia likely secondary to known angiodysplasias of duodenum versus other areas of the intestine/ GAVE. 2 units of blood.
#Acute blood loss anemia (leftover blood from bleeding at [facility]), syncope
#Recent Dieulafoy lesion second portion of duodenum with clot with clipping and epi injection
#Recent Duodenal Varices
Hemoglobin of 5.9, symptomatic.
2 units of blood transfusion given with significant improvement in Hgb into the 9+ range
Per GI, they think patient's anemia and dizziness was related to her leaving [facility] right after her endo on 08/14/25 in which she was bleeding. She has now gotten the needed resuscitation. I don't think this was new bleeding.
- paracentesis
- schedule for outpatient paracentesis.
- F/u with Dr. Garcia
- low sodium, fluid restricted diet
- Appreciate GI
- Continue Coreg
#Metabolic acidosis, normal anion gap - IMPROVED
CO2 at 18, now improved to 21
No consumption of alcohol in about 2 months
#Cirrhosis with ascites-
History of hepatic encephalopathy in the past.
Currently no asterixis, awake alert oriented.
Continue lactulose and rifaximin.
IR consult for paracentesis, obtain cell counts.
Ceftriaxone for SBP prophylaxis and upper GI bleed
IV albumin infusion in anticipation of paracentesis.
Appreciate IR help and management.
MELD score-22 (3.0).
Last drink about 2 months ago.
#Hyponatremia-
IV hydration and hemoglobin transfusion.
Albumin infusion as well.
Trend serum sodium levels - IMPROVED
#Leukocytosis-
Unclear etiology, no source of infection.
Resolved leukocytosis on repeat CBC.
#Essential hypertension-
#Hypotension
-Midodrine low dose
-Continue patient's outpatient Coreg which patient is taking for her GI issues
#Pedal edema,
Likely secondary to cardiomyopathy from anemia.
# Anxiety -
Continue Buspar, clonazepam.
# Chronic back pain-
Continue baclofen.
# History of cholelithiasis-
Continue ursodiol.
#Superficial venous thrombosis within the left cephalic vein
-Needs close outpatient surveillance
#DVT prophylaxis-
Sequential compression devices.
#CODE STATUS-
Full code.
More than 30 minutes spent in discharge including
Final examination of the patient
Summarizing hospital stay
Instructions for continuing care to all relevant caregivers
Preparation of discharge records, prescriptions, and referral forms
Total time spent (in minutes): 41
Anticipated Discharge: Today
Subjective/Interval History
-
Date of Service: August 17, 2025
Patient was seen and examined. She reported feeling fine and wanted to really go home today.
Objective Data
-
Labs:
Laboratory Results
08/17/25
03:34
WBC 5.6
Hgb 8.9 L
Hct 27.9 L
Plt Count 190
Sodium 129 L
Potassium 3.9
Chloride 107
Carbon Dioxide 21 L
BUN 9
Creatinine 0.5 L
Glucose 117 H
Calcium 7.9 L
Total Bilirubin 1.1
AST 80 H
ALT 26
Alkaline Phosphatase 115
Vital Signs:
Vital Signs
Temp Pulse Resp BP Pulse Ox
97.8 F 100 21 91/71 93
08/17/25 02:51 08/17/25 02:00 08/17/25 02:00 08/17/25 02:00 08/17/25 02:00
I&O
08/16/25 08/17/25 08/18/25
06:59 06:59 06:59
Intake Total 1160 / 1160
Balance 1160 / 1160
--- NOTE | 2025-08-17 08:00 | PTCARENOTE ---
Pt sent for paracentesis.
[2025-08-17] MEDS: COREG PO (09:14)
[2025-08-17] MEDS: XIFAXAN 550 MG PO (09:15)
[2025-08-17] MEDS: ADDERALL PO ×3 (09:15→11:28)
[2025-08-17] MEDS: ACTIGALL 300 MG PO (09:15)
[2025-08-17] MEDS: PROTONIX IV 40 MG IV (09:15)
[2025-08-17] MEDS: LIORESAL PO ×2 (09:15→09:20)
[2025-08-17] MEDS: DUPHALAC/CHRONULAC PO ×2 (09:15→09:21)
[2025-08-17] MEDS: BUSPAR PO ×2 (09:15→09:20)
[2025-08-17] MEDS: NSS (PRESERVATIVE FREE) 10 ML IV (09:16)
[2025-08-17] MEDS: COREG 3.125 MG PO (09:24)
[2025-08-17 11:19] LABS: Body Fluid Second Tech CMB
--- NOTE | 2025-08-17 12:52 | PTCARENOTE ---
Discharge paperwork given to pt. Instructions reviewed. All questions answered.
== END 2025-08-17 12:54 | disposition home or self-care (01) | DRG 432 ==
LOC: ICU 15:22
PROVIDERS: Nurse Practitioner; Nurse Practitioner Adult Health; Radiology Vascular & Interventional Radiology; ADMITTING PHYSICIAN Hospitalist; ATTENDING PHYSICIAN Hospitalist; CONSULT PHYSICIAN Internal Medicine; EMERGENCY PHYSICIAN Emergency Medicine; FAMILY PHYSICIAN Family Medicine
PROC: 30233N1 Transfusion of Nonautologous Red Blood Cells into Peripheral Vein, Percutaneous Approach (ICD-10-PCS; 2025-08-15)
PROC: 0W9G3ZZ Drainage of Peritoneal Cavity, Percutaneous Approach (ICD-10-PCS; 2025-08-17)
DX: K70.31 Alcoholic cirrhosis of liver with ascites (principal); K31.811 Angiodysplasia of stomach and duodenum with bleeding; K31.82 Dieulafoy lesion (hemorrhagic) of stomach and duodenum; K76.6 Portal hypertension; D62 Acute posthemorrhagic anemia; E87.1 Hypo-osmolality and hyponatremia; E87.20 Acidosis, unspecified; I42.9 Cardiomyopathy, unspecified; D68.9 Coagulation defect, unspecified; R55 Syncope and collapse; F10.10 Alcohol abuse, uncomplicated; E83.51 Hypocalcemia; I10 Essential (primary) hypertension; M54.9 Dorsalgia, unspecified; G89.29 Other chronic pain; F41.9 Anxiety disorder, unspecified; F31.9 Bipolar disorder, unspecified; F90.9 Attention-deficit hyperactivity disorder, unspecified type; I86.8 Varicose veins of other specified sites; K52.9 Noninfective gastroenteritis and colitis, unspecified; K57.30 Diverticulosis of large intestine without perforation or abscess without bleeding; K80.20 Calculus of gallbladder without cholecystitis without obstruction; D75.839 Thrombocytosis, unspecified; I95.9 Hypotension, unspecified; R16.1 Splenomegaly, not elsewhere classified; R54 Age-related physical debility; E86.1 Hypovolemia; K55.20 Angiodysplasia of colon without hemorrhage; Z87.891 Personal history of nicotine dependence; Z80.0 Family history of malignant neoplasm of digestive organs; Z87.440 Personal history of urinary (tract) infections; Z90.49 Acquired absence of other specified parts of digestive tract; Z79.899 Other long term (current) drug therapy
CPT/HCPCS: 49083; 80053; 82140; 85025; 85027; 85610; 85730; 86850; 86900; 86901; 86920; 89051; 93005; 93971; 97162; 97166; 99285; P9016

== ENCOUNTER → 2025-08-23 07:46 | Outpatient (REF) | payer OTHER, SELFPAY ==
[2025-08-23 08:22] VITALS: BP 107/69; BP_SYST 79
[2025-08-23 08:45] VITALS: BP 95/65; BP_SYST 78
[2025-08-23 10:02] LABS: Body Fluid Second Tech HB
== END ==
LOC: RADI 07:46
PROVIDERS: ATTENDING PHYSICIAN Nurse Practitioner Adult Health
DX: K70.31 Alcoholic cirrhosis of liver with ascites (principal)
CPT/HCPCS: 49083; 87015; 87070; 87205; 89051

== ENCOUNTER 2025-08-23 09:24 | Outpatient (RCR) | payer OTHER, SELFPAY ==
[2025-08-23] MEDS: FLEXBUMIN 100 IV (09:53)
[2025-08-23 09:55] VITALS: BP 99/64
[2025-08-23 10:43] VITALS: BP 94/63
== END 2025-09-07 23:59 | disposition home or self-care (01) ==
LOC: OID 09:24
PROVIDERS: ATTENDING PHYSICIAN Nurse Practitioner Adult Health
DX: K70.31 Alcoholic cirrhosis of liver with ascites (principal); K76.82 Hepatic encephalopathy; K92.1 Melena
CPT/HCPCS: 49083; 87015; 87070; 87205; 89051; 96365; 96366; P9047

== ENCOUNTER 2025-08-29 11:35 | Inpatient (IN) | payer OTHER, SELFPAY ==
[2025-08-29] VITALS (35 sets, daily range): BP systolic 73–111; BP diastolic 42–80; BMI 25.4; BMI 24.0
[2025-08-29] MEDS: NSS 1000 IV ×3 (09:08→23:55)
[2025-08-29] MEDS: PROTONIX IV 40 MG IV ×3 (09:16→19:52)
[2025-08-29 09:24] LABS: Hematocrit 19.9 % (37.0-47.0); Hemoglobin 5.6 g/dL (12.0-16.0); Mean Corp Hgb Conc. 28.1 g/dL (33.0-37.0); Mean Corpuscular Volume 92.1 fL (81.0-99.0); Nucleated Red Blood Cells % 0 %; Platelet Count 363 10^3/uL (130-400); Red Cell Dist. Width 17.2 % (11.5-14.5)
[2025-08-29 09:27] LABS: INR 1.41; PT 17.8 Sec (11.4-14.6)
[2025-08-29 09:28] LABS: APTT 29.4 Sec (23.4-35.0)
--- NOTE | 2025-08-29 09:39 | ED.GENMED ---
History of Present Illness
General
Chief Complaint: Rectal Bleeding
Source: patient and records
Exam Limitations: none
Time Seen by Provider: 08/29/25 08:46
Nursing documentation reviewed up to this point in time: agreed with
History of Present Illness
History of Present Illness:
55-year-old female cirrhosis admission for GI bleed recently presents with black and maroon stools mixed with blood blood pressures been low, has had abdominal distention and ascites
Past History
Past History
ED Past Medical History: Psychiatric and Other (Alcoholic liver cirrhosis)
ED Past Surgical History: None
Social History
Tobacco: Former smoker
Alcohol: Former
Drug: None
Personal: Single
Living: with roommate
Review of Systems
Review of Systems
All Other Systems: Not applicable
Constitutional: Reports fatigue
ABD/GI: Reports bloody stools and black stools
Neurological: Reports weakness
Phy Exam
Physical Exam
Physical Exam:
Physical Exam
General: Chronically ill-appearing hypotensive
Neck: No jaundice
Heart: s1/s2 regular rate and rhythm, no murmur. equal radial pulses.
Lungs: no acute respiratory distress. clear bilaterally
Abdomen: Ascites is present maroon heme positive stool
Neuro: alert and oriented. no focal neurological deficits
Skin: no rash
Psychiatric: well kept. interactive and cooperative
Extremities: no edema.
Course
Orders/Labs/Results
Orders:
Orders
08/29/25 08:57
Electrocardiogram (*1) Stat
Reason for Study: Other
Other Reason for Exam: GI Bleed
Cardiac Monitoring- Treatment ONCE
IV Insert/Care/Rem.- Treatment PRN
Pantoprazole [Protonix IV] 40 mg IV NOW STA
08/29/25 08:58
0.9% Sodium Chloride 1000 ml [Nss] 1,000 ml IV BOLUS
CR Chest Portable - 1 View Urgent
Comment:
Reason For Exam: gi bleed
Reason Study Needs to be Portable: Patient Unstable
08/29/25 09:09
PTT Urgent
Prothrombin Time Urgent
08/29/25 09:12
Type+Screen Urgent
Complete Blood Count/With Diff Urgent
08/29/25 09:14
Comprehensive Metabolic Panel Urgent
08/29/25 09:33
Blood Bank Products [* Blood Bank Products] Urgent
Blood Bank Products: *Packed RBC Leuko (PRBC's
Quantity: 2
Transfuse Today: Yes
Reason: Anemia
08/29/25 10:27
Admit/Transfer Patient As Directed
Co-Sign Provider:
Level of Care: Inpatient admission
Assign to:: IMU- Intermediate Care
Physician / Group: zacarias hatch
Diagnosis: GI bleed
Reason for Hospitalization: GI Bleed, HDUS
Expected length of stay greater than two midnights?: Yes
ELOS- Estimated Length of Stay in days: 3
I certify the patient meets the requirements for IP care: Yes
PRN Pain Medication Management As Directed
May give lesser potent ordered pain med per pt: Yes
preference::
Protocol:: Medication orders for pain may be administered in a
manner that supports deferring to patient preference
when the pt is:
- Requesting an ordered lesser potent pain medication.
Least to most potent pain medications are defined
as: acetaminophen < NSAID < tramadol < opioids
(morphine, oxycodone, hydromorphone).
- Requesting a lesser dose of the same medication IF
ORDERED.
- Requesting a less intrusive route of administration
if both routes are prescribed by the provider (PO <
IV).
08/29/25 10:30
Code Status As Directed
Resuscitation Status: Full Code
08/29/25 11:00
Pantoprazole [Protonix IV] 40 mg IV Q12H
Abnormal Lab Results
08/29/25 08/29/25 08/29/25
09:09 09:12 09:14
RBC 2.16 L 10^6/uL
(4.20-5.40)
Hgb 5.6 L* g/dL
(12.0-16.0)
Hct 19.9 L* %
(37.0-47.0)
MCH 25.9 L pg
(27.0-31.0)
MCHC 28.1 L g/dL
(33.0-37.0)
RDW 17.2 H %
(11.5-14.5)
MPV 10.9 H fL
(7.4-10.4)
Absolute Lymphs (auto) 0.9 L 10^3/uL
(1.2-3.4)
Absolute Monos (auto) 0.7 H 10^3/uL
(0.1-0.6)
Lymphocytes % 13.5 L %
(20.5-51.1)
Monocytes % 11.1 H %
(1.7-9.3)
PT 17.8 H Sec
(11.4-14.6)
Sodium 131 L mmol/L
(135-145)
Glucose 101 H mg/dl
(70-99)
Calcium 8.1 L mg/dl
(8.4-10.2)
AST 40 H U/L
(14-36)
Total Protein 5.0 L g/dl
(6.3-8.2)
Albumin 2.3 L g/dl
(3.5-5.0)
Crossmatch IS Only See Detail
08/29/25 09:12
08/29/25 09:14
Vital Signs
Initial and Last Documented VS:
Initial Vital Signs
BP
85/59
08/29/25 08:42
Last Documented Vital Signs
Temp Pulse Resp BP Pulse Ox
97.8 F 95 18 94/80 100
08/29/25 10:54 08/29/25 10:54 08/29/25 10:54 08/29/25 10:54 08/29/25 10:30
MDM/Problems Addressed
Differential Diagnosis Includes:
GI bleed Annia-Garcia varices hemorrhoidal
MDM/Problems Addressed:
Low blood pressure bleed
Chronic conditions affecting care:
Drinker ascites cirrhosis
Acute Exacerbation and/or Progression of Chronic Illness:
Drinker ascites cirrhosis
*Radiology
Radiology exam reviewed: preliminary read by ED provider
*Pulse Oximetry
SaO2: 96
Oxygen Mode of Delivery: Room air
Patient hypoxic: no
*EKG
Interpreted by ED Provider?: Yes
Interpretation: normal
Comparison EKG: no comparison EKG present
Heart Rate: 78
Rate: normal
Rhythm: sinus
Ischemia: non-specific ST changes
*Ocularist Interpretation
Rate: normal
Interpretation: normal
Heart Rate: 78
Rhythm: sinus
*Critical Care Note
Total Time (30-74mins, 75-104mins- exclusive of procedures): 32
Data Reviewed
Review of Other/Old Records Reveals: Labs and Discharge Summary
Source: patient
Update Note
Update Note:
Update labs noted blood pressure noted started on volume resuscitation packed cells have been ordered PPIs been ordered H&H noted message sent to hospitalist and gastroenterology
1030 update blood pressure up to the 90s with saline bloods been ordered chest x-ray noted
ED Attending Note
-
Portions of this chart may have been created with voice recognition software.� Occasional wrong word or��sound alike� substitutions may have occurred due to the inherent limitations of voice recognition software.
Discharge Plan
Departure
Patient Disposition: Admit
Date of Disposition: 08/29/25
Time of Disposition: 09:42
Admit to: ICU
Presentation/result/management discussed w/ accepting MD/DO: Hospitalist
Patient with high blood pressure during this ER visit?: No
Discharge Problem:
Acidosis, Acute GI bleeding
Prescriptions:
No Action
clonazepam 0.5 mg Tablet
0.5 mg PO TIDPRN PRN (Reason: anxiety)
lactulose 10 gram/15 mL Solution
30 ml PO BID
rifaximin 550 mg Tablet
550 mg PO BID
baclofen 10 mg Tablet
10 mg PO DAILY
trazodone 50 mg Tablet
50 - 100 mg PO HSPRN PRN (Reason: sleep)
buspirone 10 mg Tablet
10 mg PO TID
ursodiol 300 mg Capsule
300 mg PO BID
cetirizine [Zyrtec] 10 mg Tablet
10 mg PO DAILY
ferrous sulfate 325 mg (65 mg iron) Tablet
325 mg PO DAILY
dextroamphetamine-amphetamine [Adderall] 20 mg Tablet
20 mg PO TID
Patient Comments:
08/29/2025: Pt doesn't want this med while in hospital
midodrine 2.5 mg Tablet
2.5 mg PO TID@0800,1300,1800 Qty: 90 0RF
Rx Instructions:
*Avoid dosing after evening meal or within 4 hours of bedtime*
polyethylene glycol 3350 [Miralax] 17 gram Powder In Packet
17 g PO DAILY
Referrals:
Chichi Garrison DO [Family Provider, Family Practice]
Interventions
Interventions:
*Risk Screen - Suicide Last Done: 08/29/25 08:49
*General Assessment Last Done: 08/29/25 08:49
*Neglect/Abuse Screening Last Done: 08/29/25 08:49
*ED- Fall Risk Assessment Last Done: 08/29/25 08:49
*ED COVID-19 Vaccine History Last Done: 08/29/25 08:49
*ED Influenza Vaccine History Last Done: 08/29/25 08:49
VY-Lrkaik-Qwznxjgzcv Assessment Last Done: 08/29/25 08:49
ED- Cardiac Assessment Last Done: 08/29/25 08:49
ED- Pulmonary Assessment Last Done: 08/29/25 08:49
Discharge Date and Time
Print Language: DANISH
[2025-08-29 09:40] LABS: ALT (SGPT) 16 U/L (0-35); AST (SGOT) 40 U/L (14-36); Albumin 2.3 g/dl (3.5-5.0); Alkaline Phosphatase 124 U/L (38-126); Blood Urea Nitrogen 13 mg/dl (7-17); Calcium 8.1 mg/dl (8.4-10.2); Carbon Dioxide 24 mmol/L (22-30); Chloride 106 mmol/L (98-107); Estimated Creatinine Clearance 69 ml/min; Glucose 101 mg/dl (70-99); Potassium 4.2 mmol/L (3.5-5.1); Sodium 131 mmol/L (135-145); Total Protein 5.0 g/dl (6.3-8.2); eGFR > 60.00
--- NOTE | 2025-08-29 10:56 | CON.GI ---
Addendum entered and electronically signed by Kary Foley DO 08/29/25 13:17:
The patient was seen and examined by me independently in collaboration with the nurse practitioner.
Past medical history/social history/medications/allergies/family history reviewed.
Lab data and imaging data reviewed.
Esperanza Singer is a 55 y.o. female w/ pmhx etoh cirrhosis c/b HE, GAVE, recurrent ascites, recurrent GI bleeding 2/2 duodenal diuealfoy who rpesents with recurrent GI bleeding. She states she was having melenic stool for the last few days, then
had maroon colored stool overnight, prompting her to return to the ER. Her hemoglobin on 08/17 was 8.9, found to be 5.6 on arrival, she is getting transfused with 2 units of PRBC. She was transferred to [facility] due to difficulty with adequately
treating a D2 suspected Dieulafoy lesion, despite multiple endoscopic attempts, eventually, workup at [place] with EGD and Colonosocpy, able to acheive hemostasis with epi and hemostatic clips. Recommendations were made for IR embolization if she
rebleeds.
Hypotensive on arrival, BPs in the 80s/50s, initially improved but BPs down to 73/50 Her hemoglobin on 08/17 was 8.9, found to be 5.6 on arrival, she is getting transfused with 2 units of PRBC.
In addition to bleeding pt also with prior imaging concern for multifocal lobular and confluent fatty infiltration LIRADS 3 on prior MRI in July. She follows with Dr. Garcia
08/08/2025 CT Abd/pelvis Angio W/wo Iv
IMPRESSION: There is no evidence for active GI bleeding by CT.
Prominent varices within the posterior wall of the third portion of the duodenum, but no contrast extravasation into the lumen of the duodenum.
Thickening of the wall the right colon, which is likely portal colopathy.
Moderate to large amount of ascites within the abdomen and pelvis.
Cirrhotic liver. No convincing CT evidence for hepatocellular carcinoma.
Splenomegaly.
Cholelithiasis. No evidence for biliary ductal dilation.
Edema surrounding the head of the pancreas, most likely from ascites. Please correlate with any clinical signs or symptoms that would suggest pancreatitis.
Recurrent UGI bleeding, likely 2/2 duodenal dieulafoy with hemodynamic instability
-needs resuscitation
-NPO
-transfuse with 2 units PRBC
-2 large peripheral gaugae IVs
-PPI gtt
-octreotide gtt
-Ceftriaxone for SBP prophylaxis
-will plan to repeat EGD today, if unsuccessful in achieving hemostasis, will recommend IR embolization
Recurrent ascites
-plan for diagnostic paracentesis once active bleeding is addressed and hemodynamically stable
-avoid large volume paracesntesis in setting of active GI bleeding
-SBP prophylaxis
Original Note:
Consultation
-
Date/Time Consultation Requested: 08/29/25 1030
Date/Time Consultation Performed: 08/29/25 1100
Requesting Provider: colin Wiley DO
Performing Provider: KASSANDRA Hurtado, Anisa Foley DO
Reason for Consultation: GI bleed
Medical History
Chief Complaint / HPI
Chief Complaint: GI bleed
History of Present Illness:
Pt is a 55yo with hx cirrhosis (diagnosed a couple years ago), alcohol abuse last drink prior to last admission in July , hepatic encephalopathy, UTI, GAVE on scope in [place] in March, and recurrent GI bleeding with concern for duodenal
dieulofoy on last EGD at [place]. She now returns with continued dark stools but overnight noted more red stool with ring of burgundy stool. On return she is noted with hbg 5.6 with maroon heme + stool in ER. In review of chart . Over the summer she
began to follow with Dr. Garcia. She now returns with several admission with recurrent anemia and GI bleeding, ascites with multiple paracentesis. She has required over 13 units of blood since mid July with further transfusion on this
admission and reports transfusion at [place]. She had had multiple EGD, flex sig, colonoscopy and recent transfer to [place]. Per last note on 08/14 pt noted with bleeding dieulafoy lesion in duodenum that was treated with epi and clip and no VCE was
completed. She did also completed colonoscopy at [place] with perianal skin tags, hematin entire colon, IH no active source of bleeding seen blood in TI. . Plan was for repeat labs in 1 week and return to ER with recurrent bleeding and consider
repeat EGD for retreatment vs IR embolization as area was treated and clipped and marked for embolization if needed. Pt is also scheduled follow up with Dr. Garcia in September.
At this time pt has hx dysphagia with solids at times but currently denies. She has diffuse abdominal pain with swelling in Leg and abdomen and feeling need for para but not tight ascites. Last par 10.16 for 3650ml . She denies NSAID or
anticoagulation use. In addition to bleeding pt also with prior imaging concern for multifocal lobular and confluent fatty infiltration LIRADS 3 on prior MRI in July.
07/23- CTA severe cirrhosis, large lesion of fatty attenuation over 80% with mass effect malignancy, steatosis, cirrhotic nodules, severe Portal HTN, midl colitis tamara colonopathy, diverticulosis, small perihepatic ascites
07/25MRI cirrhosis Multifocal regions of lobular and confluent fatty infiltration. Overall imaging features suggest classification of LIRADS 3. no PV or hepatic vein thrombosis mod ascites, cholelithiasis, GBWT with ascites, 7.5 CBD
multiple par 300- 3650 neg SBP( 07/27 atypical cell favor reactive mesothelia cells, inflammatory cell predominant RBC's present , repeat 08/01 neg malignant cells ) last 08/23
scopes:
03/2025 GAVE on scope in [place]
07/23/25- [facility] enteroscopy -GAVE without bleeding, nodule duodenum, blood in third portion of duodenum unable to clear, bleeding reflux from jejunum, hemospray, non bleeding jejunal ectasia, s/p APC
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
08/02/25 Do flex sig no old or fresh blood, diffuse colonopathy, hemorrhoids, diverticulosis
08/2025-EGD [facility]- Dieulafoy lesion second portion of duodenum with clot with clipping and epi injection
08/2025 - [facility]- colon- perianal skin tags, hematin entire colon, IH no active source of bleeding seen blood in TI
Past Medical History
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
Social History
Tobacco: Vaping
Alcohol: Chronic Alcoholic (States last drink was 2 months ago, positive Peth 03/2025)
Drug: Marijuana
Personal: Single
Living: With Roomate
Employment: Disabled
Family History
Family History: Other (Grandmother history of colon-rectal cancer, all other GI malignancies negative)
Allergies / Home Medications
Allergy/AdvReac Type Severity Reaction Status Date / Time
No Known Allergies Allergy Verified 08/23/25 10:00
�Medication �Instructions �Recorded
clonazepam 0.5 mg tablet 0.5 mg PO TIDPRN PRN anxiety 01/31/25
lactulose 10 gram/15 mL oral 30 ml PO BID Liver Issues 03/25/25
solution
rifaximin 550 mg tablet 550 mg PO BID Liver Issues 03/25/25
baclofen 10 mg tablet 10 mg PO DAILY Neurological 07/23/25
Condition
buspirone 10 mg tablet 10 mg PO TID Mental Health/Anxiety 08/01/25
trazodone 50 mg tablet 50 - 100 mg PO HSPRN PRN sleep 08/01/25
ursodiol 300 mg capsule 300 mg PO BID Urinary Issue 08/01/25
cetirizine 10 mg tablet (Zyrtec) 10 mg PO DAILY Allergies 08/15/25
dextroamphetamine-amphetamine 20 20 mg PO TID Mental Health/Anxiety 08/15/25
mg tablet (Adderall)
ferrous sulfate 325 mg (65 mg 325 mg PO DAILY Supplement 08/15/25
iron) tablet
midodrine 2.5 mg tablet 2.5 mg PO TID@0800,1300,1800 #90 08/17/25
tabs
polyethylene glycol 3350 17 gram 17 g PO DAILY 08/29/25
oral powder packet (Miralax)
Review of Systems
-
History Source: Patient
Constitutional: Reports Weight Gain (with fluid )
EENT: Reports No Symptoms
Respiratory: Reports No Symptoms
Cardiac: Reports No Symptoms
Abdomen/GI: Reports Abdominal Pain, Nausea, Vomiting, Diarrhea (with lactulose ), Bloody Stools and Black Stools
: Reports No Symptoms
Musculoskeletal: Reports No Symptoms
Skin: Reports No Symptoms
Neurological: Reports Dizzy and Weakness
Endocrine: Reports No Symptoms
Hematologic/Lymphatic: Reports Bleeding
Vital Signs
Temp Pulse Resp BP Pulse Ox
97.8 F 95 18 94/80 100
08/29/25 10:54 08/29/25 10:54 08/29/25 10:54 08/29/25 10:54 08/29/25 10:30
Physical Exam
Exam
General: No Apparent Distress and Other (temporal wasting )
HEENT: Normocephalic and Anicteric
Respiratory: Clear
Cardiac: Peripheral Edema and Other (tachy)
GI: Soft, Tender (mild ) and Distended
Musculoskeletal: No Clubbing and No Cyanosis
Skin: Warm and Dry
Neuro: Awake, Alert and AO x 3
Psych: Calm
Results
WBC 6.7 10^3/uL (4.8-10.8) 08/29/25 09:12
Hgb 5.6 g/dL (12.0-16.0) L* 08/29/25 09:12
Hct 19.9 % (37.0-47.0) L* 08/29/25 09:12
MCV 92.1 fL (81.0-99.0) 08/29/25 09:12
Plt Count 363 10^3/uL (130-400) 08/29/25 09:12
Absolute Neuts (auto) 4.8 10^3/uL (1.4-6.5) 08/29/25 09:12
PT 17.8 Sec (11.4-14.6) H 08/29/25 09:09
INR 1.41 08/29/25 09:09
APTT 29.4 Sec (23.4-35.0) 08/29/25 09:09
Sodium 131 mmol/L (135-145) L 08/29/25 09:14
Potassium 4.2 mmol/L (3.5-5.1) 08/29/25 09:14
Chloride 106 mmol/L (98-107) 08/29/25 09:14
Carbon Dioxide 24 mmol/L (22-30) 08/29/25 09:14
BUN 13 mg/dl (7-17) 08/29/25 09:14
Creatinine 0.7 mg/dL (0.6-1.0) 08/29/25 09:14
Calcium 8.1 mg/dl (8.4-10.2) L 08/29/25 09:14
Total Bilirubin 0.7 mg/dl (0.2-1.3) 08/29/25 09:14
AST 40 U/L (14-36) H 08/29/25 09:14
ALT 16 U/L (0-35) 08/29/25 09:14
Alkaline Phosphatase 124 U/L (38-126) 08/29/25 09:14
Diagnostic Image Results:
07/23- CTA severe cirrhosis, large lesion of fatty attenuation over 80% with mass effect malignancy, steatosis, cirrhotic nodules, severe Portal HTN, midl colitis tamara colonopathy, diverticulosis, small perihepatic ascites
07/25MRI cirrhosis Multifocal regions of lobular and confluent fatty infiltration. Overall imaging features suggest classification of LIRADS 3. no PV or hepatic vein thrombosis mod ascites, cholelithiasis, GBWT with ascites, 7.5 CBD
multiple par 300- 3650 neg SBP( 9/19 atypical cell favor reactive mesothelia cells, inflammatory cell predominant RBC's present , repeat 08/01 neg malignant cells ) last 08/23
scopes:
03/2025 GAVE on scope in [place]
07/23/25- [facility] enteroscopy -GAVE without bleeding, nodule duodenum, blood in third portion of duodenum unable to clear, bleeding reflux from jejunum, hemospray, non bleeding jejunal ectasia, s/p APC
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
08/02/25 Do flex sig no old or fresh blood, diffuse colonopathy, hemorrhoids, diverticulosis
08/2025-EGD [place]- Dieulafoy lesion second portion of duodenum with clot with clipping and epi injection
08/2025 - [place]- colon- perianal skin tags, hematin entire colon, IH no active source of bleeding seen blood in TI
Assessment / Plan
-
Pt is a 55yo with hx cirrhosis (diagnosed a couple years ago), alcohol abuse last drink prior to last admission in July , hepatic encephalopathy, UTI, GAVE on scope in [place] in March, and recurrent GI bleeding with concern for duodenal
dieulofoy on last EGD at [place]. She now returns with continued dark stools but overnight noted more red stool with ring of burgundy stool. On return she is noted with hbg 5.6 with maroon heme + stool in ER. In review of chart . Over the summer she
began to follow with Dr. Garcia. She now returns with several admission with recurrent anemia and GI bleeding, ascites with multiple paracentesis. She has required over 13 units of blood since mid July with further transfusion on this
admission and reports transfusion at [place]. She had had multiple EGD, flex sig, colonoscopy and recent transfer to [place]. Per last note on 08/14 pt noted with bleeding dieulafoy lesion in duodenum that was treated with epi and clip and no VCE was
completed. She did also completed colonoscopy at [place] with perianal skin tags, hematin entire colon, IH no active source of bleeding seen blood in TI. . Plan was for repeat labs in 1 week and return to ER with recurrent bleeding and consider
repeat EGD for retreatment vs IR embolization as area was treated and clipped and marked for embolization if needed. Pt is also scheduled follow up with Dr. Garcia in September. At this time pt has hx dysphagia with solids at times but
currently denies. She has diffuse abdominal pain with swelling in Leg and abdomen and feeling need for para but not tight ascites. Last par 10.16 for 3650ml . She denies NSAID or anticoagulation use. In addition to bleeding pt also with
prior imaging concern for multifocal lobular and confluent fatty infiltration LIRADS 3 on prior MRI in July.
07/23- CTA severe cirrhosis, large lesion of fatty attenuation over 80% with mass effect malignancy, steatosis, cirrhotic nodules, severe Portal HTN, midl colitis tamara colonopathy, diverticulosis, small perihepatic ascites
07/25MRI cirrhosis Multifocal regions of lobular and confluent fatty infiltration. Overall imaging features suggest classification of LIRADS 3. no PV or hepatic vein thrombosis mod ascites, cholelithiasis, GBWT with ascites, 7.5 CBD
multiple par 300- 2850 neg SBP( 07/27 atypical cell favor reactive mesothelia cells, inflammatory cell predominant RBC's present , repeat 08/01 neg malignant cells )
scopes:
03/2025 GAVE on scope in [place]
07/23/25- [facility] enteroscopy -GAVE without bleeding, nodule duodenum, blood in third portion of duodenum unable to clear, bleeding reflux from jejunum, hemospray, non bleeding jejunal ectasia, s/p APC
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
08/02/25 Do flex sig no old or fresh blood, diffuse colonopathy, hemorrhoids, diverticulosis
08/2025-EGD [place]- Dieulafoy lesion second portion of duodenum with clot with clipping and epi injection
08/2025 - Nav- colon- perianal skin tags, hematin entire colon, IH no active source of bleeding seen blood in TI
-recurrent admission with GI bleeding multiple scopes as above with massive transfusion requirement over last month
-anemia acute blood loss
-hypotension on admission
-recent EGD with concern for jejunal bleeding not well visualized then noted duodenal dieulofoy lesion
-diffuse colopathy
--hx cirrhosis - ETOH related follows with [facility]
-ascites with recent tap
-Multifocal regions of lobular and confluent fatty infiltration. Overall imaging features suggest classification of LIRADS 3 per recent MRI
-HE on lactulose and Xifaxan
-thrombocytosis
-metabolic acidosis
-hyponatremia
-leukocytosis
-coagulopathy
-GAVE on prior EGD
-hx falls
-bipolar disorder
-cholelithiasis/GBWT with ascites per imaging
-chronic back pain
-splenomegaly
PLAN:
Recurrent GI bleed likely multifactorial from portal gastropathy, GAVE, duodenal and jejunal angiectasias but most recently noted with Dieulafoy lesion second portion of duodenum with clot with clipping and epi injection with concern for
rebleeding with increased red/burgundy stool overnight and drop in hhb
hbg still down to 5.6 on admission with marroon stool in exam
plan for 2 units PRBC's to be transfused today then EGD-- will add 2 further units on hold for GI lab
if unable to treat t/c IR embolization per P recommendation on prior scope in second treatment not successful
NPO
trend hbg
capsule not completed at [place]
follow with Dr. Garcia at [place] due 09/21 at 1 PM
cont abx with GI bleed and cirrhosis
will need para in AM hold for now with hypotension
hold diuretics
cont PPI BID, lactulose BID, Xifaxan BID and chronic Bj that pt was on prior to admission
-
-
Thank you for consultation and allowing me to participate in the patient's care. Please call the contact acid plant operator helper GI physician during the after hours with any questions or concerns.
[2025-08-29 11:59] LABS: Anisocytosis 2+; Hypochromasia 2+
--- NOTE | 2025-08-29 11:59 | EDCM ---
CM reviewed chart and met with pt bedside in ED. Lives alone in second floor apartment, currently has a friend staying with her, he will probably be there until .
Pt is independent in ADLs, personal care and ambulation at baseline, uses rollator. Still drives.
Has had several recent admissions and was transferred to [facility]. She is unsure if she will be transferred to [facility] this admission.
Confirms prescription coverage.
Hx [facility], no hx SNF, Was planning to start OP therapy at [facility], [place] but has not gone yet. Will need new script.
PCP: Chichi Dye
Pharmacy: [facility] [address]
CM will continue to follow for all discharge planning needs.
[2025-08-29 12:00] LABS: Ovalocytes 1+
[2025-08-29 12:01] LABS: Tear Drop Red Blood Cells 1+
[2025-08-29 12:07] LABS: Normal RBC Morphology No
[2025-08-29] MEDS: NSS (PRESERVATIVE FREE) 10 ML IV ×2 (12:45→19:52)
[2025-08-29] MEDS: STERILE WATER FOR INJECTION 10 ML IV (13:32)
[2025-08-29] MEDS: ROCEPHIN 1000 MG IV (13:32)
--- NOTE | 2025-08-29 13:35 | HPS.HSE ---
Family Physician
-
Family Physician: Chichi Garrison
Chief Complaint
-
gi bleed
History of Present Illness
55 history of cirrhosis, hepatic encephalopathy, UTI, keep on scope and [facility] admit, recurrent GI bleeding who presented with dark stools overnight however noted rectal stools this morning. Found to have hemoglobin of 5.6 and heme positive
stools. Also has noted some rib pain on the right side with a distended abdomen likely requiring repeat paracentesis.
Hemodynamically with appropriate mental status. Hgb 5.5. 2u PRBC ordered
Supposed to have her first liver transplant evaluation with Dr. Garcia from [place] in September. Should be noted she had a recent admission and required multiple blood transfusions at that time. Eventually needed to be transferred to [place] for
capsule endoscopy and dilufoy lesion.
Medical History
Past Medical History
Past Medical History: Reports Other
Additional Past Medical History:
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
Past Surgical History: Reports None
Social History
Tobacco: Non-smoker
Alcohol: Former
Personal: Single
Living: With Family
Employment: Not Employed
Family History
Family History: Not pertinent
Allergies / Home Medications
Allergies reflects when Allergies were last updated in [facility].
Home Medications with original date entered in [facility]
Allergy/Medication List:
Allergies
Allergy/AdvReac Type Severity Reaction Status Date / Time
No Known Allergies Allergy Verified 08/23/25 10:00
Home Medications
clonazepam 0.5 mg tablet 0.5 mg PO TIDPRN PRN anxiety 01/31/25
lactulose 10 gram/15 mL oral solution 30 ml PO BID Liver Issues 03/25/25
rifaximin 550 mg tablet 550 mg PO BID Liver Issues 03/25/25
baclofen 10 mg tablet 10 mg PO DAILY Neurological Condition 07/23/25
buspirone 10 mg tablet 10 mg PO TID Mental Health/Anxiety 08/01/25
trazodone 50 mg tablet 50 - 100 mg PO HSPRN PRN sleep 08/01/25
ursodiol 300 mg capsule 300 mg PO BID Liver Issues 08/01/25
cetirizine 10 mg tablet (Zyrtec) 10 mg PO DAILY Allergies 08/15/25
dextroamphetamine-amphetamine 20 mg tablet (Adderall) 20 mg PO TID Mental Health/Anxiety 08/15/25
ferrous sulfate 325 mg (65 mg iron) tablet 325 mg PO DAILY Supplement 08/15/25
midodrine 2.5 mg tablet 2.5 mg PO TID@0800,1300,1800 Hypotension 08/29/25
polyethylene glycol 3350 17 gram oral powder packet (Miralax) 17 g PO DAILY Constipation 08/29/25
Review of Systems
-
A 12 point ROS was completed and negative except as noted: Yes
Physical Exam
Vital Signs
Vital Signs
Temp Pulse Resp BP Pulse Ox
98.3 F 90 22 86/51 97
08/29/25 13:24 08/29/25 13:24 08/29/25 13:24 08/29/25 13:24 08/29/25 13:24
Physical Exam
General: Well Developed
Laboratory Results
-
08/29/25 09:14
Laboratory Results
PT 17.8 Sec (11.4-14.6) H 08/29/25 09:09
INR 1.41 08/29/25 09:09
APTT 29.4 Sec (23.4-35.0) 08/29/25 09:09
Total Bilirubin 0.7 mg/dl (0.2-1.3) 08/29/25 09:14
AST 40 U/L (14-36) H 08/29/25 09:14
ALT 16 U/L (0-35) 08/29/25 09:14
Alkaline Phosphatase 124 U/L (38-126) 08/29/25 09:14
Impression/Plan
-
NAD
Scleral Anicteric
MMM
No JVD
CTABL
RRR, S1/S2
Soft, NT, distended, BS+
Warm, Dry
AAOx3
Calm
GI bleed with hx of recent dieulafoy lesion and hx of GAVE sydrome
- Cannot exclude lower gi or pud
- BID IV PPI
- hx of recurrent para has ascities, start ctx for sbp ppx
- GI consult
- Tranfuse to maintain hgb >7
- 2 Large bore IV's
Cirrhosis, decompensated
- GI bleed - ppi bid iv, Ctx
- Ascities - consult IR for Para
- Without HE - Lactulose/Rifaxamin
- May benefit from Lasix and Aldactone
-- Though bp does not allow
Hypotension
- Continue midodrine
-- Have room to titrate up
Hyponatremia
- Expected with cirrhosis
- Monitor
Anxiety
- Continue Buspar, clonazepam.
Chronic back pain
- Continue baclofen
History of cholelithiasis
- Continue ursodiol
--- NOTE | 2025-08-29 13:38 | PTCARENOTE ---
Received patient on admission from ED via stretcher at approximately 12:44 with 1st unit PRBCs infusing. BP 86/51, HR 90s. No active bleeding noted on arrival. 1st unit completed; sent request for 2nd unit. IVF infusing as ordered until blood
arrives. Received call from Isabel in GI lab that patient is to complete 2nd unit then go for EGD; will notify them when she is done at number provided: [phone]. Ok to give midodrine with small sip of water as ordered. Patient received protonix IV
and Rocephin IV as ordered. Ox3; admission data completed.
--- NOTE | 2025-08-29 13:51 | PTCARENOTE ---
2nd unit PRBCs infusing.
--- NOTE | 2025-08-29 14:26 | PTCARENOTE ---
BP 88/46 with MAP 58. Receiving 2nd unit blood. Received call from Isabel in GI lab that they will be coming for the patient now instead of waiting til 2nd unit blood complete. Reviewed all with Dr Stover who initially ordered midodrine stat, but
then instructed to hold and send to GI.
--- NOTE | 2025-08-29 14:28 | PTCARENOTE ---
This nurse spoke with Isabel in GI to verify they do not use TAR for transfusions. Informed her that this RN started transfusion in TAR, and not on pink sheet, as patient was initially to complete transfusion prior to going. Isabel stated she will
call blood bank to request pink sheet before coming to get patient.
--- NOTE | 2025-08-29 14:36 | PTCARENOTE ---
Patient taken to GI lab by 2 RNs from dept with 2nd unit blood transfusing; notified them of patient's BP.
--- NOTE | 2025-08-29 15:59 | PTCARENOTE ---
Received call from Isabel that patient going to ICU post EGD d/t BP; currently on levo. She stated she notified ICU. Nursing supervisor shed workers made aware.
--- NOTE | 2025-08-29 16:38 | PTCARENOTE ---
Received patient on return from EGD with levophed 6mcg/min infusing and O2 2l n/c in use; t/f to ICU cancelled. BP 111/69, MAP 82 on arrival. Resumed IVF: NSS @100ml/hr. POx 98%. Patient drowsy, mostly sleeping but awakens easily; Ox3.
--- NOTE | 2025-08-29 16:49 | PTCARENOTE ---
Addendum entered by Katie Cain RN 08/29/25 17:23:
Hg 8.2.
Original Note:
Patient ordered 2units PRBCs on hold for OR. Reviewed with Karoline Marshall NP; made aware aware patient on levo 6mcg/min, NSS @100ml/hr and BP 111/69 with MAP 82. Instructed to draw CBC first and t/f if Hg <7.
--- NOTE | 2025-08-29 17:04 | PTCARENOTE ---
Blood completed in GI lab, vital signs taken in GI lab; TAR updated with information from the pink sheet as per protocol.
[2025-08-29 17:14] LABS: Hematocrit 27.2 % (37.0-47.0); Hemoglobin 8.2 g/dL (12.0-16.0); Mean Corp Hgb Conc. 30.1 g/dL (33.0-37.0); Mean Corpuscular Volume 87.2 fL (81.0-99.0); Platelet Count 317 10^3/uL (130-400); Red Cell Dist. Width 17.0 % (11.5-14.5)
[2025-08-29] MEDS: BUSPAR 10 MG PO ×2 (17:17→19:51)
--- NOTE | 2025-08-29 18:03 | PTCARENOTE ---
In reviewing orders there was no order for levophed that was started in GI lab; spoke with pharmacist Haley as well. BP 93/54 MAP 66. TT sent to Dr Stover then forwarded message to Dr Joiner who is doing floor coverage. He stated he will enter order.
--- NOTE | 2025-08-29 18:06 | W.PN.UPDATE ---
Update Note
Progress Note Update
Cross cover--> asked to order Levophed for BP support. Patient BP is 93/54 MAP 66 and came back from GI lab with Levophed running at 6mcg/min.
--- NOTE | 2025-08-29 18:15 | PTCARENOTE ---
Blood bank made aware that per CHIEF OPERATING OFFICER Karoline Marshall, patient to be transfused if <7; they will hold onto blood for now.
[2025-08-29] MEDS: XIFAXAN 550 MG PO (19:51)
[2025-08-29] MEDS: ACTIGALL 300 MG PO (19:51)
[2025-08-29] MEDS: DUPHALAC/CHRONULAC 20 GRAMS PO (19:51)
[2025-08-29] MEDS: ROXICODONE 5 MG PO (19:52)
[2025-08-29] MEDS: KLONOPIN 0.5 MG PO (19:53)
[2025-08-29] MEDS: LEVOPHED 250 IV (23:55)
[2025-08-30] VITALS (51 sets, daily range): BP systolic 84–127; BP diastolic 54–102; BMI 25.0
[2025-08-30 05:45] LABS: Hematocrit 23.1 % (37.0-47.0); Hemoglobin 7.5 g/dL (12.0-16.0); Mean Corp Hgb Conc. 32.5 g/dL (33.0-37.0); Mean Corpuscular Volume 81.9 fL (81.0-99.0); Platelet Count 204 10^3/uL (130-400); Red Cell Dist. Width 17.3 % (11.5-14.5)
[2025-08-30 06:26] LABS: ALT (SGPT) 13 U/L (0-35); AST (SGOT) 45 U/L (14-36); Albumin 2.0 g/dl (3.5-5.0); Alkaline Phosphatase 94 U/L (38-126); Blood Urea Nitrogen 13 mg/dl (7-17); Calcium 7.6 mg/dl (8.4-10.2); Carbon Dioxide 18 mmol/L (22-30); Chloride 115 mmol/L (98-107); Estimated Creatinine Clearance 84 ml/min; Glucose 94 mg/dl (70-99); Magnesium 1.8 mg/dl (1.6-2.3); Potassium 4.1 mmol/L (3.5-5.1); Sodium 137 mmol/L (135-145); Total Protein 4.6 g/dl (6.3-8.2); eGFR > 60.00
--- NOTE | 2025-08-30 06:29 | PTCARENOTE ---
assumed care of patient. pt is AAOx3 but forgetful at times. able to make needs known. received patient on levo at 6mcg/min- able to taper throughout the night to maintain MAP >65. pt using bedpan at this time- able to collect urine specimen and
sent down to lab. abdomen and round, firm. +1-2 pitting edema throughout. foot pumps placed on patient. pt complaining of back pain at start of the shift. notified covering [employer]- orders placed for PRN oxycodone, given with positive affect. care
ongoing.
[2025-08-30] MEDS: DUPHALAC/CHRONULAC 20 GRAMS PO ×2 (07:57→19:23)
[2025-08-30] MEDS: LIORESAL 10 MG PO (07:58)
[2025-08-30] MEDS: ZYRTEC 10 MG PO (07:58)
[2025-08-30] MEDS: MIRALAX 17 GRAMS PO (07:58)
[2025-08-30] MEDS: FEOSOL PO ×2 (07:58→10:51)
[2025-08-30] MEDS: BUSPAR 10 MG PO ×3 (07:58→19:23)
[2025-08-30] MEDS: XIFAXAN 550 MG PO ×2 (07:59→19:23)
[2025-08-30] MEDS: ACTIGALL 300 MG PO ×2 (07:59→19:23)
--- NOTE | 2025-08-30 09:09 | PTCARENOTE ---
Alert and oriented x 3, confused at times during morning conversation and assessment. Pt received on 1mcg of Levophed gtt MAP is 74. Monitor with NSR and pulse ox 96% on room air. Pt reports minimal discomfort in LLQ but refuses pain med at this
time. Bowel tones present x 4 quadrants, Generalized anasarca +1 and +2 throughout body. Abd tight with ascites and pt to [facility] for Paracentesis via stretcher Accompanied by this RN to hand-off Levo.
--- NOTE | 2025-08-30 10:10 | W.PN.GI.CBS2 ---
Addendum entered and electronically signed by Kary Foley DO 08/30/25 11:53:
The patient was seen and examined by me independently in collaboration with the nurse practitioner.
Past medical history/social history/medications/allergies/family history reviewed.
Lab data and imaging data reviewed.
Patient seen in follow-up. No bleeding overnight. Hemoglobin stable at 7.5 s/p 2 units of PRBC. She continues to be hypotensive, shes on chronic midodrine TID. Started on low dose levo during EGD
s/p EGD yesterday, no new or old blood visualized to the proximal jejunum, was able to traverse passed prior tattoo site
Recently found to have bleeding Dieulafoy in D2 at [facility] which was treated. There was a polypoid lesion in D2, no other findings to suggest this could be the bleeding lesion, but cannot definitively saw this isn't the spot
Prior CTA showed varices in D3, did not visualize any esophageal, gastric or small bowel varices on exam
s/p Paracentesis today, awaiting ascitic fluid studies, agree with albumin
continue SBP prophylaxis
PPI IV BID
trend hgb, transfuse for Hgb <7
If evidence of rebleeding, will discuss utility of repeat EGD vs. IR for attempted embolization
Original Note:
Today's Communication / Plan
-
Recurrent GI bleed likely multifactorial from portal gastropathy, GAVE, duodenal and jejunal angiectasias but most recently noted with Dieulafoy lesion second portion of duodenum with clot with clipping and epi injection with concern for
rebleeding with increased red/burgundy stool overnight and drop in hhb
hbg still down to 5.6 on admission with maroon stool in exam
no further stool overnight
hbg 5.6-- 8.2--7.5
clear diet will advance to 2 gram Na
s/p para for 2600ml will give 12,5 gram albumin with continued hypotension-- cell count pending for SBP eval
capsule not completed at [facility] per records but pt recall study being done will try to recheck portal
follow with Dr. Garcia at [facility] due 09/21 at 1 PM
cont abx with GI bleed and cirrhosis
hold octeotide as was not started as scope done quickly on admission
diuretics on hold if BP improves post tap will need to resume
cont PPI BID, lactulose BID, Xifaxan BID and chronic Bj that pt was on prior to admission
current meld 3.0 16 on admission labs 08/29
discussed with patient overall concern for progression of liver disease-- she will need to further discussed Dr. Garcia for goals of care
Assessment / Plan
-
Pt is a 55yo with hx cirrhosis (diagnosed a couple years ago), alcohol abuse last drink prior to last admission in July , hepatic encephalopathy, UTI, GAVE on scope in [place] in March, and recurrent GI bleeding with concern for duodenal
dieulofoy on last EGD at [facility]. She now returns with continued dark stools but overnight noted more red stool with ring of burgundy stool. On return she is noted with hbg 5.6 with maroon heme + stool in ER. In review of chart . Over the summer she
began to follow with Dr. Garcia. She now returns with several admission with recurrent anemia and GI bleeding, ascites with multiple paracentesis. She has required over 13 units of blood since mid July with further transfusion on this
admission and reports transfusion at [facility]. She had had multiple EGD, flex sig, colonoscopy and recent transfer to [facility]. Per last note on 08/14 pt noted with bleeding dieulafoy lesion in duodenum that was treated with epi and clip and no VCE was
completed. She did also completed colonoscopy at [facility] with perianal skin tags, hematin entire colon, IH no active source of bleeding seen blood in TI. . Plan was for repeat labs in 1 week and return to ER with recurrent bleeding and consider
repeat EGD for retreatment vs IR embolization as area was treated and clipped and marked for embolization if needed. Pt is also scheduled follow up with Dr. Garcia in September. At this time pt has hx dysphagia with solids at times but
currently denies. She has diffuse abdominal pain with swelling in Leg and abdomen and feeling need for para but not tight ascites. Last par 10.16 for 3650ml . She denies NSAID or anticoagulation use. In addition to bleeding pt also with
prior imaging concern for multifocal lobular and confluent fatty infiltration LIRADS 3 on prior MRI in July.
07/23- CTA severe cirrhosis, large lesion of fatty attenuation over 80% with mass effect malignancy, steatosis, cirrhotic nodules, severe Portal HTN, midl colitis tamara colonopathy, diverticulosis, small perihepatic ascites
07/25MRI cirrhosis Multifocal regions of lobular and confluent fatty infiltration. Overall imaging features suggest classification of LIRADS 3. no PV or hepatic vein thrombosis mod ascites, cholelithiasis, GBWT with ascites, 7.5 CBD
multiple par 300- 2850 neg SBP( 07/27 atypical cell favor reactive mesothelia cells, inflammatory cell predominant RBC's present , repeat 08/01 neg malignant cells )
scopes:
03/2025 GAVE on scope in [place]
07/23/25- [facility] enteroscopy -GAVE without bleeding, nodule duodenum, blood in third portion of duodenum unable to clear, bleeding reflux from jejunum, hemospray, non bleeding jejunal ectasia, s/p APC
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
08/02/25 Do flex sig no old or fresh blood, diffuse colonopathy, hemorrhoids, diverticulosis
08/2025-EGD [facility]- Dieulafoy lesion second portion of duodenum with clot with clipping and epi injection
08/2025 - [facility]- colon- perianal skin tags, hematin entire colon, IH no active source of bleeding seen blood in TI
08/29/25- EGD [facility] - Normal esophagus Portal hypertensive gastropathy Gastric antral vascular ectasia without bleeding. A few duodenal polyp Previous tattoo seen in the proximal jejunum. No evidence of nearby AVM, previously treated, was
identified. No specimens collected. no blood seen
-recurrent admission with GI bleeding multiple scopes as above with massive transfusion requirement over last month
-anemia acute blood loss
-hypotension on admission requiring pressors
-recent EGD with concern for jejunal bleeding not well visualized then noted duodenal dieulofoy lesion
-diffuse colopathy
--hx cirrhosis - ETOH related follows with [facility]
-ascites with recent tap
-Multifocal regions of lobular and confluent fatty infiltration. Overall imaging features suggest classification of LIRADS 3 per recent MRI
-HE on lactulose and Xifaxan
-thrombocytosis
-metabolic acidosis
-hyponatremia
-leukocytosis
-coagulopathy
-GAVE on prior EGD
-hx falls
-bipolar disorder
-cholelithiasis/GBWT with ascites per imaging
-chronic back pain
-splenomegaly
PLAN:
Recurrent GI bleed likely multifactorial from portal gastropathy, GAVE, duodenal and jejunal angiectasias but most recently noted with Dieulafoy lesion second portion of duodenum with clot with clipping and epi injection with concern for
rebleeding with increased red/burgundy stool overnight and drop in hhb
hbg still down to 5.6 on admission with maroon stool in exam
no further stool overnight
hbg 5.6-- 8.2--7.5
clear diet will advance to 2 gram Na
s/p para for 2600ml will give 12,5 gram albumin with continued hypotension-- cell count pending for SBP eval
capsule not completed at [facility] per records but pt recall study being done will try to recheck portal
follow with Dr. Garcia at [facility] due 09/21 at 1 PM
cont abx with GI bleed and cirrhosis
hold octeotide as was not started as scope done quickly on admission
diuretics on hold if BP improves post tap will need to resume
cont PPI BID, lactulose BID, Xifaxan BID and chronic Bj that pt was on prior to admission
current meld 3.0 16 on admission labs 08/29
discussed with patient overall concern for progression of liver disease-- she will need to further discussed Dr. Garcia for goals of care
Subjective
Subjective
Date of Service: August 30, 2025
no stools overnight, 2 gram Na diet , feeling better post para
Objective
Data Reviewed
Laboratory Data:
Laboratory Results
08/30/25 05:17
08/30/25 05:17
Laboratory Results
PT 17.8 Sec (11.4-14.6) H 08/29/25 09:09
INR 1.41 08/29/25 09:09
APTT 29.4 Sec (23.4-35.0) 08/29/25 09:09
Magnesium 1.8 mg/dl (1.6-2.3) 08/30/25 05:17
Total Bilirubin 0.8 mg/dl (0.2-1.3) 08/30/25 05:17
AST 45 U/L (14-36) H 08/30/25 05:17
ALT 13 U/L (0-35) 08/30/25 05:17
Alkaline Phosphatase 94 U/L (38-126) 08/30/25 05:17
Vital Signs and I&O:
Vital Signs
Temp Pulse Resp BP Pulse Ox
97.7 F 85 16 93/60 96
08/30/25 08:45 08/30/25 09:24 08/30/25 09:24 08/30/25 09:24 08/30/25 09:02
I&O
08/29/25 08/30/25 08/31/25
06:59 06:59 06:59
Intake Total 500 / 500
Balance 500 / 500
Physical Exam
Physical Exam
HEENT: Anicteric and Moist mucous membranes
Cardiology: Normal Sinus Rhythm
Pulmonary: Clear
GI: Soft and Distended (but improved post para)
Extremities: Edema (diffuse leg tenderness ) and Other (multiple bruising )
Neuro: Non Focal
[2025-08-30 10:39] LABS: Body Fluid Second Tech SS
[2025-08-30] MEDS: NSS 1000 IV ×2 (10:51→19:23)
[2025-08-30] MEDS: ROXICODONE 5 MG PO ×3 (10:51→19:23)
[2025-08-30] MEDS: FLEXBUMIN 50 IV (11:30)
[2025-08-30] MEDS: PROTONIX IV 40 MG IV ×2 (11:36→19:23)
[2025-08-30] MEDS: NSS (PRESERVATIVE FREE) 10 ML IV ×2 (11:36→19:23)
[2025-08-30] MEDS: FEOSOL 325 MG PO (11:53)
--- NOTE | 2025-08-30 12:23 | PTCARENOTE ---
Assumed care of patient at beginning of this shift from previous RN with levophed infusing at 1mcg/min. Dr Stover in to see patient and increased midodrine dose; will assess BP/MAP and complete levophed if able as per titration order. See worklist
for full assessment and vital signs.
[2025-08-30] MEDS: STERILE WATER FOR INJECTION 10 ML IV (15:05)
[2025-08-30] MEDS: ROCEPHIN 1000 MG IV (15:05)
--- NOTE | 2025-08-30 16:51 | W.PN.HOSP.TC ---
Today's Communication/Plan
-
Assessment / Plan
Assessment / Plan
NAD
Scleral Anicteric
MMM
No JVD
CTABL
RRR, S1/S2
Soft, NT, distended, BS+
Warm, Dry
AAOx3
Calm
GI bleed with hx of recent dieulafoy lesion and hx of GAVE syndrome
- Hgb stable, without active bleeding
- S/p Egd without active bleeding
- S/p 2u prbc
- BID IV PPI
Cirrhosis, decompensated
- GI bleed - ppi bid iv, Ctx
- Without HE - Lactulose/Rifaxamin
- Follow up an ascitic fluid studies
- May benefit from Lasix and Aldactone
-- Though bp does not allow
Hypotension
- Continue midodrine, titrate up
-- Have room to titrate up
Hyponatremia
- Resolved
- Expected with cirrhosis
- Monitor
Anxiety
- Continue Buspar, clonazepam.
Chronic back pain
- Continue baclofen
History of cholelithiasis
- Continue ursodiol
Anticipated Discharge: > 48 hours
Subjective/Interval History
-
Date of Service: August 30, 2025
Seen and examined. No new complaints. No acute overnight events.
Objective Data
-
Labs:
Laboratory Results
08/30/25
05:17
WBC 5.2
Hgb 7.5 L
Hct 23.1 L
Plt Count 204 D
Sodium 137
Potassium 4.1
Chloride 115 H
Carbon Dioxide 18 L
BUN 13
Creatinine 0.6
Glucose 94
Calcium 7.6 L
Total Bilirubin 0.8
AST 45 H
ALT 13
Alkaline Phosphatase 94
Vital Signs:
Vital Signs
Temp Pulse Resp BP Pulse Ox
98.3 F 92 23 91/56 96
08/30/25 16:04 08/30/25 15:30 08/30/25 15:30 08/30/25 15:30 08/30/25 15:30
I&O
08/29/25 08/30/25 08/31/25
06:59 06:59 06:59
Intake Total 500 / 500
Balance 500 / 500
--- NOTE | 2025-08-30 17:53 | PTCARENOTE ---
RN noticed reddened area at R forearm/wrist area IV site that extended up arm; no swelling noted and area not warm. Patient c/o some tenderness when touched. NSS was infusing at 100ml/hr. IVF changed to L f/a after confirming patency. VAT RN made
aware and will be up to assess.
[2025-08-30] MEDS: KLONOPIN 0.5 MG PO (19:23)
--- NOTE | 2025-08-30 22:26 | PTCARENOTE ---
assumed care of patient. pt is AAOx3, forgetful at times. able to make needs known. some complaints of lower back pain, medicated with PRN meds per MAR. belly less round since paracentesis today, bandaid to right lower quadrant intact. +2 pitting
edema to bilateral legs. VSS. 94% RA. care ongoing.
[2025-08-31] VITALS (31 sets, daily range): BP systolic 94–137; BP diastolic 57–96; BMI 24.8
[2025-08-31] MEDS: ROXICODONE 5 MG PO ×4 (00:13→19:48)
[2025-08-31] MEDS: KLONOPIN 0.5 MG PO ×2 (05:02→19:48)
[2025-08-31 05:09] LABS: Hematocrit 23.2 % (37.0-47.0); Hemoglobin 7.0 g/dL (12.0-16.0); Mean Corp Hgb Conc. 30.2 g/dL (33.0-37.0); Mean Corpuscular Volume 85.0 fL (81.0-99.0); Platelet Count 193 10^3/uL (130-400); Red Cell Dist. Width 18.3 % (11.5-14.5)
[2025-08-31 05:18] LABS: INR 1.43; PT 18.0 Sec (11.4-14.6)
[2025-08-31 05:32] LABS: ALT (SGPT) 13 U/L (0-35); AST (SGOT) 41 U/L (14-36); Albumin 2.0 g/dl (3.5-5.0); Alkaline Phosphatase 95 U/L (38-126); Blood Urea Nitrogen 11 mg/dl (7-17); Calcium 7.7 mg/dl (8.4-10.2); Carbon Dioxide 21 mmol/L (22-30); Chloride 115 mmol/L (98-107); Estimated Creatinine Clearance 84 ml/min; Glucose 104 mg/dl (70-99); Magnesium 1.7 mg/dl (1.6-2.3); Potassium 3.8 mmol/L (3.5-5.1); Sodium 134 mmol/L (135-145); Total Protein 4.5 g/dl (6.3-8.2); eGFR > 60.00
--- NOTE | 2025-08-31 06:18 | PTCARENOTE ---
hgb this AM 7.0, no signs of bleeding noted. advised to keep hgb >7, notified covering [employer]- 1 unit of PRBC's ordered and infusing at this time.
[2025-08-31] MEDS: DUPHALAC/CHRONULAC 20 GRAMS PO ×2 (07:44→19:48)
[2025-08-31] MEDS: MIRALAX 17 GRAMS PO (07:44)
[2025-08-31] MEDS: ZYRTEC 10 MG PO (07:44)
[2025-08-31] MEDS: FEOSOL 325 MG PO (07:44)
[2025-08-31] MEDS: ACTIGALL 300 MG PO ×2 (07:46→19:47)
[2025-08-31] MEDS: BUSPAR 10 MG PO ×3 (07:46→23:06)
[2025-08-31] MEDS: XIFAXAN 550 MG PO ×2 (07:46→19:48)
[2025-08-31] MEDS: LIORESAL 10 MG PO (07:46)
[2025-08-31] MEDS: NSS (PRESERVATIVE FREE) IV (08:06)
--- NOTE | 2025-08-31 09:17 | PN.CDI ---
CDI
- -
CDI:
Physician Documentation Request
Admit Date: 08/29/25 11:35
Dear Doctor Ck,
Please review the following and provide your response in the progress notes.
Current documentation includes a diagnosis of hypotension.
Clinical Indicators:
- Progress note indicates hypotension
- 08/29 Update note 'asked to order Levophed for BP support...came back from GI lab with Levophed running at 6mcg/min'
- 08/29 RN note indicates Levophed started in GI lab
- 08/29 Hgb 5.6
Selected Entries
08/29/25
11:09 08/29/25
12:00 08/29/25
13:24
Blood pressure 80/56 73/50 86/51
08/29/25
14:04 08/29/25
14:09 08/29/25
18:31
Blood pressure 82/42 88/46 94/61
Please clarify which of the following is the most likely etiology of the above symptoms and treatment rendered:
Hypovolemic shock - indicate if due to surgery, trauma or other etiology
Hemorrhagic shock - indicate if due to surgery, trauma or other etiology
Shock, unknown type
Hypotension - indicate type/etiology, such as idiopathic, neurogenic or orthostatic, post-procedural, postoperative, due to hemodialysis, chronic, drug induced (indicate drug), etc.
Hypotension - unknown type/etiology
Other
Use of terms such as suspected, likely, concern for, or probable (associated with a specific diagnosis that is being evaluated, monitored, or treated as if it exists) are acceptable and can be coded in the inpatient setting, when documented at the
time of discharge.
Thank you,
Jyoti Villanueva RN
CDI Specialist
Please use your independent medical judgment in providing your response.
--- NOTE | 2025-08-31 12:20 | W.PN.GI.CBS2 ---
Today's Communication / Plan
-
Hgb 7.0, relatively stable
No clinical evidence of bleeding
ascites negative SBP
BP stable and no bleeding evident. Will start lasix 20, aldactone 50mg
Assessment / Plan
-
Pt is a 55yo with hx cirrhosis (diagnosed a couple years ago), alcohol abuse last drink prior to last admission in July , hepatic encephalopathy, UTI, GAVE on scope in [place] in March, and recurrent GI bleeding with concern for duodenal
dieulofoy on last EGD at [facility]. She now returns with continued dark stools but overnight noted more red stool with ring of burgundy stool. On return she is noted with hbg 5.6 with maroon heme + stool in ER. In review of chart . Over the summer she
began to follow with Dr. Garcia. She now returns with several admission with recurrent anemia and GI bleeding, ascites with multiple paracentesis. She has required over 13 units of blood since mid July with further transfusion on this
admission and reports transfusion at [facility]. She had had multiple EGD, flex sig, colonoscopy and recent transfer to [facility]. Per last note on 08/14 pt noted with bleeding dieulafoy lesion in duodenum that was treated with epi and clip and no VCE was
completed. She did also completed colonoscopy at [facility] with perianal skin tags, hematin entire colon, IH no active source of bleeding seen blood in TI. . Plan was for repeat labs in 1 week and return to ER with recurrent bleeding and consider
repeat EGD for retreatment vs IR embolization as area was treated and clipped and marked for embolization if needed. Pt is also scheduled follow up with Dr. Garcia in September. At this time pt has hx dysphagia with solids at times but
currently denies. She has diffuse abdominal pain with swelling in Leg and abdomen and feeling need for para but not tight ascites. Last par 10.16 for 3650ml . She denies NSAID or anticoagulation use. In addition to bleeding pt also with
prior imaging concern for multifocal lobular and confluent fatty infiltration LIRADS 3 on prior MRI in July.
07/23- CTA severe cirrhosis, large lesion of fatty attenuation over 80% with mass effect malignancy, steatosis, cirrhotic nodules, severe Portal HTN, midl colitis tamara colonopathy, diverticulosis, small perihepatic ascites
07/25MRI cirrhosis Multifocal regions of lobular and confluent fatty infiltration. Overall imaging features suggest classification of LIRADS 3. no PV or hepatic vein thrombosis mod ascites, cholelithiasis, GBWT with ascites, 7.5 CBD
multiple par 300- 2850 neg SBP( 07/27 atypical cell favor reactive mesothelia cells, inflammatory cell predominant RBC's present , repeat 08/01 neg malignant cells )
scopes:
03/2025 GAVE on scope in [place]
07/23/25- [facility] enteroscopy -GAVE without bleeding, nodule duodenum, blood in third portion of duodenum unable to clear, bleeding reflux from jejunum, hemospray, non bleeding jejunal ectasia, s/p APC
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
08/02/25 Do flex sig no old or fresh blood, diffuse colonopathy, hemorrhoids, diverticulosis
08/2025-EGD [facility]- Dieulafoy lesion second portion of duodenum with clot with clipping and epi injection
08/2025 - [facility]- colon- perianal skin tags, hematin entire colon, IH no active source of bleeding seen blood in TI
08/29/25- EGD [facility] - Normal esophagus Portal hypertensive gastropathy Gastric antral vascular ectasia without bleeding. A few duodenal polyp Previous tattoo seen in the proximal jejunum. No evidence of nearby AVM, previously treated, was
identified. No specimens collected. no blood seen
Impression:
Recurrent UGIB due to duodenal dieulafoy lesion, identified and clipped at [facility]
Prominent varices posterior wall D3
Ascites, LE edema
-recurrent admission with GI bleeding multiple scopes as above with massive transfusion requirement over last month
-anemia acute blood loss
-hypotension on admission requiring pressors
-recent EGD with concern for jejunal bleeding not well visualized then noted duodenal dieulofoy lesion
-diffuse colopathy
--hx cirrhosis - ETOH related follows with [facility]
-ascites with recent tap
-Multifocal regions of lobular and confluent fatty infiltration. Overall imaging features suggest classification of LIRADS 3 per recent MRI
-HE on lactulose and Xifaxan
-thrombocytosis
-metabolic acidosis
-hyponatremia
-leukocytosis
-coagulopathy
-GAVE on prior EGD
-hx falls
-bipolar disorder
-cholelithiasis/GBWT with ascites per imaging
-chronic back pain
-splenomegaly
current meld 3.0 16 on admission labs 08/29
discussed with patient overall concern for progression of liver disease-- she will need to further discussed Dr. Garcia for goals of care
Subjective
Subjective
Date of Service: August 31, 2025
No BMs. c/o abd distention, LE edema
Objective
Data Reviewed
Laboratory Data:
Laboratory Results
08/31/25 04:46
08/31/25 04:46
Laboratory Results
PT 18.0 Sec (11.4-14.6) H 08/31/25 04:46
INR 1.43 08/31/25 04:46
APTT 29.4 Sec (23.4-35.0) 08/29/25 09:09
Magnesium 1.7 mg/dl (1.6-2.3) 08/31/25 04:46
Total Bilirubin 0.6 mg/dl (0.2-1.3) 08/31/25 04:46
AST 41 U/L (14-36) H 08/31/25 04:46
ALT 13 U/L (0-35) 08/31/25 04:46
Alkaline Phosphatase 95 U/L (38-126) 08/31/25 04:46
Vital Signs and I&O:
Vital Signs
Temp Pulse Resp BP Pulse Ox
98.0 F 95 15 107/71 95
08/31/25 09:16 08/31/25 11:00 08/31/25 11:00 08/31/25 11:00 08/31/25 11:00
I&O
08/30/25 08/31/25 09/01/25
06:59 06:59 06:59
Intake Total 500 / 500 0 / 0 250 / 250
Output Total 200 / 200
Balance 500 / 500 -200 / -200 250 / 250
Physical Exam
Physical Exam
GI: Soft, Distended and Non Tender
Extremities: Edema
[2025-08-31] MEDS: NSS (PRESERVATIVE FREE) 10 ML IV ×2 (12:38→23:06)
[2025-08-31] MEDS: PROTONIX IV 40 MG IV ×2 (12:38→23:07)
--- NOTE | 2025-08-31 12:59 | CM ---
F/U: Patient had paracentesis yesterday and a given blood today. Patient has been here multiple times with GI Bleed and would discharge home with no needs. Discharge appears to be 1-2 days from now. PLAN: Home No Needs.
[2025-08-31] MEDS: ROCEPHIN 1000 MG IV (14:36)
[2025-08-31] MEDS: STERILE WATER FOR INJECTION 10 ML IV (14:36)
[2025-08-31] MEDS: LASIX 20 MG PO (14:36)
[2025-08-31] MEDS: ALDACTONE 50 MG PO (14:37)
--- NOTE | 2025-08-31 15:19 | W.PN.HOSP.TC ---
Today's Communication/Plan
-
Assessment / Plan
Assessment / Plan
NAD
Scleral Anicteric
MMM
No JVD
CTABL
RRR, S1/S2
Soft, NT, distended, BS+
Warm, Dry
AAOx3
Calm
GI bleed with hx of recent dieulafoy lesion and hx of GAVE syndrome
- Hgb stable, without active bleeding
- S/p Egd without active bleeding
- S/p 2u prbc
- BID IV PPI
Cirrhosis, decompensated
- GI bleed - ppi bid iv, Ctx
- Without HE - Lactulose/Rifaxamin
- Follow up an ascitic fluid studies
- May benefit from Lasix and Aldactone
-- Though bp does not allow
Hypotension
- Continue midodrine, titrate up
-- Have room to titrate up
Hyponatremia
- Resolved
- Expected with cirrhosis
- Monitor
Anxiety
- Continue Buspar, clonazepam.
Chronic back pain
- Continue baclofen
History of cholelithiasis
- Continue ursodiol
Anticipated Discharge: > 48 hours
Subjective/Interval History
-
Date of Service: August 31, 2025
Seen and examined. No new complaints. No acute overnight events
Objective Data
-
Labs:
Laboratory Results
08/31/25
04:46
WBC 3.6 L
Hgb 7.0 L
Hct 23.2 L
Plt Count 193
PT 18.0 H
INR 1.43
Sodium 134 L
Potassium 3.8
Chloride 115 H
Carbon Dioxide 21 L
BUN 11
Creatinine 0.6
Glucose 104 H
Calcium 7.7 L
Total Bilirubin 0.6
AST 41 H
ALT 13
Alkaline Phosphatase 95
Vital Signs:
Vital Signs
Temp Pulse Resp BP Pulse Ox
98.0 F 110 15 110/61 95
08/31/25 09:16 08/31/25 14:37 08/31/25 11:00 08/31/25 14:37 08/31/25 11:00
I&O
08/30/25 08/31/25 09/01/25
06:59 06:59 06:59
Intake Total 500 / 500 0 / 0 250 / 250
Output Total 200 / 200
Balance 500 / 500 -200 / -200 250 / 250
--- NOTE | 2025-08-31 16:22 | PTCARENOTE ---
Rec'd pt this AM. vital signs stable. one unit PRBC infused this AM. Pt remains anxious at times. requires prompting to participate in some of her hygiene care.
[2025-09-01] VITALS (11 sets, daily range): BP systolic 95–114; BP diastolic 61–83; BMI 24.8
[2025-09-01] MEDS: ROXICODONE 5 MG PO ×2 (02:21→08:33)
--- NOTE | 2025-09-01 04:30 | PTCARENOTE ---
Pt slept overnight. AAOx3. Drowsy, slow speech. Tearful when she had to use commode. Emotional support provided. Very unsteady on her feet, swaying back and forth. Voided adequate amounts yellow urine. VSS. Afebrile. SR/ST 90's-100's on CM. POX RA
95%. Abdomen firm, distended, ascitic with +BS. Rest of assessment unchanged from previous assessment. Maintained on Q2hr turns. Call grossman within reach. Will continue to monitor.
[2025-09-01 05:38] LABS: Hematocrit 29.9 % (37.0-47.0); Hemoglobin 9.7 g/dL (12.0-16.0); Mean Corp Hgb Conc. 32.4 g/dL (33.0-37.0); Mean Corpuscular Volume 82.6 fL (81.0-99.0); Platelet Count 156 10^3/uL (130-400); Red Cell Dist. Width 18.0 % (11.5-14.5)
[2025-09-01 05:56] LABS: ALT (SGPT) 17 U/L (0-35); AST (SGOT) 72 U/L (14-36); Albumin 2.4 g/dl (3.5-5.0); Alkaline Phosphatase 100 U/L (38-126); Blood Urea Nitrogen 10 mg/dl (7-17); Calcium 8.2 mg/dl (8.4-10.2); Carbon Dioxide 19 mmol/L (22-30); Chloride 111 mmol/L (98-107); Estimated Creatinine Clearance 84 ml/min; Glucose 103 mg/dl (70-99); Magnesium 1.6 mg/dl (1.6-2.3); Potassium 4.1 mmol/L (3.5-5.1); Sodium 132 mmol/L (135-145); Total Protein 5.3 g/dl (6.3-8.2); eGFR > 60.00
--- NOTE | 2025-09-01 07:51 | W.PN.GI.CBS2 ---
Today's Communication / Plan
-
Hgb up to 9.7.
No further bleeding
Continue low dose lasix 20mg, aldactone 50mg daily for now. Check BMP after d/c
Has appt with Dr Garcia in Sep
Will sign off at this time. Please call back if needed
Assessment / Plan
-
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
recently at [place]. She now returns with continued dark stools but overnight noted more red stool with ring of burgundy stool. Hbg 5.6 with maroon stool. Over the summer she began to follow with Dr. Garcia. Several admission with recurrent
anemia and GI bleeding, ascites with multiple paracentesis. She has required over 13 units of blood since mid July with further transfusion on this admission and reports transfusion at [facility]. She had had multiple EGD, flex sig, colonoscopy and
recent transfer to [facility]. EGD at [facility] showed bleeding dieulafoy lesion in duodenum that was treated with epi and clip and no VCE was completed. She did also completed colonoscopy at [facility] with perianal skin tags, hematin entire colon, IH no active
source of bleeding seen blood in TI. Plan was for repeat labs in 1 week and return to ER with recurrent bleeding and consider repeat EGD for retreatment vs IR embolization as area was treated and clipped and marked for embolization if needed. Pt is
also scheduled follow up with Dr. Garcia in September. In addition to bleeding pt also with prior imaging concern for multifocal lobular and confluent fatty infiltration LIRADS 3 on prior MRI in July.
07/23- CTA severe cirrhosis, large lesion of fatty attenuation over 80% with mass effect malignancy, steatosis, cirrhotic nodules, severe Portal HTN, midl colitis tamara colonopathy, diverticulosis, small perihepatic ascites
07/25- MRI cirrhosis Multifocal regions of lobular and confluent fatty infiltration. Overall imaging features suggest classification of LIRADS 3. no PV or hepatic vein thrombosis mod ascites, cholelithiasis, GBWT with ascites, 7.5 CBD
08/08 CTA- No active bleed. Prominent varices within posterior wall of third portion duodenum, but no extravacation into lumen of duodenum. Portal colopathy. Moderate/large amt ascites, Cirrhosis, no convincing evidence HCC. Splenomegaly.
Cholelithiasis. Edema HOP, likely from ascites
multiple paracenteses neg SBP (07/27 atypical cell favor reactive mesothelia cells, inflammatory cell predominant RBC's present , repeat 08/01 neg malignant cells )
scopes:
03/2025 GAVE on scope in [place]
07/23/25- [facility] enteroscopy -GAVE without bleeding, nodule duodenum, blood in third portion of duodenum unable to clear, bleeding reflux from jejunum, hemospray, non bleeding jejunal ectasia, s/p APC, tattoo
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
08/02/25 Do flex sig no old or fresh blood, diffuse colonopathy, hemorrhoids, diverticulosis
08/2025-EGD [facility]- Dieulafoy lesion second portion of duodenum with clot with clipping and epi injection
08/2025 - Nav- colon- perianal skin tags, hematin entire colon, IH no active source of bleeding seen blood in TI
08/29/25- EGD F[facility] - Normal esophagus Portal hypertensive gastropathy Gastric antral vascular ectasia without bleeding. A few duodenal polyp Previous tattoo seen in the proximal jejunum. No evidence of nearby AVM, previously treated, was
identified. No specimens collected. no blood seen
Impression:
Recurrent UGIB due to duodenal dieulafoy lesion, identified and clipped at [facility]
Prominent varices posterior wall D3
Ascites, LE edema
hx cirrhosis - ETOH related follows with [facility]. MELD 3.0 = 16 on admission labs 08/29
-ascites with recent tap
-Multifocal regions of lobular and confluent fatty infiltration. Overall imaging features suggest classification of LIRADS 3 per recent MRI
-HE on lactulose and Xifaxan
-GAVE on prior EGD
Subjective
Subjective
Date of Service: September 01, 2025
No complaints. Legs feel better, less swollen. Denies abd pain. No bleeding
Objective
Data Reviewed
Laboratory Data:
Laboratory Results
09/01/25 04:55
09/01/25 04:55
Laboratory Results
PT 18.0 Sec (11.4-14.6) H 08/31/25 04:46
INR 1.43 08/31/25 04:46
APTT 29.4 Sec (23.4-35.0) 08/29/25 09:09
Magnesium 1.6 mg/dl (1.6-2.3) 09/01/25 04:55
Total Bilirubin 1.1 mg/dl (0.2-1.3) 09/01/25 04:55
AST 72 U/L (14-36) H 09/01/25 04:55
ALT 17 U/L (0-35) 09/01/25 04:55
Alkaline Phosphatase 100 U/L (38-126) 09/01/25 04:55
Vital Signs and I&O:
Vital Signs
Temp Pulse Resp BP Pulse Ox
97.9 F 95 11 101/63 96
09/01/25 07:37 09/01/25 06:00 09/01/25 06:00 09/01/25 06:00 09/01/25 00:00
I&O
08/31/25 09/01/25 09/02/25
06:59 06:59 06:59
Intake Total 0 / 0 450 / 450
Output Total 200 / 200 1100 / 1100
Balance -200 / -200 -650 / -650
Physical Exam
Physical Exam
GI: Soft, Distended (mild) and Non Tender
[2025-09-01] MEDS: ZYRTEC 10 MG PO (08:34)
[2025-09-01] MEDS: ACTIGALL 300 MG PO (08:34)
[2025-09-01] MEDS: ALDACTONE 50 MG PO (08:34)
[2025-09-01] MEDS: BUSPAR 10 MG PO (08:34)
[2025-09-01] MEDS: XIFAXAN 550 MG PO (08:35)
[2025-09-01] MEDS: MIRALAX 17 GRAMS PO (08:35)
[2025-09-01] MEDS: LASIX 20 MG PO (08:35)
[2025-09-01] MEDS: FEOSOL 325 MG PO (08:35)
[2025-09-01] MEDS: DUPHALAC/CHRONULAC 20 GRAMS PO (08:35)
[2025-09-01] MEDS: LIORESAL 10 MG PO (08:35)
[2025-09-01] MEDS: ROCEPHIN 1000 MG IV (13:03)
[2025-09-01] MEDS: PROTONIX IV 40 MG IV (13:03)
[2025-09-01] MEDS: NSS (PRESERVATIVE FREE) 10 ML IV (13:03)
[2025-09-01] MEDS: STERILE WATER FOR INJECTION 10 ML IV (13:03)
--- NOTE | 2025-09-01 15:28 | CM ---
Patient has been medically cleared for discharge to home with no additional skilled services. Patient has arranged for transport home.
--- NOTE | 2025-09-01 16:11 | W.DCSUMMARY ---
Addendum entered and electronically signed by Abdelrahman Stover MD 09/01/25 16:27:
brief episode of hemorrhagic shock
Original Note:
Discharge Summary
Discharge Data
Date of Admission: 08/29/25
Date of Discharge: 09/01/25
-
Pending Results: No
Hospital Course
55 history of cirrhosis, hepatic encephalopathy, UTI, gi bleed with dileuafoy lesion repaired at [facility]
Presents for dark stools that changed to bright red blood per rectum found to have a hemoglobin of 5.6 requiring initially 2 units of PRBC and recieved a total of 3 units with a stable hemoglobin now. GI consulted as there is a known history of
recurrent GI bleeding cirrhosis with decompensation from ascites. Was urgently taken to the endoscopy suite for upper endoscopy without evidence of active bleeding. Full EGD report below. Although throughout the procedure blood pressure decreased
and required pressor support for a brief period of time. Midodrine was uptitrated. GI evaluated started Aldactone and Lasix. Also did receive 1 paracentesis.
GI added on low-dose Lasix and Aldactone. Will need repeat BMP in less than 1 week with PCP
EGD
Findings:
- The examined esophagus was normal.
- Mild portal hypertensive gastropathy was found in the entire
examined stomach.
- Mild gastric antral vascular ectasia without bleeding was present
in the gastric antrum.
- A few small polyps with no bleeding were found in the second
portion of the duodenum.
- Previous tattoo seen in the proximal jejunum. No evidence of
nearby AVM, previously treated, was identified.
Impression:
- Normal esophagus.
- Portal hypertensive gastropathy.
- Gastric antral vascular ectasia without bleeding.
- A few duodenal polyps.
- Previous tattoo seen in the proximal jejunum. No evidence of
nearby AVM, previously treated, was identified.
- No specimens collected.
- No evidence of new or old blood found
Seen and examined on day of discharge which was 09/01/2025. No new complaints. No acute overnight events.
NAD
Scleral Anicteric
MMM
No JVD
CTABL
RRR, S1/S2
Soft, NT, distended - mild, BS+
Warm, Dry
AAOx3
Calm
More than 30 minutes spent in discharge including
Final examination of the patient
Summarizing hospital stay
Instructions for continuing care to all relevant caregivers
Preparation of discharge records, prescriptions, and referral forms
Total time spent (in minutes): 33mins
Discharge Plan
-
Patient Disposition: Home (Routine Discharge)
Discharge Diagnosis/Procedures: GI Bleed
Acute blood loss anemia
Decompensated cirrhosis
Condition: Good
Diet: As tolerated and Restrict fluids to 48 oz
Activity: As tolerated
Specialty Instructions: Weigh Daily- Call MD for wt gain/loss 3 lbs overnight/5 lbs in 1 week
Activity Restrictions/Additional Instructions:
Presents for dark stools that changed to bright red blood per rectum found to have a hemoglobin of 5.6 requiring initially 2 units of PRBC and recieved a total of 3 units with a stable hemoglobin now. GI consulted as there is a known history of
recurrent GI bleeding cirrhosis with decompensation from ascites. Was urgently taken to the endoscopy suite for upper endoscopy without evidence of active bleeding. Full EGD report below. Although throughout the procedure blood pressure decreased
and required pressor support for a brief period of time. Midodrine was uptitrated. GI evaluated started Aldactone and Lasix. Also did receive 1 paracentesis.
EGD
Findings:
- The examined esophagus was normal.
- Mild portal hypertensive gastropathy was found in the entire
examined stomach.
- Mild gastric antral vascular ectasia without bleeding was present
in the gastric antrum.
- A few small polyps with no bleeding were found in the second
portion of the duodenum.
- Previous tattoo seen in the proximal jejunum. No evidence of
nearby AVM, previously treated, was identified.
Impression:
- Normal esophagus.
- Portal hypertensive gastropathy.
- Gastric antral vascular ectasia without bleeding.
- A few duodenal polyps.
- Previous tattoo seen in the proximal jejunum. No evidence of
nearby AVM, previously treated, was identified.
- No specimens collected.
- No evidence of new or old blood found
Referrals:
Daniel Hunter MD [Active, Gastroenterology] - in two to four weeks
Chichi Garrison DO [Family Provider, Family Practice]
Prescriptions:
New
furosemide 20 mg Tablet
20 mg PO DAILY Qty: 30 0RF
spironolactone 50 mg Tablet
50 mg PO DAILY Qty: 30 0RF
midodrine 5 mg tablet
5 mg PO TID Qty: 90 0RF
Continued
clonazepam 0.5 mg Tablet
0.5 mg PO TIDPRN PRN (Reason: anxiety)
lactulose 10 gram/15 mL Solution
30 ml PO BID
rifaximin 550 mg Tablet
550 mg PO BID
baclofen 10 mg Tablet
10 mg PO DAILY
trazodone 50 mg Tablet
50 - 100 mg PO HSPRN PRN (Reason: sleep)
buspirone 10 mg Tablet
10 mg PO TID
ursodiol 300 mg Capsule
300 mg PO BID
cetirizine [Zyrtec] 10 mg Tablet
10 mg PO DAILY
ferrous sulfate 325 mg (65 mg iron) Tablet
325 mg PO DAILY
dextroamphetamine-amphetamine [Adderall] 20 mg Tablet
20 mg PO TID
Patient Comments:
08/29/2025: Pt doesn't want this med while in hospital
polyethylene glycol 3350 [Miralax] 17 gram Powder In Packet
17 g PO DAILY
Discontinued
midodrine 2.5 mg tablet
2.5 mg PO TID@0800,1300,1800
Rx Instructions:
*Avoid dosing after evening meal or within 4 hours of bedtime*
Discharge Orders:
Discharge Patient (As Directed); Ordered 09/01/25
Ordered By: Abdelrahman Stover
Discharge Date and Time
Discharge Date/Time: 09/01/25 13:56
Print Language: MALTESE
== END 2025-09-01 13:56 | disposition home or self-care (01) | DRG 377 ==
LOC: IMU 11:35
PROVIDERS: Nurse Practitioner Adult Health; Radiology Diagnostic Radiology; ADMITTING PHYSICIAN Hospitalist; EMERGENCY PHYSICIAN Emergency Medicine; FAMILY PHYSICIAN Family Medicine; OTHER PHYSICIAN Internal Medicine
PROC: 30233N1 Transfusion of Nonautologous Red Blood Cells into Peripheral Vein, Percutaneous Approach (ICD-10-PCS; 2025-08-29)
PROC: 0DJ08ZZ Inspection of Upper Intestinal Tract, Via Natural or Artificial Opening Endoscopic (ICD-10-PCS; 2025-08-29)
PROC: 0W9G3ZZ Drainage of Peritoneal Cavity, Percutaneous Approach (ICD-10-PCS; 2025-08-30)
DX: K31.82 Dieulafoy lesion (hemorrhagic) of stomach and duodenum (principal); K31.811 Angiodysplasia of stomach and duodenum with bleeding; R57.8 Other shock; D62 Acute posthemorrhagic anemia; D68.9 Coagulation defect, unspecified; E87.1 Hypo-osmolality and hyponatremia; E87.20 Acidosis, unspecified; K76.6 Portal hypertension; F10.20 Alcohol dependence, uncomplicated; K70.31 Alcoholic cirrhosis of liver with ascites; K80.20 Calculus of gallbladder without cholecystitis without obstruction; F31.9 Bipolar disorder, unspecified; F41.9 Anxiety disorder, unspecified; K31.89 Other diseases of stomach and duodenum; K31.7 Polyp of stomach and duodenum; D75.839 Thrombocytosis, unspecified; G89.29 Other chronic pain; M54.9 Dorsalgia, unspecified; R16.1 Splenomegaly, not elsewhere classified; Z87.891 Personal history of nicotine dependence; Z87.440 Personal history of urinary (tract) infections; Z80.0 Family history of malignant neoplasm of digestive organs; Z79.899 Other long term (current) drug therapy
CPT/HCPCS: 49083; 71045; 80053; 80306; 80307; 82042; 82150; 83615; 83735; 84157; 85025; 85027; 85610; 85730; 86850; 86900; 86901; 86920; 87015; 87070; 87205; 88112; 88305; 89051; 93005; 96361; 96374; 99291; 99406; P9016; P9047

== ENCOUNTER 2025-09-05 17:33 | Inpatient (IN) | payer OTHER, SELFPAY ==
[2025-09-05] VITALS (8 sets, daily range): BP systolic 85–125; BP diastolic 45–74; PULSE 108–110; BMI 23.3; BMI 24.8
--- NOTE | 2025-09-05 15:34 | ED.GENMED ---
History of Present Illness
General
Chief Complaint: Rectal Bleeding
Source: patient
Exam Limitations: none
Time Seen by Provider: 09/05/25 15:19
History of Present Illness
History of Present Illness:
See MDM
Past History
Past History
ED Past Medical History: Psychiatric and Other (Alcoholic liver cirrhosis)
ED Past Surgical History: None
Social History
Tobacco: Former smoker
Alcohol: Former
Drug: None
Personal: Single
Living: with roommate
Phy Exam
Physical Exam
Physical Exam:
See MDM
Course
Orders/Labs/Results
Orders:
Orders
09/05/25 15:24
Complete Blood Count/With Diff Urgent
Comprehensive Metabolic Panel Urgent
INR [Prothrombin Time] Routine
09/05/25 15:33
Consult Gastroenterology [GASTROINTESTINAL CONSULT] Routine
Consulting Provider: Lisa Hodge
Was physician already notified: Yes
09/05/25 17:26
Admit/Transfer Patient As Directed
Co-Sign Provider:
Level of Care: Inpatient admission
Assign to:: Medical/Surgical
Physician / Group: Mag
Diagnosis: BRBPR
Reason for Hospitalization: BRBPR
Expected length of stay greater than two midnights?: Yes
ELOS- Estimated Length of Stay in days: 3
I certify the patient meets the requirements for IP care: Yes
PRN Pain Medication Management As Directed
May give lesser potent ordered pain med per pt: Yes
preference::
Protocol:: Medication orders for pain may be administered in a
manner that supports deferring to patient preference
when the pt is:
- Requesting an ordered lesser potent pain medication.
Least to most potent pain medications are defined
as: acetaminophen < NSAID < tramadol < opioids
(morphine, oxycodone, hydromorphone).
- Requesting a lesser dose of the same medication IF
ORDERED.
- Requesting a less intrusive route of administration
if both routes are prescribed by the provider (PO <
IV).
09/05/25 17:28
Code Status As Directed
Resuscitation Status: Full Code
09/05/25 22:00
Hydrocortisone [Hydrocortisone 2.5% Cream] See Dose Instructions TOPICAL TID
Abnormal Lab Results
09/05/25
15:24
RBC 3.28 L 10^6/uL
(4.20-5.40)
Hgb 8.5 L g/dL
(12.0-16.0)
Hct 27.7 L %
(37.0-47.0)
MCH 25.9 L pg
(27.0-31.0)
MCHC 30.7 L g/dL
(33.0-37.0)
RDW 16.3 H %
(11.5-14.5)
MPV 10.6 H fL
(7.4-10.4)
Abs Immat Gran (auto) 0.1 H 10^3/uL
(0-0.05)
Absolute Lymphs (auto) 1.0 L 10^3/uL
(1.2-3.4)
Immature Gran % 1.1 H %
(0-0.5)
Lymphocytes % 16.2 L %
(20.5-51.1)
Monocytes % 9.5 H %
(1.7-9.3)
PT 17.7 H Sec
(11.4-14.6)
Sodium 129 L mmol/L
(135-145)
Calcium 8.1 L mg/dl
(8.4-10.2)
AST 55 H U/L
(14-36)
Total Protein 5.7 L g/dl
(6.3-8.2)
Albumin 2.6 L g/dl
(3.5-5.0)
09/05/25 15:24
09/05/25 15:24
Vital Signs
Initial and Last Documented VS:
Initial Vital Signs
Temp Pulse Resp BP Pulse Ox
98.1 F 79 18 125/68 98
09/05/25 13:32 09/05/25 13:32 09/05/25 13:32 09/05/25 13:32 09/05/25 13:32
Last Documented Vital Signs
Temp Pulse Resp BP Pulse Ox
98.1 F 79 18 106/69 98
09/05/25 13:32 09/05/25 13:32 09/05/25 13:32 09/05/25 17:04 09/05/25 17:04
MDM/Problems Addressed
Differential Diagnosis Includes:
Note:
CHIEF COMPLAINT(S)
Rectal bleeding.
HISTORY OF PRESENT ILLNESS
The patient is a 55-year-old female with a recent history of rectal bleeding. She reports that initially, the bleeding was dark without blood being expelled, but recently she experienced bright red bleeding. Patient was recently admitted and
underwent an EGD showing evidence of dieulafoy. Last night, she had a bowel movement that was followed by significant bleeding, described as 'just blood' with no stool. This morning, she experienced similar bleeding again. The patient denies the use
of blood thinners. She expressed concern about the possibility of the bleeding originating from a hemorrhoid, indicating that she recently noticed a considerable amount of blood without apparent cause during bathroom use. She recently underwent
three transfusions and her current concern is heightened by this recent history.
PHYSICAL EXAM
General: Alert, no acute distress.
Skin: Warm, dry.
Head: Normocephalic, atraumatic
Neck: Appears supple, trachea midline.
Eyes, Ears, Nose, Mouth, and Throat: Moist mucous membranes
Cardiovascular: No signs of cyanosis
Respiratory: Respirations are non-labored.
Abdomen: Non-distended
Rectal: Exam performed with nurse Alvarado at bedside. External hemorrhoid noted with no active bleeding
Musculoskeletal: No deformities
Neurological: No focal neurological deficit observed.
Psychiatric: Cooperative, appropriate mood and affect.
SUMMARY OF ENCOUNTER
The patient presented to the emergency department for rectal bleeding, which has recently turned bright red. She has a history of recent substantial bleeding and required three transfusions. The physical examination confirmed the presence of a
scabbed hemorrhoid without active bleeding, suggesting the bleeding may be internal and not solely due to hemorrhoids. The plan involves reviewing further blood work and consulting with the gastrointestinal (GI) team for potential intervention.
DIFFERENTIAL DIAGNOSIS
The Differential Diagnosis includes, in no particular order and is not limited to:
- Hemorrhoidal bleed
- Gastrointestinal bleed from a lesion or ulcer
- Diverticulosis
- Angiodysplasia
- Colonic carcinoma
- Inflammatory bowel disease
- Rectal varices
- Ischemic colitis
- Anorectal varices
- Peptic ulcer disease
MEDICAL DECISION MAKING
-Complexity of Data Reviewed:
Chronic conditions affecting care include recent transfusions for previous gastrointestinal bleed concerns. Differential diagnosis includes a range of gastrointestinal and rectal conditions.
-Data:
Category 1:
Tests and documents: Planned to review current blood work results to assess if hemoglobin levels have stabilized.
Category 3:
Discussion of management with the GI team: The GI team was informed of the patients arrival and ongoing symptoms. A decision will be made based on the results of the labs on whether further interventions, such as a colonoscopy, are necessary.
-Risk:
Prescription drug management or therapy requiring monitoring for toxicity and decisions regarding diagnostic testing with risks are being handled in consultation with the GI team and are pending blood work results. The patients recent need for
transfusions adds significant risk to her condition, warranting careful monitoring and planning for potential escalation of care if necessary.
DIAGNOSIS
- Rectal bleeding, unspecified (ICD-10: K62.5)
- History of gastrointestinal bleeding (ICD-10: K92.2)
SUMMARY OF ENCOUNTER
The patient returned to the emergency department due to rectal bleeding. She has a recent history of being admitted for upper gastrointestinal bleeding and now presents with signs suggestive of lower gastrointestinal bleeding. Her recent blood work
shows a one-point drop in hemoglobin levels. The patient is not on any blood thinners. Given the persistent nature of her bleeding, there is a need for overnight admission for further evaluation and management by the gastrointestinal team.
DISPOSITION
Admit
ASSESSMENT
The patient is experiencing persistent rectal bleeding with a recent history of upper gastrointestinal bleeding and a drop in hemoglobin levels, indicating potential ongoing blood loss.
MANAGEMENT OF THE PATIENTS CARE WAS DISCUSSED WITH
The management plan includes collaboration with the gastrointestinal team to evaluate the source and cause of the bleeding.
PLAN
Admit the patient overnight for monitoring and evaluation. Consult the gastrointestinal team for further assessment and potential intervention for the rectal bleeding.
INDEPENDENT REVIEW OF LABS AND INTERPRETATION OF TESTS
My independent review of the patients hemoglobin level indicates a one-point drop, which is concerning for ongoing blood loss.
MEDICAL DECISION MAKING
-Complexity of Data Reviewed: Chronic conditions affecting care include recent gastrointestinal bleeding and the need for multiple transfusions. The differential diagnoses considered are hemorrhoidal bleed, gastrointestinal bleed from a lesion or
ulcer, diverticulosis, angiodysplasia, colonic carcinoma, inflammatory bowel disease, rectal varices, ischemic colitis, anorectal varices, and peptic ulcer disease.
-Data:
Category 3: Discussion of management with the gastrointestinal team for further evaluation of rectal bleeding and decision for potential intervention.
DIAGNOSIS
Rectal bleeding, unspecified (ICD-10: K62.5), History of gastrointestinal bleeding (ICD-10: K92.2)
*Pulse Oximetry
SaO2: 98
Oxygen Mode of Delivery: Room air
ED Attending Note
-
Portions of this chart may have been created with voice recognition software.� Occasional wrong word or��sound alike� substitutions may have occurred due to the inherent limitations of voice recognition software.
Discharge Plan
Departure
Patient Disposition: Admit
Date of Disposition: 09/05/25
Time of Disposition: 16:59
Admit to: Telemetry
Presentation/result/management discussed w/ accepting MD/DO: Hospitalist
Discharge Problem:
Painless rectal bleeding
Prescriptions:
No Action
clonazepam 0.5 mg Tablet
0.5 mg PO TIDPRN PRN (Reason: anxiety)
lactulose 10 gram/15 mL Solution
30 ml PO BID
rifaximin 550 mg Tablet
550 mg PO BID
baclofen 10 mg Tablet
10 mg PO DAILY
trazodone 50 mg Tablet
200 mg PO HS
buspirone 10 mg Tablet
10 mg PO TID
ursodiol 300 mg Capsule
300 mg PO BID
cetirizine [Zyrtec] 10 mg Tablet
10 mg PO DAILY
ferrous sulfate 325 mg (65 mg iron) Tablet
325 mg PO DAILY
dextroamphetamine-amphetamine [Adderall] 20 mg Tablet
20 mg PO TID
Patient Comments:
08/29/2025: Pt doesn't want this med while in hospital
polyethylene glycol 3350 [Miralax] 17 gram Powder In Packet
17 g PO DAILY
furosemide 20 mg Tablet
20 mg PO DAILY Qty: 30 0RF
spironolactone 50 mg Tablet
50 mg PO DAILY Qty: 30 0RF
midodrine 5 mg tablet
5 mg PO TID Qty: 90 0RF
albuterol sulfate [ProAir HFA] 90 mcg/actuation Hfa Aerosol Inhaler
2 puff INHALATION R Q6HPRN PRN (Reason: sob)
Rexulti 1 mg Tablet
1 mg PO DAILY
Referrals:
Chichi Garrison DO [Family Provider, Family Practice]
Interventions
Interventions:
*Risk Screen - Suicide Last Done: 09/05/25 17:10
*General Assessment Last Done: 09/05/25 14:37
*Neglect/Abuse Screening Last Done: 09/05/25 17:10
*ED- Fall Risk Assessment Last Done: 09/05/25 14:37
*ED COVID-19 Vaccine History Last Done: 09/05/25 14:37
*ED Influenza Vaccine History Last Done: 09/05/25 14:37
VN-Vzwyed-Mbkpmvplsp Assessment Last Done: 09/05/25 14:37
ED- Cardiac Assessment Last Done: 09/05/25 14:37
ED- Pulmonary Assessment Last Done: 09/05/25 14:37
Discharge Date and Time
Print Language: TURKISH
[2025-09-05 15:36] LABS: Hematocrit 27.7 % (37.0-47.0); Hemoglobin 8.5 g/dL (12.0-16.0); Mean Corp Hgb Conc. 30.7 g/dL (33.0-37.0); Mean Corpuscular Volume 84.5 fL (81.0-99.0); Nucleated Red Blood Cells % 0 %; Platelet Count 304 10^3/uL (130-400); Red Cell Dist. Width 16.3 % (11.5-14.5)
[2025-09-05 15:42] LABS: INR 1.40; PT 17.7 Sec (11.4-14.6)
[2025-09-05 15:51] LABS: ALT (SGPT) 14 U/L (0-35); AST (SGOT) 55 U/L (14-36); Albumin 2.6 g/dl (3.5-5.0); Alkaline Phosphatase 111 U/L (38-126); Blood Urea Nitrogen 11 mg/dl (7-17); Calcium 8.1 mg/dl (8.4-10.2); Carbon Dioxide 25 mmol/L (22-30); Chloride 101 mmol/L (98-107); Estimated Creatinine Clearance 82 ml/min; Glucose 76 mg/dl (70-99); Potassium 4.2 mmol/L (3.5-5.1); Sodium 129 mmol/L (135-145); Total Protein 5.7 g/dl (6.3-8.2); eGFR > 60.00
--- NOTE | 2025-09-05 16:31 | CON.GI ---
Addendum entered and electronically signed by Lisa Hodge DO 09/05/25 17:33:
Patient seen and examined independently of KASSANDRA. I agree with her note with my additions below
Patient is a 55-year-old female with decompensated alcoholic cirrhosis with ascites currently not listed, prior hepatic encephalopathy on lactulose and rifaximin, multiple issues with recurrent GI bleeding with concerns for duodenal dieulofoy during
last admission just recently in August with transfer to [place]. At that time she had repeat current maroon stools. Today she comes in with 2 episodes of less than a handful of bright red blood. Last episode was this morning. She came to the
emergency room currently hemodynamically stable with no further bleeding. Her hemoglobin is at baseline at 8.5. Her platelets and unusually normal in the 300s. INR 1.4
On exam she has an enlarged external hemorrhoid that has a scab over it which may have been the culprit. Since she has stable would just keep her overnight for observation, start hemorrhoid cream 3 times daily. Monitor for any overt bleeding check
hemoglobin in the morning.
Tomorrow morning she is due for her paracentesis will get paracentesis then discharged as long as everything is stable.
Patient has follow-up with Dr. Garcia at [place] on September 21 at 1 PM
Once daily PPI, lactulose twice daily, Xifaxan twice daily, chronic ursodiol patient was on prior to admission.
Reviewed multiple records including outpatient [place] records
Original Note:
Consultation
-
Date/Time Consultation Requested: 09/05/25 1545
Date/Time Consultation Performed: 09/05/25 1600
Requesting Provider: Ibrahima Saab DO
Performing Provider: KASSANDRA Hurtado, Lisa Hodge DO
Reason for Consultation: GI bleeding
Medical History
Chief Complaint / HPI
Chief Complaint: rectal bleeding
History of Present Illness:
Pt is a 55yo with hx cirrhosis (diagnosed a couple years ago), alcohol abuse last drink prior to last admission in July , hepatic encephalopathy, UTI, GAVE on scope in [place] in March, and recurrent GI bleeding with concern for duodenal
dieulofoy on last EGD at [place]. She had multiple admission with anemia and bleeding. She was last admitted 08/29-09/01 with recurrent bleeding and hbg down to 5.6 with marroon stool. Repeat EGD with no bleeding seen. Pt completed para 08/30 for
2600ml with neg SBP and pt was discharge. She now present with larger amount of red blood 09/04 and 09/05. On admission hbg 8.5.
per prior chart review Over the summer she began to follow with Dr. Garcia. She now returns with several admission with recurrent anemia and GI bleeding, ascites with multiple paracentesis. She has required over 13 units of blood since
mid July with further transfusion on this admission and reports transfusion at [place]. She had had multiple EGD, flex sig, colonoscopy and recent transfer to [place]. Per last note on 08/14 pt noted with bleeding Dieulafoy lesion in duodenum that
was treated with epi and clip and no VCE was completed. She did also completed colonoscopy at [place] with perianal skin tags, hematin entire colon, IH no active source of bleeding seen blood in TI. Plan was for repeat labs and return to ER with
recurrent bleeding and consider repeat EGD for retreatment vs IR embolization as area was treated and clipped and marked for embolization if needed. Pt is also scheduled follow up with Dr. Garcia in September.
At this time pt has hx dysphagia with solids at times but currently denies. She has diffuse abdominal pain with swelling in Leg and abdomen and feeling need for para but not tight ascites.. She denies NSAID or anticoagulation use. In
addition to bleeding pt also with prior imaging concern for multifocal lobular and confluent fatty infiltration LIRADS 3 on prior MRI in July.
07/23- CTA severe cirrhosis, large lesion of fatty attenuation over 80% with mass effect malignancy, steatosis, cirrhotic nodules, severe Portal HTN, midl colitis tamara colonopathy, diverticulosis, small perihepatic ascites
07/25MRI cirrhosis Multifocal regions of lobular and confluent fatty infiltration. Overall imaging features suggest classification of LIRADS 3. no PV or hepatic vein thrombosis mod ascites, cholelithiasis, GBWT with ascites, 7.5 CBD
multiple par 300- 3650 neg SBP( 07/27 atypical cell favor reactive mesothelia cells, inflammatory cell predominant RBC's present , repeat 08/01 neg malignant cells ) last 08/23
scopes:
03/2025 GAVE on scope in [place]
07/23/25- [facility] enteroscopy -GAVE without bleeding, nodule duodenum, blood in third portion of duodenum unable to clear, bleeding reflux from jejunum, hemospray, non bleeding jejunal ectasia, s/p APC
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
08/02/25 Do flex sig no old or fresh blood, diffuse colonopathy, hemorrhoids, diverticulosis
08/2025-EGD [place]- Dieulafoy lesion second portion of duodenum with clot with clipping and epi injection
08/2025 - [facility]- colon- perianal skin tags, hematin entire colon, IH no active source of bleeding seen blood in TI
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 No evidence of AVM or blood No specimens collected
Past Medical History
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
Social History
Tobacco: Vaping
Alcohol: Chronic Alcoholic (States last drink was 2 months ago, positive Peth 03/2025)
Drug: Marijuana
Personal: Single
Living: With Roomate
Employment: Disabled
Family History
Family History: Other (Grandmother history of colon-rectal cancer, all other GI malignancies negative)
Allergies / Home Medications
Allergy/AdvReac Type Severity Reaction Status Date / Time
No Known Allergies Allergy Verified 08/23/25 10:00
�Medication �Instructions �Recorded
clonazepam 0.5 mg tablet 0.5 mg PO TIDPRN PRN anxiety 01/31/25
lactulose 10 gram/15 mL oral 30 ml PO BID Liver Issues 03/25/25
solution
rifaximin 550 mg tablet 550 mg PO BID Liver Issues 03/25/25
baclofen 10 mg tablet 10 mg PO DAILY Neurological 07/23/25
Condition
buspirone 10 mg tablet 10 mg PO TID Mental Health/Anxiety 08/01/25
trazodone 50 mg tablet 200 mg PO HS 08/01/25
ursodiol 300 mg capsule 300 mg PO BID Liver Issues 08/01/25
cetirizine 10 mg tablet (Zyrtec) 10 mg PO DAILY Allergies 08/15/25
dextroamphetamine-amphetamine 20 20 mg PO TID Mental Health/Anxiety 08/15/25
mg tablet (Adderall)
ferrous sulfate 325 mg (65 mg 325 mg PO DAILY Supplement 08/15/25
iron) tablet
polyethylene glycol 3350 17 gram 17 g PO DAILY Constipation 08/29/25
oral powder packet (Miralax)
furosemide 20 mg tablet 20 mg PO DAILY #30 tabs 09/01/25
midodrine 5 mg tablet 5 mg PO TID #90 tabs 09/01/25
spironolactone 50 mg tablet 50 mg PO DAILY #30 tabs 09/01/25
albuterol sulfate 90 mcg/actuation 2 puff inhalation R Q6HPRN PRN sob 09/05/25
aerosol inhaler
brexpiprazole 1 mg tablet (Rexulti) 1 mg PO DAILY 09/05/25
Review of Systems
-
History Source: Patient
Constitutional: Reports Weight Gain (with fluid )
EENT: Reports No Symptoms
Respiratory: Reports No Symptoms
Cardiac: Reports No Symptoms
Abdomen/GI: Reports Abdominal Pain, Nausea, Vomiting, Diarrhea (with lactulose ) and Bloody Stools (with larger volume 09/04 and 09/05 )
: Reports No Symptoms
Musculoskeletal: Reports No Symptoms
Skin: Reports No Symptoms
Neurological: Reports Dizzy and Weakness
Endocrine: Reports No Symptoms
Hematologic/Lymphatic: Reports Bleeding
Vital Signs
Temp Pulse Resp BP Pulse Ox
98.1 F 79 18 114/74 98
09/05/25 13:32 09/05/25 13:32 09/05/25 13:32 09/05/25 14:36 09/05/25 15:36
Physical Exam
Exam
General: No Apparent Distress and Other (temporal wasting )
HEENT: Normocephalic and Anicteric
Respiratory: Clear
Cardiac: Peripheral Edema and Other (tachy)
GI: Soft, Tender (mild ) and Distended
Rectal: Other (per ER some extenal hemorrhoids no active bleeding noted some dried red blood in review with ER MD)
Musculoskeletal: No Clubbing and No Cyanosis
Skin: Warm and Dry
Neuro: Awake, Alert and AO x 3
Psych: Calm
Results
WBC 6.2 10^3/uL (4.8-10.8) 09/05/25 15:24
Hgb 8.5 g/dL (12.0-16.0) L 09/05/25 15:24
Hct 27.7 % (37.0-47.0) L 09/05/25 15:24
MCV 84.5 fL (81.0-99.0) 09/05/25 15:24
Plt Count 304 10^3/uL (130-400) D 09/05/25 15:24
Absolute Neuts (auto) 4.4 10^3/uL (1.4-6.5) 09/05/25 15:24
PT 17.7 Sec (11.4-14.6) H 09/05/25 15:24
INR 1.40 09/05/25 15:24
Sodium 129 mmol/L (135-145) L 09/05/25 15:24
Potassium 4.2 mmol/L (3.5-5.1) 09/05/25 15:24
Chloride 101 mmol/L (98-107) 09/05/25 15:24
Carbon Dioxide 25 mmol/L (22-30) 09/05/25 15:24
BUN 11 mg/dl (7-17) 09/05/25 15:24
Creatinine 0.6 mg/dL (0.6-1.0) 09/05/25 15:24
Calcium 8.1 mg/dl (8.4-10.2) L 09/05/25 15:24
Total Bilirubin 1.3 mg/dl (0.2-1.3) 09/05/25 15:24
AST 55 U/L (14-36) H 09/05/25 15:24
ALT 14 U/L (0-35) 09/05/25 15:24
Alkaline Phosphatase 111 U/L (38-126) 09/05/25 15:24
Diagnostic Image Results:
07/23- CTA severe cirrhosis, large lesion of fatty attenuation over 80% with mass effect malignancy, steatosis, cirrhotic nodules, severe Portal HTN, mild colitis tamara colonopathy, diverticulosis, small perihepatic ascites
07/25MRI cirrhosis Multifocal regions of lobular and confluent fatty infiltration. Overall imaging features suggest classification of LIRADS 3. no PV or hepatic vein thrombosis mod ascites, cholelithiasis, GBWT with ascites, 7.5 CBD
multiple par 300- 3650 neg SBP( 07/27 atypical cell favor reactive mesothelia cells, inflammatory cell predominant RBC's present , repeat 08/01 neg malignant cells ) last 08/30 2600ml neg SBP
scopes:
03/2025 GAVE on scope in [place]
07/23/25- [facility]oscopy -GAVE without bleeding, nodule duodenum, blood in third portion of duodenum unable to clear, bleeding reflux from jejunum, hemospray, non bleeding jejunal ectasia, s/p APC
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
08/02/25 Do flex sig no old or fresh blood, diffuse colonopathy, hemorrhoids, diverticulosis
08/2025-EGD [place]- Dieulafoy lesion second portion of duodenum with clot with clipping and epi injection
08/2025 - [place]- colon- perianal skin tags, hematin entire colon, IH no active source of bleeding seen blood in TI
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 No evidence of AVM or blood No specimens collected
Assessment / Plan
-
Pt is a 55yo with hx cirrhosis (diagnosed a couple years ago), alcohol abuse last drink prior to last admission in July , hepatic encephalopathy, UTI, GAVE on scope in [place] in March, and recurrent GI bleeding with concern for duodenal
Dieulafoy on last EGD at [place]. She had multiple admission with anemia and bleeding. She was last admitted 08/29-09/01 with recurrent bleeding and hbg down to 5.6 with maroon stool. Repeat EGD with no bleeding seen. Pt completed para 08/30 for
2600ml with neg SBP and pt was discharge. She now present with larger amount of red blood 09/04 and 09/05. On admission hbg 8.5.
per prior chart review Over the summer she began to follow with Dr. Garcia. She now returns with several admission with recurrent anemia and GI bleeding, ascites with multiple paracentesis. She has required over 13 units of blood since
mid July with further transfusion on this admission and reports transfusion at [place]. She had had multiple EGD, flex sig, colonoscopy and recent transfer to [place]. Per last note on 08/14 pt noted with bleeding Dieulafoy lesion in duodenum that
was treated with epi and clip and no VCE was completed. She did also completed colonoscopy at [place] with perianal skin tags, hematin entire colon, IH no active source of bleeding seen blood in TI. Plan was for repeat labs and return to ER with
recurrent bleeding and consider repeat EGD for retreatment vs IR embolization as area was treated and clipped and marked for embolization if needed. Pt is also scheduled follow up with Dr. Garcia in September.
.
07/23- CTA severe cirrhosis, large lesion of fatty attenuation over 80% with mass effect malignancy, steatosis, cirrhotic nodules, severe Portal HTN, midl colitis tamara colonopathy, diverticulosis, small perihepatic ascites
07/25MRI cirrhosis Multifocal regions of lobular and confluent fatty infiltration. Overall imaging features suggest classification of LIRADS 3. no PV or hepatic vein thrombosis mod ascites, cholelithiasis, GBWT with ascites, 7.5 CBD
multiple par 300- 2850 neg SBP( 07/27 atypical cell favor reactive mesothelia cells, inflammatory cell predominant RBC's present , repeat 08/01 neg malignant cells ) last 08/30 2600ml neg SBP
scopes:
03/2025 GAVE on scope in [place]
07/23/25- [facility] -GAVE without bleeding, nodule duodenum, blood in third portion of duodenum unable to clear, bleeding reflux from jejunum, hemospray, non bleeding jejunal ectasia, s/p APC
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
08/02/25 Do flex sig no old or fresh blood, diffuse colonopathy, hemorrhoids, diverticulosis
08/2025-EGD [facility]- Dieulafoy lesion second portion of duodenum with clot with clipping and epi injection
08/2025 - [facility]- colon- perianal skin tags, hematin entire colon, IH no active source of bleeding seen blood in TI
08/30/25 EGD [facility]- Normal esophagus- Portal HTN gastropathy- GAVE without bleeding.- A few duodenal polyps.- Previous tattoo seen in the proximal jejunum. No evidence of AVM or blood No specimens collected
-recurrent admission with now bright red blood and prior GI bleeding with black stools -multiple scopes as above with massive transfusion requirement over last month
-chronic anemia
-recent EGD with concern for jejunal bleeding not well visualized then noted duodenal dieulofoy lesion
-diffuse colopathy
--hx cirrhosis - ETOH related follows with [facility]
-ascites with frequent paracentesis
-Multifocal regions of lobular and confluent fatty infiltration. Overall imaging features suggest classification of LIRADS 3 per recent MRI
-HE on lactulose and Xifaxan
-thrombocytosis
-hyponatremia
-leukocytosis
-coagulopathy
-GAVE on prior EGD
-hx falls
-bipolar disorder
-cholelithiasis/GBWT with ascites per imaging
-chronic back pain
-splenomegaly
PLAN:
pt with hx Recurrent GI bleed likely multifactorial from portal gastropathy, GAVE, duodenal and jejunal angiectasias but most recently noted with Dieulafoy lesion second portion of duodenum with clot with clipping and epi injection with concern
for now red blood
may be local source with hemorrhoids vs other
no further bleeding in ER and hbg 8.5
[address] Dr[address] Hodge for admission for observation vs discharge from ER
if patient stay will need for abx with GI bleeding and cirrhosis if continued bleeding
if pt stay consider para in AM
if recurrent duodenal bleeding that is unable to treat t/c IR embolization per [facility] recommendation on prior scope in second treatment not successful
ok for clear diet
capsule not completed at [place] though per pt may have take capsule but no results completed
follow with Dr. Garcia at [place] due 09/21 at 1 PM
hold diuretics with hyponatremia
cont PPI BID, lactulose BID, Xifaxan BID and chronic Bj that pt was on prior to admission
-
-
Thank you for consultation and allowing me to participate in the patient's care. Please call the virtualization consultant GI physician during the after hours with any questions or concerns.
--- NOTE | 2025-09-05 16:51 | HPS.HSE ---
Family Physician
-
Family Physician: Chichi Garrison
Chief Complaint
-
BRBPR
History of Present Illness
55 y/o F with PMHx:
GAVE syndrome
Cirrhosis
Chronic hypotension
Hyponatremia
Anxiety
Chronic back pain
h/o cholelithiasis
who p/w CC BRBPR. Pt states she had an episode of bright red blood per rectum last night and this morning. She states she feels it is related to a hemorrhoid. Denies any other new complaints. Denies chest pain, shortness of breath, nausea,
vomiting, diarrhea, abdominal pain, headache, lightheadedness, neck stiffness, rash, dysuria.
Medical History
Past Medical History
Past Medical History: Reports Other (as per HPI)
Past Surgical History: Reports Other (N/A)
Social History
Tobacco: Non-smoker
Alcohol: None
Drug: None
Family History
Family History: Not pertinent
Allergies / Home Medications
Allergies reflects when Allergies were last updated in [facility].
Home Medications with original date entered in [facility]
Allergy/Medication List:
Allergies
Allergy/AdvReac Type Severity Reaction Status Date / Time
No Known Allergies Allergy Verified 08/23/25 10:00
Home Medications
clonazepam 0.5 mg tablet 0.5 mg PO TIDPRN PRN anxiety 01/31/25
lactulose 10 gram/15 mL oral solution 30 ml PO BID Liver Issues 03/25/25
rifaximin 550 mg tablet 550 mg PO BID Liver Issues 03/25/25
baclofen 10 mg tablet 10 mg PO DAILY Neurological Condition 07/23/25
buspirone 10 mg tablet 10 mg PO TID Mental Health/Anxiety 08/01/25
trazodone 50 mg tablet 200 mg PO HS 08/01/25
ursodiol 300 mg capsule 300 mg PO BID Liver Issues 08/01/25
cetirizine 10 mg tablet (Zyrtec) 10 mg PO DAILY Allergies 08/15/25
dextroamphetamine-amphetamine 20 mg tablet (Adderall) 20 mg PO TID Mental Health/Anxiety 08/15/25
ferrous sulfate 325 mg (65 mg iron) tablet 325 mg PO DAILY Supplement 08/15/25
polyethylene glycol 3350 17 gram oral powder packet (Miralax) 17 g PO DAILY Constipation 08/29/25
furosemide 20 mg tablet 20 mg PO DAILY #30 tabs 09/01/25
midodrine 5 mg tablet 5 mg PO TID #90 tabs 09/01/25
spironolactone 50 mg tablet 50 mg PO DAILY #30 tabs 09/01/25
albuterol sulfate 90 mcg/actuation aerosol inhaler 2 puff inhalation R Q6HPRN PRN sob 09/05/25
brexpiprazole 1 mg tablet (Rexulti) 1 mg PO DAILY 09/05/25
Review of Systems
-
History Source: Patient
A 12 point ROS was completed and negative except as noted: Yes
Physical Exam
Vital Signs
Vital Signs
Temp Pulse Resp BP Pulse Ox
98.1 F 79 18 114/74 98
09/05/25 13:32 09/05/25 13:32 09/05/25 13:32 09/05/25 14:36 09/05/25 15:36
Physical Exam
General: Other (.)
Laboratory Results
-
09/05/25 15:24
09/05/25 15:24
Laboratory Results
PT 17.7 Sec (11.4-14.6) H 09/05/25 15:24
INR 1.40 09/05/25 15:24
Total Bilirubin 1.3 mg/dl (0.2-1.3) 09/05/25 15:24
AST 55 U/L (14-36) H 09/05/25 15:24
ALT 14 U/L (0-35) 09/05/25 15:24
Alkaline Phosphatase 111 U/L (38-126) 09/05/25 15:24
Impression/Plan
-
Gen: NAD, AAOx3, appears chronically ill and malnourished.
Eyes: EOMI, PERRLA, mild scleral icterus.
Neck: supple.
CV: RRR, +S1/S2, no m/r/g.
Resp: CTAB, no rales, wheezes, or rhonchi.
Abd: +BS, soft, NT, mod distention with ascites
Skin: No rashes. 3+ B/L LE pitting edema.
Neuro: CN 2-12 intact, non-focal.
Psych: Normal mood and affect.
BRBPR:
-acute blood loss anemia
-discussed with Dr. Hodge, on her rectal exam there is one scabbed hemorrhoid, likely the culprit
-check Hb in AM, NPO after MN
Other problems:
GAVE syndrome
Cirrhosis: with weekly paracenteses, c/s IR for paracentesis. Cont Xifaxan/Aldactone/Ursodiol/lactulose
Chronic hypotension: cont Midodrine
Hyponatremia: Chronic, recheck Na in AM. Clearly related to cirrhosis
Anxiety: Cont Buspar/Klonopin
Chronic back pain
h/o cholelithiasis
Severe protein calorie malnutrition
FULL/SCDs
--- NOTE | 2025-09-05 20:40 | PTCARENOTE ---
Pt arrived to unit from ED, ambulated independently. AAOx3, reports moderate back pain at this time. VSS. Pt oriented to room, call grossman in reach.
[2025-09-05] MEDS: ACTIGALL 300 MG PO (21:09)
[2025-09-05] MEDS: DUPHALAC/CHRONULAC 20 GRAMS PO (21:09)
[2025-09-05] MEDS: XIFAXAN 550 MG PO (21:09)
[2025-09-05] MEDS: DESYREL 200 MG PO (21:09)
[2025-09-05] MEDS: BUSPAR 10 MG PO (21:10)
[2025-09-05] MEDS: HYDROCORTISONE 2.5% CREAM 1 APPLIC TOPICAL (21:15)
[2025-09-05 22:08] LABS: Hematocrit 23.5 % (37.0-47.0); Hemoglobin 7.4 g/dL (12.0-16.0)
[2025-09-05] MEDS: ROXICODONE 5 MG PO (23:03)
[2025-09-05] MEDS: KLONOPIN 0.5 MG PO (23:04)
[2025-09-06] VITALS (10 sets, daily range): BP systolic 82–126; BP diastolic 56–71; PULSE 96–117
[2025-09-06] MEDS: ROXICODONE 5 MG PO ×3 (03:10→13:19)
[2025-09-06 04:32] LABS: Hematocrit 22.8 % (37.0-47.0); Hemoglobin 6.6 g/dL (12.0-16.0)
--- NOTE | 2025-09-06 04:35 | PTCARENOTE ---
Pt's Hgb result at 0300 was 6.6, decreased from 7.4. RAIL FILLER Shonda notified, orders placed for type+screen and 1 unit PRBCs.
[2025-09-06 06:12] LABS: Blood Urea Nitrogen 11 mg/dl (7-17); Calcium 7.6 mg/dl (8.4-10.2); Carbon Dioxide 26 mmol/L (22-30); Chloride 103 mmol/L (98-107); Estimated Creatinine Clearance 80 ml/min; Glucose 111 mg/dl (70-99); Potassium 3.3 mmol/L (3.5-5.1); Sodium 132 mmol/L (135-145); eGFR > 60.00
[2025-09-06 06:18] LABS: Hematocrit 22.4 % (37.0-47.0); Hemoglobin 6.5 g/dL (12.0-16.0); Mean Corp Hgb Conc. 29.0 g/dL (33.0-37.0); Mean Corpuscular Volume 87.5 fL (81.0-99.0); Platelet Count 202 10^3/uL (130-400); Red Cell Dist. Width 16.4 % (11.5-14.5)
[2025-09-06] MEDS: LIORESAL 10 MG PO (07:51)
[2025-09-06] MEDS: ALDACTONE 50 MG PO (07:51)
[2025-09-06] MEDS: ADDERALL 20 MG PO (07:51)
[2025-09-06] MEDS: ZYRTEC 10 MG PO (07:52)
[2025-09-06] MEDS: BUSPAR 10 MG PO ×2 (07:52→15:24)
[2025-09-06] MEDS: DUPHALAC/CHRONULAC 20 GRAMS PO (07:52)
[2025-09-06] MEDS: FEOSOL 325 MG PO (07:52)
[2025-09-06] MEDS: LASIX 20 MG PO (07:53)
[2025-09-06] MEDS: ACTIGALL 300 MG PO (07:53)
[2025-09-06] MEDS: HYDROCORTISONE 2.5% CREAM 1 APPLIC TOPICAL ×2 (07:53→15:23)
[2025-09-06] MEDS: MIRALAX 17 GRAMS PO (08:00)
[2025-09-06] MEDS: XIFAXAN 550 MG PO (08:05)
--- NOTE | 2025-09-06 10:51 | W.PN.HOSP.TC ---
Addendum entered and electronically signed by Josep Hathaway MD 09/06/25 15:16:
Case discussed with Dr. Hodge. Medically cleared for d/c. Increase Aldactone to 100mg daily and decrease Protonix to 20mg daily.
Total time spent on d/c = 42 min. This included today's physical exam, progress note, review of laboratory and diagnostic data, preparation of discharge documents and prescriptions, and discussions about the pt's hospital course and discharge plan
with the patient and other medical territory manager involved in the patient's care.
Original Note:
Today's Communication/Plan
-
see plan
Assessment / Plan
Assessment / Plan
Gen: NAD, Awake and alert, appears chronically ill and malnourished.
Eyes: EOMI, PERRLA, mild scleral icterus.
Neck: supple.
CV: remains RRR, +S1/S2, no m/r/g.
Resp: CTAB, no rales, wheezes, or rhonchi.
Abd: +BS, soft, NT, mild distention with ascites
Skin: No rashes. 3+ B/L LE pitting edema.
Neuro: CN 2-12 intact, non-focal.
Psych: Normal mood and affect.
BRBPR:
-acute blood loss anemia
-discussed with Dr. Hodge on admission, on her rectal exam there is one scabbed hemorrhoid, likely the culprit
-Hb was < 7, now s/p 1U pRBCs
-cont to trend Hb
-discussed with GI
Other problems:
GAVE syndrome
Cirrhosis: with weekly paracenteses, s/p 2300cc paracentesis, follow fluid studies. Cont Xifaxan/Aldactone/Ursodiol/lactulose.
Chronic hypotension: cont Midodrine
Hyponatremia, chronic/stable, mild, clearly related to cirrhosis
Anxiety: Cont Buspar/Klonopin
Chronic back pain
h/o cholelithiasis
Severe protein calorie malnutrition
Pt had multiple questions that were answered.
FULL/SCDs
Total time spent on today's encounter was 50 minutes which included time spent in counseling the patient/family regarding diagnosis and treatment plan as listed above, goals of care, and symptom management. Case was discussed with nursing staff,
specialists, and care coordinators/case management. All labs and imaging personally reviewed by me. Remainder the time spent in detailed review of previous records, lab data, imaging, and other medical provider documentation.
Anticipated Discharge: Within 24 hours
Subjective/Interval History
-
Date of Service: September 06, 2025
No new complaints, asking to eat.
Objective Data
-
Labs:
Laboratory Results
09/06/25 09/06/25 09/06/25
03:20 05:22 11:20
WBC 3.7 L
Hgb 6.6 L* 6.5 L* Pending
Hct 22.8 L 22.4 L Pending
Plt Count 202 D
Sodium 132 L
Potassium 3.3 L
Chloride 103
Carbon Dioxide 26
BUN 11
Creatinine 0.6
Glucose 111 H
Calcium 7.6 L
09/06/25
17:20
WBC
Hgb Pending
Hct Pending
Plt Count
Sodium
Potassium
Chloride
Carbon Dioxide
BUN
Creatinine
Glucose
Calcium
Vital Signs:
Vital Signs
Temp Pulse Resp BP Pulse Ox
98.0 F 100 16 91/58 97
09/06/25 09:29 09/06/25 10:14 09/06/25 10:14 09/06/25 10:14 09/06/25 10:14
I&O
09/05/25 09/06/25 09/07/25
06:59 06:59 06:59
Intake Total 600 / 600 250 / 250
Balance 600 / 600 250 / 250
[2025-09-06] MEDS: KLONOPIN 0.5 MG PO (11:02)
[2025-09-06 11:12] LABS: Hematocrit 26.5 % (37.0-47.0); Hemoglobin 7.7 g/dL (12.0-16.0)
[2025-09-06 11:18] LABS: Body Fluid Second Tech CMB
--- NOTE | 2025-09-06 14:28 | CM ---
CM reviewed chart, patient seen bedside, initial assessment completed.
The patient is a 55-year-old female with a recent history of rectal bleeding.
Patient resides with a friend in a two story home, no steps to enter, full flight to second floor, patient reports uses railing to assist up stairs.
Patient denies use of DME, reports VN in past, was working with [facility] for outpatient therapy in past, would like script for outpatient therapy upon d.c if able.
Patient confirms PCP Chichi Garrison, Pharmacy [facility], confirms prescription coverage.
Patient denies insecurities at home, reports friend will provide transportation home.
Patient requesting CM speak with her Aunt, Deisy Villafuerte [phone]. Patient gives CM/Physician permission to speak with Aunt.
CM spoke with patients Aunt, Deisy. Deisy discussed concern over patient being admitted to hospital several times, inquiring if patient would need senior care placement.
CM discussed patient would need qualifying reason for insurance coverage for senior care placement.
CM discussed patient shared how she previously had VN services in past and felt it was too much, unsure if patient would be agreeable to rehab placement and patient would likely not qualify.
Aunt requesting call from Physician.
CM will continue to follow.
Plan; home no needs likely
--- NOTE | 2025-09-06 15:06 | W.PN.GI.CBS2 ---
Today's Communication / Plan
-
Discharge -medication changes decrease PPI to 20 mg once daily--, increase Aldactone to 100 mg once daily
Assessment / Plan
-
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
Dieulafoy on last EGD at [facility]. She had multiple admission with anemia and bleeding. She was last admitted 08/29-09/01 with recurrent bleeding and hbg down to 5.6 with maroon stool. Repeat EGD with no bleeding seen. Pt completed para 08/30 for
2600ml with neg SBP and pt was discharge. She now present with larger amount of red blood 09/04 and 09/05. On admission hbg 8.5.
per prior chart review Over the summer she began to follow with Dr. Garcia. She now returns with several admission with recurrent anemia and GI bleeding, ascites with multiple paracentesis. She has required over 13 units of blood since
mid July with further transfusion on this admission and reports transfusion at [facility]. She had had multiple EGD, flex sig, colonoscopy and recent transfer to [facility]. Per last note on 08/14 pt noted with bleeding Dieulafoy lesion in duodenum that
was treated with epi and clip and no VCE was completed. She did also completed colonoscopy at [facility] with perianal skin tags, hematin entire colon, IH no active source of bleeding seen blood in TI. Plan was for repeat labs and return to ER with
recurrent bleeding and consider repeat EGD for retreatment vs IR embolization as area was treated and clipped and marked for embolization if needed. Pt is also scheduled follow up with Dr. Garcia in September.
.
07/23- CTA severe cirrhosis, large lesion of fatty attenuation over 80% with mass effect malignancy, steatosis, cirrhotic nodules, severe Portal HTN, midl colitis tamara colonopathy, diverticulosis, small perihepatic ascites
07/25MRI cirrhosis Multifocal regions of lobular and confluent fatty infiltration. Overall imaging features suggest classification of LIRADS 3. no PV or hepatic vein thrombosis mod ascites, cholelithiasis, GBWT with ascites, 7.5 CBD
multiple par 300- 2850 neg SBP( 07/27 atypical cell favor reactive mesothelia cells, inflammatory cell predominant RBC's present , repeat 08/01 neg malignant cells ) last 08/30 2600ml neg SBP
scopes:
03/2025 GAVE on scope in [place]
07/23/25- [facility] enteroscopy -GAVE without bleeding, nodule duodenum, blood in third portion of duodenum unable to clear, bleeding reflux from jejunum, hemospray, non bleeding jejunal ectasia, s/p APC
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
08/02/25 Do flex sig no old or fresh blood, diffuse colonopathy, hemorrhoids, diverticulosis
08/2025-EGD [facility]- Dieulafoy lesion second portion of duodenum with clot with clipping and epi injection
08/2025 - [facility]- colon- perianal skin tags, hematin entire colon, IH no active source of bleeding seen blood in TI
08/30/25 EGD [facility]- Normal esophagus- Portal HTN gastropathy- GAVE without bleeding.- A few duodenal polyps.- Previous tattoo seen in the proximal jejunum. No evidence of AVM or blood No specimens collected
-recurrent admission with now bright red blood and prior GI bleeding with black stools -multiple scopes as above with massive transfusion requirement over last month
-chronic anemia
-recent EGD with concern for jejunal bleeding not well visualized then noted duodenal dieulofoy lesion
-diffuse colopathy
--hx cirrhosis - ETOH related follows with Jose
-ascites with frequent paracentesis
-Multifocal regions of lobular and confluent fatty infiltration. Overall imaging features suggest classification of LIRADS 3 per recent MRI
-HE on lactulose and Xifaxan
-thrombocytosis
-hyponatremia
-leukocytosis
-coagulopathy
-GAVE on prior EGD
-hx falls
-bipolar disorder
-cholelithiasis/GBWT with ascites per imaging
-chronic back pain
-splenomegaly
PLAN:
pt with hx Recurrent GI bleed likely multifactorial from portal gastropathy, GAVE, duodenal and jejunal angiectasias but most recently noted with Dieulafoy lesion second portion of duodenum with clot with clipping and epi injection with concern
for now red blood
may be local source with hemorrhoids vs other
no further bleeding in ER and hbg 8.5
[address] Hodge for admission for observation vs discharge from ER
if patient stay will need for abx with GI bleeding and cirrhosis if continued bleeding
if pt stay consider para in AM
if recurrent duodenal bleeding that is unable to treat t/c IR embolization per [facility] [facility] [employer] recommendation on prior scope in second treatment not successful
ok for clear diet
capsule not completed at [facility] though per pt may have take capsule but no results completed
follow with Dr. Garcia at [facility] due 09/21 at 1 PM
hold diuretics with hyponatremia
cont PPI BID, lactulose BID, Xifaxan BID and chronic Bj that pt was on prior to admission
09/06/2025 -received 1 unit of blood, has had 2 brown bowel movements
-- Was sent home on lactulose twice daily, once daily PPI, Xifaxan twice daily, chronic ursodiol
-- Continue the 20 mg of Lasix and increase the Aldactone to 100 mg due to her pitting lower extremity edema as well as her low potassium
-- Patient has paracentesis next week and blood work to do for Dr. Garcia ahead of her September 21 appointment
Subjective
Subjective
Date of Service: September 06, 2025
No further rectal bleeding. States that her gums were bleeding which he can see dried blood in her mouth
Objective
Data Reviewed
Laboratory Data:
Laboratory Results
09/06/25 05:22
Laboratory Results
PT 17.7 Sec (11.4-14.6) H 09/05/25 15:24
INR 1.40 10/29/25 15:24
Total Bilirubin 1.3 mg/dl (0.2-1.3) 09/05/25 15:24
AST 55 U/L (14-36) H 09/05/25 15:24
ALT 14 U/L (0-35) 09/05/25 15:24
Alkaline Phosphatase 111 U/L (38-126) 09/05/25 15:24
Vital Signs and I&O:
Vital Signs
Temp Pulse Resp BP Pulse Ox
98.2 F 97 14 102/69 97
09/06/25 11:17 09/06/25 11:17 09/06/25 11:17 09/06/25 11:17 09/06/25 11:17
I&O
09/05/25 09/06/25 09/07/25
06:59 06:59 06:59
Intake Total 600 / 600 250 / 250
Balance 600 / 600 250 / 250
Physical Exam
Physical Exam
HEENT: Anicteric (Icteric)
Pulmonary: Clear
GI: Soft
Extremities: Edema (2+ pitting edema)
Neuro: Non Focal
[2025-09-06] MEDS: ADDERALL PO (15:26)
--- NOTE | 2025-09-06 15:26 | W.DCSUMMARY ---
Discharge Summary
Discharge Data
Date of Admission: 09/05/25
Date of Discharge: 09/06/25
-
Pending Results: No
Hospital Course
Primary diagnoses:
Acute blood loss anemia due to lower GI bleeding due to hemorrhoidal bleeding
Secondary diagnoses:
GAVE syndrome
Cirrhosis
Chronic hypotension
Hyponatremia
Anxiety
Chronic back pain
h/o cholelithiasis
Severe protein calorie malnutrition
Consultants:
Gastroenterology
Imaging:
None
Procedures:
Paracentesis for 2300cc transudative fluid
Hospital course: 55-year-old female who was admitted yesterday with a chief complaint of bright red blood per rectum as outlined in HPI on admission. Patient had no further bright red blood per rectum while hospitalized. Hemoglobin did drop and
she received 1 unit of packed red blood cells. She did have her weekly paracentesis for 2300 cc transudative fluid. She was seen in consultation by gastroenterology. She was medically cleared for discharge and was discharged in medically stable
condition.
Discharge Plan
-
Patient Disposition: Home (Routine Discharge)
Discharge Diagnosis/Procedures: Acute blood loss anemia due to lower GI bleeding due to hemorrhoidal bleeding
Condition: Fair
Diet: Restrict fluids to 48 oz
Activity: As tolerated
Driving Restrictions: Not until seen by your Dr
Blood Work: CMP and CBC in 1 week, script from PCP
Referrals:
Chichi Garrison DO [Family Provider, Family Practice] - in less than 1 week
Prescriptions:
New
spironolactone [Aldactone] 100 mg tablet
100 mg PO DAILY Qty: 30 0RF
pantoprazole [Protonix] 20 mg tablet,delayed release (DR/EC)
20 mg PO DAILY Qty: 30 0RF
Continued
clonazepam 0.5 mg Tablet
0.5 mg PO TIDPRN PRN (Reason: anxiety)
lactulose 10 gram/15 mL Solution
30 ml PO BID
rifaximin 550 mg Tablet
550 mg PO BID
baclofen 10 mg Tablet
10 mg PO DAILY
trazodone 50 mg Tablet
200 mg PO HS
buspirone 10 mg Tablet
10 mg PO TID
ursodiol 300 mg Capsule
300 mg PO BID
cetirizine [Zyrtec] 10 mg Tablet
10 mg PO DAILY
ferrous sulfate 325 mg (65 mg iron) Tablet
325 mg PO DAILY
dextroamphetamine-amphetamine [Adderall] 20 mg Tablet
20 mg PO TID
Patient Comments:
08/29/2025: Pt doesn't want this med while in hospital
polyethylene glycol 3350 [Miralax] 17 gram Powder In Packet
17 g PO DAILY
furosemide 20 mg Tablet
20 mg PO DAILY Qty: 30 0RF
midodrine 5 mg tablet
5 mg PO TID Qty: 90 0RF
albuterol sulfate 90 mcg/actuation Hfa Aerosol Inhaler
2 puff INHALATION R Q6HPRN PRN (Reason: sob)
Rexulti 1 mg Tablet
1 mg PO DAILY
Discontinued
spironolactone 50 mg Tablet
50 mg PO DAILY Qty: 30 0RF
Discharge Orders:
Discharge Patient (As Directed); Ordered 09/06/25
Ordered By: Josep Hathaway
Discharge Date and Time
Print Language: MEXICAN
== END 2025-09-06 17:26 | disposition home or self-care (01) | DRG 393 ==
LOC: 4 WEST ACU 17:33
PROVIDERS: Radiology Vascular & Interventional Radiology; ADMITTING PHYSICIAN Internal Medicine; CONSULT PHYSICIAN Internal Medicine; EMERGENCY PHYSICIAN Student in an Organized Health Care Education/Training Program; FAMILY PHYSICIAN Family Medicine
PROC: 0W9G3ZZ Drainage of Peritoneal Cavity, Percutaneous Approach (ICD-10-PCS; 2025-09-06)
PROC: 30233N1 Transfusion of Nonautologous Red Blood Cells into Peripheral Vein, Percutaneous Approach (ICD-10-PCS; 2025-09-06)
DX: K64.9 Unspecified hemorrhoids (principal); E43 Unspecified severe protein-calorie malnutrition; D62 Acute posthemorrhagic anemia; E87.1 Hypo-osmolality and hyponatremia; D68.9 Coagulation defect, unspecified; I95.89 Other hypotension; F41.9 Anxiety disorder, unspecified; G89.29 Other chronic pain; K31.819 Angiodysplasia of stomach and duodenum without bleeding; Z87.891 Personal history of nicotine dependence; K70.31 Alcoholic cirrhosis of liver with ascites; D75.839 Thrombocytosis, unspecified; F31.9 Bipolar disorder, unspecified; Z79.899 Other long term (current) drug therapy; Z80.0 Family history of malignant neoplasm of digestive organs
CPT/HCPCS: 49083; 80048; 80053; 82042; 83615; 85014; 85018; 85025; 85027; 85610; 86850; 86900; 86901; 86920; 87015; 87070; 87205; 89051; 99285; P9016

== ENCOUNTER 2025-10-22 13:41 | Inpatient (IN) | payer OTHER, SELFPAY ==
[2025-10-22] VITALS (16 sets, daily range): BP systolic 94–129; BP diastolic 55–79; BMI 20.5
--- NOTE | 2025-10-22 09:13 | ED.GENMED ---
History of Present Illness
General
Chief Complaint: Rectal Bleeding
Time Seen by Provider: 10/22/25 08:57
History of Present Illness
History of Present Illness:
55-year-old female with history of cirrhosis, anemia, and chronic back pain presenting to the emergency department for concern of rectal bleeding. Patient notes this morning when she walked to the bathroom, she felt dizzy and lightheaded. She then
had 3 episodes of bright red blood per rectum. Notes that she has had this issue in the past, requiring blood transfusions. Most recently patient was admitted on 09/05 with bleeding thought to be secondary from hemorrhoids. Patient at that time
and also been getting weekly paracentesis, however was started on a diuretic, and since starting the diuretic has not required any paracentesis. She does note some mild dyspnea. Denies cough or fever. Notes some generalized nausea and abdominal
discomfort without any abdominal pain. Denies additional acute medical complaints
Past History
Past History
ED Past Medical History: Psychiatric and Other (Alcoholic liver cirrhosis)
ED Past Surgical History: None
Social History
Tobacco: Former smoker
Alcohol: Former
Drug: None
Personal: Single
Living: with roommate
Phy Exam
Physical Exam
Physical Exam:
General: Well-appearing, no clinical signs of dehydration, nontoxic and in no acute distress
HEENT: protecting airway
Neck: appears supple
CV: Tachycardia, regular rhythm
Resp: No accessory muscle use, no increased work of breathing, lungs clear to auscultation bilaterally
Abd: Soft and non-distended, no tenderness to palpation
Extremities: No deformities, no swelling
Neuro: alert, no focal neurologic deficit
: deferred
Rectal: Hemoccult positive, nonthrombosed, nonbleeding external hemorrhoids
Psych: Normal affect
Skin: Intact
Course
Orders/Labs/Results
Orders:
Orders
10/22/25 09:18
Complete Blood Count/With Diff Urgent
Comprehensive Metabolic Panel Urgent
PTT Urgent
Prothrombin Time Urgent
10/22/25 09:29
Oxycodone [Roxicodone] 5 mg PO NOW STA
10/22/25 09:37
0.9% Sodium Chloride 500 ml [Nss] 500 ml IV BOLUS
10/22/25 11:05
Hemoglobin Urgent
10/22/25 11:30
Rifaximin [Xifaxan] 550 mg PO NOW STA
Ursodiol [Actigall] 300 mg PO NOW STA
10/22/25 11:31
Spironolactone [Aldactone] 100 mg PO NOW STA
Abnormal Lab Results
10/22/25 10/22/25
09:18 11:05
RBC 3.11 L 10^6/uL
(4.20-5.40)
Hgb 7.3 L g/dL 5.9 L* g/dL
(12.0-16.0) (12.0-16.0)
Hct 25.2 L %
(37.0-47.0)
MCH 23.5 L pg
(27.0-31.0)
MCHC 29.0 L g/dL
(33.0-37.0)
RDW 19.5 H %
(11.5-14.5)
MPV 10.7 H fL
(7.4-10.4)
Absolute Lymphs (auto) 0.7 L 10^3/uL
(1.2-3.4)
Absolute Monos (auto) 0.8 H 10^3/uL
(0.1-0.6)
Lymphocytes % 13.4 L %
(20.5-51.1)
Monocytes % 15.1 H %
(1.7-9.3)
PT 18.2 H Sec
(11.4-14.6)
Sodium 130 L mmol/L
(135-145)
BUN 20 H mg/dl
(7-17)
Creatinine 0.5 L mg/dL
(0.6-1.0)
Glucose 115 H mg/dl
(70-99)
Total Protein 6.2 L g/dl
(6.3-8.2)
Albumin 3.3 L g/dl
(3.5-5.0)
10/22/25 11:05
10/22/25 09:18
Vital Signs
Initial and Last Documented VS:
Initial Vital Signs
Temp Pulse Resp BP Pulse Ox
98.1 F 118 18 120/75 95
10/22/25 08:20 10/22/25 08:20 10/22/25 08:20 10/22/25 08:20 10/22/25 08:20
Last Documented Vital Signs
Temp Pulse Resp BP Pulse Ox
98.1 F 118 18 120/75 95
10/22/25 08:20 10/22/25 08:20 10/22/25 08:20 10/22/25 08:20 10/22/25 09:17
MDM/Problems Addressed
MDM/Problems Addressed:
55-year-old female with history of cirrhosis and anemia presenting for blood per rectum. Vital signs on arrival significant for mild tachycardia.
On exam patient is resting comfortably, no acute distress. On review of EMR, similar presentation in August, with the source of bleeding at that time thought to be secondary to hemorrhoids. Suspect again hemorrhoidal source. No active bleeding
on my examination. However known history of anemia requiring transfusions. Is reasonable obtain laboratory analysis including CBC. No tenderness to abdomen without indication for advanced imaging.
10:40 -patient's hemoglobin is 7.3. Baseline is in the 7-8 range. No current indication for transfusion. No additional episodes of bleeding in the ER. Patient reports that her last episode was around 5 AM. Will send another hemoglobin check to
ensure no acute drop while in the ER
11:40 -hemoglobin has since dropped to 5.9. At this time patient does warrant transfusion as well as admission for hemodynamic monitoring and H&H trending.
*Pulse Oximetry
SaO2: 95
Oxygen Mode of Delivery: Room air
Patient hypoxic: no
*Critical Care Note
Total Time (30-74mins, 75-104mins- exclusive of procedures): Not Applicable
ED Attending Note
-
Portions of this chart may have been created with voice recognition software.� Occasional wrong word or��sound alike� substitutions may have occurred due to the inherent limitations of voice recognition software.
Discharge Plan
Departure
Prescriptions:
No Action
clonazepam 0.5 mg Tablet
0.5 mg PO DAILYPRN PRN (Reason: anxiety)
lactulose 10 gram/15 mL Solution
30 ml PO BID
rifaximin 550 mg Tablet
550 mg PO BID
baclofen 10 mg Tablet
10 mg PO TID
buspirone 10 mg Tablet
10 mg PO TID
ursodiol 300 mg Capsule
300 mg PO BID
cetirizine [Zyrtec] 10 mg Tablet
10 mg PO HS
ferrous sulfate 325 mg (65 mg iron) Tablet
325 mg PO DAILY
dextroamphetamine-amphetamine [Adderall] 20 mg Tablet
20 mg PO TID
Patient Comments:
08/29/2025: Pt doesn't want this med while in hospital
polyethylene glycol 3350 [Miralax] 17 gram Powder In Packet
17 g PO DAILYPRN PRN (Reason: constipation)
midodrine 5 mg tablet
5 mg PO TID Qty: 90 0RF
Theragen Tablet
1 tab PO DAILY
trazodone 100 mg Tablet
200 mg PO HS
lidocaine 5 % Adhesive Patch,Medicated
1 patch TOPICAL QPM
fluticasone propionate 50 mcg/actuation [place],Suspension
2 spray INTRANASAL DAILY
spironolactone 50 mg Tablet
50 mg PO Q48H
Rx Instructions:
take with furosemide - MKO
Visbiome 112.5 billion cell Capsule
1 cap PO DAILY
budesonide-formoterol [Symbicort] 160-4.5 mcg/actuation Hfa Aerosol Inhaler
1 inh INHALATION BID
Emergen-C 1,000 mg Powder Effervescent In Packet
1,000 ea PO DAILY
spironolactone [Aldactone] 100 mg tablet
100 mg PO Q48H
Rx Instructions:
hold furosemide - MKO
furosemide 20 mg tablet
20 mg PO Q48H
Rx Instructions:
take with 50mg of spironolactone - MKO
Referrals:
Chichi Garrison DO [Family Provider, Family Practice]
Interventions
Interventions:
*Risk Screen - Suicide Last Done: 10/22/25 08:22
*General Assessment Last Done: 10/22/25 09:04
*Neglect/Abuse Screening Last Done: 10/22/25 08:22
*ED COVID-19 Vaccine History Last Done: 10/22/25 11:30
*ED Influenza Vaccine History Last Done: 10/22/25 11:30
[facility] Fall Risk Assessment Tool Last Done: 10/22/25 09:04
SL-Wevljr-Rzainhzdod Assessment Last Done: 10/22/25 09:04
ED- Cardiac Assessment Last Done: 10/22/25 09:04
ED- Pulmonary Assessment Last Done: 10/22/25 09:04
Discharge Date and Time
Print Language: OCCITAN
[2025-10-22 09:30] LABS: Hematocrit 25.2 % (37.0-47.0); Hemoglobin 7.3 g/dL (12.0-16.0); Mean Corp Hgb Conc. 29.0 g/dL (33.0-37.0); Mean Corpuscular Volume 81.0 fL (81.0-99.0); Nucleated Red Blood Cells % 0 %; Platelet Count 212 10^3/uL (130-400); Red Cell Dist. Width 19.5 % (11.5-14.5)
[2025-10-22] MEDS: ROXICODONE 5 MG PO (09:38)
[2025-10-22 09:41] LABS: INR 1.49; PT 18.2 Sec (11.4-14.6)
[2025-10-22 09:42] LABS: APTT 30.3 Sec (23.4-35.0)
[2025-10-22] MEDS: NSS 500 IV (09:42)
[2025-10-22 09:43] LABS: ALT (SGPT) 16 U/L (0-35); AST (SGOT) 25 U/L (14-36); Albumin 3.3 g/dl (3.5-5.0); Alkaline Phosphatase 76 U/L (38-126); Blood Urea Nitrogen 20 mg/dl (7-17); Calcium 8.7 mg/dl (8.4-10.2); Carbon Dioxide 27 mmol/L (22-30); Chloride 100 mmol/L (98-107); Estimated Creatinine Clearance 88 ml/min; Glucose 115 mg/dl (70-99); Potassium 4.8 mmol/L (3.5-5.1); Sodium 130 mmol/L (135-145); Total Protein 6.2 g/dl (6.3-8.2); eGFR > 60.00
[2025-10-22 11:29] LABS: Hemoglobin 5.9 g/dL (12.0-16.0)
--- NOTE | 2025-10-22 12:15 | HPS.HSE ---
Addendum entered and electronically signed by Michael Alba MD 10/22/25 22:30:
Attending Addendum-
I performed a history and physical exam of the patient and discussed his management with the resident. I reviewed the resident's note and agree with the documented findings and plan of care CC/HPI- presented to ED with BRBPR. that started this am.
Ruth dizzy on standing and had palpitations. Complains of chroninc lower back pain. Full 12 point ROS reviewed and negative except as documented Exam- vitals reviewed in EMR GEN-NAD heart tachycardic Lung CTA B/L Abd no fluid wave appreciated pos
BS NT LE no edema, pos fetor hepaticus Neuro AAO x 3 no asterixis
Plan:
#BRBPR
-H/O GAVE syndrome
-acute blood loss anemia
-transfuse 1 unit PRBC
-h/o hemorrhoids- likely culprit
-check CBC in am, NPO for now
-c/s GI for eval
# Liver failure with cirrhosis/ascites/PHTN
-previously requiring weekly paracentesis last on 09/06
-fetor hepaticus
-cont xifaximin lactulose spironolactone lasix ursodiol
-no indication for paracentesis at this time
# AUD
- start MSAS, still drinking
ADHD- restart Adderall PDMP reviewed
GAVE syndrome
Chronic hypotension: cont Midodrine
Hyponatremia: Chronic, recheck Na in AM. Clearly related to cirrhosis
Anxiety: Cont Buspar DC Klonopin
Chronic back pain-start lidocaine patch baclofen
Severe protein calorie malnutrition
FULL/SCDs
Dispo-from home
ACP
Patient consented to discuss, was alone, time spent explanation of advance directives, changes in health status, patient�s health care wishes if the patient becomes unable to make health decisions, goals of care, code status, and prognosis- 16
minutes
Time spent coordinating care, review of plan of care with resident, personally reviewed previous records in EMR, med rec, labs, radiology, d/w nursing, total time documented is exclusive of any additional time listed that was spent in advance care
planning discussion -�75 minutes
Original Note:
Family Physician
-
Family Physician: Chichi Garrison
Chief Complaint
-
Rectal bleed
History of Present Illness
Patient is a 55-year-old female with a history of alcoholic liver cirrhosis, anemia, hepatic encephalopathy, and recurrent upper/lower GI bleeding secondary to duodenal/rectal angiodysplasia who presented to the emergency department with complaints
of acute rectal bleeding that began the morning of her presentation. She follows with Chaz Garcia at [facility] who is her rn staff. The patient was in her normal state of health when she went to the bathroom this morning to have a bowel
movement. Over the past few weeks the patient noted that she felt as if one of her hemorrhoids had increased in size and that when she was defecating she was trying to push past 1 of those large hemorrhoids. Following the completion of defecation
the patient noticed a large quantity of blood in the toilet bowl. The toilet water appeared to be segun red and completely filled with blood. Patient stated that normally water level in the toilet is usually low but unfortunately after completing
the bowel movement she had a large quantity of blood and the water level had raised significantly. She had multiple bowel movements shortly after the completion of her first one and significant amount of blood was lost during those bowel movements
as well. Patient did not have any vomiting but endorsed nausea in the emergency department. She did not have any appetite and had significant fatigue and dizziness. Patient's abdomen was nontender with normal bowel sounds. Abdomen had no fluid
thrill, guarding, or rigidity. Initially the patient's hemoglobin was 7.3 on presentation but upon repeat H&H it was found that her hemoglobin had dropped to 5.9 subsequently necessitating 1 PRBC administration to maintain hemodynamics. Patient
also received normal saline bolus. Patient was admitted to [facility] for acute GI bleed with symptomatic anemia.
Medical History
Past Medical History
Past Medical History: Reports Psychiatric
Additional Past Medical History:
Alcoholic liver cirrhosis
Hepatic encephalopathy
Recurrent upper/lower GI bleeding secondary to duodenal/rectal angiodysplasia
GAVE syndrome s/p APC
Essential hypertension
Chronic back pain
Cholelithiasis
Anxiety
Bipolar (unspecified)
ADHD
EtOH abuse
Past Surgical History: Reports None
Social History
Tobacco: Former Smoker
Alcohol: Daily (1 glass of wine daily)
Drug: None
Personal: Single
Living: With Roomate
Employment: Not Employed
Family History
Family History: Not pertinent
Allergies / Home Medications
Allergies reflects when Allergies were last updated in [facility].
Home Medications with original date entered in [facility]
Allergy/Medication List:
Allergies
Allergy/AdvReac Type Severity Reaction Status Date / Time
No Known Allergies Allergy Verified 08/23/25 10:00
Home Medications
clonazepam 0.5 mg tablet 0.5 mg PO DAILYPRN PRN anxiety 01/31/25
lactulose 10 gram/15 mL oral solution 30 ml PO BID Liver Issues 03/25/25
rifaximin 550 mg tablet 550 mg PO BID Liver Issues 03/25/25
baclofen 10 mg tablet 10 mg PO TID 07/23/25
buspirone 10 mg tablet 10 mg PO TID Mental Health/Anxiety 08/01/25
ursodiol 300 mg capsule 300 mg PO BID Liver Issues 08/01/25
cetirizine 10 mg tablet (Zyrtec) 10 mg PO HS Allergies 08/15/25
dextroamphetamine-amphetamine 20 mg tablet (Adderall) 20 mg PO TID Mental Health/Anxiety 08/15/25
ferrous sulfate 325 mg (65 mg iron) tablet 325 mg PO DAILY Supplement 08/15/25
polyethylene glycol 3350 17 gram oral powder packet (Miralax) 17 g PO DAILYPRN PRN constipation 08/29/25
midodrine 5 mg tablet 5 mg PO TID #90 tabs 09/01/25
Lactobac no.2-Bifidobac no.1-S. thermo 112.5 billion cell capsule (Visbiome) 1 cap PO DAILY 10/22/25
ascorbic acid 1,000 of-saljkhxgfceo-qfdcxymu powder effervescent pack (Emergen-C) 1,000 ea PO DAILY 10/22/25
budesonide-formoterol HFA 160 mcg-4.5 mcg/actuation aerosol inhaler (Symbicort) 1 inh inhalation BID 10/22/25
fluticasone propionate 50 mcg/actuation nasal spray,suspension 2 spray intranasal DAILY 10/22/25
furosemide 20 mg tablet 20 mg PO Q48H 10/22/25
lidocaine 5 % topical patch 1 patch topical QPM lower back pain 10/22/25
spironolactone 100 mg tablet (Aldactone) 100 mg PO Q48H 10/22/25
spironolactone 50 mg tablet 50 mg PO Q48H 10/22/25
therapeutic multivitamin 1 tab PO DAILY 10/22/25
trazodone 100 mg tablet 200 mg PO HS 10/22/25
Review of Systems
-
History Source: Patient
Constitutional: Reports Fatigue
EENT: Reports No Symptoms
Respiratory: Reports Other (Shortness of breath - specifically diminished inspiration)
Cardiac: Reports No Symptoms
Abdomen/GI: Reports Bloody Stools
: Reports No Symptoms
Musculoskeletal: Reports No Symptoms
Skin: Reports No Symptoms
Neurological: Reports Weakness
Endocrine: Reports No Symptoms
Hematologic/Lymphatic: Reports Bleeding
Physical Exam
Vital Signs
Vital Signs
Temp Pulse Resp BP Pulse Ox
98.1 F 118 18 120/75 95
10/22/25 08:20 10/22/25 08:20 10/22/25 08:20 10/22/25 08:20 10/22/25 09:17
Physical Exam
General: Well Developed, Comfortable, Poor Appetite and Appears Chronically Ill
HEENT: NormoCephalic, Anicteric, Atraumatic and No Ptosis
Respiratory: Clear and Non Labored Respirations; No Wheezes, Rales, Rhonchi or Crackles
Cardiac: S1/S2, Regular Rhythm and Tachycardia; No Murmur, Rub or Gallop
Breast: Deferred by me
GI: Soft, Non Tender, Non Distended and Normal Bowel Sounds
Rectal: Hem Positive, Masses Palpated (Internal hemorrhoid palpated at the 3o'clock position) and Hemorrhoids (External hemorrhoids seen)
Genito-urinary: Deferred by me
Musculoskeletal: No Clubbing, No Cyanosis and No Edema; No Edema, Left Upper Extremity, Edema, Right Upper Extremity, Edema, Left Lower Extremity or Edema, Right Lower Extremity
Skin: Warm and Dry; No Rash, Jaundice, Ulcers, Lesions or Decubitus Ulcers
Neuro: Awake, Alert, Oriented and AO x 3
Psych: Calm
Laboratory Results
-
10/22/25 11:05
10/22/25 09:18
Laboratory Results
PT 18.2 Sec (11.4-14.6) H 10/22/25 09:18
INR 1.49 10/22/25 09:18
APTT 30.3 Sec (23.4-35.0) 10/22/25 09:18
Total Bilirubin 0.6 mg/dl (0.2-1.3) 10/22/25 09:18
AST 25 U/L (14-36) 10/22/25 09:18
ALT 16 U/L (0-35) 10/22/25 09:18
Alkaline Phosphatase 76 U/L (38-126) 10/22/25 09:18
Impression/Plan
-
Assessment/Plan:
-Acute lower GI bleed: Unresolved
-Acute blood loss anemia secondary to lower GI bleed: Unresolved
Bright red blood per rectum indicating acute lower GI bleed especially in the setting of active hemorrhoids
External hemorrhoid seen on physical exam with internal hemorrhoid palpated at the 3 o'clock position
Hemoccult blood positive
Hemoglobin was 7.3 on presentation with subsequent hemoglobin detected to be 5.9 resulting in immediate transfusion of 1 PRBCs to maintain hemodynamics
Follow H&H every 6 hours and transfuse if hemoglobin less than 7.
Patient currently n.p.o. -Will consider advancing to clears as tolerated and if hemoglobin stable
IV Protonix
May consider GI and/or colorectal consult... Possible indication for band ligation in the setting of repeated lower GI bleed necessitating PRBC transfusions
-Nausea: Unresolved
1 dose of Tigan given in the emergency department
QTc 479 on most recent EKG - patient safe to receive Zofran
Patient switched to scheduled Zofran as antiemetic
-Hepatic Cirrhosis: Monitoring
Patient has a history of hepatic cirrhosis secondary to chronic alcohol use
Patient has a history of hepatic encephalopathy on prior presentations
Continue lactulose and rifaximin
-Hyponatremia: Unresolved/Monitoring
Patient is hyponatremic with a sodium of 130 on presentation
Continue IV fluid support
-EtOH abuse/dependence: Unresolved/monitoring
Patient has a long history of alcohol abuse/dependence
Patient currently admits to drinking approximately 1 glass of wine every evening and states that sometimes she drinks more.
Monitoring MSAS score in the setting of alcohol use
-Anxiety: Stable/Monitoring
Continue home medication regimen
Patient states that they are on clonazepam 0.5mg but it has not been filled since 06/21/25. According to PDMP it appears that PCP successfully tapered the patient down to 0mg clonazepam over the course of many months. I would recommend against
resuming this medication considering the successful taper and possible risk of relapse to dependency.
CODE STATUS: FULL CODE
Stress Ulcer Prophylaxis: Protonix IV
DVT Prophylaxis: SCDs
[2025-10-22] MEDS: XIFAXAN 550 MG PO ×2 (13:52→20:42)
[2025-10-22] MEDS: ALDACTONE 100 MG PO (13:52)
[2025-10-22] MEDS: ACTIGALL 300 MG PO ×2 (13:52→20:42)
--- NOTE | 2025-10-22 15:10 | CM ---
Chart reviewed and spoke with patient at ED bedside
She lives with her friend Jossue
Lives in [address]nd [address]
Patient states that she is able to do steps to get into her apartment
Her mother is in LTC
Patient asked me to call her 'aunt Deisy who she is not talking at this time/'
OB call to Deisy aunt at [phone]
Deisy states that patient's mother is in LTC due to Parkinson's . Her mother has been paying for patient's living expenses including rent and food since pt stopped working 10 years ago
Pt's mother's saving has been depleted and Deisy's has been paying for mom's LTC and pt's apartment rent
Deisy states that her rental is up for renewal in Dec and Deisy and plan to stop supporting pt financially
'her apartment is more than we can afford'
Asking CM to call her aunt to update about her inpt stay
CM also provided our main CM office number to call with any concern
PCP Chichi Garrison
[facility] on [address]
hx of [facility]
Going to [facility]
no hx of SNF
DCP is to go home with C?
CM will continue to follow up for any dcp needs
[2025-10-22] MEDS: NSS 1000 IV (15:32)
[2025-10-22] MEDS: TIGAN 200 MG IM (15:51)
--- NOTE | 2025-10-22 16:14 | CON.GI ---
Addendum entered and electronically signed by Kary Foley DO 10/22/25 17:48:
The patient was seen and examined by me independently in collaboration with the nurse practitioner.
Past medical history/social history/medications/allergies/family history reviewed.
Lab data and imaging data reviewed.
Esperanza Singer is a 55 y.o. 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
in 08/2025) admitted with one episode of melena 2 days ago followed by large volume hematochezia. She was last here at the end of August with rectal bleeding, found to have an external hemorrhoid, which was felt to be the source. She has been doing
relatively well since that time, has been on a new diuretic regimen.
Her hgb on arrival was 7.3, subsequently dropped to 5.9, she was transfused with 1 unit PRBC. She is hemodynamically stable.
A/P:
Octreotide gtt
PPI gtt
SBP prophylaxis
H&H q12 hr
Transfuse for Hgb <7
NPO PMN for EGD tomorrow, will likely plan to perform full colonoscopy on Wed, await further recommendations from Dr. Mcgovern who will be taking over the service tomorrow
Original Note:
Consultation
-
Date/Time Consultation Requested: 10/22/25 1515
Date/Time Consultation Performed: 10/22/25 1600
Requesting Provider: Nida Ramirez MD
Performing Provider: KASSANDRA Hurtado, Anisa Foley DO
Reason for Consultation: anemia
Medical History
Chief Complaint / HPI
Chief Complaint: rectal bleeding
History of Present Illness:
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
concern for duodenal dieulofoy on last EGD at [place]. She had multiple admission with anemia and bleeding and ascites. She has been doing better over last few weeks. She currently has less ascites and admits to alternating Lasix 20mg with
Spironolactone 50mg with alternate day Spironolactone 100mg She had follow up with Dr. Garcia September who also spoke about transplant evaluation but was concerned for continued ETOH use.
In review with patient she now presents for concern for recurrent rectal bleeding. She woke up at 4:30am with large red stool followed by 2 more stools with blood. She admits to dizziness and nausea but denies odynophagia, GERD, vomiting,
abdominal pain, with about 2 formed stool daily mostly brown with some black stool on 10/21. In addition to bleeding pt also with prior imaging concern for multifocal lobular and confluent fatty infiltration LIRADS 3 on prior MRI in July.
Last need for paracentesis was 09/07. On admission hbg 7.3 with drop to 5.9 after admission. Last hbg 7.7 09/07. Platelets 212, NA 130, creat 0.5, albumin 3.3 INR 1.49
07/23- CTA severe cirrhosis, large lesion of fatty attenuation over 80% with mass effect malignancy, steatosis, cirrhotic nodules, severe Portal HTN, midl colitis tamara colonopathy, diverticulosis, small perihepatic ascites
07/25MRI cirrhosis Multifocal regions of lobular and confluent fatty infiltration. Overall imaging features suggest classification of LIRADS 3. no PV or hepatic vein thrombosis mod ascites, cholelithiasis, GBWT with ascites, 7.5 CBD
08/08/25 CT a/p angio There is no evidence for active GI bleeding by CT.Prominent varices within the posterior wall of the third portion of the duodenum, but no contrast extravasation into the lumen of the duodenum.
Thickening of the wall the right colon, which is likely portal colopathy. Moderate to large amount of ascites within the abdomen and pelvis. Cirrhotic liver. No convincing CT evidence for hepatocellular carcinoma.
Splenomegaly. Cholelithiasis. No evidence for biliary ductal dilation.Edema surrounding the head of the pancreas, most likely from ascites. Please correlate with any clinical signs or symptoms that would suggest pancreatitis.
multiple par 300- 3650 neg SBP( 07/27 atypical cell favor reactive mesothelia cells, inflammatory cell predominant RBC's present , repeat 08/01 neg malignant cells ) last 09/07.
scopes:
03/2025 GAVE on scope in [place]
07/23/25- [facility] enteroscopy -GAVE without bleeding, nodule duodenum, blood in third portion of duodenum unable to clear, bleeding reflux from jejunum, hemospray, non bleeding jejunal ectasia, s/p APC
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
08/02/25 Do flex sig no old or fresh blood, diffuse colonopathy, hemorrhoids, diverticulosis
08/2025-EGD [place]- Dieulafoy lesion second portion of duodenum with clot with clipping and epi injection
08/2025 - [place]- colon- perianal skin tags, hematin entire colon, IH no active source of bleeding seen blood in TI
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 No evidence of AVM or blood No specimens collected
Past Medical History
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
Social History
Tobacco: Vaping
Alcohol: Chronic Alcoholic (drinks wine every other day )
Drug: Marijuana
Personal: Single (with boyfriend)
Living: With Roomate
Employment: Disabled
Family History
Family History: Other (Grandmother history of colon-rectal cancer, all other GI malignancies negative)
Allergies / Home Medications
Allergy/AdvReac Type Severity Reaction Status Date / Time
No Known Allergies Allergy Verified 08/23/25 10:00
�Medication �Instructions �Recorded
clonazepam 0.5 mg tablet 0.5 mg PO DAILYPRN PRN anxiety 01/31/25
lactulose 10 gram/15 mL oral 30 ml PO BID Liver Issues 03/25/25
solution
rifaximin 550 mg tablet 550 mg PO BID Liver Issues 03/25/25
baclofen 10 mg tablet 10 mg PO TID 07/23/25
buspirone 10 mg tablet 10 mg PO TID Mental Health/Anxiety 08/01/25
ursodiol 300 mg capsule 300 mg PO BID Liver Issues 08/01/25
cetirizine 10 mg tablet (Zyrtec) 10 mg PO HS Allergies 08/15/25
dextroamphetamine-amphetamine 20 20 mg PO TID Mental Health/Anxiety 08/15/25
mg tablet (Adderall)
ferrous sulfate 325 mg (65 mg 325 mg PO DAILY Supplement 08/15/25
iron) tablet
polyethylene glycol 3350 17 gram 17 g PO DAILYPRN PRN constipation 08/29/25
oral powder packet (Miralax)
midodrine 5 mg tablet 5 mg PO TID #90 tabs 09/01/25
Lactobac no.2-Bifidobac no.1-S. 1 cap PO DAILY 10/22/25
thermo 112.5 billion cell capsule
(Visbiome)
ascorbic acid 1,000 1,000 ea PO DAILY 10/22/25
gt-vvqeyzdsggok-hsohwnhr powder
effervescent pack (Emergen-C)
budesonide-formoterol HFA 160 1 inh inhalation BID 10/22/25
mcg-4.5 mcg/actuation aerosol
inhaler (Symbicort)
fluticasone propionate 50 2 spray intranasal DAILY 10/22/25
mcg/actuation nasal
spray,suspension
furosemide 20 mg tablet 20 mg PO Q48H 10/22/25
lidocaine 5 % topical patch 1 patch topical QPM lower back pain 10/22/25
spironolactone 100 mg tablet 100 mg PO Q48H 10/22/25
(Aldactone)
spironolactone 50 mg tablet 50 mg PO Q48H 10/22/25
therapeutic multivitamin 1 tab PO DAILY 10/22/25
trazodone 100 mg tablet 200 mg PO HS 10/22/25
Review of Systems
-
History Source: Patient
Constitutional: Reports Weight Gain (with fluid )
EENT: Reports No Symptoms
Respiratory: Reports No Symptoms
Cardiac: Reports No Symptoms
Abdomen/GI: Reports Nausea, Bloody Stools (with larger volume 09/04 and 09/05 ) and Black Stools
: Reports No Symptoms
Musculoskeletal: Reports No Symptoms
Skin: Reports No Symptoms
Neurological: Reports Dizzy and Weakness
Endocrine: Reports No Symptoms
Hematologic/Lymphatic: Reports Bleeding
Vital Signs
Temp Pulse Resp BP Pulse Ox
98.8 F 100 22 109/64 99
10/22/25 15:09 10/22/25 15:09 10/22/25 15:09 10/22/25 15:09 10/22/25 12:30
Physical Exam
Exam
General: No Apparent Distress and Other (temporal wasting )
HEENT: Normocephalic and Anicteric
Respiratory: Clear
Cardiac: Other (tachy )
GI: Soft, Non Tender and Non Distended
Rectal: Other (per ER --Hemoccult positive, nonthrombosed, nonbleeding external hemorrhoids)
Musculoskeletal: No Clubbing and No Cyanosis
Skin: Warm and Dry
Neuro: Awake, Alert and AO x 3
Psych: Calm
Results
WBC 5.4 10^3/uL (4.8-10.8) 10/22/25 09:18
Hgb Cancelled 10/22/25 19:00
Hct Cancelled 10/22/25 19:00
MCV 81.0 fL (81.0-99.0) 10/22/25 09:18
Plt Count 212 10^3/uL (130-400) 10/22/25 09:18
Absolute Neuts (auto) 3.6 10^3/uL (1.4-6.5) 10/22/25 09:18
PT 18.2 Sec (11.4-14.6) H 10/22/25 09:18
INR 1.49 10/22/25 09:18
APTT 30.3 Sec (23.4-35.0) 10/22/25 09:18
Sodium 130 mmol/L (135-145) L 10/22/25 09:18
Potassium 4.8 mmol/L (3.5-5.1) 10/22/25 09:18
Chloride 100 mmol/L (98-107) 10/22/25 09:18
Carbon Dioxide 27 mmol/L (22-30) 10/22/25 09:18
BUN 20 mg/dl (7-17) H 10/22/25 09:18
Creatinine 0.5 mg/dL (0.6-1.0) L 10/22/25 09:18
Calcium 8.7 mg/dl (8.4-10.2) 10/22/25 09:18
Total Bilirubin 0.6 mg/dl (0.2-1.3) 10/22/25 09:18
AST 25 U/L (14-36) 10/22/25 09:18
ALT 16 U/L (0-35) 10/22/25 09:18
Alkaline Phosphatase 76 U/L (38-126) 10/22/25 09:18
Diagnostic Image Results:
07/23- CTA severe cirrhosis, large lesion of fatty attenuation over 80% with mass effect malignancy, steatosis, cirrhotic nodules, severe Portal HTN, midl colitis tamara colonopathy, diverticulosis, small perihepatic ascites
07/25MRI cirrhosis Multifocal regions of lobular and confluent fatty infiltration. Overall imaging features suggest classification of LIRADS 3. no PV or hepatic vein thrombosis mod ascites, cholelithiasis, GBWT with ascites, 7.5 CBD
08/08/25 CT a/p angio There is no evidence for active GI bleeding by CT.Prominent varices within the posterior wall of the third portion of the duodenum, but no contrast extravasation into the lumen of the duodenum.
Thickening of the wall the right colon, which is likely portal colopathy. Moderate to large amount of ascites within the abdomen and pelvis. Cirrhotic liver. No convincing CT evidence for hepatocellular carcinoma.
Splenomegaly. Cholelithiasis. No evidence for biliary ductal dilation.Edema surrounding the head of the pancreas, most likely from ascites. Please correlate with any clinical signs or symptoms that would suggest pancreatitis.
multiple par 300- 3650 neg SBP( 07/27 atypical cell favor reactive mesothelia cells, inflammatory cell predominant RBC's present , repeat 08/01 neg malignant cells ) last 09/07.
scopes:
03/2025 GAVE on scope in [place]
07/23/25- [facility] enteroscopy -GAVE without bleeding, nodule duodenum, blood in third portion of duodenum unable to clear, bleeding reflux from jejunum, hemospray, non bleeding jejunal ectasia, s/p APC
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
08/02/25 Do flex sig no old or fresh blood, diffuse colonopathy, hemorrhoids, diverticulosis
08/2025-EGD [place]- Dieulafoy lesion second portion of duodenum with clot with clipping and epi injection
08/2025 - [place]- colon- perianal skin tags, hematin entire colon, IH no active source of bleeding seen blood in TI
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 No evidence of AVM or blood No specimens collected
Assessment / Plan
-
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
concern for duodenal dieulofoy on last EGD at [place]. She had multiple admission with anemia and bleeding and ascites. She has been doing better over last few weeks. She currently has less ascites and admits to alternating Lasix 20mg with
Spironolactone 50mg with alternate day Spironolactone 100mg She had follow up with Dr. Garcia September who also spoke about transplant evaluation but was concerned for continued ETOH use. In review with patient she now presents for concern
for recurrent rectal bleeding. She woke up at 4:30am 10/22 with large red stool followed by 2 more stools with blood. She admits to dizziness and nausea but denies odynophagia, GERD, vomiting, abdominal pain, with about 2 formed stool daily
mostly brown with some black stool on 10/21. In addition to bleeding pt also with prior imaging concern for multifocal lobular and confluent fatty infiltration LIRADS 3 on prior MRI in July. Last need for paracentesis was 09/07. On
admission hbg 7.3 with drop to 5.9 after admission. Last hbg 7.7 09/07. Platelets 212, NA 130, creat 0.5, albumin 3.3 INR 1.49
07/23- CTA severe cirrhosis, large lesion of fatty attenuation over 80% with mass effect malignancy, steatosis, cirrhotic nodules, severe Portal HTN, midl colitis tamara colonopathy, diverticulosis, small perihepatic ascites
07/25MRI cirrhosis Multifocal regions of lobular and confluent fatty infiltration. Overall imaging features suggest classification of LIRADS 3. no PV or hepatic vein thrombosis mod ascites, cholelithiasis, GBWT with ascites, 7.5 CBD
08/08/25 CT a/p angio There is no evidence for active GI bleeding by CT.Prominent varices within the posterior wall of the third portion of the duodenum, but no contrast extravasation into the lumen of the duodenum.
Thickening of the wall the right colon, which is likely portal colopathy. Moderate to large amount of ascites within the abdomen and pelvis. Cirrhotic liver. No convincing CT evidence for hepatocellular carcinoma.
Splenomegaly. Cholelithiasis. No evidence for biliary ductal dilation.Edema surrounding the head of the pancreas, most likely from ascites. Please correlate with any clinical signs or symptoms that would suggest pancreatitis.
multiple par 300- 3650 neg SBP( 07/27 atypical cell favor reactive mesothelia cells, inflammatory cell predominant RBC's present , repeat 08/01 neg malignant cells ) last 09/07.
scopes:
03/2025 GAVE on scope in [place]
07/23/25- [facility] enteroscopy -GAVE without bleeding, nodule duodenum, blood in third portion of duodenum unable to clear, bleeding reflux from jejunum, hemospray, non bleeding jejunal ectasia, s/p APC
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
08/02/25 Do flex sig no old or fresh blood, diffuse colonopathy, hemorrhoids, diverticulosis
08/2025-EGD [place]- Dieulafoy lesion second portion of duodenum with clot with clipping and epi injection
08/2025 - [place]- colon- perianal skin tags, hematin entire colon, IH no active source of bleeding seen blood in TI
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 No evidence of AVM or blood No specimens collected
-recurrent admission with now bright red blood and prior GI bleeding with black stools -multiple scopes as above with massive transfusion requirement last in August
-chronic anemia
-recent EGD with concern for jejunal bleeding not well visualized then noted duodenal dieulofoy lesion
-diffuse colopathy
--hx cirrhosis - ETOH related follows with [facility]
-ascites improved on diuretic therapy
-Multifocal regions of lobular and confluent fatty infiltration. Overall imaging features suggest classification of LIRADS 3 per recent MRI
-HE on lactulose and Xifaxan
-hyponatremia
-coagulopathy
-GAVE on prior EGD
-hx falls
-bipolar disorder
-cholelithiasis/GBWT with ascites per imaging
-chronic back pain
-splenomegaly
PLAN:
pt with hx Recurrent GI bleed likely multifactorial from portal gastropathy, GAVE, duodenal and jejunal angiectasias but most recently noted with Dieulafoy lesion second portion of duodenum with clot with clipping and epi injection with concern
for now red blood and black stools
may be local source with hemorrhoids vs other
no further bleeding in ER but drop in hbg
plan for EGD in AM
add PPI, Octeotide gtt with abx for GI bleeidng with cirrrhosis
cont Lactulose and add Xifaxan
follow with Dr. Garcia at [place]
Pt remains on diuretics will hold with bleeding and hyponatremia
Pt on chronic Bj that pt was on prior to admission
cont clears, NPO in AM for EGD
-
-
Thank you for consultation and allowing me to participate in the patient's care. Please call the professional system administrator GI physician during the after hours with any questions or concerns.
[2025-10-22] MEDS: ROCEPHIN 1000 MG IV (18:53)
[2025-10-22] MEDS: STERILE WATER FOR INJECTION 10 ML IV (18:53)
[2025-10-22] MEDS: LIDOCAINE 4% PATCH 1 PATCH TOPICAL (18:53)
[2025-10-22] MEDS: BUSPAR 10 MG PO ×2 (18:55→22:02)
[2025-10-22] MEDS: PROTONIX 100 IV (18:56)
[2025-10-22] MEDS: LIORESAL 10 MG PO ×2 (19:02→22:02)
[2025-10-22] MEDS: DUPHALAC/CHRONULAC 20 GRAMS PO (19:03)
[2025-10-22] MEDS: SANDOSTATIN 250 MCG IV (19:10)
[2025-10-22 19:24] LABS: Hematocrit 22.8 % (37.0-47.0); Hemoglobin 7.0 g/dL (12.0-16.0)
--- NOTE | 2025-10-22 19:51 | PTCARENOTE ---
Pt admitted to rm 317-2. Ambulated to bed from stretcher. C/o pain in lower back - lidocaine patches provided and ice pack. Octreotide and protonix gtt started as ordered. Second line obtained in R arm - H+H drawn when starting that. Pt instructed
on NPO after midnight. Call grossman in reach, able to make needs known.
[2025-10-22] MEDS: SYMBICORT 160/4.5 MCG INHALER 1 PUFF INH (20:30)
[2025-10-22] MEDS: ZYRTEC 10 MG PO (22:02)
[2025-10-22] MEDS: DESYREL 200 MG PO (22:02)
[2025-10-23] VITALS (30 sets, daily range): BP systolic 92–123; BP diastolic 53–100
[2025-10-23] MEDS: NSS 1000 IV (05:03)
[2025-10-23] MEDS: REMOVE LIDOCAINE PATCH 1 PATCH REMOVE (05:04)
[2025-10-23] MEDS: SANDOSTATIN 250 MCG IV ×3 (05:04→22:21)
[2025-10-23] MEDS: PROTONIX 100 IV ×3 (05:04→20:09)
--- NOTE | 2025-10-23 06:16 | PTCARENOTE ---
Evening H&H resulted. KASSANDRA Carrasco notified. Plan of care ongoing.
[2025-10-23 06:29] LABS: APTT 32.2 Sec (23.4-35.0); INR 1.52; PT 18.5 Sec (11.4-14.6)
[2025-10-23 06:45] LABS: ALT (SGPT) 14 U/L (0-35); AST (SGOT) 27 U/L (14-36); Albumin 2.7 g/dl (3.5-5.0); Alkaline Phosphatase 58 U/L (38-126); Blood Urea Nitrogen 15 mg/dl (7-17); Calcium 8.5 mg/dl (8.4-10.2); Carbon Dioxide 22 mmol/L (22-30); Chloride 110 mmol/L (98-107); Estimated Creatinine Clearance 88 ml/min; Glucose 135 mg/dl (70-99); Potassium 4.7 mmol/L (3.5-5.1); Sodium 135 mmol/L (135-145); Total Protein 5.5 g/dl (6.3-8.2); eGFR > 60.00
--- NOTE | 2025-10-23 07:22 | W.PN.HOSP.TC ---
Addendum entered and electronically signed by Michael Alba MD 10/23/25 20:34:
Attending Addendum-I saw and evaluated the patient. I reviewed the resident�s note and agree with findings and plan as documented in the resident�s note. Sub: patient seen post EGD in pacu. Feels bloated passing gas. Post procedure noted to be
oozing blood from duodenal varix. d/w GI at great length transfer to ICU for close monitoring. No CP palps dizziness. Full 12 point ROS reviewed and negative except as documented Exam- vitals reviewed in EMR GEN-NAD heart RRR Lung CTA B/L Abd no
fluid wave appreciated pos BS NT mildly distended LE no edema, pos fetor hepaticus Neuro AAO x 3 no asterixis
Plan:
#BRBPR/Bleeding Duodenal Varix/Acute Blood Loss anemia
-EGD 10/23-medium sized duodenal varix in 3rd portion with a platelet plug overlying, no bleeding initially, Upon relook into small bowel, active bleeding was encountered and appeared to originate from suspected varix
Injected with dilute epi 4cc unsuccessful.
Hemospray applied, somewhat difficult due to reflux of blood and clotting
Bleeding appeared to subside but not completely stopped
-transfer to ICU for close monitoring, retail sales clerk consulted
-transfused 1 unit PRBC prior to EGD and 1 unit after
-check H and H q 6 hours
-H/O GAVE syndrome
-acute blood loss anemia
-h/o hemorrhoids- possibly contributing
-appreciate GI input
-cont octreotide gtt and protonix gtt
-transfer initiated to [facility] for TIPS
# Liver failure with cirrhosis/ascites/PHTN
-previously requiring weekly paracentesis last on 09/06
-fetor hepaticus
-elevated INR
-cont xifaximin lactulose spironolactone lasix ursodiol
-no indication for paracentesis at this time
-cont rocephin for SBP prophy
-transfer to [facility] for TIPS
# AUD
- MSAS @ 1
- still drinking
#ADHD- cont Adderall PDMP reviewed
#H/O GAVE syndrome
#Chronic hypotension: cont Midodrine
#Acute on Chronic Hyponatremia: improved recheck BMP in AM
#Anxiety: Cont Buspar DC Klonopin
#Chronic back pain-start lidocaine patch baclofen add pain control
#Severe protein calorie malnutrition
FULL/SCDs
Dispo-from home
CC Note
Due to a high probability of clinically significant, life-threatening deterioration, the patient required a high level of preparedness to intervene emergently. I personally spent this critical care time directly and personally managing the patient.
This critical care time included obtaining a history; examining the patient; ordering and review of studies and STAT labs; arranging urgent treatment with development of a management plan; evaluation of patient's response to treatment; reassessment;
and, discussions with other providers.
This critical care time was performed to assess and manage the high probability of imminent, life-threatening deterioration that could result in multi-organ failure. It was exclusive of separately billable procedures and treating other patients and
teaching time. D/W [facility] GI and CC.
Total critical care time: Approximately 35 minutes
Original Note:
Today's Communication/Plan
-
Critical,transfer to ICU
continue octreotide infusion
Continnue PPI infusion
Continue ceftriaxone and rifaximine
update family
Assessment / Plan
Assessment / Plan
Impression:
Patient is a 55-year-old female, with past medical history of decompensated chronic liver disease secondary to alcoholic liver cirrhosis, history of hepatic encephalopathy, recurrent upper/lower GI bleeding, anemia, presented with acute rectal
bleeding.
Follows with Chaz Garcia at the [facility]
History of hemorrhoids, large hemorrhoids observed on external exam and rectal exam
Presented with dizziness s/p 3 units of packed RBCs
Workup for portal hypertension/varices ongoing.
Assessment/plan:
# Bright red bleeding per rectum secondary to liver cirrhosis/portal hypertension versus hemorrhoids
Bright red bleeding indicating acute lower GI bleed-active hemorrhoids present
S/p 3 packs of blood and 2 packs received prior to EGD, 1 pack after EGD
EGD done today-normal esophagus, portal hypertensive gastropathy, duodenal varices in third portion, no bleeding on initial pass, active bleeding in third portion seen on second look, injected dilute epi unsuccessful, hemostatic spray applied,
active bleeding subsided-not completely resolved
Patient transferred to ICU with continued octreotide infusion
H&H 6 hourly
Keep n.p.o.
Gastroenterology on board-recommending to transfer to another hospital for management of varices and possible TIPS
Called [facility] transfer center-accepting Physician Dr. Robert Gibson-awaiting bed availability
# Acute blood loss anemia
S/p 3 packs of RBCs
H&H 6 hourly
#Liver cirrhosis-history of ascites/hepatic encephalopathy/upper and lower GI bleed
Most likely secondary to chronic alcohol use
Continue lactulose and rifaximin
Continue prophylactic thiamine and folate
History of requiring paracentesis every week-last time done in August-clinically does not need paracentesis at this time
#Etoh abuse/dependence
Longstanding history of alcohol abuse/dependence
Currently drinking approximately 1 glass of wine every evening and sometimes more
MSAS scoring-1,RASS-0
Continue folate and thiamine
#Hyponatremia
Continue IVF and monitor
#Transaminitis and Pancytopenia
Most likely secondary to alcohol use
CODE STATUS: FULL CODE
Stress Ulcer Prophylaxis: Protonix IV
DVT Prophylaxis: SCDs
Critical
Transferred to ICU
Anticipated Discharge: > 48 hours
Subjective/Interval History
-
Date of Service: October 23, 2025
Patient seen and examined at bedside
Complains of chronic lower back pain
Still having blood in stool, reports having bowel movement this morning that was brownish in color with bright red blood
Ambulating herself to bathroom without any dizziness, reports decreased appetite and feels bloated
Reports palpitations
Objective Data
-
Labs:
Laboratory Results
10/22/25 10/23/25
19:15 05:59
WBC Pending
Hgb 7.0 L Pending
Hct 22.8 L Pending
Plt Count Pending
PT 18.5 H
INR 1.52
APTT 32.2
Sodium 135
Potassium 4.7
Chloride 110 H
Carbon Dioxide 22
BUN 15
Creatinine 0.5 L
Glucose 135 H
Calcium 8.5
Total Bilirubin 0.5
AST 27
ALT 14
Alkaline Phosphatase 58
Vital Signs:
Vital Signs
Temp Pulse Resp BP Pulse Ox
98.2 F 100 16 100/64 98
10/23/25 03:14 10/23/25 03:14 10/23/25 03:14 10/23/25 03:14 10/23/25 03:14
I&O
10/22/25 10/23/25 10/24/25
06:59 06:59 06:59
Intake Total 370 / 370
Balance 370 / 370
Review of Systems
-
Constitutional: Reports Fatigue
EENT: Reports No Symptoms Reported
Respiratory: Reports No Symptoms
Cardiac: Reports Palpitations
Abdomen/GI: Reports Bloody Stools, Anorexia and Bloated
Breast: Reports No Symptoms
Genitourinary: Reports No Symptoms
Musculoskeletal: Reports No Symptoms
Skin: Reports No Symptoms
Neuro: Reports No Symptoms
Endocrine: Reports No Symptoms
Hematologic / Lymphatic: Reports No Symptoms
Allergy / Immunology: Reports No Symptoms
Psych: Reports Anxious
Physical Exam
-
General: No Apparent Distress, Appears Chronically Ill and Other (loss of muscle mass)
HEENT: Normocephalic, Atraumatic and Moist Mucous Membranes
Respiratory: Clear to Auscultation; Negative Wheezes, Rales or Rhonchi
Cardiac: Regular Rhythm, S1/S2 and Tachycardic; Negative Murmur or Rub
GI: Soft, Nontender, Nondistended and Normal Bowel Sounds
Musculoskeletal: No Clubbing, No Cyanosis and No Edema
Skin: Warm and Dry; Negative Rash, Ulcers or Lesions
Neuro: Awake, AO x 3 and Nonfocal/Grossly Intact
Psych: Anxious
[2025-10-23] MEDS: SYMBICORT 160/4.5 MCG INHALER 1 PUFF INH ×2 (07:50→19:52)
[2025-10-23] MEDS: BUSPAR 10 MG PO ×3 (08:00→21:22)
[2025-10-23] MEDS: XIFAXAN 550 MG PO ×2 (08:00→20:08)
[2025-10-23] MEDS: LIORESAL 10 MG PO ×3 (08:00→21:23)
[2025-10-23] MEDS: ACTIGALL 300 MG PO ×2 (08:00→20:08)
[2025-10-23] MEDS: DUPHALAC/CHRONULAC 20 GRAMS PO ×2 (08:06→21:23)
[2025-10-23 08:29] LABS: Hematocrit 22.3 % (37.0-47.0); Hemoglobin 6.9 g/dL (12.0-16.0); Mean Corp Hgb Conc. 30.9 g/dL (33.0-37.0); Mean Corpuscular Volume 81.7 fL (81.0-99.0); Nucleated Red Blood Cells % 0 %; Red Cell Dist. Width 18.3 % (11.5-14.5)
--- NOTE | 2025-10-23 10:41 | PTCARENOTE ---
Report provided to GI pathology lab technicianKUMAR Hopkins around 1000 this shift. Pt departed from unit to GI lab for EGD around 1040 after 1 unit PRBCs hung and 15 minute assessment completed - requested by GI.
[2025-10-23 11:12] LABS: Platelet Count 136 10^3/uL (130-400)
--- NOTE | 2025-10-23 12:02 | W.PN.UPDATE ---
Update Note
Progress Note Update
EGD done
Normal esophagus, no varices
Mild portal gastropathy
There appeared to be medium sized duodenal varix in 3rd portion with a platelet plug overlying, no bleeding initially
Upon relook into small bowel, active bleeding was encountered and appeared to originate from suspected varix
Injected with dilute epi 4cc unsuccessful.
Hemospray applied, somewhat difficult due to reflux of blood and clotting
Bleeding appeared to subside but not completely stopped
BP and heart rate remained stable throughout the procedure.
REC:
Transfer to ICU
NPO
Octreotide gtt
I called [facility] for transfer for possible TIPS or other treatment of duodenal varix
Transfuse another unit PRBC and follow Hgb
[2025-10-23] MEDS: DILAUDID 0.25 MG IV ×2 (12:26→18:23)
--- NOTE | 2025-10-23 12:58 | CM ---
patient unavailable currently
patient for GI procedure
per nursing will be transferred to ICU post-procedure
--- NOTE | 2025-10-23 13:59 | CON.INTV ---
Consultation
Consultation Request
Date/Time Consultation Requested: 10/23/2025
Date/Time Consultation Performed: 10/23/2025
Medical History
-
History of Present Illness:
Patient is a 55-year-old female with known history of decompensated cirrhosis requiring multiple paracentesis for ascites, hepatic encephalopathy as well as recurrent GI bleeding. Patient has had upper endoscopies, sigmoidoscopies in the past
suggestive of portal colopathy, portal gastropathy, duodenal varices, angiodysplasia in the duodenal area in the past. Patient presented to the hospital on 10/22 when she woke up plaster patternmaker with larger red stools followed by 2 additional
episodes of hematochezia. Patient reportedly felt dizzy and nauseous and presented to the emergency room for further evaluation. She was noted to have an admission hemoglobin of 7.3 which dropped further down to 5.9. Patient received blood
transfusion and subsequently GI service was consulted. 10/23, patient was taken to GI suite and had an upper endoscopy performed which showed duodenal third part varices. Bleeding could not be completely controlled with local therapies and patient
was subsequently admitted to ICU on octreotide and Protonix infusion with plan for transfer to [facility] for TIPS. Biological Sciences Instructor consult was requested for further input.
Past Medical History: Reports Psychiatric
Additional Past Medical History:
Alcoholic liver cirrhosis
Hepatic encephalopathy
Recurrent upper/lower GI bleeding secondary to duodenal/rectal angiodysplasia
GAVE syndrome s/p APC
Essential hypertension
Chronic back pain
Cholelithiasis
Anxiety
Bipolar (unspecified)
ADHD
EtOH abusePast Surgical History: Reports None
Social History
Tobacco: Former Smoker
Alcohol: Daily (1 glass of wine daily)
Drug: None
Personal: Single
Living: With Roomate
Employment: Not Employed
Family History
Family History: Not pertinent
Allergies / Home Medications
Allergies
Allergy/AdvReac Type Severity Reaction Status Date / Time
No Known Allergies Allergy Verified 08/23/25 10:00
Home Medications
�Medication �Instructions �Recorded �Confirmed �Last Taken �Type
clonazepam 0.5 mg tablet 0.5 mg PO DAILYPRN PRN anxiety 01/31/25 10/22/25 03/24/25 17:15 History
lactulose 10 gram/15 mL oral 30 ml PO BID Liver Issues 03/25/25 10/22/25 10/21/25 History
solution
rifaximin 550 mg tablet 550 mg PO BID Liver Issues 03/25/25 10/22/25 10/21/25 History
baclofen 10 mg tablet 10 mg PO TID 07/23/25 10/22/25 08/22/25 History
buspirone 10 mg tablet 10 mg PO TID Mental Health/Anxiety 08/01/25 10/22/25 08/22/25 History
ursodiol 300 mg capsule 300 mg PO BID Liver Issues 08/01/25 10/22/25 10/21/25 History
cetirizine 10 mg tablet (Zyrtec) 10 mg PO HS Allergies 08/15/25 10/22/25 08/22/25 History
dextroamphetamine-amphetamine 20 20 mg PO TID Mental Health/Anxiety 08/15/25 10/22/25 08/22/25 History
mg tablet (Adderall)
ferrous sulfate 325 mg (65 mg 325 mg PO DAILY Supplement 08/15/25 10/22/25 08/22/25 History
iron) tablet
polyethylene glycol 3350 17 gram 17 g PO DAILYPRN PRN constipation 08/29/25 10/22/25 Unknown History
oral powder packet (Miralax)
midodrine 5 mg tablet 5 mg PO TID #90 tabs 09/01/25 10/22/25 Unknown Rx
Lactobac no.2-Bifidobac no.1-S. 1 cap PO DAILY 10/22/25 10/22/25 Unknown History
thermo 112.5 billion cell capsule
(Visbiome)
ascorbic acid 1,000 1,000 ea PO DAILY 10/22/25 10/22/25 Unknown History
pe-vemeqzwqvwob-rgqpoqej powder
effervescent pack (Emergen-C)
budesonide-formoterol HFA 160 1 inh inhalation BID 10/22/25 10/22/25 Unknown History
mcg-4.5 mcg/actuation aerosol
inhaler (Symbicort)
fluticasone propionate 50 2 spray intranasal DAILY 10/22/25 10/22/25 Unknown History
mcg/actuation nasal
spray,suspension
furosemide 20 mg tablet 20 mg PO Q48H 10/22/25 10/22/25 Unknown History
lidocaine 5 % topical patch 1 patch topical QPM lower back pain 10/22/25 10/22/25 Unknown History
spironolactone 100 mg tablet 100 mg PO Q48H 10/22/25 10/22/25 Unknown History
(Aldactone)
spironolactone 50 mg tablet 50 mg PO Q48H 10/22/25 10/22/25 Unknown History
therapeutic multivitamin 1 tab PO DAILY 10/22/25 10/22/25 Unknown History
trazodone 100 mg tablet 200 mg PO HS 10/22/25 10/22/25 Unknown History
Review of Systems
-
Hematologic/Lymphatic: Other (No new symptoms reported. Rest of ROS negative, )
Vitals / Labs / Diagnostic Testing
Vital Signs
Temp Pulse Resp BP Pulse Ox
98.5 F 91 19 100/82 100
10/23/25 13:00 10/23/25 13:45 10/23/25 13:45 10/23/25 13:45 10/23/25 13:45
Lab Data
10/23/25 05:59
Laboratory Results
10/23/25
05:59
PT 18.5 H
INR 1.52
APTT 32.2
Diagnostic Testing:
Physical Exam
-
HEENT: Normocephalic (Conjuctival palor)
Cardiovascular: S1/S2
Respiratory: Clear
GI: Soft
Neurology: Awake, Alert and Oriented
Skin: Warm
General: Comfortable
Assessment
-
#1. Hematochezia with acute blood loss anemia
- EGD 10/23/2025, suggestive of portal gastropathy as well as suspected duodenal varices in the third portion with platelet plug overlying, injected dilute epi, unsuccessful subsequently hemostatic spray applied, active bleeding subsided but not
completely resolved.
- Check serial H/H, monitor closely in ICU. Continue Protonix and octreotide infusion. Continue empiric ceftriaxone in the setting of ascites and GI bleed.
- Await transfer to a tertiary facility with ability to perform TIPS, GI service on case
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
- Reported history of portal colopathy, with perianal hemorrhoids as well as diverticulosis.
- H/o Varices within the posterior wall of third portion of duodenum, noted on CT scan in 08/2025
#2. History of cirrhosis related to alcoholism.
- Portal hypertension with ascites, s/p almost weekly paracentesis. Also had been on spironolactone and Lasix along with ursodiol
- History of hepatic encephalopathy, chronically on rifaximin and lactulose
#3. Alcohol use disorder
- Continue MSAS, monitor for any signs or symptoms of withdrawal
- Currently consuming 1 glass of red wine every other day.
#4. Mild hyponatremia on admission
- Improved
- D/c IV NS infusion, known h/o ascites requiring frequent paracentesis.
Other medical diagnoses:
- Anxiety
- Chronic back pain
- Chronic hyponatremia
- Chronic hypotension, requires midodrine
- ADHD
- COPD. On Symbicort, well controlled.
- H/o Smoking, lately vaping
Critical Care time 65 mins -- The patient is admitted for acute critical illness for the treatment of vital organ failure and/or prevention of further life-threatening conditions. Total care includes time spent in review of history, physical exam,
medications, hemodynamic/ventilator parameters, laboratory data, imaging and discussion with house staff, pharmacy, respiratory therapy, financial auditor, and nursing.
Data:
CT A/P 08/2025: There is no evidence for active GI bleeding by CT.
Prominent varices within the posterior wall of the third portion of the duodenum, but no contrast extravasation into the lumen of the duodenum.
Thickening of the wall the right colon, which is likely portal colopathy.
Moderate to large amount of ascites within the abdomen and pelvis.
Cirrhotic liver. No convincing CT evidence for hepatocellular carcinoma.
Splenomegaly.
Cholelithiasis. No evidence for biliary ductal dilation.
Edema surrounding the head of the pancreas, most likely from ascites. Please correlate with any clinical signs or symptoms that would suggest pancreatitis.
ECHO 07/2025: 1. Normal left ventricular systolic function.
2. Estimate ejection fraction 60 to 65%.
3. Mitral annular calcification and mild mitral regurgitation.
4. No prior study available for comparison.
[2025-10-23 15:32] LABS: Hematocrit 29.6 % (37.0-47.0); Hemoglobin 9.1 g/dL (12.0-16.0)
--- NOTE | 2025-10-23 16:10 | PTCARENOTE ---
Pt received from PACU. AAOx3. Sinus rhythm. Lungs CTA. On bedpan x3 but no BM since arrived to unit. Reports abdominal discomfort and chronic back pain. IVF, protonix and sandostatin per order.
[2025-10-23] MEDS: MYLICON 80 MG PO (16:17)
[2025-10-23] MEDS: STERILE WATER FOR INJECTION 10 ML IV (18:27)
[2025-10-23] MEDS: ROCEPHIN 1000 MG IV (18:27)
[2025-10-23] MEDS: LIDOCAINE 4% PATCH 1 PATCH TOPICAL (18:28)
[2025-10-23 18:53] LABS: Hematocrit 27.1 % (37.0-47.0); Hemoglobin 8.4 g/dL (12.0-16.0)
[2025-10-23] MEDS: DESYREL 200 MG PO (21:22)
[2025-10-23] MEDS: ZYRTEC 10 MG PO (21:22)
--- NOTE | 2025-10-23 21:53 | PTCARENOTE ---
Received patient at start of shift, aao x3, affect pleasant. Patient able to make needs known, using call grossman appropriately. Denies pain at this time and confirms prn dilaudid effective for pain relief. NSR on the monitor, positive radial and pedal
pulses b/l. Lungs cta throughout, pox 98% ra, no sob or forte noted. Abdomen round, bs hyperactive x4. Continent of bladder, urinating 550ml using bedpan. Patient continues with Protonix gtt, Octrotide gtt. All IV sites intact and patent.
Patient refusing scd's, related education provided. Call grossman within reach, will continue to monitor patient closely.
[2025-10-24] VITALS (18 sets, daily range): BP systolic 93–125; BP diastolic 57–80; BMI 20.1
[2025-10-24 00:03] LABS: Hematocrit 25.2 % (37.0-47.0); Hemoglobin 8.1 g/dL (12.0-16.0)
--- NOTE | 2025-10-24 00:55 | PTCARENOTE ---
Patient currently resting in bed, observed comfort. Hgb repeated, 8.1. Assessment otherwise unchanged. Will continue to monitor patient closely.
[2025-10-24] MEDS: DILAUDID 0.25 MG IV ×4 (02:53→22:19)
[2025-10-24] MEDS: MYLICON 80 MG PO ×3 (03:07→22:44)
--- NOTE | 2025-10-24 03:09 | PTCARENOTE ---
Patient c/o back pain, states she cannot take tylenol d/to liver issues. PRN Dilaudid administered. Pt c/o gas pains a short time after, PRN simethicone administered per orders. Call grossman within reach, will continue to monitor patient closely.
[2025-10-24] MEDS: PROTONIX 100 IV (05:16)
--- NOTE | 2025-10-24 06:02 | PTCARENOTE ---
At start of shift patient states that she is sweaty when she sleeps and requested hygiene in am. At this time patient refusing chg cloth bath and requesting to get cleaned up later today. Will update oncoming rn.
[2025-10-24] MEDS: REMOVE LIDOCAINE PATCH REMOVE (06:05)
[2025-10-24 06:25] LABS: ALT (SGPT) 25 U/L (0-35); AST (SGOT) 63 U/L (14-36); Albumin 2.6 g/dl (3.5-5.0); Alkaline Phosphatase 51 U/L (38-126); Blood Urea Nitrogen 11 mg/dl (7-17); Calcium 8.2 mg/dl (8.4-10.2); Carbon Dioxide 17 mmol/L (22-30); Chloride 113 mmol/L (98-107); Estimated Creatinine Clearance 86 ml/min; Glucose 125 mg/dl (70-99); Magnesium 1.7 mg/dl (1.6-2.3); Potassium 4.7 mmol/L (3.5-5.1); Sodium 133 mmol/L (135-145); Total Protein 5.4 g/dl (6.3-8.2); eGFR > 60.00
[2025-10-24] MEDS: SYMBICORT 160/4.5 MCG INHALER 1 PUFF INH (07:37)
[2025-10-24] MEDS: LIORESAL 10 MG PO ×3 (08:10→22:19)
[2025-10-24] MEDS: ACTIGALL 300 MG PO ×2 (08:11→20:25)
[2025-10-24] MEDS: XIFAXAN 550 MG PO ×2 (08:11→20:26)
[2025-10-24] MEDS: BUSPAR 10 MG PO ×3 (08:11→22:19)
[2025-10-24] MEDS: DUPHALAC/CHRONULAC 20 GRAMS PO ×3 (08:12→22:19)
[2025-10-24 08:14] LABS: Hematocrit 26.6 % (37.0-47.0); Hemoglobin 8.3 g/dL (12.0-16.0); Mean Corp Hgb Conc. 31.2 g/dL (33.0-37.0); Mean Corpuscular Volume 85.0 fL (81.0-99.0); Nucleated Red Blood Cells % 0 %; Platelet Count 129 10^3/uL (130-400); Red Cell Dist. Width 17.3 % (11.5-14.5)
--- NOTE | 2025-10-24 08:42 | W.PN.HOSP.TC ---
Addendum entered and electronically signed by Michael Alba MD 10/24/25 20:29:
Attending Addendum-I saw and evaluated the patient. I reviewed the resident�s note and agree with findings and plan as documented in the resident�s note. Sub: feels greatly improved status post BM. Per patient stool was brown with coating of bright
red blood. 'bloating' sensation improved. No CP palps NV fevers chills dizziness. Full 12 point ROS reviewed and negative except as documented Exam- vitals reviewed in EMR GEN-NAD heart RRR Lung CTA B/L Abd minimal fluid wave appreciated pos BS NT
non distended LE no edema, Neuro AAO x 3 no asterixis
Plan:
#BRBPR/Possibly Bleeding Duodenal Varix/Acute Blood Loss anemia
-H/O GAVE syndrome
-EGD 10/23-medium sized duodenal varix in 3rd portion with a platelet plug overlying, no bleeding initially, Upon relook into small bowel, active bleeding was encountered and appeared to originate from suspected varix
Injected with dilute epi 4cc unsuccessful.
Hemospray applied, somewhat difficult due to reflux of blood and clotting
Bleeding appeared to subside but not completely stopped
-patient is hemodynamically stable-> transfer to [facility]
-transfused 1 unit PRBC prior to EGD and 1 unit after
-H and H q 6 hours- relatively stable
-appreciate GI input
-start propranolol
-advance to [facility]
-cont octreotide gtt, DC protonix gtt->PO BID
-awaiting transfer to [facility] for TIPS
-MELD 14
# Moderate Liver disease with cirrhosis/ascites/PHTN
-previously requiring weekly paracentesis last on 09/06
-elevated INR
-cont Xifaxan lactulose,
-spironolactone and lasix on hold due to low BP-restart in am
-no indication for paracentesis at this time
-cont rocephin for SBP prophy
-transfer to [facility] for TIPS when bed available
# AUD
- MSAS @ 0-1
- encouraged to quit drinking
#ADHD- cont Adderall PDMP reviewed
#H/O GAVE syndrome
#Chronic hypotension: cont Midodrine
#Acute on Chronic Hyponatremia: resolving recheck BMP in AM
#Anxiety: Cont Buspar DC Klonopin
#Chronic back pain-cont lidocaine patch, baclofen
#Severe protein calorie malnutrition
FULL/SCDs
Dispo-from home
Time spent coordinating care, review of plan of care with resident, personally reviewed records in EMR, med rec, consults, notes, labs, radiology, d/w nursing,GI and veterinary radiologist � 52 mins
Original Note:
Today's Communication/Plan
-
Continue to monitor H&H
Clear liquid diet
Awaiting [place] transfer
Assessment / Plan
Assessment / Plan
Impression:
Patient is a 55-year-old female, with past medical history of decompensated chronic liver disease secondary to alcoholic liver cirrhosis, history of hepatic encephalopathy, recurrent upper/lower GI bleeding, anemia, presented with acute rectal
bleeding. S/p EGD, postprocedural oozing of blood from duodenal varix in currently n.p.o. third portion of the duodenum. Currently n.p.o. Awaiting pending transfer
Follows with Chaz Garcia at the [facility]-shine worker
History of hemorrhoids, large hemorrhoids observed on external exam and rectal exam-possibly contributory to the symptoms
Presented with dizziness s/p 3 units of packed RBCs
Assessment/plan:
# Bright red bleeding per rectum secondary to liver cirrhosis/portal hypertension/duodenal varices versus hemorrhoids
Bright red bleeding indicating acute lower GI bleed
S/p EGD-postprocedure oozing of blood noticed from the duodenal varix and third portion of duodenum
EGD showed-normal esophagus, portal hypertensive gastropathy, duodenal varices in third portion, no bleeding on initial pass, active bleeding in third portion seen on second look, injected dilute epi unsuccessful, hemostatic spray applied, active
bleeding subsided-not completely resolved
Continue octreotide infusion
Continue PPI twice daily
Start clear liquid diet
Continue lactulose and rifaximin
H&H 6 hourly
Gastroenterology on board
Awaiting [place] transfer-patient accepted by Dr. Robert Gibson
# Acute blood loss anemia
S/p 3 packs of RBCs
H&H 6 hourly
Currently hemoglobin stable at 8
#Liver cirrhosis-history of ascites/hepatic encephalopathy/upper and lower GI bleed
Most likely secondary to chronic alcohol use
Continue lactulose and rifaximin
Continue prophylactic thiamine and folate
History of requiring paracentesis every week-last time done in August-clinically does not need paracentesis at this time
No bowel movement since yesterday
MELD 3.0- 16
lactate 1.1
#Etoh abuse/dependence
Longstanding history of alcohol abuse/dependence
Currently drinking approximately 1 glass of wine every evening and sometimes more
MSAS scoring 1,RASS-0+/-1
Continue folate and thiamine
#Hyponatremia
Continue IVF and monitor
#Transaminitis and Pancytopenia
Most likely secondary to alcohol use
CODE STATUS: FULL CODE
Stress Ulcer Prophylaxis: Protonix IV
DVT Prophylaxis: SCDs
Critical
Transferred to ICU
Anticipated Discharge: 24 - 48 hours
Subjective/Interval History
-
Date of Service: October 24, 2025
Patient seen and examined at bedside.
S/p EGD, postprocedure oozing of blood from duodenal varix, transferred to ICU, awaiting pending transfer, patient is aware.
NPO-requesting to eat, would ask GI for clearance
Feels bloated, passing gas
Denies any chest pain, palpitations, dizziness, lightheadedness, abdominal pain
Objective Data
-
Labs:
Laboratory Results
10/23/25 10/24/25 10/24/25
23:56 05:38 05:39
WBC Cancelled
Hgb 8.1 L Cancelled
Hct 25.2 L Cancelled
Plt Count Cancelled
PT
INR
Sodium 133 L
Potassium 4.7
Chloride 113 H
Carbon Dioxide 17 L
BUN 11
Creatinine 0.5 L
Glucose 125 H
Calcium 8.2 L
Total Bilirubin 0.8
AST 63 H
ALT 25
Alkaline Phosphatase 51
10/24/25 10/24/25 10/24/25
06:39 08:06 08:25
WBC Cancelled 3.1 L
Hgb Cancelled 8.3 L
Hct Cancelled 26.6 L
Plt Count Cancelled 129 L
PT Pending
INR Pending
Sodium
Potassium
Chloride
Carbon Dioxide
BUN
Creatinine
Glucose
Calcium
Total Bilirubin
AST
ALT
Alkaline Phosphatase
Vital Signs:
Vital Signs
Temp Pulse Resp BP Pulse Ox
97 F 100 14 107/69 98
10/24/25 07:24 10/24/25 08:11 10/24/25 07:43 10/24/25 08:11 10/24/25 07:43
I&O
10/23/25 10/24/25 10/25/25
06:59 06:59 06:59
Intake Total 370 / 370 915 / 915 33 / 33
Output Total 1150 / 1150 450 / 450
Balance 370 / 370 -235 / -235 -417 / -417
Review of Systems
-
Constitutional: Reports Weakness
EENT: Reports No Symptoms Reported
Respiratory: Reports No Symptoms
Cardiac: Reports No Symptoms
Abdomen/GI: Reports Bloated
Breast: Reports No Symptoms
Genitourinary: Reports No Symptoms
Musculoskeletal: Reports No Symptoms
Skin: Reports No Symptoms
Neuro: Reports No Symptoms
Endocrine: Reports No Symptoms
Hematologic / Lymphatic: Reports No Symptoms
Allergy / Immunology: Reports No Symptoms
Psych: Reports Anxious
Physical Exam
-
General: No Apparent Distress and Appears Chronically Ill
HEENT: Normocephalic, Atraumatic and Moist Mucous Membranes
Respiratory: Clear to Auscultation; Negative Wheezes, Rales or Rhonchi
Cardiac: Regular Rhythm, S1/S2 and Tachycardic
GI: Soft, Nontender, Nondistended and Normal Bowel Sounds
Musculoskeletal: No Clubbing, No Cyanosis and No Edema
Skin: Warm and Dry; Negative Rash, Ulcers or Lesions
Neuro: Awake, AO x 3 and No Motor Deficits
Psych: Calm
[2025-10-24] MEDS: SANDOSTATIN 250 MCG IV ×2 (09:02→20:24)
--- NOTE | 2025-10-24 09:37 | W.PN.GI.CBS2 ---
Today's Communication / Plan
-
Awaiting transfer to [place] for management of bleeding duodenal lesion. It was previously felt to be Dieulafoy lesion on EGD at [place] in August. Yesterday, it appeared to represent a possible duodenal varix with platelet plug. She has prominent
duodenal varices seen on CT. I spoke with [facility] service and told them I suspect varix but am not entirely confident. Would discuss further assessment at [place] prior to proceeding to TIPS.
Continue Octreotide gtt
Change protonix gtt to BID
Start clears
Hgb has been stable
MELD 14
Assessment / Plan
-
Summary: 55yo with hx cirrhosis (diagnosed a couple years ago), alcohol abuse with continued ETOH use 1 drink wine every other day , hepatic encephalopathy, ascites, prior UTI, GAVE on scope in [place] in March, and recurrent GI bleeding with
concern for duodenal dieulofoy on last EGD at [place]. She had multiple admission with anemia and bleeding and ascites. She has been doing better over last few weeks. She currently has less ascites and admits to alternating Lasix 20mg with
Spironolactone 50mg with alternate day Spironolactone 100mg She had follow up with Dr. Garcia September who also spoke about transplant evaluation but was concerned for continued ETOH use. In review with patient she now presents for concern
for recurrent rectal bleeding. She woke up at 4:30am 10/22 with large red stool followed by 2 more stools with blood. She admits to dizziness and nausea but denies odynophagia, GERD, vomiting, abdominal pain, with about 2 formed stool daily
mostly brown with some black stool on 10/21. In addition to bleeding pt also with prior imaging concern for multifocal lobular and confluent fatty infiltration LIRADS 3 on prior MRI in July. Last need for paracentesis was 09/07. On
admission hbg 7.3 with drop to 5.9 after admission. Last hbg 7.7 09/07. Platelets 212, NA 130, creat 0.5, albumin 3.3 INR 1.49
07/23- CTA severe cirrhosis, large lesion of fatty attenuation over 80% with mass effect malignancy, steatosis, cirrhotic nodules, severe Portal HTN, midl colitis tamara colonopathy, diverticulosis, small perihepatic ascites
07/25MRI cirrhosis Multifocal regions of lobular and confluent fatty infiltration. Overall imaging features suggest classification of LIRADS 3. no PV or hepatic vein thrombosis mod ascites, cholelithiasis, GBWT with ascites, 7.5 CBD
08/08/25 CT a/p angio There is no evidence for active GI bleeding by CT.Prominent varices within the posterior wall of the third portion of the duodenum, but no contrast extravasation into the lumen of the duodenum.
Thickening of the wall the right colon, which is likely portal colopathy. Moderate to large amount of ascites within the abdomen and pelvis. Cirrhotic liver. No convincing CT evidence for hepatocellular carcinoma.
Splenomegaly. Cholelithiasis. No evidence for biliary ductal dilation.Edema surrounding the head of the pancreas, most likely from ascites. Please correlate with any clinical signs or symptoms that would suggest pancreatitis.
multiple par 300- 3650 neg SBP( 07/27 atypical cell favor reactive mesothelia cells, inflammatory cell predominant RBC's present , repeat 08/01 neg malignant cells ) last 09/07.
scopes:
03/2025 GAVE on scope in [place]
07/23/25- [facility] enteroscopy -GAVE without bleeding, nodule duodenum, blood in third portion of duodenum unable to clear, bleeding reflux from jejunum, hemospray, non bleeding jejunal ectasia, s/p APC
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
08/02/25 Do flex sig no old or fresh blood, diffuse colonopathy, hemorrhoids, diverticulosis
08/2025-EGD Nav- Dieulafoy lesion second portion of duodenum with clot with clipping and epi injection
08/2025 - [place]- colon- perianal skin tags, hematin entire colon, IH no active source of bleeding seen blood in TI
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 No evidence of AVM or blood No specimens collected
Impression:
Dieulafoy vx duodenal varices
Recurrent GIB with bloody/black stools. Dieulafoy lesion on EGD in August at [place]. EGD 10/23 suspected varices third portion duodenum with ?platelet plug vs site of prior Dieulafoy at [place]. No bleeding initially, but active bleeding on relook,
injected dilute epi unsuccessful, hemospray applied with subsiding but incomplete.
She has had CTs in past demonstrating prominent varices in third portion duodenum.
EtOH cirrhosis. MELD 3.0 = 14 (10/23). Seen by Dr Garcia
diffuse colopathy
ascites improved on diuretic therapy
Multifocal regions of lobular and confluent fatty infiltration. Overall imaging features suggest classification of LIRADS 3 per recent MRI
HE on lactulose and Xifaxan
-hyponatremia
-coagulopathy
-GAVE on prior EGD
-hx falls
-bipolar disorder
-cholelithiasis/GBWT with ascites per imaging
-chronic back pain
-splenomegaly
Subjective
Subjective
Date of Service: October 24, 2025
No BMs overnight
Objective
Data Reviewed
Laboratory Data:
Laboratory Results
10/24/25 05:38
Laboratory Results
PT 18.5 Sec (11.4-14.6) H 10/23/25 05:59
INR 1.52 10/23/25 05:59
APTT 32.2 Sec (23.4-35.0) 10/23/25 05:59
Magnesium 1.7 mg/dl (1.6-2.3) 10/24/25 05:38
Total Bilirubin 0.8 mg/dl (0.2-1.3) 10/24/25 05:38
AST 63 U/L (14-36) H 10/24/25 05:38
ALT 25 U/L (0-35) 10/24/25 05:38
Alkaline Phosphatase 51 U/L (38-126) 10/24/25 05:38
Vital Signs and I&O:
Vital Signs
Temp Pulse Resp BP Pulse Ox
97 F 81 18 100/69 98
10/24/25 07:24 10/24/25 09:15 10/24/25 09:15 10/24/25 09:05 10/24/25 09:15
I&O
10/23/25 10/24/25 10/25/25
06:59 06:59 06:59
Intake Total 370 / 370 915 / 915 70 / 70
Output Total 1150 / 1150 450 / 450
Balance 370 / 370 -235 / -235 -380 / -380
Physical Exam
Physical Exam
GI: Soft, Non Distended and Non Tender
--- NOTE | 2025-10-24 10:44 | PTCARENOTE ---
patient seen by Dr. Chung and Dr. Hunter, now tele status after no episodes of bleeding overnight. patient Hbg is stable, will trend q8 hours. Patient will start on lear liquid diet. will call transfer center for change on level of care
--- NOTE | 2025-10-24 13:09 | W.PN.INTV ---
Today's Communication / Plan
Recommendations
- Increase lactulose to 3 times daily dosing
- Patient stable for transfer out of ICU
- Await transfer to [facility]
- Emergency Management Coordinator service will sign off, please call as needed
Assessment
-
Patient is a 55-year-old female with known history of decompensated cirrhosis requiring multiple paracentesis for ascites, hepatic encephalopathy as well as recurrent GI bleeding. Patient has had upper endoscopies, sigmoidoscopies in the past
suggestive of portal colopathy, portal gastropathy, duodenal varices, angiodysplasia in the duodenal area in the past. Patient presented to the hospital on 10/22 when she woke up ortho/prosthetic aide with larger red stools followed by 2 additional
episodes of hematochezia. Patient reportedly felt dizzy and nauseous and presented to the emergency room for further evaluation. She was noted to have an admission hemoglobin of 7.3 which dropped further down to 5.9. Patient received blood
transfusion and subsequently GI service was consulted. 10/23, patient was taken to GI suite and had an upper endoscopy performed which showed duodenal third part varices. Bleeding could not be completely controlled with local therapies and patient
was subsequently admitted to ICU on octreotide and Protonix infusion with plan for transfer to [facility] for TIPS. Emergency Management Coordinator consult was requested for further input.
#1. Hematochezia with acute blood loss anemia
- EGD 10/23/2025, suggestive of portal gastropathy as well as suspected duodenal varices in the third portion with platelet plug overlying, injected dilute epi, unsuccessful subsequently hemostatic spray applied, active bleeding subsided but not
completely resolved.
- Stable serial H/H, monitored closely in ICU. Continue Protonix and octreotide infusion. Continue empiric ceftriaxone in the setting of ascites and GI bleed.
- Await transfer to a tertiary facility with ability to perform TIPS, GI service on case
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
- Reported history of portal colopathy, with perianal hemorrhoids as well as diverticulosis.
- H/o Varices within the posterior wall of third portion of duodenum, noted on CT scan in 08/2025
#2. History of cirrhosis related to alcoholism.
- Portal hypertension with ascites, s/p almost weekly paracentesis. Also had been on spironolactone and Lasix along with ursodiol
- History of hepatic encephalopathy, chronically on rifaximin and lactulose. has not had BM since yesterday, increase Lactulose to TID.
#3. Alcohol use disorder
- Continue MSAS, monitor for any signs or symptoms of withdrawal
- Currently consuming 1 glass of red wine every other day.
#4. Mild hyponatremia on admission
- Improved
- D/c IV NS infusion, known h/o ascites requiring frequent paracentesis.
Other medical diagnoses:
- Anxiety
- Chronic back pain
- Chronic hyponatremia
- Chronic hypotension, requires midodrine
- ADHD
- COPD. On Symbicort, well controlled.
- H/o Smoking, lately vaping
Critical Care time 45 mins -- The patient is admitted for acute critical illness for the treatment of vital organ failure and/or prevention of further life-threatening conditions. Total care includes time spent in review of history, physical exam,
medications, hemodynamic/ventilator parameters, laboratory data, imaging and discussion with house staff, pharmacy, respiratory therapy, sports medicine physician, and nursing.
Data:
CT A/P 08/2025: There is no evidence for active GI bleeding by CT.
Prominent varices within the posterior wall of the third portion of the duodenum, but no contrast extravasation into the lumen of the duodenum.
Thickening of the wall the right colon, which is likely portal colopathy.
Moderate to large amount of ascites within the abdomen and pelvis.
Cirrhotic liver. No convincing CT evidence for hepatocellular carcinoma.
Splenomegaly.
Cholelithiasis. No evidence for biliary ductal dilation.
Edema surrounding the head of the pancreas, most likely from ascites. Please correlate with any clinical signs or symptoms that would suggest pancreatitis.
ECHO 07/2025: 1. Normal left ventricular systolic function.
2. Estimate ejection fraction 60 to 65%.
3. Mitral annular calcification and mild mitral regurgitation.
4. No prior study available for comparison.
Subjective Dataa
Subjective Data
Date of Service:
Date of Service: October 24, 2025
Subjective:
Patient comfortably lying in bed in no acute distress.
Review of Systems
Genitourinary: Other (All 14 systems reviewed and negative except as stated above in the history of present illness.)
Objective Data
Data Reviewed
Vital Signs / I&O / Oxygen:
Vital Signs
Temp Pulse Resp BP Pulse Ox
98.8 F 91 20 96/64 99
10/24/25 11:00 10/24/25 11:15 10/24/25 11:15 10/24/25 11:00 10/24/25 11:15
Intake and Output
10/23/25 10/24/25 10/25/25
06:59 06:59 06:59
Intake Total 370 / 370 915 / 915 380 / 380
Output Total 1150 / 1150 450 / 450
Balance 370 / 370 -235 / -235 -70 / -70
SaO2 99
Nasal Cannula flow liters per 2
minute
Physical Exam
General: Comfortable
HEENT: Normocephalic
Cardiovascular: S1-S2
Respiratory: Clear
GI: Soft
Neurology: Awake and Alert
Skin: Warm
Labs/Micro/Reports
Lab Data
10/24/25 05:38
[2025-10-24 15:56] LABS: Hematocrit 25.9 % (37.0-47.0); Hemoglobin 8.1 g/dL (12.0-16.0)
[2025-10-24 16:06] LABS: INR 1.49; PT 17.7 Sec (11.4-14.6)
--- NOTE | 2025-10-24 16:41 | CM ---
F/U: Patient asked for Case Management. Patient stated that her mother's money who is controlled by her uncle pays for her apartment. Now, the uncle will not get her lease renewed so she will loose her home in Dec 2025. Patient has a place to live
at the moment. Patient does not work not has income- waiting for Social Security. [facility] will provide housing resources. PLAN: Anticipate Home No Needs.
[2025-10-24] MEDS: ROCEPHIN 1000 MG IV (17:29)
[2025-10-24] MEDS: LIDOCAINE 4% PATCH 1 PATCH TOPICAL (17:29)
[2025-10-24] MEDS: STERILE WATER FOR INJECTION 10 ML IV (17:29)
[2025-10-24] MEDS: PROTONIX IV 40 MG IV (20:25)
[2025-10-24] MEDS: NSS (PRESERVATIVE FREE) 10 ML IV (20:25)
[2025-10-24] MEDS: INDERAL 10 MG PO (20:27)
--- NOTE | 2025-10-24 21:21 | W.PN.UPDATE ---
Update Note
Progress Note Update
10/24/25
2100- Spoke with Dr. Hunter, machinery engineer about stopping octreotide for the transport to [facility] as medication requires nurse attendant. Physician is ok with stopping octreotide for transportation down to [facility], receiving physician
updated as well and RN.
--- NOTE | 2025-10-24 21:52 | PTCARENOTE ---
Patient received at change of shift. AAO x3, able to make needs known, denies pain at start of shift, confirms increasing back pain throughout evening. Will administer prn medications as able for pain relief. NSR on the monitor, HR in the 80's, + pp
and rp b/l. Lungs cta throughout, pox 97%. No sob, forte noted. BS active x4, patient tolerating clear liquid diet. Patient continues with Octreotide to right hand IV site as ordered. Call grossman within reach, will continue to monitor patient closely.
Notified that patient received a bed at [facility]. Report called to KUMAR Martinez at this time. marble supervisor time 23:30 tonight. Patient notified as well.
[2025-10-24] MEDS: ZYRTEC 10 MG PO (22:19)
[2025-10-24] MEDS: DESYREL 200 MG PO (22:19)
[2025-10-24] MEDS: SYMBICORT 160/4.5 MCG INHALER INH (23:19)
[2025-10-25 01:14] VITALS: BP 105/52
--- NOTE | 2025-10-25 02:49 | PTCARENOTE ---
Ambulance present to transfer patient at this time. Report given to EMS.
--- NOTE | 2025-10-25 08:54 | CM ---
F/U: Patient transferred to [facility]. PLAN: [facility] for procedure.
--- NOTE | 2025-10-25 11:35 | W.DCSUMMARY ---
Discharge Summary
Discharge Data
Date of Admission: 10/22/25
Date of Discharge: 10/25/25
-
Pending Results: No
Hospital Course
Discharging Physician :
Michael Alba Shahzadi, Sandal
Disposition :
Acute care hospital
Primary care physician :
Chichi Garrison
Principal Discharge diagnosis :
Bright red bleeding per rectum/Possibly Bleeding Duodenal Varix/Acute Blood Loss anemia
Chronic Discharge diagnosis :
Moderate Liver disease with cirrhosis/ascites/Portal HTN
Alcohol use disorder
H/O GAVE syndrome
Chronic hypotension
Chronic Hyponatremia
Anxiety
Chronic back pain
Severe protein calorie malnutrition
Hospital Course :
Patient is a 55-year-old female with known history of decompensated cirrhosis requiring multiple paracentesis for ascites, hepatic encephalopathy as well as recurrent GI bleeding. Patient has had upper endoscopies, sigmoidoscopies in the past
suggestive of portal colopathy, portal gastropathy, duodenal varices, angiodysplasia in the duodenal area in the past.
Patient presented to the hospital on 10/22 when she woke up fall intern with larger red stools followed by 2 additional episodes of hematochezia. Patient reportedly felt dizzy and nauseous and presented to the emergency room for further
evaluation.
She was noted to have an admission hemoglobin of 7.3 which dropped further down to 5.9. Patient received blood transfusion in ED and subsequently GI service was consulted. 10/23, required another blood transfusion and then patient was taken to GI
suite and had an upper endoscopy performed which showed duodenal third part varices
Bleeding could not be completely controlled with local therapies and patient was subsequently admitted to ICU on octreotide and Protonix infusion with plan for transfer to [facility] for TIPS.
10/24/25-Transportation down to [facility], receiving physician updated as well and RN(21:21), Octreotide infusion held at time of transport on direction of welding manager
Patient vitally and hemodynamically stable
Procedure findings :
Endoscopy procedure 10/23/25
Impression:
- Normal esophagus.
- Portal hypertensive gastropathy.
- Likely duodenal varices in third portion with platelet plug
overlying. No bleeding on initial pass, active bleeding in 3rd
portion seen on second look. Injected with dilute epi unsuccessful.
Hemostatic spray applied. Active bleeding subsided, but not
completely resolved
- No specimens collected.
Discharge Plan
-
Patient Disposition: Acute Care Hospital
Discharge Date and Time
Discharge Date/Time: 10/25/25 02:27
Print Language: KENYAN
[2025-10-25 19:26] LABS: AFP Male/Tumor Marker 3.08 ng/ml
== END 2025-10-25 02:27 | disposition short-term general hospital (02) | DRG 432 ==
LOC: ICU 13:41
PROVIDERS: Nurse Practitioner Family; Specialist; ADMITTING PHYSICIAN Family Medicine; CONSULT PHYSICIAN Internal Medicine; EMERGENCY PHYSICIAN Student in an Organized Health Care Education/Training Program; FAMILY PHYSICIAN Family Medicine; OTHER PHYSICIAN Internal Medicine
PROC: 30233N1 Transfusion of Nonautologous Red Blood Cells into Peripheral Vein, Percutaneous Approach (ICD-10-PCS; 2025-10-22)
PROC: 0W3P8ZZ Control Bleeding in Gastrointestinal Tract, Via Natural or Artificial Opening Endoscopic (ICD-10-PCS; 2025-10-23)
DX: K70.31 Alcoholic cirrhosis of liver with ascites (principal); E43 Unspecified severe protein-calorie malnutrition; K76.6 Portal hypertension; K62.5 Hemorrhage of anus and rectum; D62 Acute posthemorrhagic anemia; E87.1 Hypo-osmolality and hyponatremia; D68.9 Coagulation defect, unspecified; D61.818 Other pancytopenia; G89.29 Other chronic pain; I27.20 Pulmonary hypertension, unspecified; M54.50 Low back pain, unspecified; I10 Essential (primary) hypertension; K80.20 Calculus of gallbladder without cholecystitis without obstruction; F41.9 Anxiety disorder, unspecified; F31.9 Bipolar disorder, unspecified; F10.20 Alcohol dependence, uncomplicated; F90.9 Attention-deficit hyperactivity disorder, unspecified type; K31.89 Other diseases of stomach and duodenum; I86.8 Varicose veins of other specified sites; I95.89 Other hypotension; Z68.20 Body mass index [BMI] 20.0-20.9, adult; Z87.891 Personal history of nicotine dependence; Z79.51 Long term (current) use of inhaled steroids; Z87.19 Personal history of other diseases of the digestive system; Z80.0 Family history of malignant neoplasm of digestive organs; Z87.440 Personal history of urinary (tract) infections; J44.9 Chronic obstructive pulmonary disease, unspecified
CPT/HCPCS: 80053; 82105; 83605; 83735; 85014; 85018; 85025; 85610; 85730; 86850; 86900; 86901; 86920; 93005; 94640; 96360; 99285; J2354; P9016